=== PATIENT | female | born 1970 | race Two or more races ===

== ENCOUNTER → 2021-06-08 13:17 | Outpatient (BNVA) | payer BC, SELFPAY | PROVIDERS: PCP Nurse Practitioner Adult Health; Visit Provider Nurse Practitioner Family ==

== ENCOUNTER → 2021-08-24 10:14 | Outpatient (BNVA) | payer BC, SELFPAY | PROVIDERS: PCP Nurse Practitioner Adult Health; Visit Provider Nurse Practitioner Family | DX: Z13.89 Encounter for screening for other disorder (principal) ==

== ENCOUNTER 2022-03-29 10:48 | Emergency (ER) | payer OTHER, SELFPAY ==
[2022-03-29] VITALS (7 sets, daily range): BP systolic 128–158; BP diastolic 72–90; PULSE 80–94; RESP 14–20; TEMP 36.7–36.9; O2SAT 98–100; BMI 25.7
--- NOTE | ~2022-03-29 | XR_ITS ---
EXAMINATION: XR ANKLE, RIGHT CLINICAL INFORMATION: Post reduction COMPARISON: Right ankle x-rays earlier today TECHNIQUE: 2 views of the right ankle. XR/XR ankle RT 2V FINDINGS/IMPRESSION: Successful reduction of trimalleolar fracture dislocation of the right ankle. Bones are in near anatomical alignment. The ankle mortise is grossly intact.
--- NOTE | ~2022-03-29 | XR_ITS ---
EXAMINATION: XR ANKLE, RIGHT CLINICAL INFORMATION: Deformity. Fall. COMPARISON: None TECHNIQUE: AP, lateral, and mortise views of the right ankle. FINDINGS: The talus is dislocated posteriorly relative to the tibial plafond. The air is a posterior malleolar fracture fragment with vertex anterior angulation and posterior displacement by 1.5 cm. A Bueno B distal fibular fracture is noted with vertex anterior angulation and posterior displacement of the distal fracture fragment. A fracture of the posterior margin of the medial malleolus is also suspected, although not well seen on these images due to overlapping structures. Soft tissues are swollen. Tarsal bones are intact. XR/XR ankle RT min 3V IMPRESSION: Trimalleolar fracture dislocation of the right ankle.
--- NOTE | 2022-03-29 11:02 | ED.LOWEXIN ---
HPI - Extremity Injury (Lower) General Chief Complaint: Extremity Injury, Lower Stated Complaint: R ankle inj 03/29/22 Time Seen by Provider: 03/29/22 10:55 Source: patient Mode of arrival: wheelchair Limitations: no limitations History of Present Illness HPI Narrative: Patient is a 52-year-old female who presents emergency department for evaluation of traumatic right ankle pain. She states she was carrying something down the stairs and believe she may have missed the last step, causing her foot to get caught behind this tear and twisting. Believes that her foot may have everted. She is having severe pain to the medial ankle, with numbness sensation to the foot. Able to move the toes. Denies any prior injury to this extremity. Denies any anticoagulants. Related Data Home Medications Medication Instructions Recorded Confirmed aripiprazole 5 mg tablet (Abilify) 2.5 mg PO DAILY 06/08/21 01/25/22 baclofen 10 mg tablet 10 mg PO BID 06/08/21 01/25/22 diclofenac sodium 75 mg 75 mg PO BID 06/08/21 01/25/22 tablet,delayed release duloxetine 60 mg capsule,delayed 120 mg PO ONCE 06/08/21 01/25/22 release gabapentin 300 mg capsule mg PO BID 06/08/21 01/25/22 lorazepam 1 mg tablet mg PO BEDTIME 06/08/21 01/25/22 meloxicam 15 mg tablet 15 mg PO DAILY 06/08/21 01/25/22 quetiapine 25 mg tablet 150 mg PO 06/08/21 01/25/22 Previous Rx's Medication Instructions Recorded amitriptyline 10 mg tablet 10 - 20 mg PO BEDTIME 90 days #60 06/08/21 tabs baclofen 10 mg tablet 10 mg PO BID PRN muscle spasm 30 06/08/21 days #60 tabs prazosin 1 mg capsule 1 - 2 mg PO BEDTIME 30 days #60 12/06/21 caps erenumab-aooe 140 mg/mL 140 mg subcut ONCE 30 days #1 mL 01/04/22 subcutaneous auto-injector (Aimovig Autoinjector) oxycodone 5 mg tablet 5 mg PO Q6H PRN pain #10 tabs 03/29/22 Allergies Allergy/AdvReac Type Severity Reaction Status Date / Time codeine [CODEINE] Allergy Unknown UNKNOWN Verified 01/25/22 08:48 penicillin G [PENICILLIN G] Allergy Unknown UNKNOWN Verified 01/25/22 08:48 Sulfa (Sulfonamide Allergy Unknown UNKNOWN Verified 01/25/22 08:48 Antibiotics) [SULFA (SULFONAMIDE ANTIBIOTICS)] Review of Systems Review of Systems: Musculoskeletal: Ankle pain as noted in HPI Yes all other systems are reviewed and are negative [facility] Past Medical History Attestation statement: The following information was validated with the patient. Source: old records reviewed Surgical History History of carpal tunnel release Hx of shoulder surgery Family History Family History Father HTN (hypertension) FHx: mental illness Mother Cancer Social History Social History Alcohol intake: current Patient Tobacco Use Status: Never used Tobacco Advance Directives: No Advance Directives Information Provided: Yes Physical Exam Vital Signs: Vital Signs: Last Vital Signs Temp 98.5 F 03/29/22 13:09 Pulse 82 03/29/22 13:27 Resp 14 03/29/22 13:27 BP 130/78 03/29/22 13:27 Pulse Ox 98 03/29/22 13:27 O2 Del Method 03/29/22 13:27 Oxygen Flow Rate 2 03/29/22 12:21 BMI result Body Mass Index 25.7 Appearance: Alert.?Oriented to person, place and time. No acute distress.?Normal affect. Neck: Normal inspection.? Neck supple.?? CVS: Heart sounds normal. Normal heart rate and rhythm.? Pulses normal.?? Respiratory: No respiratory distress.? Lung sounds clear to auscultation bilaterally?? Abdomen: Soft and non-tender. Normoactive bowel sounds. Skin: Skin warm and dry.? Normal skin color.? Extremities: Deformity to right ankle, difficulty palpating pulses, positive Doppler signal DP/PT. Able to move the toes. Sensation is intact, foot feels cold. Neuro: Moves all extremities spontaneously. Sensation intact bilaterally. Course Course Course Narrative: Patient is a 52-year-old female presents emergency department for evaluation of traumatic right ankle pain. Sensation is intact to the fact, difficulty palpating pedal pulses, Doppler signal present; DP/PT. XR reveals trimalleolar fracture dislocation of the right ankle. Planning for conscious sedation; Versed and Ketamine for reduction and subsequent splinting, patient updated on plan of care. Agreeable with plan. Reevaluation(s) Reevaluation #1: Moderate sedation for reduction of trimalleolar fracture on the right with Dr. Sánchez. Consent obtained, potential complications and risks discussed with patient. Agreeable to moving forward with procedure. After receiving Versed and ketamine developed a macular rash to the anterior chest and right lateral neck that self resolved within 1 minute. Not appearing consistent with urticaria, no airway compromise, no hypoxia. With subsequent Versed and ketamine dosing again developed a macular rash to the anterior chest diffusely across the anterior and lateral neck as well as the face, 25 mg of Benadryl was administered, the nearly completely resolved within 1-2 minutes. Switched to propofol for sedation afterwards. Reduction completed, splinted; posterior long leg and stirrup, obtained post reduction films. Tolerated procedure well. Will consult with Orthopedics on-call, Dr. Malone Time: 12:29 Reevaluation #2: Dr. Malone advised outpatient follow-up in 4 days, on Saturday with subsequent surgery likely Saturday or Saturday. Her reduction x-ray shows near anatomic alignment. Discussed plan of care for discharge home, crutches and training provided, nonweightbearing, splint care discussed, rest, ice, elevation. Reviewed worrisome signs and symptoms to return back to emergency department for. All questions answered. Patient discharged in stable condition. Time: 13:22 Medications Administered Discontinued Medications Generic Name Dose Route Start Last Admin Trade Name Alejandro PRN Reason Stop Dose Admin Diphenhydramine HCl 25 mg 03/29/22 12:06 03/29/22 12:12 Diphenhydramine Hcl 50 Mg/Ml Vial IVPUSH 03/29/22 12:07 25 mg ONCE ONE Administration Ketamine HCl 70.307 mg 03/29/22 11:45 03/29/22 12:02 Ketamine Hcl/Ns 100 Mg/10 Ml Syringe 1 mg/kg (70.307 mg) 03/29/22 11:46 70.307 mg IVPUSH Administration ONCE ONE Midazolam HCl 5 mg 03/29/22 11:19 03/29/22 12:01 Midazolam Hcl/Pf 2 Mg/2 Ml Vial IVPUSH 03/29/22 11:20 4 mg ONCE ONE Increment Incremental Dosing Total Given: 4 mg Oxycodone HCl 5 mg 03/29/22 13:12 03/29/22 13:15 Oxycodone Hcl Immed Release 5 Mg Tablet PO 03/29/22 13:13 5 mg ONCE ONE Administration Propofol 100 mg 03/29/22 12:06 03/29/22 12:14 Propofol 200 Mg/20 Ml Vial IVPUSH 03/29/22 12:07 50 mg ONCE ONE Administration MDM - Extremity Injury (Lower) Medical Records Attestation: I reviewed the patient's medical records. Imaging Data XR ankle: Radiologist's impression: FINDINGS: The talus is dislocated posteriorly relative to the tibial plafond. The air is a posterior malleolar fracture fragment with vertex anterior angulation and posterior displacement by 1.5 cm. A Bueno B distal fibular fracture is noted with vertex anterior angulation and posterior displacement of the distal fracture fragment. A fracture of the posterior margin of the medial malleolus is also suspected, although not well seen on these images due to overlapping structures. Soft tissues are swollen. Tarsal bones are intact. XR/XR ankle RT min 3V IMPRESSION: Trimalleolar fracture dislocation of the right ankle. post-reduction XR: Radiologist's impression: XR/XR ankle RT 2V FINDINGS/IMPRESSION: Successful reduction of trimalleolar fracture dislocation of the right ankle. Bones are in near anatomical alignment. The ankle mortise is grossly intact.? ? Discharge Plan Discharge Clinical Impression: Closed trimalleolar fracture of ankle Qualifiers: Encounter type: initial encounter Laterality: right Qualified Code(s): S82.851A - Displaced trimalleolar fracture of right lower leg, initial encounter for closed fracture Patient Disposition: Home, Self-Care Additional Instructions: As discussed, the splint needs to remain in place until evaluated by orthopedics. It cannot get wet. Be sure to rest, apply ice for 10-15 minutes 4-6 times daily, elevate the leg at all times possible. You can take ibuprofen 200 mg, 3 tablets (600mg) every 6-8 hours as needed for pain, in addition to Tylenol 500 mg, 2 tablets (1,000mg) every 4-6 hours as needed for pain, but not to exceed 3 doses daily (3,000mg).? A new prescription for oxycodone was sent to the pharmacy to use as needed for severe pain. You have been given contact information for Orthopedics, please contact their office to arrange for follow-up visit for Saturday. Return to emergency department any new or worsening symptoms or concerns. Prescriptions: New oxycodone 5 mg tablet 5 mg PO Q6H PRN (Reason: pain) Qty: 10 0RF Rx Instructions: Partial Fill upon patient request. No Action prazosin 1 mg capsule 1 - 2 mg PO BEDTIME 30 Days Qty: 60 3RF Aimovig Autoinjector 140 mg/mL auto-injector 140 mg subcut ONCE 30 Days Qty: 1 6RF diclofenac sodium 75 mg tablet,delayed release (DR/EC) 75 mg PO BID baclofen 10 mg tablet 10 mg PO BID meloxicam 15 mg tablet 15 mg PO DAILY duloxetine 60 mg capsule,delayed release(DR/EC) 120 mg PO ONCE gabapentin 300 mg capsule PO BID lorazepam 1 mg tablet PO BEDTIME quetiapine 25 mg tablet 150 mg PO aripiprazole [Abilify] 5 mg tablet 2.5 mg PO DAILY amitriptyline 10 mg tablet 10 - 20 mg PO BEDTIME 90 Days Qty: 60 0RF baclofen 10 mg tablet 10 mg PO BID PRN (Reason: muscle spasm) 30 Days Qty: 60 3RF Referrals: Jeramy Malone MD [Physician] - Interventions: ED Discharge Assessment Last Done: 03/29/22 13:39 Discharge Date/Time: 03/29/22 13:40
[2022-03-29] MEDS: Midazolam HCl/PF 2 MG/2 ML VIAL 5 MG IVPUSH (12:01)
[2022-03-29] MEDS: Ketamine HCl/NS 100 MG/10 ML SYRINGE 70.307 MG IVPUSH (12:02)
[2022-03-29] MEDS: diphenhydrAMINE HCL 50 MG/ML VIAL 25 MG IVPUSH (12:12)
[2022-03-29] MEDS: propofoL 200 MG/20 ML VIAL 100 MG IVPUSH (12:14)
[2022-03-29] MEDS: oxyCODONE HCl Immed Release 5 MG TABLET PO (13:15)
== END 2022-03-29 13:40 | disposition home or self-care (01) ==
PROVIDERS: Emergency Provider Emergency Medicine; PCP Internal Medicine
DX: S82.851A Displaced trimalleolar fracture of right lower leg, initial encounter for closed fracture (principal); W10.8XXA Fall (on) (from) other stairs and steps, initial encounter; R21 Rash and other nonspecific skin eruption; T41.295A Adverse effect of other general anesthetics, initial encounter; Y92.230 Patient room in hospital as the place of occurrence of the external cause; Y93.89 Activity, other specified; Y92.018 Other place in single-family (private) house as the place of occurrence of the external cause; Y99.9 Unspecified external cause status
CPT/HCPCS: 27818; 73600; 73610; 96374; 96375; 99152; 99284; 99285; J1200; J2250

== ENCOUNTER 2022-04-03 11:35 | Day surgery (SDC) | payer OTHER, SELFPAY ==
[2022-04-03] VITALS (9 sets, daily range): BP systolic 119–153; BP diastolic 72–84; PULSE 82–95; RESP 16–18; TEMP 36.2–36.8; O2SAT 95–100; BMI 27.4
--- NOTE | ~2022-04-03 | FL_ITS ---
EXAMINATION: XR FLUOROSCOPY WITH IMAGES CLINICAL INFORMATION: Open reduction internal fixation right ankle fracture and dislocation. COMPARISON: Radiographs right ankle 03/29/2022 TECHNIQUE: Fluoroscopy Supervised By: Dr. Jeramy Malone. Fluoroscopy Time: 0.3 minutes. DAP: 0.017 Gycm2. Images: 6. FINDINGS: The lateral malleolar fracture is reduced with compression plate and multiple screws. Hardware intact. Near-anatomic alignment. Ankle mortise is symmetric. The suspected fracture posterior medial distal fibula is not well appreciated on spot views. FL/FL guidance in OR IMPRESSION: Status post open reduction internal fixation lateral malleolar fracture.
--- NOTE | 2022-04-03 12:24 | HO.ANESPROP2 ---
HPI - Anesthesia Eval Consult details Narrative: 52 F for right ankle ORIF PMFSH Active Problems Active Problems: All Active Problems (Updated 04/02/22 @ 11:32 by Ally Chavez Leidy) PTSD (post-traumatic stress disorder) (Acute) Tremor, physiological (Acute) Cognitive dysfunction (Acute) Migraine with aura (Acute) Past Medical History Medical History Relapsing polychondritis Family History Family History Father HTN (hypertension) FHx: mental illness Mother Cancer HTN (hypertension) Family history of problems with anesthesia: No Surgical History Surgical History H/O thumb surgery Status post open reduction with internal fixation (ORIF) of fracture of ankle Hx of shoulder surgery History of carpal tunnel release History of Problems with Anesthesia: Yes (PONV ) Social History Alcohol intake: current Alcohol intake frequency: holidays/special occasions only Patient Tobacco Use Status: Never used Tobacco Second Hand Smoke Exposure: No Current occupational status: employed 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, 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 Meds Allergies Allergy/AdvReac Type Severity Reaction Status Date / Time codeine [CODEINE] Allergy Severe swollen Verified 03/08/23 14:04 tongue Sulfa (Sulfonamide Allergy Severe Hives Verified 03/08/23 14:04 Antibiotics) [SULFA (SULFONAMIDE ANTIBIOTICS)] penicillin G [PENICILLIN G] Allergy Unknown UNKNOWN Verified 03/08/23 14:04 Active Medications: Current Medications Cefazolin Sodium/Dextrose (Ancef) 2 gm in 50 mls @ 100 mls/hr IV PREOP ONE Stop: 04/03/22 12:35 Home Medications Medication Instructions Recorded Confirmed Last Taken Type quetiapine 25 mg tablet 150 mg PO BEDTIME 06/08/21 01/08/23 04/02/22 History acetaminophen 650 mg 650 mg PO BID 04/05/22 01/08/23 Unknown History tablet,extended release (Tylenol Arthritis Pain) lorazepam 1 mg tablet 2 mg PO BEDTIME 04/05/22 01/08/23 Unknown History atorvastatin 10 mg tablet 10 mg PO DAILY 08/09/22 01/08/23 Unknown History bupropion HCl 150 mg 24 hr tablet, 150 mg PO QAM 12/31/22 01/08/23 Unknown History extended release (Wellbutrin XL) diclofenac sodium 75 mg 75 mg PO .prn 12/31/22 01/08/23 Unknown History tablet,delayed release duloxetine 60 mg capsule,delayed 90 mg PO ONCE 12/31/22 01/08/23 Unknown History release duloxetine 30 mg capsule,delayed 30 mg PO DAILY 01/08/23 01/08/23 Unknown History release Exam Exam Date and Time: April 03, 2022 1224 Height,Weight and Vital Signs: Height 5 ft 5 in Weight 74.843 kg Last Vital Signs Temp 97.1 F 04/03/22 12:07 Pulse 90 04/03/22 12:07 Resp 16 04/03/22 12:07 BP 153/83 H 04/03/22 12:07 Pulse Ox 97 04/03/22 12:07 O2 Del Method 04/03/22 12:07 Airway Mallampati Class: III Loose/Missing/Broken Teeth: Yes (Fillings ) Assessment and Plan Assessment Anesthesia Assessment: Anesthesia Plan Discussed Final Anesthetic Review Family History of Problems with Anesthesia: No History of Problems with Anesthesia: Yes (PONV ) NPO: Yes ASA Class: II Final Preanesthetic Review: Meds/Allgs Chart Reviewed, Consent Obtained/Reviewed and Anes Risks/Benef Reviewed Patient Risk: Intermediate Procedure Risk: Intermediate Anesthetic Plan Anesthetic Plan: GA, Regional Block and Agree w/ Assess. and Plan Disposition: Standard PACU
--- NOTE | 2022-04-03 13:21 | MHC.SHP ---
Pre-Procedural Eval Section A Date of Service: 04/03/22 The patient is an INPATIENT: No Changes since office visit: Yes Patient answered all questions; No Cold of Flu in the past 2 weeks, No New Medical Problems and No Changes in Medication The History & Physical has been completed within 30 days and I have reviewed it.: Yes Section B Chief Complaint: Nondisplaced trimalleolar fracture of right lower Allergies: Allergies Allergy/AdvReac Type Severity Reaction Status Date / Time codeine [CODEINE] Allergy Unknown UNKNOWN Verified 04/02/22 11:28 penicillin G [PENICILLIN G] Allergy Unknown UNKNOWN Verified 04/02/22 11:28 Sulfa (Sulfonamide Allergy Unknown UNKNOWN Verified 04/02/22 11:28 Antibiotics) [SULFA (SULFONAMIDE ANTIBIOTICS)] Plan I have reviewed the history and physical and performed a pertinent physical examination on my patient. No changes have occurred unless specified.
--- NOTE | 2022-04-03 14:48 | PM.OP ---
Brief Operative Note Date of Service: 04/03/22 Pre-op diagnosis: Right ankle frcture Post-op diagnosis: other (right lateral mal and right posterior mal) Procedure: ORIF lateral malleolus right ankle Implants: [place] 6 hol distal fibular locking plate Surgeon: Jeramy Malone MD Anesthesia: GETA and regional Was an Rotary Soil Stabilizer used for this Procedure?: Yes Rotary Soil Stabilizer: Ciarra Knight Estimated blood loss (mL): 10 Tourniquet time (min): 35 IV fluids (mL): 800 Pathology: none sent Condition: stable Disposition: PACU
--- NOTE | 2022-04-04 08:31 | W.PM.OPN ---
Operative Note Operative Note Date of Service: 04/03/22 Narrative: Date of Service: 04/03/22 Pre-op diagnosis: Right ankle frcture Post-op diagnosis: other (right lateral mal and right posterior mal) Procedure: ORIF lateral malleolus right ankle Implants: [place] 6 hol distal fibular locking plate Surgeon: Jeramy Malone MD Anesthesia: GETA and regional Was an Sales Service Rep used for this Procedure?: Yes Sales Service Rep: Ciarra Knight Estimated blood loss (mL): 10 Tourniquet time (min): 35 IV fluids (mL): 800 Pathology: none sent Condition: stable Disposition: PACU Procedure in detail: Patient was brought to the operating room and placed supine on the operative table. All bony prominences were well padded and a time-out was called to identify proper site proper procedure proper surgeon. IV antibiotics per weight were administered. I began by exsanguinating limb is slightly tourniquet to 300 mm Hg. I then made a standard posterolateral incision over the fibula. Full-thickness flaps were taken down to the fibular shaft and distal fibula. The fracture was identified and cleaned with a combination of curette, rongeur and irrigation. A lobster claw was used to provisionally reduce the fracture and a 6 hole distal fibular locking plate was applied using standard AO technique. Biplanar fluoroscopy was used to confirm hardware position and fracture reduction. Once I was satisfied that both of these were acceptable I irrigated copiously and turned my attention to the medial side. The medial malleolus was stable and the syndesmosis was intact and confirmed with an external rotation stress test. There was a small posterior malleolus fracture which did not warrant repair. Therefore all instrumentation was removed and copious irrigation was performed. Absorbable suture and nik were used for closure and the patient was placed into sterile dressings and a well-padded posterior splint. Tourniquet was let down and the patient was extubated brought to recovery room in stable condition there were no known complications.
== END 2022-04-03 16:49 | disposition home or self-care (01) ==
PROVIDERS: PCP Internal Medicine; Visit Provider Orthopaedic Surgery
PROC: (CPT 27792; principal; 2022-04-03 14:00)
DX: S82.854A Nondisplaced trimalleolar fracture of right lower leg, initial encounter for closed fracture (principal); W10.9XXA Fall (on) (from) unspecified stairs and steps, initial encounter; Y93.9 Activity, unspecified; Y92.9 Unspecified place or not applicable; Y99.9 Unspecified external cause status; Z88.0 Allergy status to penicillin; Z88.2 Allergy status to sulfonamides; Z88.5 Allergy status to narcotic agent
CPT/HCPCS: 27792; C1713; J0690; J1100; J1170; J2250; J2405; J2795

== ENCOUNTER 2022-04-16 | Outpatient (REF) | payer OTHER, SELFPAY ==
--- NOTE | ~2022-04-16 | XR_ITS ---
EXAMINATION: XR ANKLE, RIGHT CLINICAL INFORMATION: Pain in right ankle. COMPARISON: Right ankle 03/29/2022. TECHNIQUE: AP, lateral, and mortise views of the right ankle. FINDINGS: There is a lateral plate and screws stabilizing lateral malleolar fracture in alignment. There are surgical nik along the skin from recent intervention. There is no change in the posterior malleolar and nondisplaced medial malleolar fractures. The ankle mortise and subtalar joints are normal. XR/XR ankle RT min 3V IMPRESSION: 1. Status post ORIF lateral malleolar fracture in alignment. There are surgical nik along the skin from recent intervention. 2. There is no change in the posterior and medial malleolar fractures which are in alignment.
== END 2022-04-16 00:01 ==
LOC: HO.HOSX
PROVIDERS: Visit Provider Physician Assistant
DX: M25.571 Pain in right ankle and joints of right foot (principal)
CPT/HCPCS: 73610

== ENCOUNTER 2022-05-14 16:35 | Outpatient (REF) | payer OTHER, SELFPAY ==
--- NOTE | ~2022-05-14 | XR_ITS ---
EXAMINATION: XR ANKLE, RIGHT CLINICAL INFORMATION: Right ankle pain. COMPARISON: Right ankle radiographs dated 04/16/2022. TECHNIQUE: AP, lateral, and mortise views of the right ankle. FINDINGS: The patient is status post distal fibular ORIF showing good anatomic alignment and no evidence for hardware malfunction. The oblique distal fibular fracture still visualized. The distal tibia is intact. The tibial talar joint space is unremarkable. The tarsal bones are normally aligned. The soft tissues are unremarkable. XR/XR ankle RT min 3V IMPRESSION: Good anatomic alignment without overt hardware abnormality. The distal fibular fracture line is still visualized.
== END 2022-05-14 16:36 | disposition home or self-care (01) ==
LOC: HO.HOSX 16:35
PROVIDERS: Visit Provider Physician Assistant
DX: S82.851D Displaced trimalleolar fracture of right lower leg, subsequent encounter for closed fracture with routine healing (principal); X58.XXXD Exposure to other specified factors, subsequent encounter
CPT/HCPCS: 73610

== ENCOUNTER → 2022-06-28 13:52 | Outpatient (BNVA) | payer OTHER, SELFPAY | PROVIDERS: PCP Nurse Practitioner Adult Health; Visit Provider Physician Assistant | DX: Z13.89 Encounter for screening for other disorder (principal) ==

== ENCOUNTER 2022-08-09 10:39 | Outpatient (REF) | payer OTHER, BC, SELFPAY ==
--- NOTE | ~2022-08-09 | XR_ITS ---
EXAMINATION: XR ANKLE, RIGHT CLINICAL INFORMATION: Ankle pain. Prior reduction. Follow-up. COMPARISON: Radiographs right ankle 05/14/2022 TECHNIQUE: Right ankle is imaged in 3 views. FINDINGS: There is distal fibular compression plate and multiple screws. Hardware is intact. There is no osteolysis or destructive process. Ankle mortise is symmetric. Bony mineralization normal. No acute bony abnormality. The subtalar joint is unremarkable. XR/XR ankle RT min 3V IMPRESSION: -Status post ORIF distal fibula. Hardware intact. -No osteolysis or destructive process. Ankle mortise is symmetric.
== END 2022-08-09 10:40 | disposition home or self-care (01) ==
LOC: HO.HOSX 10:39
PROVIDERS: PCP Nurse Practitioner Adult Health; Visit Provider Physician Assistant
DX: S82.851D Displaced trimalleolar fracture of right lower leg, subsequent encounter for closed fracture with routine healing (principal); R60.0 Localized edema
CPT/HCPCS: 73610

== ENCOUNTER → 2022-09-13 10:49 | Outpatient (BNVA) | payer OTHER, BC, SELFPAY | PROVIDERS: PCP Nurse Practitioner Adult Health; Visit Provider Physician Assistant ==

== ENCOUNTER → 2022-10-08 13:08 | Outpatient (BNVA) | payer OTHER, BC, SELFPAY | PROVIDERS: PCP Nurse Practitioner Adult Health; Visit Provider Physician Assistant ==

== ENCOUNTER → 2022-10-29 13:15 | Outpatient (BNVA) | payer OTHER, BC, SELFPAY | PROVIDERS: PCP Nurse Practitioner Adult Health; Visit Provider Orthopaedic Surgery ==

== ENCOUNTER 2022-12-14 10:00 | Outpatient (RCR) | payer OTHER, BC, SELFPAY ==
--- NOTE | 2022-07-09 12:36 | MHC.PT.EP ---
[facility] [place] Office [place] Office [place] Office [address] Salty Nichole [address] [phone] F: [phone] F: [phone] F: [phone] F: [phone] Physical Therapy Plan of Care Date of Evaluation: Date of Surgery: 04/03/22 Diagnosis: This is a 52 yo female presenting to skilled PT with a script for closed trimalleolar fx of ankle. Assessment: This is a 52 yo female presenting to skilled PT with a script for closed trimalleolar fx of ankle. Patient underwent right ankle lateral malleolus ORIF performed on 04/03/[address] Malone. Per ortho PA note from 06/28: The patient reports pain in her ankle after she has been working on her feet. She confirms numbness in the 2nd, 3rd, and 4th toes on the right foot since the surgery. Patient does have some edema and increase pain along the peritoneal tendons. I recommended anti-inflammatories, elevation, ice, and rest. I would like to see her wean out of boot over the next few weeks. She has been having home physical therapy. However, I would like for her to switch to outpatient physical therapy and an order has been placed. She will need a Lyft to attend these sessions. She will remain out of work until her follow up. Follow up will be in 6 weeks, or sooner if needed. Patient arrives at outpatient PT today reporting a fall on going down the stairs (miss-stepped walking in slippers). She went to [place] ED where she had a manipulation and then surgery. She was in a splint s/p surgery and then a walking boot now for the past 12 weeks. She was NWBing until 6 wks ago. She was having home PT where she was given ankle pumps and ankle circles HEP as well as educated on cane use. She is using a walker at night/straight cane when out and occasionally uses the kneeling scooter still. She reports swelling and pain when attempting to wean out of boot on her own (she trys to tolerate without boot in AM as long as she can and then takes a break and puts back on for a rest). States that she is unable to stand longer than 10-15 mins without the boot, is not driving per surgeon and is not working due to pain and ambulation capabilities currently. She lives at home with her and step son and has help but tries to perform ADLs on own. Pain is located laterally and goes into the gastroc (achy, sharp and stabbing). Additionally has distal three digit numbness. Denies back and hip pain. Returns to surgeon on 08/09/22. Assessment reveals pain that ranges from a 4-10/10. Patient demos decreased ankle as well as knee and hip ROM, strength of BLE, impaired gait pattern and currently ambulating in boot at [facility]. She is TTP at lateral ankle, has gastroc and quad atrophy and decreased balance as well as self reported decreased endurance. Based on functional limitations, impaired QOL and decreased pain tolerance this patient is a good candidate for skilled PT 2x/wk for 6 wks. Frequency and Duration: The patient will be seen 2x/wk for 6wks Short Term Goals: I in HEP in 2 wks Fully wean from boot in 3 wks Improve DF by 5 degs in 4 wks Perform reciprocal gait on stairs in 4 wks [employer] Supervisor Goals: Demo normal/functional ankle ROM without gait deviation in 6 wks Improve pain to no more than a 2/10 at the worst in 6wks Return to work in full when medically cleared by surgeon Improve LEFs by at least 10 points in 6wks Treatment Plan: Modalities to reduce pain, spasms and effusion. Manual therapy to restore motion and function. Therapeutic exercise to improve strength and flexibility. Neuromuscular re-education for posture and balance. Therapeutic activities to return to functional activities of daily living. Electronically signed by: Jessica Lyn PT Please sign and return to therapist. Thank you for your referral.
--- NOTE | 2022-07-30 15:29 | MHC.PT.PR ---
[facility] [place] [facility] [place] [facility] [place] Office [address] Salty Nichole [address] [phone] F: [phone] F: [phone] F: [phone] F: [phone] Physical Therapy Progress Note Diagnosis: This is a 52 yo female presenting to skilled PT with a script for closed trimalleolar fx of ankle. Date of Surgery: 04/03/22 Date of Evaluation: 07/09/22 Treatments to Date: 7 Cancellations to Date: 0 No Shows to Date: 0 Subjective: Patient reporting a lot of pain. She had a hard weekend due to pain Pain Score and Location: 3 lateral ankle and gastroc Objective Measures: formal ROM next visit Assessment: 07/30: Pt reporting continuation of pain. She is frustrated with lack of progress in terms of pain management. She has not been using ice, educated her that this may be a helpful addition. She returned to wearing the boot in the house due to pain and continues to need the cane. She became emotional at our session due to pain. Her ROM has been gradually improving and she demos good active lateral, medial and PF as well as toe movements. DF is still limited but better than eval. Held standing work today due to pain. She returns to ortho for a follow up next week and educated her that she may want to ask for an x-ray and/or pain management education. I will send this report along to ortho for her visit. PT Plan: Continue with PT Frequency and Duration: The patient will be seen 2x/wk for 5wks Treatment Plan: Therapeutic Exercise Dynamic Therapeutic Activities Neuromuscular Re-ed Manual Therapies Taping Gait Home Exercise Program Patient Education Hot or Cold Pack Reviewed/ Agreed with Student Documentation: Therapist: Thank you once again for your referral.
--- NOTE | 2022-10-03 12:40 | MHC.PT.PR ---
[facility] [place] Office [place] Office [place] Office [address] Salty Nichole [address] [phone] F: [phone] F: [phone] F: [phone] F: [phone] Physical Therapy Progress Note Diagnosis: This is a 52 yo female presenting to skilled PT with a script for closed trimalleolar fx of ankle. Date of Surgery: 04/03/22 Date of Evaluation: 07/09/22 Treatments to Date: 20 Cancellations to Date: 0 No Shows to Date: 0 Subjective: Patient reporting a fall over the weekend Pain Score and Location: 4 lateral ankle Objective Measures: 5 degs DF AROM 40 degs PF AROM 30 degs INV AROM 20 degs EV AROM Assessment: 10/03: Patient reporting a misstep off of a concrete step into the grass over the weekend. Pain increased and swelling increased. She reports that since then this has improved some but instability is causing her to cautious when walking. She reports with PT her pain is about the same, her skin sensitivity is about the same as well which are both concerning to her. She is still ambulating with a cane but attempts to not use this at home however cannot wean off of it yet. Demos good heel strike and toe off ambulation but antalgic still. Her ROM are above and improved since last assessment however patient needs increased time to reach end ranges. She demos 1/5 PF, 3-/5 DF, 3+ inv and ev. Ankle is still swollen compared to L however no pitting edema noted. She has an HEP for strengthening and stretching at home and has been trying to do more with her ADLs. She continues to be very fearful about reinjury, demos increased stress levels with elevated upper traps when performing ther-ex and has increased anxiety. PT Plan: Continue with PT Frequency and Duration: The patient will be seen 2x/wk for 5wks Treatment Plan: Therapeutic Exercise Dynamic Therapeutic Activities Neuromuscular Re-ed Manual Therapies Taping Gait Home Exercise Program Patient Education Hot or Cold Pack Reviewed/ Agreed with Student Documentation: Therapist: Thank you once again for your referral.
--- NOTE | 2022-12-14 14:01 | MHC.PT.DC ---
[facility] [place] [facility] [place] Office [place] Office [address] Salty Nichole [address] [phone] F: [phone] F: [phone] F: [phone] F: [phone] Physical Therapy Discharge Report Diagnosis: This is a 52 yo female presenting to skilled PT with a script for closed trimalleolar fx of ankle. Date of Surgery: 04/03/22 Date of Evaluation: 07/09/22 Date of Discharge: 12/14/22 Treatments to Date: 36 Cancellations to Date: 0 No Shows to Date: 0 Discharge Status: Improved Function Independent with HEP Discharge Summary: 12/14: Patient is finishing PT today after 36 visits. She has come a long way since her evaluation. She does however, continue to ambulate with a cane but reports trying to wean off when in a comfortable environment (needs ASO support as well). The cane is for fear of falling and imbalance due to her reports that her limb feels shorter now. She also feels like she is unable to do a full day of house work, ADLs etc due to limitations in pain, PTSD from fall on basement stairs and that her hardware makes her feel as if her limb is not part of her body. She has increased her activity and understands the importance of taking breaks when the pain increases. Additionally, she continues to have pain (ranges 0-5) at the incision laterally (reports jamming sensation and warmth) and throughout the heel (like there is a nail). Along with these aches she has PF pain which I have provided exercises for but she would benefit from a referral to orthotics specialist due to continuation of pain and flat feet at baseline now exacerbated from her surgery. At this point she has had 35 visits of PT and is plateauing in progress, has a sufficient HEP to continue on her own and was educated on length of healing times (which are also complicated by her PMHx/fibromyalgia) and continuation of improving her endurance, gait, ROM (limited in DF still) and strength on her own. I educated her that a gym membership may also be beneficial. She does feel that she cannot return to work at this time because of the high paced environment and her pain levels still. I encouraged her that she should speak with her surgeon about her ongoing limitations and worries about return to work. She is also managing her anxiety with her therapist and is awaiting physiatry referral as well. DC to HEP as skilled PT is no longer indicated at this time. Electronically signed by: Jessica Lyn PT Please sign and return to therapist. Thank you for your referral.
== END 2022-12-14 14:03 | disposition home or self-care (01) ==
LOC: HO.PTCHIC 10:00
PROVIDERS: PCP Nurse Practitioner Adult Health; Visit Provider Physician Assistant
DX: S82.851D Displaced trimalleolar fracture of right lower leg, subsequent encounter for closed fracture with routine healing (principal)
CPT/HCPCS: 97110; 97112; 97116; 97140; 97162; 97530

== ENCOUNTER 2022-12-31 12:04 | Outpatient (REF) | payer OTHER, SELFPAY ==
--- NOTE | ~2022-12-31 | XR_ITS ---
EXAMINATION: XR ANKLE, RIGHT CLINICAL INFORMATION: Pain. COMPARISON: Radiographs dated 08/09/2022. TECHNIQUE: AP, lateral, and mortise views of the right ankle. FINDINGS: Bony alignment and mineralization are normal. The ankle mortise is intact. No fracture, dislocation or right ankle joint effusion is seen. An orthopedic plate and screws are applied to the lateral malleolus, without hardware failure or loosening. Boehler's angle is normal. There is no calcaneal spur. There is no focal soft tissue swelling, gas or foreign body. XR/XR ankle RT min 3V IMPRESSION: 1. No fracture, dislocation or right ankle joint effusion is seen. 2. There are postoperative changes of the right ankle, without hardware failure or loosening noted.
== END 2022-12-31 12:05 | disposition home or self-care (01) ==
LOC: HO.HOSX 12:04
PROVIDERS: Visit Provider Orthopaedic Surgery
DX: M25.571 Pain in right ankle and joints of right foot (principal); Z79.899 Other long term (current) drug therapy; Z98.890 Other specified postprocedural states
CPT/HCPCS: 73610

== ENCOUNTER 2022-12-31 13:00 | Outpatient (AMB) | payer OTHER, BC, SELFPAY ==
--- NOTE | 2022-12-31 13:05 | A.OFFVIS_ITS ---
Intake Intake Visit Reasons: OV - RT ORIF lateral malleolus 04/03/22 NE Intake Note: Siria is a 52 year old female who presents today for a follow up of right ORIF lateral malleolus, 04/03/22 NE. She states she would like to discuss her return to work. She is still using a cane to ambulate. She reports pain with increased activity. Allergies codeine [CODEINE] Allergy (Severe, Verified 12/31/22 13:20) swollen tongue Sulfa (Sulfonamide Antibiotics) [SULFA (SULFONAMIDE ANTIBIOTICS)] Allergy (Severe, Verified 12/31/22 13:20) Hives penicillin G [PENICILLIN G] Allergy (Unknown, Verified 12/31/22 13:20) UNKNOWN Medication List - Last Reconciled 12/31/22 by Bharati Rodriguez RN [3 in 1 commode 3 in 1 commode] acetaminophen ER (Tylenol Arthritis Pain) 650 mg PO BID atorvastatin 10 mg PO DAILY baclofen 10 mg PO BID 30 days bupropion HCl (Wellbutrin XL) 150 mg PO QAM diclofenac sodium 75 mg PO .prn duloxetine 90 mg PO ONCE fremanezumab-vfrm (Ajovy) 225 mg (1.5 mL) subcut ONCE 30 days gabapentin TAKE 1 CAPSULE BY MOUTH FOUR TIMES A DAY [Knee Scooter duration : 6 months ] lorazepam 2 mg PO BEDTIME oxycodone 5 mg PO Q4H PRN 7 days prazosin 1 - 2 mg (1 - 2 x 1 mg) PO BEDTIME 30 days quetiapine 150 mg PO BEDTIME [SHOWER CHAIR As directed] sumatriptan succinate 50 - 100 mg orally at onset of headache, may repeat in 2 hrs PRN; max 2 tabs per day or 4 tabs/week (may take with Ibuprofen) 30 days walker Folding Front wheeled walker HPI OV - RT ORIF lateral malleolus 04/03/22 NE HPI Details Siria is a 52 year old woman ~9 months S/P right lateral malleolus ORIF. She says she continues to have pain with increased activity. She has been using an ASO brace and walking with her cane prn. She says PT has been very helpful for her and she is happy with her treatment there. She would like to discuss RTW status. 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 She would like to return to work on restricted duties at this time. She says she can stand for ~2 hours at a time before having to sit and rest her ankle. She says her job is very stressful and she is interested in a change. She has Fibromyalgia. 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 Review of Systems Const All systems reviewed & are unremarkable except as noted in HPI and below Physical Exam Const General: no acute distress and alert Orientation/consciousness: patient oriented x3 HEENT Head: Yes normocephalic and Yes atraumatic Eyes EOM: EOMs intact bilaterally Resp Effort & Inspection: normal respiratory effort and able to speak in complete sentences Cardio Jugular venous distension: no JVD Skin General skin exam: turgor normal Rashes: no rashes Neuro General: patient oriented x3 Extrem Other: Right Ankle: Well-healed incision Mild antalgia with gait No TTP Full ROM Psych Appearance: grossly normal Affect: normal affect Attitude: cooperative Results Reviewed Results Reviewed: I personally reviewed relevant radiographs. Right ankle fracture healed. No hardware complications Assessment & Plan Assessment & Plan (1) History of open reduction and internal fixation (ORIF) procedure: Comment: Right ankle lateral malleolus ORIF; 04/03/2022 NE Code(s): Z98.890 - Other specified postprocedural states Plan: This is a 52 year old woman S/P right lateral malleolus ORIF, DOS: 04/03/22. She continues to have some pain with daily activity, but says she has improved overall with time and PT. She has been wearing an ASO brace and ambulating with an assistive cane. She does have Fibromyalgia. I recommend she continue to remain active, wear her brace, and perform her exercises at home. She was given a note for work to return on light duty, no standing >1 hour at a time with equal amount of sitting time in between. She will follow up in 2 months. Plan Scribed for Jeramy Malone MD by Charles Contreras, medical sociologist, on 12/31/22 at 1:45 PM, EST. Orders: Orders XR ankle RT min 3V Today M25.579 - Pain in unspecified ankle and joints of unspecified foot Coding Level of Care Code Est Pt Level 3 (02974) Diagnoses History of open reduction and internal fixation (ORIF) procedure Z98.890
== END 2022-12-31 13:54 | disposition home or self-care (01) ==
PROVIDERS: PCP Nurse Practitioner Adult Health; Visit Provider Orthopaedic Surgery
DX: S82.851D Displaced trimalleolar fracture of right lower leg, subsequent encounter for closed fracture with routine healing (principal)
CPT/HCPCS: 99213

== ENCOUNTER 2023-01-08 08:15 | Outpatient (AMB) | payer OTHER, SELFPAY ==
--- NOTE | 2023-01-08 08:29 | MHC.OFFVIS ---
Intake Vital Signs 01/08/23 08:39 Weight 194 lb 4 oz BP 102/58 L Blood Pressure Location Lt brachial Position Sitting Pulse 95 Pulse Source Pulse Oximeter Pulse Oximetry (%) 97 Oxygen Delivery Method Room Air Intake Visit Reasons: Follow up for Migraines - Confirmed Intake Note: F/U Migraines, states migraines are better with Ajovy. She has had maybe 2 migraines a month.Also would like to talk to you about tremors. Final Operations Technician Required: No Allergies codeine [CODEINE] Allergy (Severe, Verified 01/08/23 08:32) swollen tongue Sulfa (Sulfonamide Antibiotics) [SULFA (SULFONAMIDE ANTIBIOTICS)] Allergy (Severe, Verified 01/08/23 08:32) Hives penicillin G [PENICILLIN G] Allergy (Unknown, Verified 01/08/23 08:32) UNKNOWN Medication List - Last Reconciled 01/08/23 by NOLAN Mackay [3 in 1 commode 3 in 1 commode] acetaminophen ER (Tylenol Arthritis Pain) 650 mg PO BID atorvastatin 10 mg PO DAILY baclofen 10 mg PO BID 30 days bupropion HCl (Wellbutrin XL) 150 mg PO QAM diclofenac sodium 75 mg PO .prn duloxetine 90 mg PO ONCE duloxetine 30 mg PO DAILY fremanezumab-vfrm (Ajovy) 225 mg (1.5 mL) subcut ONCE 30 days gabapentin TAKE 1 CAPSULE BY MOUTH FOUR TIMES A DAY lorazepam 2 mg PO BEDTIME prazosin 1 - 2 mg (1 - 2 x 1 mg) PO BEDTIME 30 days quetiapine 150 mg PO BEDTIME sumatriptan succinate 50 - 100 mg orally at onset of headache, may repeat in 2 hrs PRN; max 2 tabs per day or 4 tabs/week (may take with Ibuprofen) 30 days HPI HPI Comments History of Present Illness Details Left-handed 52-yr-old female presents for f/u visit. Pt continues to slowly recover from right ankle fracture. She reports her migraines are better on Ajovy. She is having 2 severe migraine days per month now. She is using her Sumatriptan less often, but it works when needed. She is noticing more UE tremor, more so on LUE. This is more so when she is in pain. She is noticing this at rest or with action. Other people are noticing the tremor. The tremor is worse when she is in pain- thinks this is triggered by right ankle pain, fibromyalgia. [facility] Medical History Relapsing polychondritis Surgical History H/O thumb surgery History of carpal tunnel release Hx of shoulder surgery Status post open reduction with internal fixation (ORIF) of fracture of ankle Family History (Updated 01/08/23 @ 08:37 by Asuncion Love CMA) Father HTN (hypertension) FHx: mental illness Mother Cancer HTN (hypertension) Social History (Updated 01/08/23 @ 08:39 by Asuncion Love CMA) Alcohol intake: current Alcohol intake frequency: holidays/special occasions only Patient Tobacco Use Status: Never used Tobacco Second Hand Smoke Exposure: No Current occupational status: employed 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, 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 Review of Systems Const All systems reviewed & are unremarkable except as noted in HPI and below Physical Exam Vital Signs: Last Vital Signs Pulse 95 01/08/23 08:39 BP 102/58 L 01/08/23 08:39 Pulse Ox 97 01/08/23 08:39 Oxygen Delivery Method Room Air 01/08/23 08:39 Const General: cooperative and no acute distress Orientation/consciousness: patient oriented x3 HEENT Head: Yes normocephalic Resp Effort & Inspection: normal respiratory effort and able to speak in complete sentences Neuro Other: BUE L > R postural tremor General: patient oriented x3 and CN's II-XI intact bilaterally Cognition (Neuro): normal cognition Gait exam (Neuro): Assisted gait required (cane) Motor exam (neuro): 5/5 motor strength present throughout Psych Appearance: grossly normal Mental Status: mental status grossly normal Speech and movement: Normal speech and movement present Affect: normal affect Attitude: cooperative Thought process: Normal thought process present Thought content: Normal thought content present Insight: Good insight present (Psych) Judgement: Good judgement present (Psych) Assessment & Plan Assessment & Plan (1) Migraine with aura: Code(s): G43.109 - Migraine with aura, not intractable, without status migrainosus (2) Essential tremor: Code(s): G25.0 - Essential tremor Plan For migraine prevention: Continue Ajovy 225mg sc q month- as pt has had good clinical effect from use. Continue Prazosin 1-2mg qhs- for nocturnal PTSD as well. Continue Gabapentin 300mg bid and 600mg qhs. Previous migraine tx trials- Amitriptyline- ineffective, Propranolol- ineffective. Erenumab- effective, but switched d/t insurance. ? For acute migraine tx: Continue prn Sumatriptan. Pt's current triptan use would not result in medication overuse headache. Future considerations: Resuming Ubrelvy prn- previously had good effect. ? For cognition/anxiety: Continue to monitor. F/u w/ psychiatry as scheduled. For ET: Could consider retrying BB. Futire considerations- CalTrio device. ? f/u in 4 months or sooner new or worsening s/s. Coding Level of Care Code Est Pt Level 4 (19057) Diagnoses Migraine with aura G43.109 Essential tremor G25.0
[2023-01-08 08:39] VITALS: BP 102/58; PULSE 95; O2SAT 97
== END 2023-01-08 09:51 | disposition home or self-care (01) ==
PROVIDERS: Visit Provider Nurse Practitioner Family
DX: G43.109 Migraine with aura, not intractable, without status migrainosus (principal); G25.0 Essential tremor
CPT/HCPCS: 99214

== ENCOUNTER → 2023-01-08 08:15 | Outpatient (BNVA) | payer OTHER, SELFPAY | PROVIDERS: Visit Provider Nurse Practitioner Family ==

== ENCOUNTER 2023-01-11 09:47 | Outpatient (AMB) | payer OTHER, SELFPAY ==
--- NOTE | 2023-01-11 09:57 | MHC.OFFVIS ---
Intake Vital Signs 01/11/23 10:12 Height 5 ft 5 in Weight 194 lb BMI 32.3 BP 96/62 Blood Pressure Location Lt brachial Position Sitting Respiration 16 Pulse 85 Pulse Source Pulse Oximeter Pulse Oximetry (%) 99 Oxygen Delivery Method Room Air Intake Visit Reasons: Other Specified Postprocedural States Allergies codeine [CODEINE] Allergy (Severe, Verified 01/08/23 08:32) swollen tongue Sulfa (Sulfonamide Antibiotics) [SULFA (SULFONAMIDE ANTIBIOTICS)] Allergy (Severe, Verified 01/08/23 08:32) Hives penicillin G [PENICILLIN G] Allergy (Unknown, Verified 01/08/23 08:32) UNKNOWN HPI HPI Comments History of Present Illness Details Siria is a very pleasant 52 year old female who presents to the office today for evaluation management of chronic post operative pain to the right ankle. Patient reports that March of last year she fell while going down some stairs and fractured her ankle. She is status post ORIF lateral malleolus 03/2022. Patient reports pain has persisted and recovery has been slow. She feels that her other chronic inflammatory conditions have delayed her healing. Patient has tried nonsteroidal anti-inflammatory medications, muscle relaxers, opioid medications without relief. She is currently taking gabapentin for her fibromyalgia which he states is not helping her post op pain. Patient attended PT, completed 12/2022, she has been doing HEP and reports improvement in pain and mobility. She was recently changed from a walking boot that ASO brace which she uses only when she leaves the home. 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 She is feeling frustrated and is concerned about when she will be able to return to work and how should be able to manage working with this pain. Pain today is rated as a 3/10, burning and stabbing. The pain is constant, worse in the mornings and the evenings. Pain exacerbated with activity, standing and walking. In terms of muscle damage and is described as aching, spasming, hot, burning, tiring and exhausting. The pain is negatively impacting her enjoyment of life, general activity, mood, and normal work, recreational activities, relationships with people and walking. [facility] Medical History Relapsing polychondritis Surgical History H/O thumb surgery History of carpal tunnel release Hx of shoulder surgery Status post open reduction with internal fixation (ORIF) of fracture of ankle Family History (Updated 01/08/23 @ 08:37 by Asuncion Love CMA) Father HTN (hypertension) FHx: mental illness Mother Cancer HTN (hypertension) Social History (Updated 01/08/23 @ 08:39 by Asuncion Love CMA) Alcohol intake: current Alcohol intake frequency: holidays/special occasions only Patient Tobacco Use Status: Never used Tobacco Second Hand Smoke Exposure: No Current occupational status: employed 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 Answers questions appropriately. Fully engaged in examination. Skin: warm, dry, intact HEENT: Normocephalic. Hearing intact. Cardiac: External chest normal in appearance. Respiratory: No cough, audible wheezing or stridor. Abdomen: without gross distension. MS: No obvious swelling or deformities. Able to transition from sit to stand unassisted. Ambulates with steady gait utilizing cane Right Ankle: well healed surgical incision without redness, drainage, erythema. No loss of hair noted, no changes to skin color or temperature. Full ROM. Tenderness to palpation over lateral ankle Neurological: Oriented to person, place, time and situation. Thought process intact. No gait abnormalities appreciated. Psychiatric: Appropriate mood and affect. Good judgment and insight. Assessment & Plan Assessment & Plan (1) History of open reduction and internal fixation (ORIF) procedure: Comment: Right ankle lateral malleolus ORIF; 04/03/2022 NE Code(s): Z98.890 - Other specified postprocedural states (2) Chronic postoperative pain: Code(s): G89.28 - Other chronic postprocedural pain Plan Siria is a very pleasant 52-year-old female who presented to the office today for evaluation and management of her chronic postoperative pain. The patient is status post right ankle lateral malleolus ORIF 04/03/2022. History, physical exam and provocative testing consistent with chronic postprocedural pain. Patient has exhausted conservative therapy including NSAIDs, muscle relaxers, opioid medication and physical therapy. Discussed options for treatment including diagnostic interventional testing, steroid injections, peripheral nerve stimulation with Sprint, RFA and more permanent neuromodulation. Informational pamphlets provided. [employer] Tens unit ordered, instructions for use provided to patient. Will schedule for ultrasound-guided diagnosis right sciatic nerve block. If patient reports positive results of diagnostic nerve block will plan for right sciatic nerve sprint PNS. All questions and concerns have been answered and patient agrees with the plan. Follow up after injections and sooner if needed. Coding Level of Care Code New Pt Level 4 (43860) Diagnoses History of open reduction and internal fixation (ORIF) procedure Z98.890 Chronic postoperative pain G89.28
[2023-01-11 10:12] VITALS: BP 96/62; PULSE 85; RESP 16; O2SAT 99; BMI 32.3
== END 2023-01-11 11:39 | disposition home or self-care (01) ==
PROVIDERS: PCP Nurse Practitioner Adult Health; Visit Provider Registered Nurse Emergency
DX: G89.29 Other chronic pain (principal)
CPT/HCPCS: 99204

== ENCOUNTER → 2023-01-11 09:47 | Outpatient (BNVA) | payer OTHER, SELFPAY | PROVIDERS: PCP Nurse Practitioner Adult Health; Visit Provider Registered Nurse Emergency ==

== ENCOUNTER 2023-01-18 11:30 | Outpatient (AMB) | payer OTHER, SELFPAY ==
--- NOTE | 2023-01-18 11:39 | A.OFFVIS_ITS ---
Intake Vital Signs 01/18/23 11:43 Height 5 ft 5 in Weight 195 lb BMI 32.4 BP 142/70 H Blood Pressure Location Lt brachial Position Sitting Respiration 14 Pulse 78 Pulse Source Pulse Oximeter Pulse Oximetry (%) 98 Oxygen Delivery Method Room Air Intake Visit Reasons: Right Dx sciatic nerve block Allergies codeine [CODEINE] Allergy (Severe, Verified 01/08/23 08:32) swollen tongue Sulfa (Sulfonamide Antibiotics) [SULFA (SULFONAMIDE ANTIBIOTICS)] Allergy (Severe, Verified 01/08/23 08:32) Hives penicillin G [PENICILLIN G] Allergy (Unknown, Verified 01/08/23 08:32) UNKNOWN HPI Right Dx sciatic nerve block HPI Details 52-year-old female who presents today to the office for a right diagnostic peroneal nerve block. Denies any recent cough, cold, infection, fever or other significant changes in medical history since last office visit. PFSH Medical History Relapsing polychondritis Surgical History H/O thumb surgery History of carpal tunnel release Hx of shoulder surgery Status post open reduction with internal fixation (ORIF) of fracture of ankle Family History (Updated 01/08/23 @ 08:37 by Asuncion Love CMA) Father HTN (hypertension) FHx: mental illness Mother Cancer HTN (hypertension) Social History (Updated 01/08/23 @ 08:39 by Asuncion Love CMA) Alcohol intake: current Alcohol intake frequency: holidays/special occasions only Patient Tobacco Use Status: Never used Tobacco Second Hand Smoke Exposure: No Current occupational status: employed 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 Alert and oriented. Mood and affect appropriate. Follows and participates in conversation appropriately. Respiratory effort is unlabored. Able to transition from sit to stand unassisted. Ambulates with bilaterally normal heel strike and toe off. Office Procedures Nerve Block Details: Right peroneal nerve block, ultrasound-guided After obtaining written consent, pre-procedure blood pressure and heart rate were stable and recorded in the nursing record. The patient was placed lateral on the table. The popliteal fossa area overlying the sciatic nerve was widely prepped with chloraprep, allowed to dry and sterilely draped. Using ultrasound, the appropriate landmarks including the popliteal artery and peroneal nerve were identified. The skin overlying the target was anesthetized with 1% lidocaine. A 25 gauge 1.5 in needle was advanced under sonographic guidance to the peroneal segment of the sciatic nerve after the bifurcation. Aspiration was negative for heme and synovial fluid. 4 cc of lidocaine 1.5% was injected around the peroneal nerve. The needle was removed, skin cleansed and a sterile bandage was applied. The patient tolerated the procedure well and no complications were encountered. Following the procedure, the patient's vital signs and foot strength were stable. The patient was discharged home in good condition with post-procedural instructions. Time Out: Immediately prior to the procedure, the following was verbally confirmed that there is a signed consent form and that the correct patient, planned procedure, site and side are consistent with documentation and that necessary equipment and/or blood products are available prior to the start of the case. Complications: none EBL: <1 cc Note: An ultrasound image of the injection was taken and stored in the permanent record. 07196 - Sciatic Procedure code (CPT) selection complete Results Reviewed Results Reviewed: No imaging is available for review. Assessment & Plan Assessment & Plan (1) Chronic postoperative pain: Code(s): G89.28 - Other chronic postprocedural pain (2) Right ankle pain: Code(s): M25.571 - Pain in right ankle and joints of right foot Qualifiers: Chronicity: chronic Qualified Code(s): M25.571 - Pain in right ankle and joints of right foot; G89.29 - Other chronic pain Plan Patient is status post right peroneal nerve block, ultrasound-guided. Patient tolerated procedure well and was discharged home in stable condition with discharge instructions. All questions were answered. We will follow-up in two weeks via telephone or in clinic to assess response to therapy. A follow-up appointment was made during today's visit. Scribed for Dr. Claudio by Blair Doherty, medical affairs specialist, on 01/18/2023. I, Dr. Claudio, have personally reviewed and agree with the information entered by the scribe. Coding Level of Care Code Procedure Only Diagnoses Chronic postoperative pain G89.28 Chronic pain of right ankle M25.571; G89.29 Chronicity: chronic CPT Codes Nerve Block - Nerve Block 6: 28812 - Sciatic ([id number])
[2023-01-18 11:43] VITALS: BP 142/70; PULSE 78; RESP 14; O2SAT 98; BMI 32.4
== END 2023-01-18 12:00 | disposition home or self-care (01) ==
PROVIDERS: PCP Nurse Practitioner Adult Health; Visit Provider Internal Medicine
DX: M25.571 Pain in right ankle and joints of right foot (principal); G89.28 Other chronic postprocedural pain; G89.29 Other chronic pain
CPT/HCPCS: 64445

== ENCOUNTER → 2023-01-18 11:30 | Outpatient (BNVA) | payer OTHER, SELFPAY | PROVIDERS: PCP Nurse Practitioner Adult Health; Visit Provider Internal Medicine | DX: G89.29 Other chronic pain (principal); M25.571 Pain in right ankle and joints of right foot | CPT/HCPCS: 64445 ==

== ENCOUNTER 2023-02-27 13:40 | Day surgery (SDC) | payer OTHER, BC, SELFPAY ==
[2023-02-27 14:19] VITALS: BP 141/75; PULSE 93; RESP 18; TEMP 36.9; O2SAT 97; BMI 31.6
--- NOTE | 2023-02-27 15:06 | MHC.SHP ---
Pre-Procedural Eval Section A Date of Service: 02/27/23 The patient is an INPATIENT: No Changes since office visit: Yes Patient answered all questions The History & Physical has been completed within 30 days and I have reviewed it.: No Section B Chief Complaint: Pain in right ankle and joints of right foot Relevant Family History (Specify if Yes): No Relevant Social History: None Present Medications: see Short Stay Collaborative assessment Medical History: No relevant PMH History of Previous Operations: No relevant previous surgery Allergies: Allergies Allergy/AdvReac Type Severity Reaction Status Date / Time codeine [CODEINE] Allergy Severe swollen Verified 01/08/23 08:32 tongue Sulfa (Sulfonamide Allergy Severe Hives Verified 01/08/23 08:32 Antibiotics) [SULFA (SULFONAMIDE ANTIBIOTICS)] penicillin G [PENICILLIN G] Allergy Unknown UNKNOWN Verified 01/08/23 08:32 Review of Systems Sugical H&P ROS: Negative: Constitution, Cardiovascular and Respiratory Exam Surgical H&P Exam: Normal: HEENT, Normal: Heart and Normal: Lungs Plan Diagnosis/Plan: Unchanged I have reviewed the history and physical and performed a pertinent physical examination on my patient. No changes have occurred unless specified. Proceed with right sciatic nerve PNS trial placement. Time Spent With Patient Time: Total time managing care of this patient today ____ minutes.
[2023-02-27 15:54] VITALS: BP 145/87; PULSE 78; RESP 16; TEMP 36.1; O2SAT 99
--- NOTE | 2023-02-27 15:57 | P.BOP_ITS ---
Brief Operative Note Date of Service: 02/27/23 Pre-op diagnosis: Chronic right ankle pain Post-op diagnosis: same Procedure: Temporary right peroneal/tibial nerve stimulator placement Implants: Sprint temporary PNS system Surgeon: Demetris Claudio MD Anesthesia: local Was an Welding Process Engineer used for this Procedure?: No Estimated blood loss (mL): 1 Pathology: none sent Condition: stable Disposition: same day
--- NOTE | 2023-02-27 15:58 | W.PM.OPN ---
Operative Note Operative Note Date of Service: 02/27/23 Narrative: Peripheral Nerve Stimulation Temporary Lead Placement, Ultrasound-Guided, Peroneal and Tibial Nerves, Right ? After the risks, benefits and alternatives were discussed with the patient and informed consent was obtained, patient was placed in the lateral position and padded to foster comfort. Appropriate skin and bony landmarks were identified, and pertinent vascular structures were located. The skin overlying the needle entry site was prepped and draped in sterile fashion. Ultrasound was used to identify the popliteal artery, the sciatic nerve and its bifurcation into the peroneal and tibial nerves. After identifying and marking the intended target, the skin around the planned entry point and the subcutaneous tissues were injected with local anesthetic. An introducer needle and stimulating probe were assembled, inserted and advanced in and out of plane fashion to the bifurcation point between the peroneal and sciatic nerve, taking care to maintain the proper depth of insertion as the introducer was advanced under ultrasound guidance. The introducer needle was delivered to a location in proximity to the nerve taking care not to puncture the popliteal artery or the vein. Multiple stimulation parameters were used to deliver stimulation to the target nerve in concert with stimulating at multiple positions around the nerve. Nerve target acquisition was confirmed noting generation of sensory affect in the right ankle, heel and toes; corresponding to the distribution of the peroneal and tibial nerves. Various electrical parameter combinations were tested, and the lead location was adjusted (physically relocated under ultrasound guidance) until the patient indicated paresthesia and tension overlapping the distribution of the patient?s typical region of pain. The stimulating probe was removed from the introducer and a percutaneous lead was guided through the needle and delivered to a location in similar proximity to the nerve. Final location was verified with electrical stimulation and documented. The introducer needle was removed, and the exposed end of the percutaneous lead was attached to an external stimulator unit. Various electrical parameter combinations were again tested until the patient indicated paresthesia and muscle tension overlapping the distribution of the patient?s typical region of pain. After confirming that lead impedance was in the normal range, the external unit was detached, the needle was removed, and the lead was anchored at the skin. The lead was threaded into the connector block and electrical continuity and desired patient response was confirmed. The connector block was attached to the external stimulator unit. The site was covered with a sterile occlusive dressing. A final ultrasound image was taken to document final placement. The patient was observed for stability of vital signs and comfort.
== END 2023-02-27 16:21 | disposition home or self-care (01) ==
PROVIDERS: PCP Nurse Practitioner Adult Health; Visit Provider Internal Medicine
PROC: (CPT 64555; principal; 2023-02-27 15:10)
DX: M25.571 Pain in right ankle and joints of right foot (principal); G89.29 Other chronic pain; M94.1 Relapsing polychondritis; Z88.0 Allergy status to penicillin; Z88.2 Allergy status to sulfonamides; Z88.5 Allergy status to narcotic agent; Z98.890 Other specified postprocedural states
CPT/HCPCS: 64555; C1778

== ENCOUNTER → 2023-02-27 13:40 | Outpatient (BNV) | payer OTHER, SELFPAY | PROVIDERS: PCP Nurse Practitioner Adult Health; Visit Provider Internal Medicine | DX: M25.571 Pain in right ankle and joints of right foot (principal) | CPT/HCPCS: 64555 ==

== ENCOUNTER 2023-02-28 13:05 | Outpatient (AMB) | payer OTHER, BC, SELFPAY ==
[2023-02-28 13:07] VITALS: BMI 31.6
--- NOTE | 2023-02-28 13:07 | MHC.OFFVIS ---
Intake Vital Signs 02/28/23 13:07 Height 5 ft 5 in Weight 190 lb BMI 31.6 Intake Visit Reasons: OV - RT ORIF lateral malleolus 04/03/22 NE Intake Note: Siria is a 53 year old female who presents today for a follow up of her Right ankle s/p Right Lateral Malleolus ORIF 04/03/22. Patient reports that she is doing well. She has her sprint device implanted with pain mgmt yesterday and things are going very well. Allergies codeine [CODEINE] Allergy (Severe, Verified 02/28/23 13:09) swollen tongue Sulfa (Sulfonamide Antibiotics) [SULFA (SULFONAMIDE ANTIBIOTICS)] Allergy (Severe, Verified 02/28/23 13:09) Hives penicillin G [PENICILLIN G] Allergy (Unknown, Verified 02/28/23 13:09) UNKNOWN HPI OV - RT ORIF lateral malleolus 04/03/22 NE HPI Details Siria is a 52 year old woman ~11 months S/P right lateral malleolus ORIF. She says her pain is good. SHe recently had a sprint device placed and feels well. She has Fibromyalgia. 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 She is doing well and no additional treatment warranted. Coding Level of Care Code Est Pt Level 3 (61166) Diagnoses History of open reduction and internal fixation (ORIF) procedure Z98.890
== END 2023-02-28 14:10 | disposition home or self-care (01) ==
PROVIDERS: PCP Nurse Practitioner Adult Health; Visit Provider Orthopaedic Surgery
DX: Z47.89 Encounter for other orthopedic aftercare (principal); S82.853D Displaced trimalleolar fracture of unspecified lower leg, subsequent encounter for closed fracture with routine healing
CPT/HCPCS: 99213

== ENCOUNTER → 2023-02-28 13:05 | Outpatient (BNVA) | payer OTHER, SELFPAY | PROVIDERS: PCP Nurse Practitioner Adult Health; Visit Provider Orthopaedic Surgery ==

== ENCOUNTER 2023-03-08 13:56 | Outpatient (AMB) | payer OTHER, BC, SELFPAY ==
[2023-03-08 14:04] VITALS: BP 144/72; PULSE 88; RESP 18; O2SAT 95; BMI 31.6
--- NOTE | 2023-03-08 14:04 | A.OFFVIS_ITS ---
Intake Vital Signs 03/08/23 14:04 Height 5 ft 5 in Weight 190 lb BMI 31.6 BP 144/72 H Blood Pressure Location Lt brachial Position Sitting Respiration 18 Pulse 88 Pulse Source Pulse Oximeter Pulse Oximetry (%) 95 Oxygen Delivery Method Room Air Intake Visit Reasons: s/p peroneal Sprint / Confirmed Allergies codeine [CODEINE] Allergy (Severe, Verified 03/08/23 14:04) swollen tongue Sulfa (Sulfonamide Antibiotics) [SULFA (SULFONAMIDE ANTIBIOTICS)] Allergy (Severe, Verified 03/08/23 14:04) Hives penicillin G [PENICILLIN G] Allergy (Unknown, Verified 03/08/23 14:04) UNKNOWN HPI HPI Comments History of Present Illness Details Siria presents to the office today for follow up s/p Right Peroneal Nerve Sprint PNS with local anesthetic placed 02/27/2023. Patient reports pain 0/10 since placement of the Sprint PNS device with improvement in function and mobility. She has not needed her walking boot nor is she using a cane for ambulation. She is hoping to be able to dance with her at a wedding this month, she feels the device has made significant improvement in her activities. Prior: Siria is a very pleasant 52 year old female who presents to the office today for evaluation management of chronic post operative pain to the right ankle. Patient reports that March of last year she fell while going down some stairs and fractured her ankle. She is status post ORIF lateral malleolus 03/2022. Patient reports pain has persisted and recovery has been slow. She feels that her other chronic inflammatory conditions have delayed her healing. Patient has tried nonsteroidal anti-inflammatory medications, muscle relaxers, opioid medications without relief. She is currently taking gabapentin for her fibromyalgia which he states is not helping her post op pain. Patient attended PT, completed 12/2022, she has been doing HEP and reports improvement in pain and mobility. She was recently changed from a walking boot that ASO brace which she uses only when she leaves the home. 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 She is feeling frustrated and is concerned about when she will be able to return to work and how should be able to manage working with this pain. Pain today is rated as a 3/10, burning and stabbing. The pain is constant, worse in the mornings and the evenings. Pain exacerbated with activity, standing and walking. In terms of muscle damage and is described as aching, spasming, hot, burning, tiring and exhausting. The pain is negatively impacting her enjoyment of life, general activity, mood, and normal work, recreational activities, relationships with people and walking. 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 Answers questions appropriately. Fully engaged in examination. Skin: warm, dry. Sprint insertion site dry, clean without redness, warmth, drainage HEENT: Normocephalic. Hearing intact. Cardiac: External chest normal in appearance. Respiratory: No cough, audible wheezing or stridor. Abdomen: without gross distension. MS: No obvious swelling or deformities. Able to transition from sit to stand unassisted. Ambulates with steady gait unassisted Neurological: Oriented to person, place, time and situation. Thought process intact. No gait abnormalities appreciated. Psychiatric: Appropriate mood and affect. Good judgment and insight. Assessment & Plan Assessment & Plan (1) Right ankle pain: Code(s): M25.571 - Pain in right ankle and joints of right foot Qualifiers: Chronicity: chronic Qualified Code(s): M25.571 - Pain in right ankle and joints of right foot; G89.29 - Other chronic pain (2) Chronic postoperative pain: Code(s): G89.28 - Other chronic postprocedural pain (3) History of open reduction and internal fixation (ORIF) procedure: Comment: Right ankle lateral malleolus ORIF; 04/03/2022 [place] Code(s): Z98.890 - Other specified postprocedural states Plan Siria presented to the office today for follow up s/p Right Peroneal Nerve Sprint PNS with local anesthetic placement 02/27/23. She reports 100% pain relief with improvement in function and mobility. She is no longer using her cane or walking boot. Sprint dressing change: Existing dressing removed, Area cleansed with chloraprep. Site dry, clean without redness, swelling, warmth, bruising or drainage. New tegaderm applied. Patient tolerated procedure well. She has been changing dressing at home without difficulty. Titrating stimulation as needed. All questions and concerns addressed during visit today. Patient will follow up as planned for device removal, sooner if needed. Coding Level of Care Code Est Pt Level 3 (03039) Diagnoses Chronic pain of right ankle M25.571; G89.29 Chronicity: chronic Chronic postoperative pain G89.28 History of open reduction and internal fixation (ORIF) procedure Z98.890
== END 2023-03-08 15:07 | disposition home or self-care (01) ==
PROVIDERS: PCP Nurse Practitioner Adult Health; Visit Provider Registered Nurse Emergency
DX: M25.571 Pain in right ankle and joints of right foot (principal); G89.29 Other chronic pain; G89.28 Other chronic postprocedural pain; Z98.890 Other specified postprocedural states
CPT/HCPCS: 99024

== ENCOUNTER → 2023-03-08 13:56 | Outpatient (BNVA) | payer OTHER, BC, SELFPAY | PROVIDERS: PCP Nurse Practitioner Adult Health; Visit Provider Registered Nurse Emergency ==

== ENCOUNTER 2023-04-24 14:42 | Outpatient (AMB) | payer OTHER, SELFPAY ==
[2023-04-24 14:57] VITALS: BP 171/89; PULSE 103; RESP 18; O2SAT 98; BMI 31.6
--- NOTE | 2023-04-24 14:57 | A.OFFVIS_ITS ---
Intake Vital Signs 04/24/23 14:57 Height 5 ft 5 in Weight 190 lb BMI 31.6 BP 171/89 H Blood Pressure Location Lt brachial Position Sitting Respiration 18 Pulse 103 H Pulse Source Pulse Oximeter Pulse Oximetry (%) 98 Oxygen Delivery Method Room Air Intake Visit Reasons: Sprint removal Allergies codeine [CODEINE] Allergy (Severe, Verified 04/24/23 14:57) swollen tongue Sulfa (Sulfonamide Antibiotics) [SULFA (SULFONAMIDE ANTIBIOTICS)] Allergy (Severe, Verified 04/24/23 14:57) Hives penicillin G [PENICILLIN G] Allergy (Unknown, Verified 04/24/23 14:57) UNKNOWN HPI HPI Comments History of Present Illness Details Patient presents back to the office today for follow up and removal of Right Peroneal Nerve Sprint PNS. She reports pain, mobility and function remain improved. Pain today 410, states her inflammatory disorder has been acting up lately. Followed by Rheum and Neurology. Has been taking NSAIDs with improvement in symptoms. Patient no longer using cane for ambulation, she is stable and does not feel off balance or in fear of falling. 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 Patient reports she uses the ankle brace as needed, does have aching pain with rainy weather. Prior: Siria presents to the office today for follow up s/p Right Peroneal Nerve Sprint PNS with local anesthetic placed 02/27/2023. Patient reports pain 0/10 since placement of the Sprint PNS device with improvement in function and mobility. She has not needed her walking boot nor is she using a cane for ambulation. She is hoping to be able to dance with her at a wedding this month, she feels the device has made significant improvement in her activities. Prior: Siria is a very pleasant 52 year old female who presents to the office today f or evaluation management of chronic post operative pain to the right ankle. Patient reports that March of last year she fell while going down some stairs and fractured her ankle. She is status post ORIF lateral malleolus 03/2022. Patient reports pain has persisted and recovery has been slow. She feels that her other chronic inflammatory conditions have delayed her healing. Patient has tried nonsteroidal anti-inflammatory medications, muscle relaxers, opioid medications without relief. She is currently taking gabapentin for her fibromyalgia which he states is not helping her post op pain. Patient attended PT, completed 12/2022, she has been doing HEP and reports improvement in pain and mobility. She was recently changed from a walking boot that ASO brace which she uses only when she leaves the home. 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 She is feeling frustrated and is concerned about when she will be able to return to work and how should be able to manage working with this pain. Pain today is rated as a 3/10, burning and stabbing. The pain is constant, worse in the mornings and the evenings. Pain exacerbated with activity, standing and walking. In terms of muscle damage and is described as aching, spasming, hot, burning, tiring and exhausting. The pain is negatively impacting her enjoyment of life, general activity, mood, and normal work, recreational activities, relationships with people and walking. 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 Answers questions appropriately. Fully engaged in examination. Skin: warm, dry. HEENT: Normocephalic. Hearing intact. Cardiac: External chest normal in appearance. Respiratory: No cough, audible wheezing or stridor. Abdomen: without gross distension. MS: No obvious swelling or deformities. Able to transition from sit to stand unassisted. Ambulates with steady gait unassisted Neurological: Oriented to person, place, time and situation. Thought process intact. No gait abnormalities appreciated. Psychiatric: Appropriate mood and affect. Good judgment and insight. Sprint removal: Dressing removed, Site dry, clean, intact. Area cleansed with chloraprep, lead removed with intact tip. Area cleansed again with chloraprep, bacitracin dressing with tegaderm applied. Patient tolerated removal well. Assessment & Plan Assessment & Plan (1) Right ankle pain: Code(s): M25.571 - Pain in right ankle and joints of right foot Qualifiers: Chronicity: chronic Qualified Code(s): M25.571 - Pain in right ankle and joints of right foot; G89.29 - Other chronic pain (2) Chronic postoperative pain: Code(s): G89.28 - Other chronic postprocedural pain (3) History of open reduction and internal fixation (ORIF) procedure: Comment: Right ankle lateral malleolus ORIF; 04/03/2022 [place] Code(s): Z98.890 - Other specified postprocedural states Plan Siria presented to the office today for follow up removal of Right Peroneal Nerve Sprint PNS placed 02/27/23. She reports continued pain relief and improvement in function and mobility. Sprint device removed as per above. Patient tolerated procedure well. All questions and concerns addressed during visit today. Patient will follow up as needed. Coding Level of Care Code Est Pt Level 3 (96525) Diagnoses Chronic pain of right ankle M25.571; G89.29 Chronicity: chronic Chronic postoperative pain G89.28 History of open reduction and internal fixation (ORIF) procedure Z98.890
== END 2023-04-24 15:48 | disposition home or self-care (01) ==
PROVIDERS: PCP Nurse Practitioner Adult Health; Visit Provider Registered Nurse Emergency
DX: G89.29 Other chronic pain (principal); M25.571 Pain in right ankle and joints of right foot; G89.28 Other chronic postprocedural pain
CPT/HCPCS: 64585; 99213

== ENCOUNTER → 2023-04-24 14:42 | Outpatient (BNVA) | payer OTHER, SELFPAY | PROVIDERS: PCP Nurse Practitioner Adult Health; Visit Provider Registered Nurse Emergency ==

== ENCOUNTER 2023-04-25 07:59 | Outpatient (AMB) | payer OTHER, BC, SELFPAY ==
--- NOTE | 2023-04-25 08:01 | MHC.OFFVIS ---
Intake Vital Signs 04/25/23 08:05 BP 100/88 Blood Pressure Location Rt brachial Position Sitting Pulse 111 H Pulse Source Pulse Oximeter Intake Visit Reasons: 3m F/u Migraines - Confirmed Intake Note: Patient presents for 3 months. my migraines are much better Allergies codeine [CODEINE] Allergy (Severe, Verified 04/25/23 08:03) swollen tongue Sulfa (Sulfonamide Antibiotics) [SULFA (SULFONAMIDE ANTIBIOTICS)] Allergy (Severe, Verified 04/25/23 08:03) Hives penicillin G [PENICILLIN G] Allergy (Unknown, Verified 04/25/23 08:03) UNKNOWN HPI HPI Comments History of Present Illness Details 53-yr-old female presents for f/u visit. Pt reports she is continuing to recover from her right ankle fracture. She has just had a 2 month course of a Right Peroneal Nerve Sprint PNS- which did help with chronic RLE pain. She is concerned about her fibromyalgia, especially as she also has a h/o PTSD s/p head injury 2008, arthritis, rheumatoid d/o's, and depression. In the past year, she has had adjustments in her psych meds. She does note that she felt better after adding Buproopion. She is having more episodes of spacing out, more distractable, not completing tasks as well d/t these distractions- ie starting one thing and moving on beofre completing another. She states she was not always like this. 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 She states her migraines are better controlled. 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, 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 Review of Systems Const All systems reviewed & are unremarkable except as noted in HPI and below Physical Exam Vital Signs: Last Vital Signs Pulse 111 H 04/25/23 08:05 BP 100/88 04/25/23 08:05 Const General: cooperative and no acute distress Orientation/consciousness: patient oriented x3 HEENT Head: Yes normocephalic Resp Effort & Inspection: normal respiratory effort and able to speak in complete sentences Neuro General: patient oriented x3, gait normal and CN's II-XI intact bilaterally Cognition (Neuro): normal cognition Motor exam (neuro): 5/5 motor strength present throughout Psych Appearance: grossly normal Mental Status: mental status grossly normal Speech and movement: Normal speech and movement present Affect: normal affect Attitude: cooperative Thought process: Normal thought process present Thought content: Normal thought content present Insight: Good insight present (Psych) Judgement: Good judgement present (Psych) Assessment & Plan Assessment & Plan (1) Migraine with aura: Code(s): G43.109 - Migraine with aura, not intractable, without status migrainosus (2) Cognitive dysfunction: Code(s): F09 - Unspecified mental disorder due to known physiological condition (3) Tremor, physiological: Code(s): R25.1 - Tremor, unspecified Plan For cognitive difficulties: Discussed that pt's recent cognitive s/s, may be an exacerbation of her h/o post-concussion syndrome in setting of significant changes in her health, activity level, and work over the past yr. 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 Also reviewed she is at risk for sedation w/ many of her med tx's. I encouraged her to discuss the possibility adjsuting her neuro-stimulant tx w/ Dr Ruiz. In the meantime, I did share resources w/ her on strategies to cope w/ attention/focus/task management such as used in adult ADHD pt's (note that at least today, pt denies any childhood s/s of ADHD). For fibromyalgia, chronic pain: Information given on neuro-biofeedback. Continue Gabapentin. Continue exercise. For migraine prevention: Continue Ajovy 225mg sc q month- as pt has had good clinical effect from use. Continue Prazosin 1-2mg qhs- for nocturnal PTSD as well. Continue Gabapentin. Previous migraine tx trials- Amitriptyline- ineffective, Propranolol- ineffective. Erenumab- effective, but switched d/t insurance. ? For acute migraine tx: Continue prn Sumatriptan. Future considerations: Resuming Ubrelvy prn- previously had good effect. ? For ET: Monitor clinically. Future considerations- retrying BB., CalTrio device. ? f/u in 4 months or sooner new or worsening s/s. Coding Level of Care Code Est Pt Level 4 (45726) Diagnoses Migraine with aura G43.109 Cognitive dysfunction F09 Tremor, physiological R25.1
[2023-04-25 08:05] VITALS: BP 100/88; PULSE 111
== END 2023-04-25 09:17 | disposition home or self-care (01) ==
PROVIDERS: PCP Nurse Practitioner Adult Health; Visit Provider Nurse Practitioner Family
DX: G43.109 Migraine with aura, not intractable, without status migrainosus (principal); R41.89 Other symptoms and signs involving cognitive functions and awareness; R25.1 Tremor, unspecified
CPT/HCPCS: 99214

== ENCOUNTER → 2023-04-25 07:59 | Outpatient (BNVA) | payer OTHER, BC, SELFPAY | PROVIDERS: PCP Nurse Practitioner Adult Health; Visit Provider Nurse Practitioner Family ==

== ENCOUNTER 2023-05-10 13:39 | Outpatient (AMB) | payer OTHER, BC, SELFPAY ==
[2023-05-10 13:48] VITALS: BP 128/76; PULSE 99; TEMP 36.5; O2SAT 98; BMI 32.1
--- NOTE | 2023-05-10 13:48 | MHC.OFFWIV ---
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 Intake Note: pt is here today for headache and high bp fatigue started 5 days ago Patient Tobacco Use Status: Never used Tobacco Allergies codeine [CODEINE] Allergy (Severe, Verified 05/10/23 13:58) swollen tongue Sulfa (Sulfonamide Antibiotics) [SULFA (SULFONAMIDE ANTIBIOTICS)] Allergy (Severe, Verified 05/10/23 13:58) Hives penicillin G [PENICILLIN G] Allergy (Unknown, Verified 05/10/23 13:58) UNKNOWN Do you need a note to return to daycare/school/sports/work: No HPI 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 She reports constant chest pressure now, with radiation into her jaw. She reports occasional palpitations. 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 No history of htn however today had a BP of 165/105 and yesterday 145/84. Pulse has remained in the 90s. She denies any nausea, vomiting, dizziness. Has some intermittent shortness of breath and fatigue. She was sick several weeks prior to this with a URI. 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, 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 Review of Systems Const All systems reviewed & are unremarkable except as noted in HPI and below Physical Exam Vital Signs: Last Vital Signs Temp 97.7 F 05/10/23 13:48 Pulse 99 05/10/23 13:48 BP 128/76 05/10/23 13:48 Pulse Ox 98 05/10/23 13:48 Oxygen Delivery Method Room Air 05/10/23 13:48 BMI result Body Mass Index 32.1 Const General: cooperative and in distress mild Nutritional Appearance: overweight Orientation/consciousness: patient oriented x3 Limitations: no limitations HEENT Head: Yes normal to inspection Ears: hearing grossly normal bilaterally Chest Chest palpation & inspection: normal palpation of entire chest wall Resp Effort & Inspection: normal respiratory effort and able to speak in complete sentences Auscultation: clear to auscultation bilaterally Cardio Jugular venous distension: no JVD Palpation: normal PMI Rate: regular rate Rhythm: regular rhythm Heart sounds: S1 normal heart sound present and S2 normal heart sound present Skin General skin exam: no rashes or lesions noted Neuro General: patient oriented x3 Extrem General: Yes capillary refill normal and Yes no clubbing, cyanosis or edema Psych Appearance: grossly normal Mental Status: mental status grossly normal Speech and movement: Normal speech and movement present Office Procedures EKG Details: NSR 96 [id number], Complete Assessment & Plan Assessment & Plan (1) Chest pressure: Code(s): R07.89 - Other chest pain Plan: Chest pressure, primarily left sided, worsening over the last several days. It is radiating into her jaw. EKG in the office shows SR 96. Given recent viral illness, I am concerned for myocarditis. We discussed at length my recommendations for evaluation at the ED given symptoms. She agrees to go to the [facility] ED. Patient transfered via ambulance. Report given to EMS staff and [facility] ED provider at [facility]. Coding Level of Care Code Est Pt Level 3 (50410) Diagnoses Chest pressure R07.89 CPT Codes EKG - CPT: 72460-[id number], Complete ([id number])
== END 2023-05-10 14:47 | disposition home or self-care (01) ==
PROVIDERS: PCP Nurse Practitioner Adult Health; Visit Provider Nurse Practitioner Family
DX: R07.89 Other chest pain (principal)
CPT/HCPCS: 93000; 99213

== ENCOUNTER 2023-05-10 15:05 | Emergency (ER) | payer OTHER, BC, SELFPAY ==
[2023-05-10 15:14] VITALS: BMI 32.1
--- NOTE | 2023-05-10 15:19 | ED.CHESTPAIN ---
HPI - Chest Pain General Chief Complaint: Chest Pain Stated Complaint: CP X 2DAYS PER EMS Time Seen by Provider: 05/10/23 15:13 History of Present Illness HPI narrative: 53 y/o F patient; PMH migraine with aura, hx childhood asthma; presents from home via EMS with report of three weeks of intermittently feeling unwell with fatigue, left-sided chest pain. The patient states her chest pain is worse with deep inspiration and movement. The patient had previously been diagnosed with a URI and treated with inhalers, steroids, and antibiotic (cefdinir and doxycycline). She was seen by her PCP in office today and recommended to attend the emergency department with concern for myocarditis. She otherwise denies: fever or chills, congestion, diarrhea. She had have episodes of nausea and NBNB vomiting yesterday which she attributed to her high blood pressure. She has been taking her blood pressure at home frequently over the last 5 days due to feeling unwell. She denies smoking but states she is a frequent marijuana smoker. Related Data Home Medications Medication Instructions Recorded Confirmed quetiapine 25 mg tablet 150 mg PO BEDTIME 06/08/21 01/08/23 acetaminophen 650 mg 650 mg PO BID 04/05/22 01/08/23 tablet,extended release (Tylenol Arthritis Pain) lorazepam 1 mg tablet 2 mg PO BEDTIME 04/05/22 01/08/23 atorvastatin 10 mg tablet 10 mg PO DAILY 08/09/22 01/08/23 bupropion HCl 150 mg 24 hr tablet, 150 mg PO QAM 12/31/22 01/08/23 extended release (Wellbutrin XL) diclofenac sodium 75 mg 75 mg PO .prn 12/31/22 01/08/23 tablet,delayed release duloxetine 60 mg capsule,delayed 90 mg PO ONCE 12/31/22 01/08/23 release duloxetine 30 mg capsule,delayed 30 mg PO DAILY 01/08/23 01/08/23 release Previous Rx's Medication Instructions Recorded 3 in 1 commode #1 ea 04/02/22 prazosin 1 mg capsule 1 - 2 mg (1 - 2 x 1 mg) PO BEDTIME 11/20/22 30 days #180 caps fremanezumab-vfrm 225 mg/1.5 mL 225 mg (1.5 mL) subcut ONCE 30 01/10/23 subcutaneous auto-injector (Ajovy) days #1.5 mL sumatriptan succinate 100 mg tablet 50 - 100 mg (0.5 - 1 x 100 mg) PO 03/13/23 .COMPLEX PRN migraine headache 30 days #12 tabs gabapentin 300 mg capsule See Rx Instructions .Route 04/09/23 .COMPLEX #120 caps baclofen 10 mg tablet 10 mg PO BID 30 days #60 tabs 04/11/23 Allergies Allergy/AdvReac Type Severity Reaction Status Date / Time codeine [CODEINE] Allergy Severe swollen Verified 05/10/23 13:58 tongue Sulfa (Sulfonamide Allergy Severe Hives Verified 05/10/23 13:58 Antibiotics) [SULFA (SULFONAMIDE ANTIBIOTICS)] penicillin G [PENICILLIN G] Allergy Unknown UNKNOWN Verified 05/10/23 13:58 Review of Systems Review of Systems: Yes all other systems are reviewed and are negative PMFSH Past Medical History Attestation statement: The following information was validated with the patient. Source: old records reviewed Onset Date is defined in the Problem List Problems that require an onset date and time if occurred within 24 hrs of arrival to the ED Aortic Dissection and Rupture; Neurologic impairment; Cardiopulmonary Arrest; Endotracheal Intubation; Insertion or Replacement of Mechanical Circulatory Assist Device Medical History Relapsing polychondritis Surgical History H/O thumb surgery Status post open reduction with internal fixation (ORIF) of fracture of ankle Hx of shoulder surgery History of carpal tunnel release Family History Family History Father HTN (hypertension) FHx: mental illness Mother Cancer HTN (hypertension) Social History Social History Alcohol intake: current Alcohol intake frequency: holidays/special occasions only Comment: FELL ABOUT A YR AGO BROKE HER ANKLE Patient Tobacco Use Status: Never used Tobacco Smoked in Last 30 Days: No Second Hand Smoke Exposure: No Use of substances other than those prescribed or required for medical reasons: Yes Substance Use Type: Marijuana Advance Directives: No Advance Directives Information Provided: No Current occupational status: employed 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 Const: General: cooperative HEENT: Head: Yes atraumatic Eyes: General: appearance normal, both eyes and all related structures Pupils: Equal, round and reactive pupils present EOM: EOMs intact bilaterally Neck: Neck: Yes full ROM, Yes supple and No tender Chest: Chest palpation & inspection: normal inspection of the chest and normal palpation of entire chest wall Resp: Effort & Inspection: normal respiratory effort and able to speak in complete sentences Auscultation: clear to auscultation bilaterally Cardio: Rate: regular rate Rhythm: regular rhythm Peripheral pulses: Peripheral pulses 2+ throughout GI: Inspection: Yes normal to inspection, No Abdominal wall edema and No distended Palpation (GI): Soft to palpation, not firm, nontender, no guarding and not rigid Auscultation: normal bowel sounds Back/Spine/Pelvis: Back: No back tenderness Neuro: Cranial nerves: Yes Equal, round and reactive pupils present Course Course Course Narrative: Patient is afebrile and mildly hypertensive. Ordered EKG, CXR, and cardiorespiratory labs. Due to patient's pleuritic chest pain that is exacerbating over the last 5 days - will order CTA Chest. Reevaluation(s) Reevaluation #1: EKG reassuring. CXR reassuring. Time: 15:54 Reevaluation #2: Laboratory studies reviewed and unremarkable. Troponin unremarkable. COVID/Flu/RSV negative. CTA Chest unremarkable. Informed patient regarding study results - patient and at bedside reassured. Laboratory and diagnostic work up without etiology of symptoms. Low likelihood of pericarditis, myocarditis, ACS, pneumonia, pneumothorax, aortic dissection, or pulmonary embolism. Plan: Discharge to home with PCP follow up Return precautions given Time: 17:16 Medications Administered Discontinued Medications Generic Name Dose Route Start Last Admin Trade Name Freq PRN Reason Stop Dose Admin Iohexol 65 ml 05/10/23 16:37 05/10/23 16:37 Iohexol 350 Mg/Ml 100 Ml Infus..Btl IV 05/10/23 16:38 65 ml ONCE ONE Administration Medical Decision Making Lab Data 05/10/23 15:46 05/10/23 15:46 Labs: Lab Results 05/10/23 Range/Units 15:46 WBC 9.0 (4.8-10.8) X10*3/uL RBC 4.33 (4.20-5.50) X10*6/uL Hgb 13.7 (12.0-16.0) g/dl Hct 40.2 (37.0-47.0) % MCV 92.8 (80.0-98.0) fL MCH 31.6 (27.0-33.0) pg MCHC 34.1 (31.0-35.0) g/dl RDW 13.2 (11.0-16.0) % Plt Count 283 (160-400) X10*3/uL MPV 11.0 (9.4-12.3) fL Immature Gran % (Auto) 0.3 (0.0-0.4) % Neut % (Auto) 58.6 (45-73) % Lymph % (Auto) 30.8 (20-40) % [place] % (Auto) 8.6 (2-11) % Eos % (Auto) 1.3 (0-4) % Baso % (Auto) 0.4 (0-2) % Lymph # (Auto) 2.8 (1.2-4.9) X10*3/uL [place] # (Auto) 0.8 (0.1-1.2) X10*3/uL Eos # (Auto) 0.1 (0.0-0.4) X10*3/uL Baso # (Auto) 0.0 (0.0-0.2) X10*3/uL Abs Immat Gran (auto) 0.03 (0.00-0.03) X10*3/uL Absolute Neuts (auto) 5.3 (2.0-8.3) x10*3/uL Absolute Nucleated RBC 0.000 (0.0-0.012) X10*3/uL Nucleated RBC % (auto) 0.0 (0.0-0.2) /100WBC Sodium 140 (135-145) mmol/L Potassium 3.8 (3.3-5.1) mmol/L Chloride 105 (96-108) mmol/L Carbon Dioxide 25 (22-29) mmol/L Anion Gap 14 (12-20) BUN 11 (9-16) mg/dL Creatinine 0.88 (0.5-1.4) mg/dL Estim Creat Clear Calc 79.8 Estimated GFR > 60 Random Glucose 92 (60-115) mg/dL Calcium 9.9 (8.4-10.2) mg/dL Total Bilirubin 0.3 (0.0-1.0) mg/dL Direct Bilirubin 0.1 (0.0-0.5) mg/dL AST 20 (5-31) U/L ALT 14 (0-31) U/L Alkaline Phosphatase 78 (39-117) U/L Troponin I High Sens 6.9 (<3.5-17.0) ng/L Total Protein 7.9 (6.5-8.0) g/dL Albumin 4.5 (3.5-5.0) g/dL Influenza Type A (PCR) NEGATIVE (Negative) Influenza Type B (PCR) NEGATIVE (Negative) RSV RNA Qual (PCR) NEGATIVE (Negative) SARS-CoV-2 RNA (RT-PCR) NEGATIVE (Negative) Independent Interpretation I performed an independent interpretation of an: EKG Interpretation: NSR 95BPM with PVCs, without ischemic changes Radiology Impression Discussion of test interpretation with radiology: I have reviewed the radiologist's reading. Radiologist Impression: EXAMINATION: XR CHEST 2 VIEW CLINICAL INFORMATION: Chest pain COMPARISON: None TECHNIQUE: PA and lateral views of the chest obtained. FINDINGS: The lungs are clear. There are no pleural effusions. The cardiomediastinal silhouette is normal. XR/XR chest 2V IMPRESSION: No acute cardiopulmonary disease. EXAMINATION: CT ANGIOGRAM OF THE CHEST WITH AND WITHOUT CONTRAST (CT PULMONARY ANGIOGRAM FOR PE) CLINICAL INFORMATION: Reason for Exam SOB COMPARISON: Chest radiograph dated 05/10/2023. TECHNIQUE: Prior to contrast administration, noncontrast localization images were obtained. Subsequently, multidetector volumetric imaging was performed from the thoracic inlet to below the diaphragms following the administration of 80 mL Omnipaque 350 intravenous contrast. No contrast reaction reported Sagittal, coronal, and MIP oblique sagittal reformatted images were obtained on the CT workstation, uploaded to PACS, and reviewed. This CT examination was performed using dose optimization techniques as appropriate, variously including the following: *Automated exposure control *Adjustment of mA and/or kV according to patient size (this includes techniques or standardized protocols for targeted exams where dose is matched to indication/reason for exam; i.e. extremities or head) *Use of iterative reconstruction technique Total exam dose-length product 293 mGy-cm FINDINGS: QUALITY OF STUDY/CONTRAST BOLUS: Satisfactory. PULMONARY ARTERIES: No pulmonary emboli. THORACIC AORTA: No aneurysm. LUNG: No focal consolidation, nodules or masses. PLEURA: No pleural effusion or pneumothorax. MEDIASTINUM: Normal heart size. No pericardial effusion. No hilar or mediastinal lymphadenopathy. No evidence of septal bowing or right heart strain. CORONARY ARTERY CALCIFICATION: None visualized on this study. CHEST WALL/AXILLA: No axillary or internal mammary lymphadenopathy. OSSEOUS STRUCTURES: No acute or suspicious osseous abnormality. UPPER ABDOMEN: Unremarkable. No reflux of contrast into the hepatic veins to suggest elevated right heart pressures. CT/CT angio chest PE protocol IMPRESSION: No pulmonary embolism. The lungs are clear without consolidation. No pleural effusion. VTE: negative Discharge Plan Discharge Clinical Impression: Chest pain Patient Disposition: Home, Self-Care Instructions: Chest Pain (DC) Additional Instructions: As we discussed, you were seen today for chest discomfort. Your EKG, CXR, CT Chest, and labs were reassuring. Please follow up with your PCP within the next 3 - 4 days for re-evaluation. Return to the ED for worsening chest pain, difficulty breathing, or passing out. Prescriptions: No Action prazosin 1 mg capsule 1 - 2 mg PO BEDTIME 30 Days Qty: 180 1RF Ajovy Autoinjector 225 mg/1.5 mL auto-injector 225 mg subcut ONCE 30 Days Qty: 1.5 6RF Rx Instructions: administer 225 mg injections sc q month sumatriptan succinate 100 mg tablet 50 - 100 mg PO .COMPLEX PRN (Reason: migraine headache) 30 Days Qty: 12 6RF Rx Instructions: 50 - 100 mg orally at onset of headache, may repeat in 2 hrs PRN; max 2 tabs per day or 4 tabs/week (may take with Ibuprofen) gabapentin 300 mg capsule See Rx Instructions .ROUTE .COMPLEX Qty: 120 5RF Dose Instruction: TAKE 1 CAPSULE BY MOUTH FOUR TIMES A DAY Rx Instructions: TAKE 1 CAPSULE BY MOUTH FOUR TIMES A DAY baclofen 10 mg tablet 10 mg PO BID 30 Days Qty: 60 3RF acetaminophen [Tylenol Arthritis Pain] 650 mg tablet extended release 650 mg PO BID (DME) 3 in 1 commode See Rx Instructions .ROUTE .MEDSUPPLY Qty: 1 0RF Rx Instructions: 3 in 1 commode quetiapine 25 mg tablet 150 mg PO BEDTIME lorazepam 1 mg tablet 2 mg PO BEDTIME Rx Instructions: 05/07 tab prn for anxiety duloxetine 60 mg capsule,delayed release(DR/EC) 90 mg PO ONCE diclofenac sodium 75 mg tablet,delayed release (DR/EC) 75 mg PO .prn atorvastatin 10 mg tablet 10 mg PO DAILY duloxetine 30 mg capsule,delayed release(DR/EC) 30 mg PO DAILY bupropion HCl [Wellbutrin XL] 150 mg tablet extended release 24 hr 150 mg PO QAM
[2023-05-10 15:25] VITALS: BP 152/96; PULSE 92; RESP 18; TEMP 37.1; O2SAT 96
[2023-05-10 16:13] LABS: Alanine Aminotransferase 14 U/L (0-31); Albumin Level 4.5 g/dL (3.5-5.0); Alkaline Phosphatase 78 U/L (39-117); Anion Gap 14 (12-20); Aspartate Amino Transferase 20 U/L (5-31); Bilirubin Direct 0.1 mg/dL (0.0-0.5); Bilirubin Total 0.3 mg/dL (0.0-1.0); Blood Urea Nitrogen 11 mg/dL (9-16); Calcium 9.9 mg/dL (8.4-10.2); Carbon Dioxide 25 mmol/L (22-29); Chloride 105 mmol/L (96-108); Creatinine Clr Calc Pharmacy 79.8; Estimated Glomerular Filt Rate > 60; Glucose Random 92 mg/dL (60-115); Potassium 3.8 mmol/L (3.3-5.1); Sodium 140 mmol/L (135-145); Total Protein 7.9 g/dL (6.5-8.0)
== END 2023-05-10 18:57 | disposition home or self-care (01) ==
PROVIDERS: Emergency Provider Emergency Medicine
DX: R07.89 Other chest pain (principal); Z79.899 Other long term (current) drug therapy; Z20.822 Contact with and (suspected) exposure to COVID-19; Z20.828 Contact with and (suspected) exposure to other viral communicable diseases
CPT/HCPCS: 0241U; 36415; 71046; 71275; 80048; 80076; 84484; 85025; 93005; 99284; 99285; Q9967

== ENCOUNTER → 2023-05-10 15:18 | Outpatient (BNV) | payer OTHER, BC, SELFPAY | PROVIDERS: Emergency Provider Emergency Medicine; Visit Provider Internal Medicine Cardiovascular Disease | DX: I47.10 Supraventricular tachycardia, unspecified (principal) | CPT/HCPCS: 93010 ==

== ENCOUNTER 2023-07-31 08:06 | Outpatient (AMB) | payer OTHER, BC, SELFPAY ==
[2023-07-31 08:08] VITALS: BP 102/74; PULSE 100; O2SAT 98; BMI 32.6
--- NOTE | 2023-07-31 08:08 | A.OFFVIS_ITS ---
Intake Vital Signs 07/31/23 08:08 Height 5 ft 5 in Weight 196 lb BMI 32.6 BP 102/74 Blood Pressure Location Rt brachial Position Sitting Pulse 100 Pulse Source Pulse Oximeter Pulse Oximetry (%) 98 Oxygen Delivery Method Room Air Intake Visit Reasons: 3 mo f/u - Migraines-Conf Intake Note: Patient presents for 3 month follow up migraines.migraines are way better. Allergies codeine [CODEINE] Allergy (Severe, Verified 07/31/23 08:11) swollen tongue Sulfa (Sulfonamide Antibiotics) [SULFA (SULFONAMIDE ANTIBIOTICS)] Allergy (Severe, Verified 07/31/23 08:11) Hives penicillin G [PENICILLIN G] Allergy (Unknown, Verified 07/31/23 08:11) UNKNOWN Medication List - Last Reconciled 07/31/23 by NOLAN Mackay [3 in 1 commode 3 in 1 commode] acetaminophen ER (Tylenol Arthritis Pain) 650 mg PO BID atorvastatin 10 mg PO DAILY baclofen 10 mg PO BID 30 days bupropion HCl (Wellbutrin XL) 150 mg PO QAM diclofenac sodium 75 mg PO .prn duloxetine 90 mg PO ONCE duloxetine 30 mg PO DAILY fremanezumab-vfrm (Ajovy) 225 mg (1.5 mL) subcut ONCE 30 days gabapentin 300 mg orally QID; 90 days lorazepam 2 mg PO BEDTIME prazosin 1 - 2 mg (1 - 2 x 1 mg) PO BEDTIME 30 days quetiapine 150 mg PO BEDTIME sumatriptan succinate 50 - 100 mg orally at onset of headache, may repeat in 2 hrs PRN; max 2 tabs per day or 4 tabs/week (may take with Ibuprofen) 30 days HPI HPI Comments History of Present Illness Details 53-yr-old female presents for f/u visit. Pt denies any significant interval medical changes. Pt has been having a fibromyalgia flare. Has been seeing [facility]- was started on compounded Narcan, and supplements- goal to optimize pain control and reduce immunization. She is still struggling with her mental health. She is still seeing her psychiatrist- he has advised her to not work full-time. Her headaches have been occurring less often. 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 Has been having some tension type headaches. She has held Ajovy- as the headaches have been better. Her tremors are the stable. Can feel an internal vibration- this reduced some w/ the Narcan however her bone pain did increase. [facility] Medical History Relapsing polychondritis Surgical History H/O thumb surgery Status post open reduction with internal fixation (ORIF) of fracture of ankle Hx of shoulder surgery History of carpal tunnel release Family History Father HTN (hypertension) FHx: mental illness Mother Cancer HTN (hypertension) Social History Alcohol intake: current Alcohol intake frequency: holidays/special occasions only Comment: FELL ABOUT A YR AGO BROKE HER ANKLE Patient Tobacco Use Status: Never used Tobacco Second Hand Smoke Exposure: No Substance Use Type: Marijuana Current occupational status: employed 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, 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 Physical Exam Vital Signs: Last Vital Signs Pulse 100 07/31/23 08:08 BP 102/74 07/31/23 08:08 Pulse Ox 98 07/31/23 08:08 Oxygen Delivery Method Room Air 07/31/23 08:08 BMI result Body Mass Index 32.6 Const General: cooperative and no acute distress Orientation/consciousness: patient oriented x3 Resp Effort & Inspection: normal respiratory effort and able to speak in complete sentences Neuro General: patient oriented x3 Cranial nerves: Yes CN's II-XII intact bilaterally Cognition (Neuro): normal cognition Psych Appearance: grossly normal Mental Status: mental status grossly normal Speech and movement: Normal speech and movement present Affect: normal affect Attitude: cooperative Assessment & Plan Assessment & Plan (1) Migraine with aura: Code(s): G43.109 - Migraine with aura, not intractable, without status migrainosus (2) Tremor, physiological: Code(s): R25.1 - Tremor, unspecified (3) Cognitive dysfunction: Code(s): F09 - Unspecified mental disorder due to known physiological condition Plan For cognitive difficulties and mood: Continue to f/u w/ psychiatry and integrative medicine. Patient is having increased marital stress, advised to discuss with her [facility] strategies to improve marital communication. For fibromyalgia, chronic pain: F/u w/ Integrative Medicine. Continue Gabapentin. Continue exercise. For migraine prevention: May hold Ajovy 225mg sc q month, however resume if migraine frequency increases. Continue Prazosin 2mg qhs- for nocturnal PTSD as well. Continue Gabapentin 300mg qam and 600mg qhs. Continue Duloxetine 120mg qd Continue Bupropion XL 150mg qam. Previous migraine tx trials- Amitriptyline- ineffective, Propranolol- ineffective. Erenumab- effective, but switched d/t insurance. ? For acute migraine tx: Continue prn Sumatriptan. Future considerations: Resuming Ubrelvy prn- previously had good effect. ? For ET: Monitor clinically. Future considerations- retrying BB.. ? f/u in 4 months or sooner new or worsening s/s. Coding Level of Care Code Est Pt Level 4 (76799) Diagnoses Migraine with aura G43.109 Tremor, physiological R25.1 Cognitive dysfunction F09
== END 2023-07-31 09:09 | disposition home or self-care (01) ==
PROVIDERS: PCP Nurse Practitioner Adult Health; Visit Provider Nurse Practitioner Family
DX: G43.109 Migraine with aura, not intractable, without status migrainosus (principal); R25.1 Tremor, unspecified; R41.89 Other symptoms and signs involving cognitive functions and awareness
CPT/HCPCS: 99214

== ENCOUNTER → 2023-07-31 08:06 | Outpatient (BNVA) | payer OTHER, BC, SELFPAY | PROVIDERS: PCP Nurse Practitioner Adult Health; Visit Provider Nurse Practitioner Family ==

== ENCOUNTER 2023-10-22 10:08 | Outpatient (REF) | payer OTHER, BC, SELFPAY ==
--- NOTE | ~2023-10-22 | XR_ITS ---
EXAMINATION: XR ANKLE, RIGHT CLINICAL INFORMATION: Pain in unspecified ankle and joints of unspecified foot. COMPARISON: December 31, 2022. TECHNIQUE: AP, lateral, and mortise views of the right ankle. FINDINGS: Status post ORIF of distal fibula. Hardware appears intact. Redemonstration of tiny ossicle posterior to the ankle. Alignment maintained. XR/XR ankle RT min 3V IMPRESSION: Status post ORIF of distal fibula. Hardware appears intact. Redemonstration of tiny ossicle posterior to the ankle. Alignment maintained.
== END 2023-10-22 10:09 | disposition home or self-care (01) ==
LOC: HO.HOSX 10:08
PROVIDERS: Visit Provider Physician Assistant
DX: M25.571 Pain in right ankle and joints of right foot (principal)
CPT/HCPCS: 73610

== ENCOUNTER 2023-10-22 12:03 | Outpatient (AMB) | payer OTHER, BC, SELFPAY ==
--- NOTE | 2023-10-22 12:37 | A.OFFVIS_ITS ---
Vital Signs 10/22/23 12:42 Height 5 ft 5 in Weight 196 lb BMI 32.6 Intake Visit Reasons: OV - RT ORIF lateral malleolus 04/03/22 NE Intake Note: Siria is a 53 year old female who presents today for a follow up of her Right ankle s/p Right Lateral Malleolus ORIF 04/03/22. Patient reports having some tension in her ankle when she walking. She expresses that she is having a lot of pain in her medial aspect of the knee and it gets swollen. Allergies codeine [CODEINE] Allergy (Severe, Verified 10/22/23 12:40) swollen tongue Sulfa (Sulfonamide Antibiotics) [SULFA (SULFONAMIDE ANTIBIOTICS)] Allergy (Severe, Verified 10/22/23 12:40) Hives penicillin G [PENICILLIN G] Allergy (Unknown, Verified 10/22/23 12:40) UNKNOWN HPI HPI OV - RT ORIF lateral malleolus 04/03/22 NE: Details: 53-year-old female who presents in the office today for an evaluation of right knee pain. While in the office today the patient claims she is having ?a lot? of pain on the medial aspect of the right knee with edema. 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 No ecchymosis, erythema, or joint effusion. No tenderness to palpation along the medial or lateral joint lines. Full knee extension and flexion. Mild crepitus felt with ROM. NVI. Assessment & Plan Assessment & Plan (1) Osteoarthritis of right knee: Code(s): M17.11 - Unilateral primary osteoarthritis, right knee Category: Medical (2) Gait abnormality: Code(s): R26.9 - Unspecified abnormalities of gait and mobility Category: Medical Plan Ms. Bryson Fraire is a 53-year-old female who presents in the office today for an evaluation of right knee pain. While in the office today the patient claims she is having ?a lot? of pain on the medial aspect of the right knee with edema. I recommended physical therapy to work on glute, cord, and quad strengthening. A referral was made in the office today. Follow-up will be in three months, or sooner if needed. Orders: Orders XR ankle RT min 3V Today M25.579 - Pain in unspecified ankle and joints of unspecified foot PT Evaluation and Treatment Today M17.11 - Unilateral primary osteoarthritis, right knee, R26.9 - Unspecified abnormalities of gait and mobility Patient Instructions: Scribed by Aurea Fregoso veterinary medical officer, for Miranda Ambrose PA-C on 10/22/2023 at 12:05 pm, EST. Coding Level of Care Code Est Pt Level 3 (71301) Diagnoses Osteoarthritis of right knee M17.11 Gait abnormality R26.9
[2023-10-22 12:42] VITALS: BMI 32.6
== END 2023-10-22 13:31 | disposition home or self-care (01) ==
PROVIDERS: PCP Internal Medicine; Visit Provider Physician Assistant
DX: M17.11 Unilateral primary osteoarthritis, right knee (principal); R26.9 Unspecified abnormalities of gait and mobility
CPT/HCPCS: 99213

== ENCOUNTER 2023-12-18 15:40 | Outpatient (AMB) | payer BC, SELFPAY ==
--- NOTE | 2023-12-18 15:41 | AM.OFFWIN_ITS ---
Intake Vital Signs 12/18/23 15:43 Height 5 ft 5 in Weight 185 lb BMI 30.8 BP 110/76 Blood Pressure Location Lt brachial Position Sitting Pulse 86 Pulse Source Pulse Oximeter Temp 98.4 F Temp Source Oral Pulse Oximetry (%) 96 Oxygen Delivery Method Room Air Intake Visit Reasons: Right wrist thumb pain pt fell Intake Note: pt c/o RT wrist and thumb pain due to fall 2 weeks ago Patient Tobacco Use Status: Never used Tobacco Allergies codeine [CODEINE] Allergy (Severe, Verified 12/18/23 15:42) swollen tongue Sulfa (Sulfonamide Antibiotics) [SULFA (SULFONAMIDE ANTIBIOTICS)] Allergy (Severe, Verified 12/18/23 15:42) Hives penicillin G [PENICILLIN G] Allergy (Unknown, Verified 12/18/23 15:42) UNKNOWN Do you need a note to return to daycare/school/sports/work: No HPI Right wrist thumb pain pt fell HPI Details This note is constructed using voice recognition software. While every effort has been made to ensure accuracy, traveling repair accountant errors may have been included. The patient is a 53 year old female who presents to the clinic today with fall on outstretched hand on right, 2 weeks ago. She is now having pain in the radial aspect of the right wrist, and reduced range of motion. She notes that she is having more pain since the onset of the symptoms. She is requesting an x-ray. She has a longstanding relationship with [facility] [place]. She denies numbness or tingling, does have some reduced strength in that hand. [facility] Medical History Relapsing polychondritis Surgical History H/O thumb surgery Status post open reduction with internal fixation (ORIF) of fracture of ankle Hx of shoulder surgery History of carpal tunnel release Family History Father HTN (hypertension) FHx: mental illness Mother Cancer HTN (hypertension) Social History Alcohol intake: current Alcohol intake frequency: holidays/special occasions only Comment: FELL ABOUT A YR AGO BROKE HER ANKLE Patient Tobacco Use Status: Never used Tobacco Second Hand Smoke Exposure: No Substance Use Type: Marijuana Current occupational status: employed 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 Pain in anatomical snuff box on right. No echymosis, erythema, edema. TTP. Psych Appearance: grossly normal Mental Status: mental status grossly normal Speech and movement: Normal speech and movement present Affect: normal affect Assessment & Plan Assessment & Plan (1) Right wrist injury: Code(s): S69.91XA - Unspecified injury of right wrist, hand and finger(s), initial encounter Qualifiers: Encounter type: initial encounter Qualified Code(s): S69.91XA - Unspecified injury of right wrist, hand and finger(s), initial encounter Plan: Xray ordered for evaluation. Patient splinted with some spica and wrist immobilization. Advised patient to follow up with orthopedist, who she has a longstanding established relationship with. Advised to keep wrist splinted until she has been evaluated by Orthopedics, as there is concern that she could have scaphoid involvement Plan See above for full details and plan. Orders: Orders XR wrist RT min 3V Today M25.531 - Pain in right wrist Coding Level of Care Code Est Pt Level 4 (44051) Diagnoses Injury of right wrist, initial encounter S69.91XA Encounter type: initial encounter
[2023-12-18 15:43] VITALS: BP 110/76; PULSE 86; TEMP 36.9; O2SAT 96; BMI 30.8
== END 2023-12-18 16:13 | disposition home or self-care (01) ==
PROVIDERS: PCP Internal Medicine; Visit Provider Registered Nurse
DX: S69.91XA Unspecified injury of right wrist, hand and finger(s), initial encounter (principal)
CPT/HCPCS: 99214

== ENCOUNTER 2023-12-18 16:05 | Outpatient (REF) | payer BC, SELFPAY ==
--- NOTE | ~2023-12-18 | XR_ITS ---
EXAMINATION: XR WRIST, RIGHT CLINICAL INFORMATION: Right wrist pain. Status post fall. COMPARISON: None available. TECHNIQUE: PA, lateral, and oblique views of the right wrist. FINDINGS: Alignment is anatomic with normal joint spaces. No displaced fracture or dislocation. No erosions or abnormal soft tissue calcifications. XR/XR wrist RT min 3V IMPRESSION: No acute abnormality.
== END 2023-12-18 16:06 | disposition home or self-care (01) ==
LOC: HO.HMGCX 16:05
PROVIDERS: PCP Internal Medicine; Visit Provider Registered Nurse
DX: M25.531 Pain in right wrist (principal)
CPT/HCPCS: 73110

== ENCOUNTER 2024-01-07 11:46 | Outpatient (REF) | payer BC, SELFPAY ==
--- NOTE | ~2024-01-07 | XR_ITS ---
EXAMINATION: XR WRIST, RIGHT CLINICAL INFORMATION: Right wrist pain. Evaluate for a scaphoid fracture. COMPARISON: Right wrist radiographs dated 12/18/2023. TECHNIQUE: PA, lateral, oblique, and scaphoid views of the right wrist. FINDINGS: No scaphoid fracture. No periosteal reaction or callus formation to suggest a healing, nondisplaced fracture. The remaining osseous structures appear intact. Normal carpal alignment. No joint space narrowing or marginal osteophytes. No osseous erosion. No abnormal soft tissue calcification. XR/XR wrist RT w scaphoid IMPRESSION: No scaphoid fracture. No evidence of healing. Electronically signed by: Jesse Bueno MD 01/12/2024 07:56 PM EDT
== END 2024-01-07 11:47 | disposition home or self-care (01) ==
LOC: HO.HOSX 11:46
PROVIDERS: Visit Provider Orthopaedic Surgery
DX: M25.531 Pain in right wrist (principal); M65.4 Radial styloid tenosynovitis [de Quervain]
CPT/HCPCS: 20550; 73110; J1100

== ENCOUNTER 2024-01-07 12:09 | Outpatient (AMB) | payer BC, SELFPAY ==
[2024-01-07 12:19] VITALS: BMI 30.8
--- NOTE | 2024-01-07 12:19 | MHC.OFFVIS ---
Vital Signs 01/07/24 12:19 Height 5 ft 5 in Weight 185 lb BMI 30.8 Intake Visit Reasons: New prob- RT wrist possible scaphoid fx Intake Note: Siria a 53 year old left hand dominant female who presents today for an evaluation of right wrist pain. Patient reports having a fall while going down the stairs, she was carrying a basket of laundry, she hit her wrist with the wall. Her injury happened about 4 weeks prior to [facility] walk in visit on 12/18/23, around mid November. Currently she has pain with twisting motions. She uses a wrist brace. She had numbness and tingling however this has subsided. Allergies codeine [CODEINE] Allergy (Severe, Verified 01/07/24 12:26) swollen tongue Sulfa (Sulfonamide Antibiotics) [SULFA (SULFONAMIDE ANTIBIOTICS)] Allergy (Severe, Verified 01/07/24 12:26) Hives penicillin G [PENICILLIN G] Allergy (Unknown, Verified 01/07/24 12:26) UNKNOWN HPI HPI New prob- RT wrist possible scaphoid fx: Details: Siria is a 53 year old right hand dominant woman who presents for right radial sided wrist pain, S/P fall sometime mid-November 2023. She was carrying laundry downstairs when she slipped and fell. When she fell she then supported her fall against the wall with her right hand. It does not sound like she fell to the ground. She was seen at a walk-in clinic on 12/18/23 and was put in a splint. She complains of pain with use of her wrist, primarily with pinching, gripping, or twisting activities. Her pain is primarily in the radial aspect of her wrist & thumb. 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 She was a nurse for [address] [employer]. She has been able to continue working. She says that she does have fibromyalgia. [facility] Medical History Relapsing polychondritis Surgical History H/O thumb surgery Status post open reduction with internal fixation (ORIF) of fracture of ankle Hx of shoulder surgery History of carpal tunnel release Family History Father HTN (hypertension) FHx: mental illness Mother Cancer HTN (hypertension) Social History Alcohol intake: current Alcohol intake frequency: holidays/special occasions only Comment: FELL ABOUT A YR AGO BROKE HER ANKLE Patient Tobacco Use Status: Never used Tobacco Second Hand Smoke Exposure: No Substance Use Type: Marijuana Current occupational status: employed 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, 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 Review of Systems Const All systems reviewed & are unremarkable except as noted in HPI and below Physical Exam Vital Signs: BMI result Body Mass Index 30.8 Const General: cooperative, healthy appearing and no acute distress Orientation/consciousness: patient oriented x3 HEENT Head: Yes normocephalic and Yes atraumatic Eyes EOM: EOMs intact bilaterally Resp Effort & Inspection: normal respiratory effort and able to speak in complete sentences Cardio Jugular venous distension: no JVD Skin General skin exam: turgor normal Rashes: no rashes Neuro General: patient oriented x3 Extrem Other: Evaluation of Right Upper Extremity: The patient is alert, oriented, and in no acute distress Neuro: Median, Ulnar, Radial nerves motor and sensory intact and sensation is normal to the tips of all digits Vascular: Cap refill brisk ROM: With encouragement, She can make a fist and extend all her digits No locking or catching She has been in a Velcro thumb spica wrist splint for a fair amount of time and is starting to develop some wrist stiffness. Skin: No lacerations or abrasions. General: No Ecchymosis. No Erythema or evidence of infection. Most tender over the right 1st dorsal compartment Positive Cele test on the right, negative on the left Most Tender over the radial styloid, and she does have some swelling over the 1st dorsal compartment at the radial styloid. Also some tenderness over the ECRL & ECRB tendons as they cross the wrist into their insertions Some mild pain with resisted wrist extension referred to the ECRL/ECRB tendons No tenderness over the thumb a1 juan alberto No snuffbox or scaphoid tubercle tenderness today Radiographs: 3 views of the right wrist including a scaphoid view were taken and viewed by me today in clinic. They show no fractures or dislocations. Psych Appearance: grossly normal Affect: normal affect Attitude: cooperative Office Procedures Fracture Care Details: No fracture, injection Fracture Billing Code: Fracture Billing Code Assessment & Plan Assessment & Plan (1) De Quervain's tenosynovitis, right: Code(s): M65.4 - Radial styloid tenosynovitis [de Quervain] Category: Medical Plan Assessment & Plan: 1. Right De Quervains tenosynovitis Positive Cele test 2. Right wrist Tendinitis ECRB & ECRL tendons I educated her about this condition I discussed operative and non-operative treatment options The patient would like to proceed with an injection I discussed activity modification, they should limit or avoid any heavy or repetitive pinching or gripping activities She was fitted for a comfort cool brace to wear with daily activity Injection #1: The risks and benefits of a steroid injection including but not limited to risk of damage to blood vessels, nerves, tendons, infection, skin bleaching, failure to improve symptoms, increased pain, and possible need for further injections or other intervention were discussed with the patient and the patient wishes to proceed with the steroid injection. Once consent was obtained, I sterilely prepped the area over the 1st dorsal compartment of the Right thumb. I then injected the 1st dorsal compartment with a combination of 1 mL of dexamethasone (4mg/ml), and 1% lidocaine. The patient tolerated the procedure well with no complications and good resolution of their symptoms prior to leaving clinic. If the patient continues to have pain 6-8 weeks following this injection, they may call to schedule appointment to discuss alternative treatment options Scribed for Junie Gonzalez MD by Charles Contreras medical chemist, on 01/07/24 at 12:30 PM, EST. Orders: Orders XR wrist RT w scaphoid Today M25.531 - Pain in right wrist Coding Level of Care Code New Pt Level 4 (37877) Diagnoses De Quervain's tenosynovitis, right M65.4 CPT Codes Fracture Care - Fracture Billing Code: Fracture Billing Code ([id number])
== END 2024-01-07 12:58 | disposition home or self-care (01) ==
PROVIDERS: PCP Internal Medicine; Visit Provider Orthopaedic Surgery
DX: M65.4 Radial styloid tenosynovitis [de Quervain] (principal)
CPT/HCPCS: 20550; 99204

== ENCOUNTER 2024-02-07 11:24 | Outpatient (REF) | payer BC, SELFPAY | END 2024-02-07 11:25 | disposition home or self-care (01) | LOC: HO.HOSX 11:24 | PROVIDERS: Visit Provider Physician Assistant | DX: Z13.89 Encounter for screening for other disorder (principal) ==

== ENCOUNTER 2024-02-25 12:16 | Outpatient (AMB) | payer BC, SELFPAY ==
--- NOTE | 2024-02-25 12:56 | A.OFFVIS_ITS ---
Vital Signs 02/25/24 12:57 Height 5 ft 5 in Weight 185 lb BMI 30.8 Intake Visit Reasons: OV- RT wrist pain follow up Intake Note: Siria a 53 year old left hand dominant female who presents today for an evaluation of right wrist pain. Patient continues to wear a comfort cool brace which she finds helpful. Patient states last right DeQuervain injection administered on 01/07/24 did not provide relief. Patient would like to discuss other treatment options today. Allergies codeine [CODEINE] Allergy (Severe, Verified 02/25/24 13:02) swollen tongue Sulfa (Sulfonamide Antibiotics) [SULFA (SULFONAMIDE ANTIBIOTICS)] Allergy (Severe, Verified 02/25/24 13:02) Hives penicillin G [PENICILLIN G] Allergy (Unknown, Verified 02/25/24 13:02) UNKNOWN HPI HPI OV- RT wrist pain follow up: Details: Siria is a 53 year old right hand dominant woman who returns to discuss her right wrist tendinitis & De Quervains Tenosynovitis, S/P 1st dorsal compartment injection on 01/07/24. She continues to complain of pain in the radial aspect of her wrist, worse with activities, primarily with pinching, gripping, or twisting activities. Her pain is primarily in the radial aspect of her wrist & thumb. She found little relief from her previous injection. She has been wearing a comfort cool splint, which she finds more helpful. She would like to discuss alternative treatment options. She says she called for an appointment ~2 weeks after her injection, as her pain had not improved. She says she also has been overusing her hand at work and she says her thumb has given out on her in the past. 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 She was a nurse for 20 years at [employer]. She has been able to continue working. She says that she does have fibromyalgia. [facility] Medical History Relapsing polychondritis Surgical History H/O thumb surgery Status post open reduction with internal fixation (ORIF) of fracture of ankle Hx of shoulder surgery History of carpal tunnel release Family History Father HTN (hypertension) FHx: mental illness Mother Cancer HTN (hypertension) Social History Alcohol intake: current Alcohol intake frequency: holidays/special occasions only Comment: FELL ABOUT A YR AGO BROKE HER ANKLE Patient Tobacco Use Status: Never used Tobacco Second Hand Smoke Exposure: No Substance Use Type: Marijuana Current occupational status: employed 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, 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 Physical Exam Vital Signs: BMI result Body Mass Index 30.8 Extrem Other: Evaluation of Right Upper Extremity: The patient is alert, oriented, and in no acute distress Neuro: Median, Ulnar, Radial nerves motor and sensory intact and sensation is normal to the tips of all digits Vascular: Cap refill brisk ROM: She can make a fist and extend all her digits No locking or catching Most tender over the right 1st dorsal compartment Positive Cele test on the right, negative on the left Tender over the radial styloid, and she does have some swelling over the 1st dorsal compartment at the radial styloid. Assessment & Plan Assessment & Plan (1) De Quervain's tenosynovitis, right: Code(s): M65.4 - Radial styloid tenosynovitis [de Quervain] Category: Medical (2) Right wrist tendinitis: Code(s): M77.8 - Other enthesopathies, not elsewhere classified Category: Medical Plan Assessment & Plan: 1. Right De Quervains tenosynovitis, S/P injection Date of injection: 01/07/24 Positive Cele test 2. Right wrist Tendinitis ECRB & ECRL tendons I educated her about this condition I discussed operative and non-operative treatment options The patient would like to proceed with surgery I discussed activity modification, they should limit or avoid any heavy or repetitive pinching or gripping activities She should continue to wear her comfort cool brace with daily activity The risks and benefits of operative treatment were discussed with the patient and the patient wishes to proceed with surgery. These risks include, but are not limited to risk of damage to blood vessels, nerves, tendons, infection, recurrence, incomplete relief of preoperative symptoms, persistent pain, possible need for further surgery and the risks associated with regional blocks and anesthesia. The plan is to take the patient to the operating room sometime in the next few weeks for the following procedures: 1. Right 1st dorsal compartment release, under local All of the preoperative paperwork including the consent was reviewed today. All the patient's questions were answered. The patient understands that they will be contacted by our plastic surgery coordinator soon to schedule this procedure She denies Diabetes, blood thinners, asthma, heart, lung, kidney issues Patient gives a Hx of Fibromyalgia, and she is listed as having a Hx of chronic post-op pain. Scribed for Junie Gonzalez MD by Charles Contreras, biomedical engineering technician, on 02/25/24 at 1:15 PM, EST. Coding Level of Care Code Est Pt Level 4 (76680) Diagnoses De Quervain's tenosynovitis, right M65.4 Right wrist tendinitis M77.8
[2024-02-25 12:57] VITALS: BMI 30.8
== END 2024-02-25 13:34 | disposition home or self-care (01) ==
PROVIDERS: PCP Internal Medicine; Visit Provider Orthopaedic Surgery
DX: M65.4 Radial styloid tenosynovitis [de Quervain] (principal); M77.8 Other enthesopathies, not elsewhere classified
CPT/HCPCS: 99214

== ENCOUNTER → 2024-02-25 12:16 | Outpatient (BNVA) | payer BC, SELFPAY | PROVIDERS: PCP Internal Medicine; Visit Provider Orthopaedic Surgery ==

== ENCOUNTER 2024-02-27 09:32 | Outpatient (REF) | payer BC, SELFPAY ==
--- NOTE | ~2024-02-27 | XR_ITS ---
EXAMINATIONS: XR KNEE LEFT XR KNEE RIGHT CLINICAL INFORMATION: Knee pain. COMPARISON: None TECHNIQUES: One view of the left knee. Three views of the right knee FINDINGS: Right: Mild to moderate joint space narrowing predominantly involving the medial compartment. No fracture or dislocation is appreciated. Bony mineralization appears preserved. No lytic or sclerotic bony lesion is seen. No significant suprapatellar effusion identified. Left: Frontal view of the left knee may demonstrate mild joint space narrowing predominantly involving the medial compartment. XR/XR knee RT 3V IMPRESSION: Degenerative change. Electronically signed by: Jm Mistry MD 04/15/2024 01:24 PM [facility]
--- NOTE | ~2024-02-27 | XR_ITS ---
EXAMINATIONS: XR KNEE LEFT XR KNEE RIGHT CLINICAL INFORMATION: Knee pain. COMPARISON: None TECHNIQUES: One view of the left knee. Three views of the right knee FINDINGS: Right: Mild to moderate joint space narrowing predominantly involving the medial compartment. No fracture or dislocation is appreciated. Bony mineralization appears preserved. No lytic or sclerotic bony lesion is seen. No significant suprapatellar effusion identified. Left: Frontal view of the left knee may demonstrate mild joint space narrowing predominantly involving the medial compartment. XR/XR knee LT 1V IMPRESSION: Degenerative change. Electronically signed by: Jm Mistry MD 04/15/2024 01:23 PM [facility]
== END 2024-02-27 09:33 | disposition home or self-care (01) ==
LOC: HO.HOSX 09:32
PROVIDERS: Visit Provider Physician Assistant
DX: M25.569 Pain in unspecified knee (principal); M17.11 Unilateral primary osteoarthritis, right knee
CPT/HCPCS: 20610; 73560; 73562; J1010; J2003

== ENCOUNTER 2024-02-27 13:02 | Outpatient (AMB) | payer BC, SELFPAY ==
--- NOTE | 2024-02-27 13:16 | MHC.OFFVIS ---
Intake Visit Reasons: OV - right knee OA Intake Note: Siria is a 53 year old female who presents today for a follow up visit for her right knee OA. Patient reports her pain is on the medial aspect of the knee and she feels some locking. She mentions that she started her PT about a month ago but she feel that PT is helping her. Allergies codeine [CODEINE] Allergy (Severe, Verified 02/27/24 13:23) swollen tongue Sulfa (Sulfonamide Antibiotics) [SULFA (SULFONAMIDE ANTIBIOTICS)] Allergy (Severe, Verified 02/27/24 13:23) Hives penicillin G [PENICILLIN G] Allergy (Unknown, Verified 02/27/24 13:23) UNKNOWN HPI HPI OV - right knee OA: Details: 54-year-old left hand dominant female who presents in the office today for a follow-up of right knee osteoarthritis. I last saw the patient in the office on 10/22/23 when she was referred to physical therapy to work on glute, core, and quad strengthening. While in the office today, the patient reports her pain is prevalent on the medial aspect of the right knee. She experiences locking in the right knee. She started attending physical therapy sessions about a month ago with benefits. [facility] Medical History Relapsing polychondritis Surgical History H/O thumb surgery Status post open reduction with internal fixation (ORIF) of fracture of ankle Hx of shoulder surgery History of carpal tunnel release Family History Father HTN (hypertension) FHx: mental illness Mother Cancer HTN (hypertension) Social History Alcohol intake: current Alcohol intake frequency: holidays/special occasions only Comment: FELL ABOUT A YR AGO BROKE HER ANKLE Patient Tobacco Use Status: Never used Tobacco Second Hand Smoke Exposure: No Substance Use Type: Marijuana Current occupational status: employed 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 No ecchymosis, erythema, or joint effusion. Tenderness to palpation along the medial or lateral joint lines. Full knee extension and flexion. Crepitus is felt with ROM. NVI. Office Procedures Joint Injection/Aspiration Joint Injection/Aspiration Primary Site: right knee Prep: site was prepped using aseptic technique, ethochloride spray was applied and injection warnings given Injected: 80 mg of, DepoMedrol, with 8 mL of (2% plain lido ) and in the joint Approach Used: anterolateral Procedure: The patient tolerated the procedure well, but had some pain with the injection and there was some relief with the local anesthesia Coding 52864 - Large joint Procedure code (CPT) selection complete Assessment & Plan Assessment & Plan (1) Osteoarthritis of right knee: Code(s): M17.11 - Unilateral primary osteoarthritis, right knee Category: Medical Plan Ms. Bryson Fraire is a 54-year-old left hand dominant female who presents in the office today for a follow-up of right knee osteoarthritis. I last saw the patient in the office on 10/22/23 when she was referred to physical therapy to work on glute, core, and quad strengthening. While in the office today, the patient reports her pain is prevalent on the medial aspect of the right knee. She experiences locking in the right knee. She started attending physical therapy sessions about a month ago with benefits. The patient was offered a cortisone injection in the right knee with 80 mg of Depo-Medrol. The patient was explained the risks, benefits, and alternatives to receiving this injection. After receiving consent for the injection, the patient had the procedure done while in the office today. The patient tolerated the procedure well with no complication. The patient was provided with a genumed knee brace, off the shelf. Follow-up will be PRN, or sooner if needed. X-rays of the right knee, which were obtained while in the office today and were reviewed by me, Miranda Ambrose PA-C, revealed: Osteoarthritis of the right knee. Orders: Orders XR knee LT 1V Today M25.569 - Pain in unspecified knee XR knee RT 3V Today M25.569 - Pain in unspecified knee Patient Instructions: Scribed by Diandra Tran, medical records technician, for Miranda Ambrose PA-C on 02/27/24 at 1:32 pm EST. Coding Level of Care Code Est Pt Level 3 (93942) Diagnoses Osteoarthritis of right knee M17.11 CPT Codes Coding - 96160 Large joint: 13641 - Large joint ([id number])
== END 2024-02-27 13:54 | disposition home or self-care (01) ==
PROVIDERS: PCP Internal Medicine; Visit Provider Physician Assistant
DX: M17.11 Unilateral primary osteoarthritis, right knee (principal)
CPT/HCPCS: 20610; 99213

== ENCOUNTER 2024-04-17 10:00 | Outpatient (RCR) | payer BC, SELFPAY ==
--- NOTE | 2024-01-31 13:51 | MHC.PT.EP ---
[facility] [place] Office [place] [facility] [place] Office [address] Salty Nichole [address] [phone] F: [phone] F: [phone] F: [phone] F: [phone] Physical Therapy Plan of Care Date of Evaluation: 01/31/24 Date of Surgery: Diagnosis: This is a 53 yo female presenting to skilled PT with a script for OA R knee, gait abnormalities Assessment: This is a 53 yo female presenting to skilled PT with a script for OA R knee, gait abnormalities. Patient is here today reporting medial knee pain and is described just there as well as increased with movement/WBing, stairs, picking up objects. She reports that when she is having a bad day/ when my fibro flares. Pain has been ongoing since this Spring. She is being followed by [facility]. She feels like she is also just deconditioned. Assessment reveals pain that ranges from up to a 4/10 at the worst. Patient demos decreased R knee and hip ROM, strength of hip and knee, TTP at medial knee joint and impaired posture with forward head and rounded shoulders as decreased gait and balance. Based on functional limitations, impaired QOL and pain tolerance patient is a good candidate for skilled PT 2x/wk for 6wks. Frequency and Duration: The patient will be seen 2x/wk for 6 wks Short Term Goals: (in 2 weeks) Patient will improve knee AROM by at least 5 degs for extension Patient will demo good understanding and performance of quad set in multiple different planes without cues from PT Patient will be I in HEP Ply Splicer Goals: (in 6 weeks) Patient will report 75% improvement in balance and strength of LLE as evidenced by reports no of falls or buckling in LE Patient will improve LEFs by 10 points Patient will demo WFL AROM of knee and hip Patient will demo proper squat and lift techniques without increase in pain Treatment Plan: Modalities to reduce pain, spasms and effusion. Manual therapy to restore motion and function. Therapeutic exercise to improve strength and flexibility. Neuromuscular re-education for posture and balance. Therapeutic activities to return to functional activities of daily living. Electronically signed by: Jessica Lyn PT Please sign and return to therapist. Thank you for your referral.
--- NOTE | 2024-05-18 06:51 | MHC.PT.DC ---
[facility] [place] Office [place] Office [place] Office [address] Salty Nichole [address] [facility] [phone] F: [phone] F: [phone] F: [phone] F: [phone] Physical Therapy Discharge Report Diagnosis: This is a 53 yo female presenting to skilled PT with a script for OA R knee, gait abnormalities Date of Surgery: Date of Evaluation: 01/31/24 Date of Discharge: 05/18/24 Treatments to Date: 11 Cancellations to Date: 0 No Shows to Date: 0 Discharge Status: Achieved Goals Improved Function Independent with HEP Discharge Summary: 04/17: Patient has come to 11 visits of PT. She is I in her program but has a hard time doing her HEP on her own. She also has a lot of other personal factors going on. She demos normal knee and hip ROM and strength. I educated her that when she feels ready and if she feels like she needs to return she may. DC to HEP. Electronically signed by: Jessica Lyn PT Please sign and return to therapist. Thank you for your referral.
== END 2024-05-18 06:52 | disposition home or self-care (01) ==
LOC: HO.PTCHIC 10:00
PROVIDERS: PCP Internal Medicine; Visit Provider Physician Assistant
DX: M17.9 Osteoarthritis of knee, unspecified (principal); R26.9 Unspecified abnormalities of gait and mobility
CPT/HCPCS: 97110; 97162; 97530

== ENCOUNTER 2024-04-20 07:22 | Day surgery (SDC) | payer BC, SELFPAY ==
[2024-04-20 08:23] VITALS: BP 117/74; PULSE 94; RESP 16; TEMP 36.6; O2SAT 97; BMI 30.9
--- NOTE | 2024-04-20 09:53 | MHC.SHP ---
Pre-Procedural Eval Section A - 24 Hr Update-Section A only Date of Service: 04/20/24 The patient is an INPATIENT: No Changes since office visit: No Cold of Flu in the past 2 weeks, No New Medical Problems, No Changes in Medication and No Patient answered all questions The patient has been examined within 24 hours of the surgical procedure. The History & Physical has been completed within 30 days and I have reviewed it.: Yes Section B - Complete if H&P > 30 days Chief Complaint: Radial styloid tenosynovitis [de Quervain] Allergies: Allergies Allergy/AdvReac Type Severity Reaction Status Date / Time codeine [CODEINE] Allergy Severe swollen Verified 02/27/24 13:23 tongue Sulfa (Sulfonamide Allergy Severe Hives Verified 02/27/24 13:23 Antibiotics) [SULFA (SULFONAMIDE ANTIBIOTICS)] penicillin G [PENICILLIN G] Allergy Unknown UNKNOWN Verified 02/27/24 13:23 Plan Diagnosis/Plan: Unchanged I have reviewed the history and physical and performed a pertinent physical examination on my patient. No changes have occurred unless specified. Time Spent With Patient Time: Total time managing care of this patient today ____ minutes.
--- NOTE | 2024-04-20 09:54 | W.PM.OPN ---
Operative Note Operative Note Date of Service: 04/20/24 Narrative: Operative Note Preop diagnosis: 1. Right DeQuervain's tenosynovitis Postop diagnosis: 1. Right DeQuervain's tenosynovitis Procedure: 1. Right 1st dorsal compartment release Surgeon: Junie Gonzalez MD Windows Systems Engineer: None Anesthesia: local block using 1% lidocaine with epinephrine Findings: Thickened 1st dorsal compartment. Some thickening of the APL tendon as it passed beneath the 1st dorsal compartment retinaculum. EBL: Less than 5 mL Tourniquet time: None Specimens: None Complications: None Disposition: Brought to recovery room in stable condition Plan: Follow-up for 7-10 days for wound check and suture removal Indications: The patient is 54 years old, with right DeQuervain's tenosynovitis that has been unresponsive to nonoperative management. The risks and benefits of operative treatment including but not limited to risk of damage to blood vessels, nerves, tendons, infection, persistent pain, persistent symptoms, recurrence or possible need for additional surgery were discussed with the patient and the patient wishes to proceed with surgery. Procedure: Once consent was obtained a local block was performed in the preop area using a combination of 1% lidocaine with epinephrine. The patient was then brought back to the operating suite and placed on the operative table in supine position. A tourniquet was applied to the proximal aspect of the right upper extremity and the limb was prepped and draped in a standard surgical fashion. Once assured that we had a good block, a 1.5 cm longitudinal incision was made centered over the 1st dorsal compartment as it passed over the radial styloid of the right wrist. The incision was made through the skin to the subcutaneous tissues using a #15 blade. Careful dissection was made down to the level of the 1st dorsal compartment using tenotomy scissors, with care being taken to protect the nearby branches of the superficial radial nerve. Once the 1st dorsal compartment was exposed, A longitudinal incision was made in the 1st dorsal compartment 1st using a #15 blade, then using tenotomy scissors under direct visualization. The 1st dorsal compartment was noted to be significantly thickened. There was also some thickening of the more superficial slips of the APL tendon where it passed beneath the extensor retinaculum of the 1st dorsal compartment. The EPB tendon appeared to be in the same compartment. Following our release, we saw smooth gliding abductor pollicis longus and extensor pollicis brevis tendons. Once satisfied with our 1st dorsal compartment release the wound was copiously irrigated with normal saline and hemostasis was obtained with a brief period of local pressure. The subcutaneous layer was closed with some 4-0 Vicryl suture, and the skin edges were reapproximated with some 5.0 nylon suture material. A sterile dressing was applied. The patient appears to have tolerated the procedure well and with no complications. All digits were well vascularized at the conclusion of the case.
[2024-04-20 10:34] VITALS: BP 139/76; PULSE 87; RESP 16; O2SAT 95
== END 2024-04-20 10:48 | disposition home or self-care (01) ==
PROVIDERS: PCP Internal Medicine; Visit Provider Orthopaedic Surgery
PROC: (CPT 25000; principal; 2024-04-20 09:00)
DX: M65.4 Radial styloid tenosynovitis [de Quervain] (principal); M25.531 Pain in right wrist; M79.7 Fibromyalgia; M77.8 Other enthesopathies, not elsewhere classified; M94.1 Relapsing polychondritis; Z88.0 Allergy status to penicillin; Z88.2 Allergy status to sulfonamides; Z88.5 Allergy status to narcotic agent; Z98.890 Other specified postprocedural states
CPT/HCPCS: 25000; J0171; J2003; J2795

== ENCOUNTER → 2024-04-20 07:22 | Outpatient (BNV) | payer BC, SELFPAY | PROVIDERS: PCP Internal Medicine; Visit Provider Orthopaedic Surgery | DX: M65.4 Radial styloid tenosynovitis [de Quervain] (principal) | CPT/HCPCS: 25000 ==

== ENCOUNTER 2024-05-05 11:15 | Outpatient (AMB) | payer BC, SELFPAY ==
--- NOTE | 2024-05-05 11:17 | A.OFFVIS_ITS ---
Vital Signs 05/05/24 11:17 Height 5 ft 6 in Weight 186 lb BMI 30.0 Intake Visit Reasons: PO-Rt 1st DC Release 04/20/24 Intake Note: Siria is a 54 year old right hand dominant female who presents today for a post operative visit for her right 1st DC Release 04/20/24. Patient reports that she did forget that she had surgery at one point and lift something rather heavy, she felt increased pain after this but it has since resolved. She works from home so she feels some soreness with computer work, overall she is doing well with no concerns. Sutures removed and steris applied Allergies codeine [CODEINE] Allergy (Severe, Verified 05/05/24 11:27) swollen tongue Sulfa (Sulfonamide Antibiotics) [SULFA (SULFONAMIDE ANTIBIOTICS)] Allergy (Severe, Verified 05/05/24 11:27) Hives penicillin G [PENICILLIN G] Allergy (Unknown, Verified 05/05/24 11:27) UNKNOWN HPI HPI PO-Rt 1st DC Release 04/20/24: Details: Siria is a 54 year old right hand dominant female who presents today for a post operative visit for her right 1st DC Release 04/20/24. Patient reports that she did forget that she had surgery at one point and lift something rather heavy, she felt increased pain after this but it has since resolved. She works from home so she feels some soreness with computer work, overall she is doing well with no concerns. Sutures removed and steris applied [facility] Medical History Relapsing polychondritis Surgical History H/O thumb surgery Status post open reduction with internal fixation (ORIF) of fracture of ankle Hx of shoulder surgery History of carpal tunnel release Family History Father HTN (hypertension) FHx: mental illness Mother Cancer HTN (hypertension) Social History Alcohol intake: current Alcohol intake frequency: holidays/special occasions only Comment: FELL ABOUT A YR AGO BROKE HER ANKLE Patient Tobacco Use Status: Never used Tobacco Second Hand Smoke Exposure: No Substance Use Type: Marijuana Current occupational status: employed 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, 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 Review of Systems Const All systems reviewed & are unremarkable except as noted in HPI and below Physical Exam Vital Signs: BMI result Body Mass Index 30.0 Extrem Other: Evaluation of Right Upper Extremity: The patient is alert, oriented, and in no acute distress Neuro: Median, Ulnar, Radial nerves motor and sensory intact and sensation is normal to the tips of all digits Vascular: Cap refill brisk ROM: She can make a fist and extend all her digits No locking or catching Very mildly tender over the right 1st dorsal compartment Negative Cele test on the right, negative on the left Very mild swelling over the 1st dorsal compartment and radial styloid Well approximated and well healing incision site noted over the right 1st dorsal compartment Assessment & Plan Assessment & Plan (1) De Quervain's tenosynovitis, right: Code(s): M65.4 - Radial styloid tenosynovitis [de Quervain] Category: Medical Plan 1. De Quervain tenosynovitis, right, status post 1st dorsal compartment release DOS 04/20/2024 Patient appears to be recovering well postoperatively Patient is educated about the typical recovery course At this time, patient was informed that she will require no acute follow-up with us, as she was recovering very well Patient is educated that it can take up to 2-3 months to experience relief of symptoms after surgery, but having a negative Cele in the office today as a very during sign Patient was amenable to this plan Patient will follow-up as needed with any acute concerns Coding Level of Care Code Global (64671) Diagnoses De Quervain's tenosynovitis, right M65.4
== END 2024-05-05 11:52 | disposition home or self-care (01) ==
PROVIDERS: PCP Internal Medicine
DX: M65.4 Radial styloid tenosynovitis [de Quervain] (principal)
CPT/HCPCS: 99024

== ENCOUNTER 2024-05-08 14:28 | Outpatient (AMB) | payer BC, SELFPAY ==
[2024-05-08 14:32] VITALS: BP 134/90; PULSE 88; O2SAT 96; BMI 30.2
--- NOTE | 2024-05-08 14:32 | MHC.OFFVIS ---
Vital Signs 05/08/24 14:32 Height 5 ft 6 in Weight 187 lb 6 oz BMI 30.2 BP 134/90 H Blood Pressure Location Lt brachial Position Sitting Pulse 88 Pulse Source Pulse Oximeter Pulse Oximetry (%) 96 Oxygen Delivery Method Room Air Intake Visit Reasons: Follow up Allergies codeine [CODEINE] Allergy (Severe, Verified 05/08/24 14:35) swollen tongue Sulfa (Sulfonamide Antibiotics) [SULFA (SULFONAMIDE ANTIBIOTICS)] Allergy (Severe, Verified 05/08/24 14:35) Hives penicillin G [PENICILLIN G] Allergy (Unknown, Verified 05/08/24 14:35) UNKNOWN Medication List - Last Reconciled 05/18/24 by NOLAN Mackay [3 in 1 commode 3 in 1 commode] acetaminophen ER (Tylenol Arthritis Pain) 650 mg PO BID atorvastatin 10 mg PO DAILY baclofen 10 mg PO BID 30 days diclofenac sodium 75 mg PO .prn duloxetine 120 mg PO DAILY gabapentin 300 mg PO TID 90 days ibuprofen 600 mg PO Q6-8H PRN lorazepam 2 mg PO BEDTIME methylphenidate HCl (Ritalin) 10 mg PO BID naltrexone (Naltrex) 6 mg PO DAILY prazosin 1 - 2 mg (1 - 2 x 1 mg) PO BEDTIME 30 days quetiapine 150 mg PO BEDTIME sumatriptan succinate 50 - 100 mg orally at onset of headache, may repeat in 2 hrs PRN; max 2 tabs per day or 4 tabs/week (may take with Ibuprofen) 30 days Do you need a note to return to daycare/school/sports/work: No HPI Comments Details: 54-yr-old female presents for f/u visit of postconcussive syndrome, migraine, tremors. 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 She is on long-term disability. She went through TMS this past summer, and she started to feel more cognitive s/s. Cognitively, she was feeling all over the place , scattered, forgetful. Her psychiatrist started her on methylphenidate 10mg bid. She is not sure how much the methylphenidate has helped, but notes states she used to feel a revv feeling in her body and this has subsided. Pt is still having fibromyalgia pain/fatigue, and she is having increased right knee pain. She is still seeing Pam FLOWERS at [facility]- compounded Narcan 6mg qd, and oral supplements- goal to optimize pain control and reduce immunization. There was thought to start her on IV infusions, however this tx was not covered by her insurance. Her headaches are worse when she is overall not feeling well. 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 She is using Tylenol arthritis bid for general pain. When she has a severe migraine, she may use her Sumatriptan- about twice a month. Her tremors are the stable, sometime sthe left hand can shake more. [facility] Medical History Relapsing polychondritis Surgical History H/O thumb surgery Status post open reduction with internal fixation (ORIF) of fracture of ankle Hx of shoulder surgery History of carpal tunnel release Family History Father HTN (hypertension) FHx: mental illness Mother Cancer HTN (hypertension) Social History Alcohol intake: current Alcohol intake frequency: holidays/special occasions only Comment: FELL ABOUT A YR AGO BROKE HER ANKLE Patient Tobacco Use Status: Never used Tobacco Second Hand Smoke Exposure: No Substance Use Type: Marijuana Current occupational status: employed 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 General: patient oriented x3 Cranial nerves: Yes CN's II-XII intact bilaterally Cognition (Neuro): normal cognition Psych Appearance: grossly normal Mental Status: mental status grossly normal Speech and movement: Normal speech and movement present Affect: normal affect Attitude: cooperative Assessment & Plan Assessment & Plan (1) Migraine with aura: Code(s): G43.109 - Migraine with aura, not intractable, without status migrainosus Category: Medical (2) Tremor, physiological: Code(s): R25.1 - Tremor, unspecified Category: Medical (3) Cognitive dysfunction: Code(s): F09 - Unspecified mental disorder due to known physiological condition Category: Medical Plan For cognitive difficulties and mood: Continue to f/u w/ psychiatry and integrative medicine. For fibromyalgia, chronic pain: F/u w/ Integrative Medicine. Continue Gabapentin. Continue exercise. Consider referral for pain management cognitive therapy program, such as [facility] ACT therapy. For migraine prevention: May continue to hold Ajovy 225mg sc q month, however resume if migraine frequency increases. Continue Prazosin 2mg qhs- for nocturnal PTSD as well. Continue Gabapentin 300mg qam and 600mg qhs. Continue Duloxetine 120mg qd Previous migraine tx trials- Amitriptyline- ineffective, Propranolol- ineffective. Erenumab- effective, but switched d/t insurance. ? For acute migraine tx: Continue prn Sumatriptan. Future considerations: Resuming Ubrelvy prn- previously had good effect. ? For ET: Monitor clinically. Future considerations- retrying BB.. ? f/u in 6 months or sooner new or worsening s/s. Coding Level of Care Code Est Pt Level 4 (33452) Diagnoses Migraine with aura G43.109 Tremor, physiological R25.1 Cognitive dysfunction F09
== END 2024-05-08 15:51 | disposition home or self-care (01) ==
PROVIDERS: PCP Internal Medicine; Visit Provider Nurse Practitioner Family
DX: G43.109 Migraine with aura, not intractable, without status migrainosus (principal); R25.1 Tremor, unspecified; R41.89 Other symptoms and signs involving cognitive functions and awareness
CPT/HCPCS: 99214

== ENCOUNTER 2024-06-01 10:50 | Outpatient (AMB) | payer BC, SELFPAY ==
--- NOTE | 2024-06-01 11:02 | MHC.OFFVIS ---
Intake Visit Reasons: OV- RT Knee OA - discuss treatment options Intake Note: Siria is a 54 year old female who presents today for a follow up of her right knee OA. Patient reports her pain is on the medial aspect of the knee and she feels some locking. Last injection administered 02/27/24. Hx of genumedi brace. Has tried and failed physical therapy. No Hx of gel injections. Allergies codeine [CODEINE] Allergy (Severe, Verified 06/01/24 11:05) swollen tongue Sulfa (Sulfonamide Antibiotics) [SULFA (SULFONAMIDE ANTIBIOTICS)] Allergy (Severe, Verified 06/01/24 11:05) Hives penicillin G [PENICILLIN G] Allergy (Unknown, Verified 06/01/24 11:05) UNKNOWN HPI HPI OV- RT Knee OA - discuss treatment options: Details: Siria is a 54 year old female who presents today for a follow up of her right knee OA. Patient reports her pain is on the medial aspect of the knee and she feels some locking. Last injection administered 02/27/24. Hx of genumedi brace. Has tried and failed physical therapy. Her last injection was only helpful for a day or 2. She describes difficulty ambulating for more than 5 minutes. Occasionally she can not walk up and down stairs at all. She does have fibromyalgia. She did have a right ankle ORIF years ago which took her a long time to fully recover from but she is doing well. Her recovery was help with a sprint device. She uses a cane. [facility] Medical History Relapsing polychondritis Surgical History H/O thumb surgery Status post open reduction with internal fixation (ORIF) of fracture of ankle Hx of shoulder surgery History of carpal tunnel release Family History Father HTN (hypertension) FHx: mental illness Mother Cancer HTN (hypertension) Social History Alcohol intake: current Alcohol intake frequency: holidays/special occasions only Comment: FELL ABOUT A YR AGO BROKE HER ANKLE Patient Tobacco Use Status: Never used Tobacco Second Hand Smoke Exposure: No Substance Use Type: Marijuana Current occupational status: employed 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 Lateral retropatellar tenderness to palpation. Gait antalgia. Results Reviewed Results Reviewed: I personally reviewed relevant radiographs. There is loss of medial joint space on right knee consistent with moderate osteoarthritis. [id number] patellar osteoarthritis as well Assessment & Plan Assessment & Plan (1) Osteoarthritis of knee: Code(s): M17.9 - Osteoarthritis of knee, unspecified Category: Medical Plan: This is a 54-year-old woman with moderate osteoarthritis. This is made worse by her fibromyalgia. She is aware of this. We discussed treatment options including injections, therapy, bracing, for the pain management and surgery. At this time I recommend a referral to pain management for consideration of a sprint device. (2) Fibromyalgia: Code(s): M79.7 - Fibromyalgia Category: Medical Plan: Coding Level of Care Code Est Pt Level 4 (46231) Diagnoses Osteoarthritis of knee M17.9 Fibromyalgia M79.7
--- OUTSIDE RECORDS SUMMARY | 2024-06-01 15:41 | XMS_ITS ---
Author Organization [facility] Address [address] [facility] [address] [place] [address] Care Team Providers Care Electronic Typesetting Machine Operator Name Role Phone AYDEN PINK Primary Care Provider AYDEN PINK Unavailable [phone] SE MUJICA [phone] REASON FOR VISIT annual Encounters Encounter Location Date Provider Diagnosis [facility] [address] [facility] [address] [place] [address] 12/20/2022 SE MUJICA Plan Of Treatment No Information Progress Notes * Siria RABAGODOB:1969 (54 yo F)Acc No.[id number]:12/20/2022 Progress Notes Patient:?Zulma RABAGOurdes Provider:?Se Mujica MD :1970???Age:52 Y???Sex:Female D ate:12/20/2022 [address] [facility] Pcp:AYDEN Holliday Subjective: * Chief Complaints: * ???1. Annual. * Medical History:? * Ocular Surgical History:? Objective: * Vitals:? Assessment: Plan: * Treatment: Care Plan: * Problems:? * Billing Information: * Visit Code:? * Procedure Codes:? Care Plan Details* * Electronic signature of ZENAIAD MUJICA MD on 06/01/2024 at 03:40 PM EST Sign off status: Pending * Provider:?Se Mujica MD Date:?2022 Generated for Robyn gilliland/Hayden/Quitaitting on:?06/01/2024 03:40 PM EST
--- OUTSIDE RECORDS SUMMARY | 2024-06-01 15:41 | XMS_ITS ---
Author Organization [facility] [employer] [facility] Address [address] [address] Care Team Providers Care Opera Singer Name Role Phone Guanako HOBBS [facility] Primary Care Provider UnavailBRUNILDA Fox Unavailable [phone] REASON FOR VISIT Annual VARNISH THINNER Physical Encounters Encounter Location Date Provider Diagnosis [facility] [employer] [address] [address] 01/30/2024 BRUNILDA MARIE Encounter for gynecological examination [...] Follow Up: 1 Year, Reason: Y early Simulation Specialist Exam Progress Notes * SIRIA COSTADOB:[birth year] (54 yo F)Acc No.[id number]:01/30/2024 PROGRESS NOTES Patient:?JENAE COSTA Provider:?BRUNILDA MARIE MD :1970???Age:53 Y???Sex:Female D ate:01/30/2024 Address:[address] [place] [address] [place] [id number] Pcp:Se Mujica MD Subjective: * Chief Complaints: * ???1. Annual VARNISH THINNER Physical. * HPI: ???Constitutional:?Siria is a 53yo G0? here today for her yearly exam. ? She has been in state of fair [facility] since her last exam. 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 She has received the Moderna Covid-19 vaccine. ? Relationship status: since?03/2022, together?for 5 years, . She is sexually active. Sexual partner(s): male. She does not wish to have STI testing. ? She does *not report vaginal dryness. She does* have hot flashes/night sweats - tolerable with Estroven. ? The patient has never had an abnormal pap smear. Her most recent pap smear was 07/30/2019 - NIL, neg HR HPV. Next due in 2024. ? She has not been diagnosed with breast cancer. She does have a family history of breast cancer - mother. Her last mammogram was 10/31/22. ? She does *not have a family history of colon cancer, but dad 3 yrs ago had a polyp and a segment of bowel removed - he isn't clear on why. She a has not had a colonoscopy. She did Cologard at age 49. She understands that if her dad had colon cancer that Cologard is not an appropriate test for her. ? The patient does *not exercise due to right ankle issues. * ROS:?Annual Simulation Specialist Exam ROS:?Bowel habit changes?denies.?Bladder symptoms?denies.?Vaginal discharge, unusual?denies.?Vaginal itch or odor?denies.?weight or appetite changes?denies.?Chest pains, SOB?denies.?depression?denies.?Breast:?Denies?Breast lump.?Denies?Nipple discharge.?Hematology:?Denies?Swollen glands.?Skin:?Patient denies?changing moles.?Psychiatric:?Denies?Anxiety.? * Medical History:? Objective: * Vitals:? * Examination: ???General Examination: ?GENERAL APPEARANCE:?in no acute distress, well developed, well nourished, watch inspector present in room.?HEAD:?normocephalic, atraumatic.?NECK/THYROID:?neck supple, full range of motion, thyroid normal.?LYMPH NODES:?no axillary or supraclavicular adenopathy.?SKIN:? normal, good turgor, no rashes, no suspicious lesions.?BREASTS:? normal, no dimpling, no discharge, no drainage, no masses palpable bilaterally, nontender.?ABDOMEN:? soft, non-tender, non distended without masses or hepatosplenomegay.?RECTAL:? normal tone, no masses palpable.?BACK:? no costovertebral angle tenderness.?FEMALE GENITOURINARY:?Vulva without lesions or masses, vagina pink without abnormal discharge, lesions or masses, cervix appears normal and is not tender to palpation, uterus is normal size, mobile, nontender and anteverted, ovaries are not palpable.?NEUROLOGIC:? alert and oriented, gait normal.?PSYCH:? alert, oriented, cognitive function intact, cooperative with exam, good eye contact, mood/affect full range, speech clear.? Assessment: * Assessment: 1.?Encounter for gynecologic al examination (general) (routine) without abnormal findings - Z01.419 (Primary)???2.?Encounter for screening mammogram for malignant neoplasm of breast - Z12.31???3.?Encounter for screening for infections with a predominantly sexual mode of transmission - Z11.3??? Plan: * Treatment: 2.?Encounter for screening m ammogram for malignant neoplasm of breast?Imaging: MM Digital Screening Mammogram 3D * Follow Up:?1 Year (Reason: Y early Simulation Specialist Exam) * Images: Billing Information: * Visit Code:? 39685 Preventive Care Est Pt. Age 40-64. * Procedure Codes:? * Electronic signature of BRUNILDA MARIE MD on 06/01/2024 at 03:41 PM EST Sign off status: Pending * Provider:?BRUNILDA MARIE MD Date:?2023 Generated for Robyn gilliland/Hayden/eTransmitting on:?06/01/2024 03:41 PM EST History and Physical Notes * HPI (History of Present Illness) Category Sub-Category Detail Notes Category Not es Constitutional Siria is a 53yo G0 here today for her yearly exam. She has been in state of fair health since her last exam. 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
--- OUTSIDE RECORDS SUMMARY | 2024-06-01 15:41 | XMS_ITS ---
Author Organization [facility] Address [address] [place] [address] Care Team Providers Care Car Dumper Operator Helper Name Role Phone AYDEN PINK Primary Care Provider AYDEN PINK Unavailable [phone] REASON FOR VISIT requesting referral Encounters Encounter Location Date Provider Diagnosis [facility] [address] [place] [address] 12/02/2022 AYDEN PINK Plan Of Treatment No Information Progress Notes * Siria RABAGODOB:1969 (52 yo F)Acc No.[id number]:12/02/2022 Patient:?Siria Rabago :1970???Age:52 Y???Sex:Female Address:[address], [place], [address] * true * Date:? Generated for Printi darshana/Fakatelyng/eTransmitting on:?06/01/2024 03:41 PM EST
--- OUTSIDE RECORDS SUMMARY | 2024-06-01 15:42 | XMS_ITS ---
Author Organization [facility] Address [address] [facility] [address] [place] [address] Care Team Providers Care Dye Jig Operator Name Role Phone Guanako HOBBS [facility] Primary Care Provider BRUNILDA Waters Unavailable [phone] REASON FOR VISIT LT BREAST BIGGER THAN RIGHT Encounters Encounter Location Date Provider Diagnosis [facility] [address] [address] 04/10/2024 BRUNILDA MARIE Unspecified lump in breast [...] weight loss Vit E 1,200IU and/or Evening [place] Oil 3000mg daily x 6 months and [...] weight loss Vit E 1,200IU and/or Evening [place] Oil 3000mg daily x 6 months and reevaluate Pending Test Test Name Order Date Ultrasound : Breast(s), unilateral or bi lateral 04/10/2024 Diagnostic Digital Breast 3D, Bilateral 04/10/2024 Progress Notes * JOSELO COSTADOB:[birth year] (54 yo F)Acc No.[id number]:04/10/2024 PROGRESS NOTES Patient:?JACOBSJENAE GARRIDO Mohsen Provider:?BRUNILDA MARIE MD :1970???Age:54 Y???Sex:Female D ate:04/10/2024 Address:[address] [place] [address], [place] [address] Pcp:Se Mujica MD Subjective: * Chief Complaints: * ???1. LT BREAST BIGGER THAN RIGHT. * HPI: ???LIBRARIAN HELPER (Problems):?Breast Pain/Mass:?Date of onset:?__ ?How did the problem start:?__ ?Location:?__ ?Pain:?__ ?Severity of pain:?__ ?Radiates:?__ ?Does problem include breast mass:?__ ?Onset and progress of pain or mass:?__ ?Problem is associated with:?__ ?Any recent trauma to the breast??__ ?Any personal history of breast biopsy??__ ?Family history of breast cancer??__ ?Date of last mammogram?__ * ROS:?General/Constitutional:?Patient denies?fever, weight gain, weight loss.?Breast:?Patient complaining of?....? * Medical History:? Objective: * Vitals:? * Examination: ???General Exam: ?CONSTITUTIONAL:?BREAST, Right:?BREAST, Left:?SKIN:?Breast: ?FINDING #1:? ....?Nipple: ?DISCHARGE:? none.?RETRACTION:? none.?ULCERATION:? none.?MASS:? none.?TENDERNESS:? none.?SWELLING:? none.?SCALING, FLAKING SKIN:? none.?Psychiatry: ?AFFECT:? appropriate.?ATTITUDE:? cooperative.?SPEECH:? clear.? Assessment: * Assessment: 1.?Unspecified lump in breas t - N63 (Primary)???2.?Mastodynia - N64.4??? Plan: * Treatment: 2.?Mastodynia? Notes: Rule out Discussed causes of breast [...] weight loss Vit E 1,200IU and/or Evening [place] Oil 3000mg daily x 6 months and reevaluate?? * Images: Billing Information: * Visit Code:? 59799 Office Visit, Est Pt., Level 4. * Procedure Codes:? * Electronic signature of BRUNILDA MARIE MD on 06/01/2024 at 03:41 PM EST Sign off status: Pending * Provider:?BRUNILDA MARIE MD Date:?2023 Generated for Robyn gilliland/Hayden/Susan on:?06/01/2024 03:41 PM EST History and Physical Notes * HPI (History of Present Illness) Category Sub-Category Detail Notes Category Not es LIBRARIAN HELPER (Problems) Breast Pain/Mass: Date of onset:: __ [...]
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
== END 2024-06-01 11:31 | disposition home or self-care (01) ==
PROVIDERS: PCP Internal Medicine; Visit Provider Orthopaedic Surgery
DX: M17.11 Unilateral primary osteoarthritis, right knee (principal); M79.7 Fibromyalgia
CPT/HCPCS: 99214

== ENCOUNTER → 2024-06-19 08:46 | Outpatient (BNV) | payer BC, SELFPAY | PROVIDERS: PCP Internal Medicine; Visit Provider Radiology Diagnostic Radiology | DX: G43.109 Migraine with aura, not intractable, without status migrainosus (principal); F09 Unspecified mental disorder due to known physiological condition | CPT/HCPCS: 70553 ==

== ENCOUNTER 2024-06-19 09:07 | Outpatient (REF) | payer BC, SELFPAY ==
--- NOTE | ~2024-06-19 | MR_ITS ---
EXAMINATION: MR BRAIN WITHOUT THEN WITH IV CONTRAST HISTORY: F09 - Unspecified mental disorder due to known physiological condition TECHNIQUE: Sagittal T1, and axial T1, FLAIR, T2, gradient echo, and diffusion weighted MR images of the brain were obtained. Subsequently, sagittal, axial, and coronal T1-weighted images were obtained after the administration of intravenous gadolinium. 8.5 mL Gadavist was administered. COMPARISON: None FINDINGS: There are scattered nonspecific white matter hyperintensities on the FLAIR and T2-weighted images, which are often seen in the setting of small vessel ischemic disease. Ho/white differentiation is otherwise normal. There is no mass effect or midline shift. The ventricular system is normal in size and configuration. No intra or extra-axial fluid collections are identified. There are no foci of restricted diffusion. There is no abnormal contrast enhancement. Normal vascular flow voids are noted in the basilar and carotid arteries. The visualized paranasal sinuses are clear. MR/MR head/brain wo/w con IMPRESSION: Nonspecific matter hyperintensities, likely related to small vessel ischemic disease. No evidence of intracranial hemorrhage. Electronically signed by: Salvatore Best MD 06/19/2024 01:21 PM [facility]
--- OUTSIDE RECORDS SUMMARY | 2024-06-19 09:31 | XMS_ITS | Patient Health Record ---
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 Heterosexual CONTRACEPTION: none Problems Problem Type SNOMED Code ICD Code Onset Dates Problem Status W/U Status Risk Notes Problem Menopause (900107458) Menopausal and female climacteric states (N95.1) Active confirmed Problem Multiple sclerosis (04232143) Multiple sclerosis (G35) Active confirmed Problem Relapsing polychondritis (45665287) Relapsing polychondritis (M94.1) Active confirmed Problem Amenorrhea (31672452) Amenorrhea, unspecified (N91.2) Active confirmed Problem Oligomenorrhea (76848687) Oligomenorrhea, unspecified (N91.5) Active confirmed Problem Female infertility (1902682) Female infertility, unspecified (N97.9) Active confirmed Problem Menopause (119231117) Menopausal and female climacteric states (N95.1) Active confirmed Problem COVID-19 (818014794) COVID-19 (U07.1) Active confirmed Problem Depressive disorder (56677241) Depressive disorder, not elsewhere classified (311) Active confirmed Major Problem Migraine (disorder) (44787944) Migraine, unspecified without mention of intractable migraine without mention of status migrainosus (346.90) Active confirmed Major Vital Signs Temperature 98.2 degrees Fahrenheit 04/24/2024 Blood pressure diastolic 80 mm Hg 04/24/2024 Height 65 in 04/24/2024 Blood pressure systolic 110 mm Hg 04/24/2024 Weight 185 lbs 04/24/2024 BMI 30.78 kg/m2 04/24/2024 Encounters Encounter Location Date Provider Diagnosis [facility] [address] [place] [address] 04/24/2024 BRUNILDA MARIE Mastodynia N64.4 and Hypertrophy [...] Bilateral 04/24/2024 MM Digital Screening Mammogram 3D 2019 MM Digital Screening Mammogram 3D 2022 MM Digital Screening Mammogram 3D 2020 MM Digital Screening Mammogram 3D 2018 Insurance Providers Payer Name Payer Address Payer Phone Subscriber Number Group Number Insured Name Patient Relationship to Insured Coverage Start Date Coverage End Date [employer] [place] [address] [place] [address] [id number] LIZZY HOWELL Spouse - patient is [...]
--- OUTSIDE RECORDS SUMMARY | 2024-06-19 09:31 | XMS_ITS ---
Author Organization [facility] Address [address] [place] [address] Care Team Providers Care Spring Crater Name Role Phone AYDEN PINK Primary Care Provider [phone] AYDEN PINK Unavailable [phone] SE MUJICA [phone] REASON FOR VISIT annual Encounters Encounter Location Date Provider Diagnosis [facility] [address] [place] [address] 12/20/2022 SE MUJICA Plan Of Treatment No Information Progress Notes * Siria RABAGODOB:1969 (54 yo F)Acc No.[id number]:12/20/2022 Progress Notes Patient:?Zulma RABAGOurdes Provider:?Se Mujica MD :1970???Age:52 Y???Sex:Female D ate:12/20/2022 [address] Pcp:AYDEN Holliday Subjective: * Chief Complaints: * ???1. Annual. * Medical History:? * Ocular Surgical History:? Objective: * Vitals:? Assessment: Plan: * Treatment: Care Plan: * Problems:? * Billing Information: * Visit Code:? * Procedure Codes:? Care Plan Details* * Electronic signature of ZENAIDA MUJICA MD on 06/19/2024 at 09:30 AM EST Sign off status: Pending * Provider:?Se Mujica MD Date:?2022 Generated for Robyn gilliland/Hayden/Quitaitting on:?06/19/2024 09:30 AM EST
--- OUTSIDE RECORDS SUMMARY | 2024-06-19 09:31 | XMS_ITS ---
Author Organization [facility] Address [address] [address] Care Team Providers Care Mechanical Service Technician Name Role Phone Guanako HOBBS [facility] Primary Care Provider UnavailBRUNILDA Fox Unavailable [phone] REASON FOR VISIT Annual PSYCHIATRIC THERAPIST Physical Encounters Encounter Location Date Provider Diagnosis [facility] [address] [address] 01/30/2024 BRUNILDA MARIE Encounter for gynecological examination [...] Follow Up: 1 Year, Reason: Y early Cloth Baler Exam Progress Notes * SIRIA COSTADOB:[birth year] (54 yo F)Acc No.[id number]:01/30/2024 PROGRESS NOTES Patient:?JENAE COSTA Provider:?BRUNILDA MARIE MD :1970???Age:53 Y???Sex:Female D ate:01/30/2024 Address:[address] [place] [address] [place] [id number] Pcp:Se Mujica MD Subjective: * Chief Complaints: * ???1. Annual PSYCHIATRIC THERAPIST Physical. * HPI: ???Constitutional:?Siria is a 53yo G0? here today for her yearly exam. ? She has been in state of fair health since her last exam. She has the following ruling machine set up operator concerns: ? She has received the Moderna [...] due to right ankle issues. * ROS:?Annual Cloth Baler Exam ROS:?Bowel habit changes?denies.?Bladder symptoms?denies.?Vaginal discharge, unusual?denies.?Vaginal itch or odor?denies.?weight or appetite changes?denies.?Chest pains, SOB?denies.?depression?denies.?Breast:?Denies?Breast lump.?Denies?Nipple discharge.?Hematology:?Denies?Swollen glands.?Skin:?Patient denies?changing moles.?Psychiatric:?Denies?Anxiety.? * Medical History:? Objective: * Vitals:? * Examination: ???General Examination: ?GENERAL APPEARANCE:?in no acute distress, well developed, well nourished, master in chancery present in room.?HEAD:?normocephalic, atraumatic.?NECK/THYROID:?neck supple, full range [...] * Follow Up:?1 Year (Reason: Y early Cloth Baler Exam) * Images: Billing Information: * Visit Code:? 51615 Preventive Care Est Pt. Age 40-64. * Procedure Codes:? * Electronic signature of BRUNILDA MARIE MD on 06/19/2024 at 09:30 AM EST Sign off status: Pending * Provider:?BRUNILDA MARIE MD Date:?2023 Generated for Robyn gilliland/Hayden/eTransmitting on:?06/19/2024 09:30 AM EST History and Physical Notes * HPI (History of Present Illness) Category Sub-Category Detail Notes Category Not es Constitutional Siria is a 53yo G0 here today for her yearly exam. She has been in state of fair health since her last exam. She has the following ruling machine set up operator concerns: She has received the Moderna Covid-19 [...] General Examination GENERAL APPEARANCE: in no ac [place] distress, well developed, well nourished, master in chancery present in room HEAD: normocephalic, atrau matic [...]
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
--- OUTSIDE RECORDS SUMMARY | 2024-06-19 09:31 | XMS_ITS ---
Author Organization [facility] [employer] [facility] Address [address] [facility] [address] [place] [address] Care Team Providers Care Information Support Project Manager Name Role Phone Guanako HOBBS [facility] Primary Care Provider BRUNILDA Waters Unavailable [phone] REASON FOR VISIT LT BREAST BIGGER THAN RIGHT Encounters Encounter Location Date Provider Diagnosis [facility] [employer] [facility] [employer] [address] [address] 04/10/2024 BRUNILDA MARIE Unspecified lump in breast [...] weight loss Vit E 1,200IU and/or Evening [place] Oil 3000mg daily x 6 months and [...] weight loss Vit E 1,200IU and/or Evening [place] Oil 3000mg daily x 6 months and reevaluate Pending Test Test Name Order Date Ultrasound : Breast(s), unilateral or bi lateral 04/10/2024 Diagnostic Digital Breast 3D, Bilateral 04/10/2024 Progress Notes * JOSELO COSTADOB:[birth year] (54 yo F)Acc No.[id number]:04/10/2024 PROGRESS NOTES Patient:?JACOBSJENAE GARRIDO Mohsen Provider:?BRUNILDA MARIE MD :1970???Age:54 Y???Sex:Female D ate:04/10/2024 Address:[address] [place] [address], [place] [address] Pcp:Se Mujica MD Subjective: * Chief Complaints: * ???1. LT BREAST BIGGER THAN RIGHT. * HPI: ???FUNERAL DIRECTOR/EMBALMER (Problems):?Breast Pain/Mass:?Date of onset:?__ ?How did the [...] weight loss Vit E 1,200IU and/or Evening [place] Oil 3000mg daily x 6 months and reevaluate?? * Images: Billing Information: * Visit Code:? 31546 Office Visit, Est Pt., Level 4. * Procedure Codes:? * Electronic signature of BRUNILDA MARIE MD on 06/19/2024 at 09:31 AM EST Sign off status: Pending * Provider:?BRUNILDA MARIE MD Date:?2023 Generated for Robyn gilliland/Hayden/Quitaitting on:?06/19/2024 09:31 AM EST History and Physical Notes * HPI (History of Present Illness) Category Sub-Category Detail Notes Category Not es FUNERAL DIRECTOR/EMBALMER (Problems) Breast Pain/Mass: Date of onset:: __ [...]
[2024-06-19] MEDS: gadobutroL 10 ML VIAL IVPUSH (10:26)
== END 2024-06-19 09:08 | disposition home or self-care (01) ==
LOC: HO.MRI 09:07
PROVIDERS: PCP Internal Medicine; Visit Provider Nurse Practitioner Family
DX: G43.109 Migraine with aura, not intractable, without status migrainosus (principal); R25.1 Tremor, unspecified; F09 Unspecified mental disorder due to known physiological condition
CPT/HCPCS: 70553; A9585

== ENCOUNTER 2024-08-10 10:48 | Outpatient (AMB) | payer BC, SELFPAY ==
[2024-08-10 11:06] VITALS: BP 124/80; PULSE 89; O2SAT 94; BMI 31.1
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
--- OUTSIDE RECORDS SUMMARY | 2024-08-10 12:50 | XMS_ITS ---
Author Organization [facility] [employer] [facility] Address [address] [address] Care Team Providers Care Neurological Surgery Teacher Name Role Phone Guanako HOBBS [facility] Primary Care Provider UnavailBRUNILDA Fox Unavailable [phone] REASON FOR VISIT Annual FINANCIAL SYSTEMS ADMINISTRATOR Physical Encounters Encounter Location Date Provider Diagnosis [facility] [employer] [address] [address] 01/30/2024 BRUNILDA MARIE Encounter for gynecological examination [...] Follow Up: 1 Year, Reason: Y early Hand Shoes Sewer Exam Progress Notes * SIRIA COSTADOB:[birth year] (54 yo F)Acc No.[id number]:01/30/2024 PROGRESS NOTES Patient:?JENAE COSTA Provider:?BRUNILDA MARIE MD :1970???Age:53 Y???Sex:Female D ate:01/30/2024 Address:[address] [place] [address] [place] [id number] Pcp:Se Mujica MD Subjective: * Chief Complaints: * ???1. Annual FINANCIAL SYSTEMS ADMINISTRATOR Physical. * HPI: ???Constitutional:?Siria is a 53yo G0? here today for her yearly exam. ? She has been in state of fair health since her last exam. She has the following hospital plan administrator concerns: ? She has received the Moderna [...] due to right ankle issues. * ROS:?Annual Hand Shoes Sewer Exam ROS:?Bowel habit changes?denies.?Bladder symptoms?denies.?Vaginal discharge, unusual?denies.?Vaginal itch or odor?denies.?weight or appetite changes?denies.?Chest pains, SOB?denies.?depression?denies.?Breast:?Denies?Breast lump.?Denies?Nipple discharge.?Hematology:?Denies?Swollen glands.?Skin:?Patient denies?changing moles.?Psychiatric:?Denies?Anxiety.? * Medical History:? Objective: * Vitals:? * Examination: ???General Examination: ?GENERAL APPEARANCE:?in no acute distress, well developed, well nourished, ict managers present in room.?HEAD:?normocephalic, atraumatic.?NECK/THYROID:?neck supple, full range [...] * Follow Up:?1 Year (Reason: Y early Hand Shoes Sewer Exam) * Images: Billing Information: * Visit Code:? 27617 Preventive Care Est Pt. Age 40-64. * Procedure Codes:? * Electronic signature of BRUNILDA MARIE MD on 08/10/2024 at 12:50 PM EDT Sign off status: Pending * Provider:?BRUNILDA MARIE MD Date:?2023 Generated for Robyn gilliland/Hayden/eTransmitting on:?08/10/2024 12:50 PM EDT History and Physical Notes * HPI (History of Present Illness) Category Sub-Category Detail Notes Category Not es Constitutional Siria is a 53yo G0 here today for her yearly exam. She has been in state of fair health since her last exam. She has the following hospital plan administrator concerns: She has received the Moderna Covid-19 [...] ac pauline distress, well developed, well nourished, ict managers present in room HEAD: normocephalic, atrau matic [...]
--- OUTSIDE RECORDS SUMMARY | 2024-08-10 12:51 | XMS_ITS ---
Author Organization [facility] [employer] [facility] Address [address] [facility] [address] [place] [address] Care Team Providers Care Lunchroom Attendant Name Role Phone Guanako HOBBS [facility] Primary Care Provider BRUNILDA Waters Unavailable [phone] REASON FOR VISIT LT BREAST BIGGER THAN RIGHT Encounters Encounter Location Date Provider Diagnosis [facility] [employer] [address] [address] 04/10/2024 BRUNILDA MARIE Unspecified lump in breast [...] weight loss Vit E 1,200IU and/or Evening [place] Oil 3000mg daily x 6 months and [...] weight loss Vit E 1,200IU and/or Evening Manly Oil 3000mg daily x 6 months and reevaluate Pending Test Test Name Order Date Ultrasound : Breast(s), unilateral or bi lateral 04/10/2024 Diagnostic Digital Breast 3D, Bilateral 04/10/2024 Progress Notes * JOSELO COSTADOB:[birth year] (54 yo F)Acc No.[id number]:04/10/2024 PROGRESS NOTES Patient:?JACOBSJENAE GARRIDO Mohsen Provider:?BRUNILDA MARIE MD :1970???Age:54 Y???Sex:Female D ate:04/10/2024 Address:[address] [place] [address], [place] [address] Pcp:Se Mujica MD Subjective: * Chief Complaints: * ???1. LT BREAST BIGGER THAN RIGHT. 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 * Examination: ???General Exam: ?CONSTITUTIONAL:?General Appearance:?alert, in no acute distress, normal, well nourished EXAMINED IN UPRIGHT AND SUPINE POSITIONS ?BREAST, Right:?Inspection/Palpation:?no discharge, no masses present, no nipple retraction, no skin dimpling, no tenderness, no supra/infraclavicular adenopathy, no axillary adenopathy ?BREAST, Left:?Inspection/Palpation:?no discharge, no masses present, no nipple retraction, no skin dimpling, no tenderness, no supra/infraclavicular adenopathy, no axillary adenopathy ?SKIN:?Skin:?normal?Breast: ?FINDING #1:? ....?Nipple: ?DISCHARGE:? none.?RETRACTION:? none.?ULCERATION:? none.?MASS:? [...] weight loss Vit E 1,200IU and/or Evening Man[place] Oil 3000mg daily x 6 months and reevaluate?? * Images: Billing Information: * Visit Code:? 47257 Office Visit, Est Pt., Level 4. * Procedure Codes:? 

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
== END 2024-08-10 11:52 | disposition home or self-care (01) ==
LOC: HO.HSMS 10:48
PROVIDERS: PCP Internal Medicine; Visit Provider Nurse Practitioner Family
DX: G43.109 Migraine with aura, not intractable, without status migrainosus (principal); R25.1 Tremor, unspecified; R41.89 Other symptoms and signs involving cognitive functions and awareness; F07.81 Postconcussional syndrome
CPT/HCPCS: 99214

== ENCOUNTER → 2024-08-10 10:48 | Outpatient (BNVA) | payer BC, SELFPAY | PROVIDERS: PCP Internal Medicine; Visit Provider Nurse Practitioner Family ==

== ENCOUNTER 2024-08-31 08:26 | Outpatient (AMB) | payer BC, SELFPAY ==
--- NOTE | 2024-08-31 08:28 | MHC.OFFVIS ---
Intake Visit Reasons: OV - RT knee pain, discuss options Intake Note: Siria is a 54 year old female who presents today for follow up of her Right Knee OA. Hx of fibromyalgia. At her last visit she was given a referral to pain management to discuss sprint device - patient declined referral. 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 She walks with a cane. She has difficulty ambulating for extended periods of time and stairs are very difficult for. She feels like she is not able to work. She had an ankle injury several years ago that required a ORIF of the lateral malleolus. This took her almost a year to fully recover from. I have seen her previously recommended pain management but she was unsure if she wanted to do that. [facility] Medical History Relapsing polychondritis Surgical History H/O thumb surgery Status post open reduction with internal fixation (ORIF) of fracture of ankle Hx of shoulder surgery History of carpal tunnel release Family History Father HTN (hypertension) FHx: mental illness Mother Cancer HTN (hypertension) Social History Alcohol intake: current Alcohol intake frequency: holidays/special occasions only Comment: FELL ABOUT A YR AGO BROKE HER ANKLE Patient Tobacco Use Status: Never used Tobacco Second Hand Smoke Exposure: No Substance Use Type: Marijuana Current occupational status: employed 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 Results Reviewed Results Reviewed: I personally reviewed relevant radiographs. Severe medial compartment osteoarthritis and moderate anterior compartment osteoarthritis. Assessment & Plan Assessment & Plan (1) Osteoarthritis of knee: Code(s): M17.9 - Osteoarthritis of knee, unspecified Category: Medical Plan: 54-year-old who is suffering from combination of osteoarthritis and fibromyalgia. Injections have not been helpful. I think she is young for a knee replacement with her fibromyalgia I think it would take her a good year to recover. Not sure if she is willing to undergo that at this point in time. I do think PRP injections would be a reasonable next step. I will again refer her back to pain management and they can try to help her get through the next couple of years and postpone knee surgery. In addition she is taking Suboxone for the fibromyalgia but this could be stopped fairly easily as it was not prescribed for opioid addiction. (2) Fibromyalgia: Code(s): M79.7 - Fibromyalgia Category: Medical Plan: Coding Level of Care Code Est Pt Level 4 (42317) Diagnoses Osteoarthritis of knee M17.9 Fibromyalgia M79.7
== END 2024-08-31 09:07 | disposition home or self-care (01) ==
LOC: HO.HOS 08:27
PROVIDERS: PCP Internal Medicine; Visit Provider Orthopaedic Surgery
DX: M17.0 Bilateral primary osteoarthritis of knee (principal); M79.7 Fibromyalgia
CPT/HCPCS: 99214

== ENCOUNTER → 2024-08-31 08:26 | Outpatient (BNVA) | payer BC, SELFPAY | PROVIDERS: PCP Internal Medicine; Visit Provider Orthopaedic Surgery | DX: Z13.89 Encounter for screening for other disorder (principal) ==

== ENCOUNTER 2024-10-07 10:23 | Outpatient (AMB) | payer BC, SELFPAY ==
--- NOTE | 2024-10-07 10:25 | A.OFFVIS_ITS ---
Vital Signs 10/07/24 10:26 Height 5 ft 6 in Weight 180 lb BMI 29.0 BP 125/65 Blood Pressure Location Rt brachial Position Sitting Pulse 96 Pulse Source Pulse Oximeter Pulse Oximetry (%) 95 Oxygen Delivery Method Room Air Intake Visit Reasons: FU Osteoarthritis of knee Steak Sauce Maker Required: No Accompanied by: Self / Same As Patient Allergies codeine [CODEINE] Allergy (Severe, Verified 10/07/24 10:30) swollen tongue Sulfa (Sulfonamide Antibiotics) [SULFA (SULFONAMIDE ANTIBIOTICS)] Allergy (Severe, Verified 10/07/24 10:30) Hives penicillin G [PENICILLIN G] Allergy (Unknown, Verified 10/07/24 10:30) UNKNOWN HPI Comments Details: The patient is a 54-year-old female presenting with persistent right knee pain. This condition has persisted despite prior interventions, primarily attributed to underlying osteoporosis. The pain initiated subsequent to an ankle injury t hat resulted in compensatory gait alterations, further stressing the knee and exacerbating osteoarthritic symptoms. Reports indicate swelling and increased pain, especially after prolonged use, with occasional mechanical catching of the patella. Climatic conditions have worsened symptoms, notably during colder months. The patient reports impaired mobility and related psychomotor impacts due to pain, alongside financial constraints affecting potential treatment options. - Onset and Timing: years, with winter exacerbation. - Quality and Character: Swelling, cold sensation, mechanical catching of the patella. - Primary Location: Right knee. - Exacerbating Factors: Prolonged ambulation, uneven gait, winter climate. - Relieving Factors: Use of a knee brace, minimalized ambulation, rest. - Interference: Mobility, occupational duties, daily activities. - Affect: Reports significant psychosocial stress due to pain impacting psychological well-being and current employment situation. - Analgesia: Ineffective past treatment includes cortisone injections; no current satisfactory pain management reported. - Adverse Effects: None from analgesics as none is currently used. - Activities of Daily Living: Severely restricted mobility affecting occupational tasks, with goal to regain function and activity levels. - Aberrant Drug Related Behaviors: None reported or discussed. [facility] Medical History Relapsing polychondritis Surgical History H/O thumb surgery Status post open reduction with internal fixation (ORIF) of fracture of ankle Hx of shoulder surgery History of carpal tunnel release Family History Father HTN (hypertension) FHx: mental illness Mother Cancer HTN (hypertension) Social History Alcohol intake: current Alcohol intake frequency: holidays/special occasions only Comment: FELL ABOUT A YR AGO BROKE HER ANKLE Patient Tobacco Use Status: Never used Tobacco Second Hand Smoke Exposure: No Substance Use Type: Marijuana Current occupational status: employed 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 - Neurological: Denies any associated neurological deficits or symptoms. - General: Reports fibro-related generalized pain. - Endocrine: Not discussed. - Cardiovascular, Respiratory, Gastrointestinal, Genitourinary, Integumentary, Hematologic: Not discussed. Physical Exam Vital Signs: Last Vital Signs Pulse 96 10/07/24 10:26 BP 125/65 10/07/24 10:26 Pulse Ox 95 10/07/24 10:26 Oxygen Delivery Method Room Air 10/07/24 10:26 BMI result Body Mass Index 29.0 General: awake, alert, oriented. Answers questions appropriately. Fully engaged in examination. Skin: warm, dry. HEENT: Normocephalic. Hearing intact. Cardiac: External chest normal in appearance. Respiratory: No cough, audible wheezing or stridor. Abdomen: without gross distension. MS: No obvious swelling or deformities. Able to transition from sit to stand unassisted. Ambulates with steady gait unassisted Right knee: brace in place. Diffuse tenderness. decreased ROM. Neurological: Oriented to person, place, time and situation. Thought process intact. Ambulates with use of a cane Psychiatric: Appropriate mood and affect. Good judgment and insight. Results Reviewed Results Reviewed: 02/2024 XR BILAT KNEE: Right: Mild to moderate joint space narrowing predominantly involving the medial compartment. No fracture or dislocation is appreciated. Bony mineralization appears preserved. No lytic or sclerotic bony lesion is seen. No significant suprapatellar effusion identified. Left: Frontal view of the left knee may demonstrate mild joint space narrowing predominantly involving the medial compartment. IMPRESSION: Degenerative change. Assessment & Plan Assessment & Plan (1) Osteoarthritis of knee: Code(s): M17.9 - Osteoarthritis of knee, unspecified Category: Medical (2) Fibromyalgia: Code(s): M79.7 - Fibromyalgia Category: Medical Plan For the management of the patient's persistent right knee pain attributed to osteoporosis, PT is recommended based on insurance availability. Alternative interventional procedures like gel injections, nerve stimulators, genicular nerve block and ablation are not covered by insurance. Her exacerbated pain due to recent ankles and occupational injury suggests a potential benefit from chiropractic adjustments or aqua therapy, prioritized post-summer. Current limitations include financial constraints vers the option of PRP, thereby focusing on maintaining symptom control through lifestyle modifications and planning for intensified interventions in . During our consultation, I discussed the primary diagnosis of knee pain secondary to osteoporosis with the patient, reviewing the limitations and options of her current insurance coverage. PRP therapy was explored with a cost evaluation, but was precluded due to costs. The viability of physical therapy, owing to insurance stipulation for covered treatments, was emphasized. The patient was advised on increasing non-impact aquatic activities, particularly during the preferred summer months. Options were revisited for re- evaluation with possible adjustments in treatment strategy. Emphasis on current occupational activities and adjustments to manage pain were made clear, with potential reassessment contingent upon future job flexibility or insurance amendments. Patient was informed and verbally consented to the use of an ambient scribe for clinic note documentation during this visit. Patient Instructions: - Wear the knee brace during long periods of walking or standing. - Engage in aquatic therapy whenever possible to alleviate joint stress. - Contact us for a physical therapy referral as needed. - Monitor for worsening symptoms and return if any new significant pain develops. - Follow household modifications to limit strenuous activities during pain exacerbations. Coding Level of Care Code Est Pt Level 3 (86403) Complex EM visit Add On G2211 Diagnoses Osteoarthritis of knee M17.9 Fibromyalgia M79.7
[2024-10-07 10:26] VITALS: BP 125/65; PULSE 96; O2SAT 95; BMI 29.0
--- OUTSIDE RECORDS SUMMARY | 2024-10-07 11:01 | XMS_ITS ---
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 * HPI: ???Constitutional:?Siria is a 53yo G0? here today for her yearly exam. ? She has been in state of fair health since her last exam. She has the following manager council concerns: ? She has received the Moderna [...] due to right ankle issues. * ROS:?Annual Distribution Lead Exam ROS:?Bowel habit changes?denies.?Bladder symptoms?denies.?Vaginal discharge, unusual?denies.?Vaginal itch or odor?denies.?weight or appetite changes?denies.?Chest pains, SOB?denies.?depression?denies.?Breast:?Denies?Breast lump.?Denies?Nipple discharge.?Hematology:?Denies?Swollen glands.?Skin:?Patient denies?changing moles.?Psychiatric:?Denies?Anxiety.? * Medical History:? Objective: * Vitals:? * Examination: ???General Examination: ?GENERAL APPEARANCE:?in no acute distress, well developed, well nourished, captain of guards present in room.?HEAD:?normocephalic, atraumatic.?NECK/THYROID:?neck supple, full range [...] * Follow Up:?1 Year (Reason: Y early Distribution Lead Exam) * Images: Billing Information: * Visit Code:? 74615 Preventive Care Est Pt. Age 40-64. * Procedure Codes:? * Electronic signature of BRUNILDA MARIE MD on 10/07/2024 at 11:00 AM EDT Sign off status: Pending * Provider:?BRUNILDA MARIE MD Date:?2023 Generated for Robyn gilliland/Hayden/eTransmitting on:?10/07/2024 11:00 AM EDT History and Physical Notes * HPI (History of Present Illness) Category Sub-Category Detail Notes Category Not es Constitutional Siria is a 53yo G0 here today for her yearly exam. She has been in state of fair health since her last exam. She has the following manager council concerns: She has received the Moderna Covid-19 [...] General Examination GENERAL APPEARANCE: in no ac [place] distress, well developed, well nourished, captain of guards present in room HEAD: normocephalic, atrau matic [...]
== END 2024-10-07 11:04 | disposition home or self-care (01) ==
LOC: HO.PMC 10:23
PROVIDERS: PCP Internal Medicine; Referring Provider Orthopaedic Surgery; Visit Provider Registered Nurse Emergency
DX: M17.9 Osteoarthritis of knee, unspecified (principal); M79.7 Fibromyalgia
CPT/HCPCS: 99213

== ENCOUNTER → 2024-10-07 10:23 | Outpatient (BNVA) | payer BC, SELFPAY | PROVIDERS: PCP Internal Medicine; Referring Provider Orthopaedic Surgery; Visit Provider Registered Nurse Emergency ==

== ENCOUNTER 2024-11-03 15:32 | Emergency (ER) | payer BC, SELFPAY ==
--- NOTE | ~2024-11-03 | XR_ITS ---
EXAMINATION: XR HIP, RIGHT CLINICAL INFORMATION: pain radiating down leg COMPARISON: None available. TECHNIQUE: Two views of the right hip and AP pelvis. FINDINGS: Minimal acetabular roof osteophytes present. No definite fracture line is identified. Corticated ossification is noted medial to the right femoral head neck junction. Mild degeneration of the SI joints is present. XR/XR hip RT w PEL1V IMPRESSION: Mild right hip and SI joint degeneration. Electronically signed by: Alexandre Nicole MD 11/03/2024 04:46 PM EDT
[2024-11-03 16:02] VITALS: BP 130/82; PULSE 88; RESP 18; TEMP 36.4; O2SAT 99
--- NOTE | 2024-11-03 16:02 | ED_ITS ---
HPI - General Adult General Chief complaint: Back Pain/Injury Stated complaint: rt leg/hip and back pain Source: patient Mode of arrival: wheelchair Limitations: no limitations History of Present Illness ED Provider: florentino Begum np HPI narrative: 54-year-old female who presents emergency department for evaluation. She reports right ankle surgery a few years ago and subsequently has had issues with pain diffusely throughout her leg. She has been seen by Dr. Malone regarding her knee pain, at this point has not recommended a replacement. Over the past week she has been having severe pain to her right hip and lower back. She has trialed acetaminophen, meloxicam, diclofenac, Lidoderm patches, naltrexone none of which are helping. She saw pain management last week who offered her m anagement of her knee pain with injections and physical therapy. However she states that the pain is too severe to tolerate being at home at this time. Contacted the orthopedic office today and was referred to the emergency department. No saddle paresthesias, bladder bowel dysfunction, fevers, chills, genitourinary symptoms. Related Data Home Medications ?Medication ?Instructions ?Recorded ?Confirmed acetaminophen 650 mg 650 mg PO BID 04/05/2205/18 tablet,extended release (Tylenol Arthritis Pain) lorazepam 1 mg tablet 2 mg PO BEDTIME 04/05/22 diclofenac sodium 75 mg 75 mg PO .prn 12/31/2205/18 tablet,delayed release duloxetine 60 mg capsule,delayed 120 mg PO DAILY 12/1705/18/24 release quetiapine 100 mg tablet 150 mg PO BEDTIME 12/18/23 0 05/18/24 naltrexone 4.5 mg capsule (Naltrex) 6 mg PO DAILY 07/2805/18/24 methylphenidate HCl 10 mg tablet 20 mg PO BID 06/01/24 (Ritalin) Previous Rx's ?Medication ?Instructions ?Recorded 3 in 1 commode #1 ea 04/02/22 ibuprofen 600 mg tablet 600 mg PO Q6-8H PRN pain #20 tabs 04/20/24 baclofen 10 mg tablet 10 mg PO BID 30 days #60 tab s 08/18/24 gabapentin 300 mg capsule 300 mg PO TID 90 days #270 c aps 08/20/24 prazosin 1 mg capsule 1 - 2 mg (1 - 2 x 1 mg) PO B EDTIME 09/29/24 30 days #180 caps oxycodone 5 mg tablet 5 mg PO Q6H PRN pain #14 tab s 11/03/24 Allergies Allergy/AdvReac Type Severity Reaction Status Date / Time codeine (CODEINE) Allergy Severe swollen Verified 11/03/24 16:05 tongue Sulfa (Sulfonamide Allergy Severe Hives Verified 11/03/24 16:05 Antibiotics) (SULFA (SULFONAMIDE ANTIBIOTICS)) penicillin G (PENICILLIN G) Allergy Unknown UNKNOWN Verified 11/03/24 16:05 Review of Systems Review of Systems: Yes all other systems are reviewed and are negative [facility] Past Medical History Attestation statement: The following information was validated with the patient. Source: old records reviewed Medical History Relapsing polychondritis Surgical History H/O thumb surgery Status post open reduction with internal fixation (ORIF) of fracture of ankle Hx of shoulder surgery History of carpal tunnel release Family History Family History Father HTN (hypertension) FHx: mental illness Mother Cancer HTN (hypertension) Social History Social History Alcohol intake: current Alcohol intake frequency: holidays/special occasions only Comment: FELL ABOUT A YR AGO BROKE HER ANKLE Patient Tobacco Use Status: Never used Tobacco Second Hand Smoke Exposure: No Substance Use Type: Marijuana Current occupational status: employed 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 No acute distress.?Normal affect. Eyes: Pupils equal, round and reactive to light.? ENT: Pharynx normal.?? Neck: Normal inspection.? Neck supple.?? CVS: Heart sounds normal. Normal heart rate and rhythm.? Pulses normal.?? Respiratory: No respiratory distress.? Lung sounds clear to auscultation bilaterally?? Abdomen: Soft and non-tender. Normoactive bowel sounds. Skin: Skin warm and dry.? Normal skin color.? Extremities: No lower extremity edema.? No calf ttp. Decreased AROM to the right hip with extension, flexion, and external rotation. No rashes or lesions. Pain upon palpation of right SI joint.? straight leg test negative bilaterally Neuro: Moves all extremities spontaneously. Sensation intact bilaterally. Ambulates with Antalgic gait. Medical Decision Making Medical Decision Making [facility] Narrative: patient is a 54-year-old female with past medical history of fibromyalgia, osteoarthritis who presents emergency department for evaluation of pain to the right hip and right back as per HPI progressively worse over the past week. Unfortunately she was unable to get into Orthopedics to be seen that she came to emergency department. Despite multiple OTC analgesics as well as naltrexone her pain is not managed. She is awaiting a cortisone injection into her right knee. She states that she is going to discontinue the naltrexone as this is prescribed for her fibromyalgia but has not been helpful for her. Pain does not appear to be radicular in nature, straight leg test is negative. No midline lumbar spine tenderness, step-offs, deformities. The genitourinary symptoms, bladder bowel dysfunction, saddle paresthesias findings concerning for cauda equina syndrome. No history of DVT / malignancy, no erythema warmth or swelling consistent with a DVT /cellulitis, exam findings not consistent with arterial occlusion. Lower suspicion for acute fracture / dislocation however given her degree of pain XR was obtained no evidence of fracture. She does however have degenerative changes to the right hip as well as the SI joint which I think are the source of her pain at this time. Given she is stopping the naltrexone I will send a short course of exudates to the pharmacy. Instructed on time frame of when to start after discontinuation of naltrexone serous to prevent interaction. Advised outpatient follow-up with orthopedics. Reviewed worrisome signs and symptoms that would warrant re-evaluation in the emergency department. All questions answered. Differential Diagnosis Differential Diagnoses: The differential diagnosis associated with the presentation includes ( See see narrative above) Admission/Observation Consideration of admission/observation: Escalation of care including admission/observation considered Independent Interpretation I performed an independent interpretation of an: Plain X-Ray ( see narrative above) Radiology Impression Discussion of test interpretation with radiology: I have reviewed the radiologist's reading. Radiologist Impression: XR/XR hip RT w PEL1V IMPRESSION: Mild right hip and SI joint degeneration. Independent Historian Clinical information obtained from an independent historian. History obtained from or confirmed by: Spouse External Record Review External record reviewed: Outpatient record Tests considered The following testing was considered but not selected: see narrative above Chronic Conditions Patient?s care impacted by: Other ( see narrative above) Discharge Plan Discharge Clinical Impression: Derangement of right SI joint, Osteoarthritis of right hip Patient Disposition: Home, Self-Care Instructions: Osteoarthritis (ED) Additional Instructions: x-ray imaging today shows that you have degenerative changes arthritic changes to the right hip as well as the SI joint. You have tried multiple OTC in even prescription medications without much improvement. it is going to be most appropriate that you have outpatient follow-up with orthopedics. Please contact their office tomorrow to schedule an appointment. As you stated, the naltrexone has not been helpful for your pain please discontinue usage. I have sent a prescription to the pharmacy for oxycodone to trial, 1 tablet every 6 hours as needed for pain. This is a narcotic medication. It can be addictive. It may make you drowsy. You should not drive, drink alcohol, or work while taking this medication. Prescriptions: New oxycodone 5 mg tablet 5 mg PO Q6H PRN (Reason: pain) Qty: 14 0RF Rx Instructions: Partial Fill upon patient request. No Action baclofen 10 mg tablet 10 mg PO BID 30 Days Qty: 60 3RF gabapentin 300 mg capsule 300 mg PO TID 90 Days Qty: 270 1RF prazosin 1 mg capsule 1 - 2 mg PO BEDTIME 30 Days Qty: 180 1RF ibuprofen 600 mg tablet 600 mg PO Q6-8H PRN (Reason: pain) Qty: 20 0RF quetiapine 100 mg tablet 150 mg PO BEDTIME acetaminophen [Tylenol Arthritis Pain] 650 mg tablet extended release 650 mg PO BID (DME) 3 in 1 commode See Rx Instructions .ROUTE .MEDSUPPLY Qty: 1 0RF Rx Instructions: 3 in 1 commode lorazepam 1 mg tablet 2 mg PO BEDTIME Rx Instructions: 1/2 tab prn for anxiety diclofenac sodium 75 mg tablet,delayed release (DR/EC) 75 mg PO .prn duloxetine 60 mg capsule,delayed release(DR/EC) 120 mg PO DAILY Naltrex 4.5 mg capsule 6 mg PO DAILY methylphenidate HCl [Ritalin] 10 mg tablet 20 mg PO BID Referrals: [facility] [Provider Group] Clinical Impression: Derangement of right SI joint; Osteoarthritis of right hip Se Mujica MD [Primary Care Provider, [facility]] Interventions: ED Discharge Assessment Last Done: 11/03/24 17:06 Discharge Date/Time: 11/03/24 17:18 Print Language: Grenadian
[2024-11-03 17:06] VITALS: BP 130/82; PULSE 88; RESP 18; TEMP 36.4; O2SAT 99
== END 2024-11-03 17:18 | disposition home or self-care (01) ==
PROVIDERS: Emergency Provider Emergency Medicine; PCP Internal Medicine
DX: M24.851 Other specific joint derangements of right hip, not elsewhere classified (principal); R10.2 Pelvic and perineal pain; M54.50 Low back pain, unspecified; Z79.899 Other long term (current) drug therapy
CPT/HCPCS: 73502; 99282; 99283

== ENCOUNTER → 2024-11-03 16:05 | Outpatient (BNV) | payer BC, SELFPAY | PROVIDERS: PCP Internal Medicine; Visit Provider Radiology Diagnostic Radiology | DX: M25.551 Pain in right hip (principal); M79.604 Pain in right leg | CPT/HCPCS: 73502 ==

== ENCOUNTER 2024-11-20 09:45 | Outpatient (AMB) | payer BC, SELFPAY ==
--- OUTSIDE RECORDS SUMMARY | 2024-04-10 06:30 | XMS_ITS ---
Author Organization [facility] Address [address] [facility] [address] [place] [address] Care Team Providers Care Photographic Laboratory Supervisor Name Role Phone Guanako HOBBS [facility] Primary Care Provider BRUNILDA Waters Unavailable [phone] REASON FOR VISIT LT BREAST BIGGER THAN RIGHT Encounters Encounter Location Date Provider Diagnosis [facility] [address] [address] 04/10/2024 BRUNILDA MARIE Unspecified lump in breast [...] weight loss Vit E 1,200IU and/or Evening [place] Oil 3000mg daily x 6 months and [...] weight loss Vit E 1,200IU and/or Evening [place] Oil 3000mg daily x 6 months and reevaluate Pending Test Test Name Order Date Ultrasound : Breast(s), unilateral or bi lateral 04/10/2024 Diagnostic Digital Breast 3D, Bilateral 04/10/2024 Progress Notes * REYNALDO MORALESJOSELO LAMDOB:[birth year] (54 yo F)Acc No.[id number]:04/10/2024 PROGRESS NOTES Patient: Bertha MORALESJOSELO LAM Provider: Bertha MARIE MD :1970 A ge:54 Y S ex:Female Date:04/10/2024 Address:[address] [place] [address] [place] [address] Pcp:Se Mujica MD Subjective: * Chief Complaints: [...] weight loss Vit E 1,200IU and/or Evening [place] Oil 3000mg daily x 6 months and reevaluate * Images: Billing Information: * Visit Code: 11061 Office Visit, Est Pt., Level 4. 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
--- OUTSIDE RECORDS SUMMARY | 2024-11-20 09:55 | XMS_ITS | Encounter Summary ---
Author Organization [facility] Address [address] [place] [address] [place] [address] Phone Care Team Providers Care Printing Sales Representative Name Role Phone Patti Cox MD Primary Care Provider [phone] Patti Carter NP Primary Care Provi rfancisco Se Bhagat MD Primary Care Provider [phone] Briana Lagunas PA-C Primary Care Provider Encounter Details Date Type Department Care Team (Late st Contact Info) Description 10/31/2020 Transcribe Orders [facility] [address] [place] [address] Denia Patrick NP [address] [place] [id number] Social History Tobacco Use Types Packs/Day Years Used Date Smoking Tobacco: Never Alcohol Use Standard Drinks/Week Comments Not Asked 0 (1 standard drink = 0.6 oz pur e alcohol) Comments Unknown Sex and Gender Information Value Date Recorded Sex Assigned at Female 09/24/2024 12:32 PM EDT Legal Sex Female 8:05 PM EST Gender Identity Female 09/24/2024 12:32 PM EDT Sexual Orientation Straight 09/24/2024 12 :32 PM EDT documented as of this encounter Plan of Treatment Upcoming Encounters Date Type Department Care Team (Late st Contact Info) Description 04/06/2025 8:40 AM EST Office Visit [facility] Internal Medicine [address] [place] [address] Briana Lagunas PA-C [address] [place] [address] [email or web address] documented as of this encounter Visit Diagnoses Not on filedocumented in this encounter Care Teams Printing Sales Representative Relationship Specialty Start Date End Date Patti Cox MD [address] [place] [id number] [email or web address] PCP - General Internal Medicine 10/31/2005/07 Patti Carter NP PCP - General Nurse Practitioner 05/08/23 12/16/23 Se Mujica MD [address] [place] [address] PCP - General Internal Medicine 12/17/23 09/30/24 Briana Lagunas PA-C [address] [place] [address] [email or web address] PCP - General Physician Workforce Manager 10/01/24 documented as of this encounter Additional Source Comments The information contained in this document represents components of the legal health record. It is not the complete legal health record.[facility]
--- NOTE | 2024-11-20 10:07 | A.OFFVIS_ITS ---
Vital Signs 11/20/24 10:09 Weight 175 lb BP 140/90 H Blood Pressure Location Rt brachial Position Sitting Pulse 95 Pulse Source Pulse Oximeter Pulse Oximetry (%) 98 Oxygen Delivery Method Room Air Intake Visit Reasons: 6 mo follow up Intake Note: Patient presents follow up Migraine/Cognitive. Migraines been occurring more frequently within the past month. Installment Account Checker Required: No Accompanied by: Self / Same As Patient Allergies codeine (CODEINE) Allergy (Severe, Verified 11/20/24 10:08) swollen tongue Sulfa (Sulfonamide Antibiotics) (SULFA (SULFONAMIDE ANTIBIOTICS)) Allergy (Severe, Verified 11/20/24 10:08) Hives penicillin G (PENICILLIN G) Allergy (Unknown, Verified 11/20/24 10:08) UNKNOWN Medication List - Last Reconciled 11/20/24 by NOLAN Mackay [3 in 1 commode 3 in 1 commode] acetaminophen ER (Tylenol Arthritis Pain) 650 mg PO BID baclofen 10 mg PO BID 30 days diclofenac sodium 75 mg PO .prn duloxetine 120 mg PO DAILY gabapentin 300 mg PO TID 90 days ibuprofen 600 mg PO Q6-8H PRN lorazepam 2 mg PO BEDTIME methylphenidate HCl (Ritalin) 20 mg PO BID naltrexone (Naltrex) 6 mg PO DAILY oxycodone 5 mg PO Q6H PRN prazosin 1 - 2 mg (1 - 2 x 1 mg) PO BEDTIME 30 days quetiapine 150 mg PO BEDTIME rosuvastatin 5 mg PO DAILY HPI Comments Details: The patient is a 54-year-old female presenting with migraine and cognitive dysfunction related to postconcussive syndrome, tremor. Patient reports she had a recent ear eval due to exacerbation of right hip pain, which she attributes to overuse due to history of right ankle injury. This required to day of scheduled opioid therapy and hip injection, before the pain broke. She has been noticing an increase in her typical migraine headaches. She is having at least 3 headache days per week. Prior to last visit, patient had held AjQuietymey as she felt she was doing better overall. She continues to have cognitive difficulties, however is continuing to work with her psychiatrist and therapist. She notes that her cognitive symptoms are worse with continued stress, sustained cognitive activity, increased pain. Notes that working part-time offer some benefits, as it allows her to engage in cognitively stimulating activities without over taxing her significantly. She is continuing to have the fibromyalgia pain, as well as right knee pain. Unfortunately, she has not returned to her baseline physical functioning ability since recovering from the right ankle fracture-us physical activity is significantly limited. She is followed by [facility]. Her tremors are the stable, at times her left hand shakes more PFSH Medical History Relapsing polychondritis Surgical History H/O thumb surgery Status post open reduction with internal fixation (ORIF) of fracture of ankle Hx of shoulder surgery History of carpal tunnel release Family History Father HTN (hypertension) FHx: mental illness Mother Cancer HTN (hypertension) Social History Alcohol intake: current Alcohol intake frequency: holidays/special occasions only Comment: FELL ABOUT A YR AGO BROKE HER ANKLE Patient Tobacco Use Status: Never used Tobacco Second Hand Smoke Exposure: No Substance Use Type: Marijuana Current occupational status: employed 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 Antalgic gait General: patient oriented x3 Cranial nerves: Yes CN's II-XII intact bilaterally Cognition (Neuro): normal cognition Psych Appearance: grossly normal Mental Status: mental status grossly normal Speech and movement: Normal speech and movement present Affect: normal affect Attitude: cooperative Assessment & Plan Assessment & Plan (1) Migraine with aura: Code(s): G43.109 - Migraine with aura, not intractable, without status migrainosus Category: Medical Qualifiers: Intractability: not intractable Status migrainosus presence: without status migrainosus Qualified Code(s): G43.109 - Migraine with aura, not intractable, without status migrainosus (2) Tremor, physiological: Code(s): R25.1 - Tremor, unspecified Category: Medical (3) Cognitive dysfunction: Code(s): F09 - Unspecified mental disorder due to known physiological condition Category: Medical (4) Postconcussive syndrome: Code(s): F07.81 - Postconcussional syndrome Category: Medical Plan For cognitive difficulties and mood: Patient may benefit from adjustment in her methylphenidate to a long-acting version in the morning with short-acting version in the afternoon-she can discuss with her psychiatrist. Continue to f/u w/ psychiatry and integrative medicine. For fibromyalgia, chronic pain: F/u w/ Integrative Medicine as scheduled Patient has stopped naltrexone- as she states she had breakthrough pain on it. Continue Gabapentin. Patient may benefit from trying water therapy or water aerobic exercises, such as do the [employer]. Patient notes financial constraints may make this difficult, but she will look into resources to help with payment. Consider referral for pain management cognitive therapy program, such as [facility] ACT therapy. For migraine prevention: Resume Ajovy 225mg auto injection, 675 mg sc every 90 days, as this was previously very effective for migraine treatment. Continue Prazosin 2mg qhs- for nocturnal PTSD as well. Continue Gabapentin 300mg qam and 600mg qhs. Continue Duloxetine 120mg qd Previous migraine tx trials- Amitriptyline- ineffective, Propranolol- ineffective. Erenumab- effective, but switched d/t insurance. ? For acute migraine tx: Continue prn Sumatriptan. Future considerations: Resuming Ubrelvy prn- previously had good effect. ? For ET: Monitor clinically. Future considerations- retrying BB.. Concur that patient should not work greater than 20 hours per week. Disability paperwork completed during today's visit. ? f/u in 6 months or sooner new or worsening s/s. Medications: New fremanezumab-vfrm (Ajovy) 675 mg (4.5 mL) subcut Q90D 4.5 mL 3RF 90 days Refilled sumatriptan succinate 50 - 100 mg orally at onset of headache, may repeat in 2 hrs PRN; max 2 tabs per day or 4 tabs/week (may take with Ibuprofen) 12 tabs 6RF migraine headache 30 days Coding Level of Care Code Est Pt Level 4 (71332) Diagnoses Migraine with aura and without status migrainosus, not intractable G43.109 Intractability: not intractable Status migrainosus presence: without status migrainosus Tremor, physiological R25.1 Cognitive dysfunction F09 Postconcussive syndrome F07.81
[2024-11-20 10:09] VITALS: BP 140/90; PULSE 95; O2SAT 98
== END 2024-11-20 11:02 | disposition home or self-care (01) ==
LOC: HO.HSMS 09:46
PROVIDERS: PCP Internal Medicine; Visit Provider Nurse Practitioner Family
DX: G43.109 Migraine with aura, not intractable, without status migrainosus (principal); R25.1 Tremor, unspecified; F07.81 Postconcussional syndrome; F09 Unspecified mental disorder due to known physiological condition
CPT/HCPCS: 99214

== ENCOUNTER 2024-12-18 10:10 | Outpatient (AMB) | payer BC, SELFPAY ==
--- OUTSIDE RECORDS SUMMARY | 2024-04-10 06:30 | XMS_ITS ---
Author Organization [facility] [employer] [place] [facility] Address [address] [facility] [address] [place] [address] Care Team Providers Care Reed Polisher Name Role Phone Guanako HOBBS [facility] Primary Care Provider BRUNILDA Waters Unavailable [phone] REASON FOR VISIT LT BREAST BIGGER THAN RIGHT Encounters Encounter Location Date Provider Diagnosis [facility] [employer] [place] [address] [address] 04/10/2024 BRUNILDA MARIE Unspecified lump in breast [...] weight loss Vit E 1,200IU and/or Evening [place] Oil 3000mg daily x 6 months and [...] weight loss Vit E 1,200IU and/or Evening [place] Oil 3000mg daily x 6 months and reevaluate Pending Test Test Name Order Date Ultrasound : Breast(s), unilateral or bi lateral 04/10/2024 Diagnostic Digital Breast 3D, Bilateral 04/10/2024 Progress Notes * REYNALDO MORALESJOSELO LAMDOB:[birth year] (54 yo F)Acc No.[id number]:04/10/2024 PROGRESS NOTES Patient: Bertha MORALESJOSELO LAM Provider: Bertha MARIE MD :1970 A ge:54 Y S ex:Female Date:04/10/2024 Address:[address] [place] [address] [place] [address] Pcp:Se Mujica MD Subjective: * Chief Complaints: [...] weight loss Vit E 1,200IU and/or Evening [place] Oil 3000mg daily x 6 months and reevaluate * Images: Billing Information: * Visit Code: 93287 Office Visit, Est Pt., Level 4. 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
--- NOTE | 2024-12-18 10:14 | MHC.OFFVIS ---
Vital Signs 12/18/24 10:20 Height 5 ft 5 in Weight 175 lb BMI 29.1 Intake Visit Reasons: New prob RT hip pain Intake Note: Siria is a 54 year old female who presents today for a evaluation of her right hip pain. She was given a hip injection 11/07/24 [facility] in [place]. Patient reports ongoing pain for about 8 months. She states that her pain is on the lateral aspect of the hip and it moves to her lower back. Patient notices that her pain is worse when she is laying down, sitting, walking, going up and down the stairs and bending. IMPRESSION: Mild right hip and SI joint degeneration. Allergies codeine (CODEINE) Allergy (Severe, Verified 12/18/24 10:19) swollen tongue Sulfa (Sulfonamide Antibiotics) (SULFA (SULFONAMIDE ANTIBIOTICS)) Allergy (Severe, Verified 12/18/24 10:19) Hives penicillin G (PENICILLIN G) Allergy (Unknown, Verified 12/18/24 10:19) UNKNOWN HPI HPI New prob RT hip pain: Details: Ms. Bryson Fraire is a 54-year-old female who presents to the office today for evaluation of right hip pain. Patient reports that in the beginning of November she felt a sudden onset of increasing severe right hip pain. She was seen in the emergency department where she was given a short course of oxycodone to assist with her pain. She continued to have ongoing pain and therefore presented to the [facility] urgent Care in [place]. She reports that she received an intra-articular cortisone injection that was done with ultrasound while in the office. She reports that she had mild relief with this for a few days but then her pain returned. [facility] Medical History Relapsing polychondritis Surgical History H/O thumb surgery Status post open reduction with internal fixation (ORIF) of fracture of ankle Hx of shoulder surgery History of carpal tunnel release Family History Father HTN (hypertension) FHx: mental illness Mother Cancer HTN (hypertension) Social History Alcohol intake: current Alcohol intake frequency: holidays/special occasions only Comment: FELL ABOUT A YR AGO BROKE HER ANKLE Patient Tobacco Use Status: Never used Tobacco Second Hand Smoke Exposure: No Substance Use Type: Marijuana Current occupational status: employed 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 No tenderness to palpation over the greater trochanteric bursa. 4/5 strength with resisted hip flexion, knee extension, abduction, and abduction. Able to perform straight leg raise. NVI. Psych Appearance: grossly normal Mental Status: mental status grossly normal Attitude: cooperative Assessment & Plan Assessment & Plan (1) Osteoarthritis of right hip: Code(s): M16.11 - Unilateral primary osteoarthritis, right hip Category: Medical Qualifiers: Osteoarthritis type: unspecified Qualified Code(s): M16.11 - Unilateral primary osteoarthritis, right hip Plan Ms. Bryson Fraire is a 54-year-old female who presents to the office today for evaluation of right hip pain. Patient reports that in the beginning of November she felt a sudden onset of increasing severe right hip pain. She was seen in the emergency department where she was given a short course of oxycodone to assist with her pain. She continued to have ongoing pain and therefore presented to the [facility] urgent Care in [place]. She reports that she received an intra-articular cortisone injection that was done with ultrasound while in the office. She reports that she had mild relief with this for a few days but then her pain returned. While the office today, I have recommended an MRI to further evaluate the right hip and surrounding structures. On x-rays that were obtained on 11/03/2024 it was noted that the patient had some mild degenerative changes of the right hip as well as the SI joint. Should the MRI of the right hip be negative for any hip pathology the next step would be to investigate her low back. I have tentatively recommended the patient make an appointment with Dr. Dudley for further evaluation in regards to this. Patient is stating that she is having severe pain in his looking for assistance with breakthrough pain. She is requesting a prescription for tramadol in which I have sent to the pharmacy. Tramadol 50 mg p.o. q.6 to 8 hours prn pain was the prescription sent to the pharmacy and I instructed the patient that this would be a 1 time prescription. She will follow up after the MRI is obtained, sooner if needed. Orders: Orders MR hip RT wo con Today M16.11 - Unilateral primary osteoarthritis, right hip Medications: New tramadol 50 mg PO Q6-8H PRN 28 tabs 0RF pain 7 days Coding Level of Care Code Est Pt Level 3 (39718) Diagnoses Osteoarthritis of right hip M16.11 Osteoarthritis type: unspecified
[2024-12-18 10:20] VITALS: BMI 29.1
--- OUTSIDE RECORDS SUMMARY | 2024-12-18 10:20 | XMS_ITS | Encounter Summary ---
Author Organization [facility] Address [address] [place] [address] [place] [phone] Phone Care Team Providers Care Emergency Communications Dispatcher Name Role Phone Patti Cox MD Primary Care Provider [phone] Patti Carter NP Primary Care Provi francisco Se Bhagat MD Primary Care Provider [phone] Briana Lagunas PA-C Primary Care Provider Encounter Details Date Type Department Care Team (Late st Contact Info) Description 10/31/2020 Transcribe Orders [facility] [address] [place] [address] Denia Patrick NP [address] [place] [id number] Social History Tobacco Use Types Packs/Day Years [...] Description 04/06/2025 8:40 AM EST Office Visit [facility] Internal Medicine [address] [place] [address] Briana Lagunas PA-C [address] [place] [address] [email or web address] documented as of this encounter Visit Diagnoses Not on filedocumented in this encounter Care Teams Emergency Communications Dispatcher Relationship Specialty Start Date End Date Patti Cox MD [address] [place] [phone] [email or web address] PCP - General Internal Medicine 10/31/2005/07 Patti Carter NP PCP - General Nurse Practitioner 05/08/23 12/16/23 Se Mujica MD [address] [place] [address] PCP - General Internal Medicine 12/17/23 09/30/24 Briana Lagunas PA-C [address] [place] [address] [email or web address] PCP - General Physician Conversion Man 10/01/24 documented as of this encounter Additional Source Comments The information contained in this document represents components of the legal health record. It is not the complete legal health record.[facility]
== END 2024-12-18 10:52 | disposition home or self-care (01) ==
LOC: HO.HOS 10:11
PROVIDERS: PCP Internal Medicine; Visit Provider Physician Assistant
DX: M16.11 Unilateral primary osteoarthritis, right hip (principal)
CPT/HCPCS: 99213

== ENCOUNTER 2024-12-31 10:11 | Outpatient (AMB) | payer BC, SELFPAY ==
--- OUTSIDE RECORDS SUMMARY | 2024-01-30 04:00 | XMS_ITS ---
Author Organization [facility] [employer] [facility] Address [address] [address] Care Team Providers Care Utility Hand Name Role Phone Guanako HOBBS [facility] Primary Care Provider UnavailBRUNILDA Fox Unavailable [phone] REASON FOR VISIT Annual COCOA BEAN ROASTER HELPER Physical Encounters Encounter Location Date Provider Diagnosis [facility] [employer] [address] [address] 01/30/2024 BRUNILDA MARIE Encounter for gynecological examination [...] Follow Up: 1 Year, Reason: Y early Shotweld Operator Exam Progress Notes * REYNALDO HOWELL NARAWINIFREDDOB:[birth year] (54 yo F)Acc No.[id number]:01/30/2024 PROGRESS NOTES Patient: SIRIA STAFFORD Provider: Bertha MARIE MD :1970 A ge:53 Y S ex:Female Date:01/30/2024 Address:[address] [place], [place] [id number] Pcp:Se Mujica MD Subjective: * Chief Complaints: * 1 . Annual COCOA BEAN ROASTER HELPER Physical. * HPI: C onstitutional: Bertha johnson is a 53yo G0 here today for her yearly exam. She has been in state of fair health since her last exam. She has the following physiotherapy practice manager concerns: She has received the Moderna Covid-19 [...] right ankle issues. * ROS: A nnual Shotweld Operator Exam ROS: Bowel habit changes d enies. [...] no acute distress, well developed, well nourished, undertaker helper present in room. HEAD: n ormocephalic, atraumatic. [...] * Follow Up: 1 Year (Reason: Yearly Shotweld Operator Exam) * Images: Billing Information: * Visit Code: 81143 Preventive Care Est Pt. Age 40-64. * Procedure Codes: * Electronic signature of BRUNILDA MARIE MD on 12/31/2024 at 11:29 AM EDT Sign off status: Pending * Provider: Bertha MARIE MD Date: 0 01/30/2024 Generated for Conductori ng/Fakatelyng/eTransmitting on: 0 12/31/2024 11:29 AM EDT History and Physical Notes * HPI (History of Present Illness) Category Sub-Category Detail Notes Category Not es Constitutional Siria is a 53yo G0 here today for her yearly exam. She has been in state of fair health since her last exam. She has the following physiotherapy practice manager concerns: She has received the Moderna Covid-19 [...] ac pauline distress, well developed, well nourished, undertaker helper present in room HEAD: normocephalic, atrau matic [...]
--- OUTSIDE RECORDS SUMMARY | 2024-04-10 06:30 | XMS_ITS ---
Author Organization [facility] Address [address] [facility] [address] [place] [address] Care Team Providers Care Fire Control Mechanic Name Role Phone Guanako HOBBS [facility] Primary Care Provider BRUNILDA Waters Unavailable [phone] REASON FOR VISIT LT BREAST BIGGER THAN RIGHT Encounters Encounter Location Date Provider Diagnosis [facility] [employer] [address] [address] 04/10/2024 BRUNILDA MARIE Unspecified lump in breast [...] weight loss Vit E 1,200IU and/or Evening [place] Oil 3000mg daily x 6 months and [...] weight loss Vit E 1,200IU and/or Evening [place] Oil 3000mg daily x 6 months and reevaluate Pending Test Test Name Order Date Ultrasound : Breast(s), unilateral or bi lateral 04/10/2024 Diagnostic Digital Breast 3D, Bilateral 04/10/2024 Progress Notes * REYNALDO MORALESJOSELO LAMDOB:[birth year] (54 yo F)Acc No.[id number]:04/10/2024 PROGRESS NOTES Patient: Bertha MORALESJOSELO LAM Provider: Bertha MARIE MD :1970 A ge:54 Y S ex:Female Date:04/10/2024 Address:[address] [place] [address] [place] [address] Pcp:Se Mujica MD Subjective: * Chief Complaints: [...] weight loss Vit E 1,200IU and/or Evening [place] Oil 3000mg daily x 6 months and reevaluate * Images: Billing Information: * Visit Code: 37377 Office Visit, Est Pt., Level 4. 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
--- NOTE | 2024-12-31 10:15 | MHC.OFFVIS ---
Intake Visit Reasons: OV - RT knee pain, follow up Intake Note: Siria is a 54 year old female who presents today for a follow up of her Right Knee OA. She was seen with Pain Mgmt for PRP but was not eligible due to finances. [employer] does not cover other treatment options such as gel, and nerve stimulation implants. She is looking to determine treatment options Allergies codeine (CODEINE) Allergy (Severe, Verified 12/18/24 10:19) swollen tongue Sulfa (Sulfonamide Antibiotics) (SULFA (SULFONAMIDE ANTIBIOTICS)) Allergy (Severe, Verified 12/18/24 10:19) Hives penicillin G (PENICILLIN G) Allergy (Unknown, Verified 12/18/24 10:19) UNKNOWN HPI HPI OV - RT knee pain, follow up: Details: Siria is a 54 year old female who presents today for a follow up of her Right Knee OA. She was seen with Pain Mgmt for PRP but was not eligible due to finances. [employer] does not cover other treatment options such as gel, and nerve stimulation implants. She is looking to determine treatment options. Her primary complaint continues to be medial-sided right knee pain. She also has some lateral right hip pain. This was relieved by a bursal injection was done at outpatient walk-in Clinic in [place]. [facility] Medical History Relapsing polychondritis Surgical History H/O thumb surgery Status post open reduction with internal fixation (ORIF) of fracture of ankle Hx of shoulder surgery History of carpal tunnel release Family History Father HTN (hypertension) FHx: mental illness Mother Cancer HTN (hypertension) Social History Alcohol intake: current Alcohol intake frequency: holidays/special occasions only Comment: FELL ABOUT A YR AGO BROKE HER ANKLE Patient Tobacco Use Status: Never used Tobacco Second Hand Smoke Exposure: No Substance Use Type: Marijuana Current occupational status: employed 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 Negative impingement test with full hip range of motion. Right knee range of motion near full with trace effusion. Office Procedures Joint Inj/Aspir; Non-Pain Clin Joint Injection/Drain Details: Injected 1 mL of Decadron and 3 mL 1% lidocaine and 3 mL of 0.25% Marcaine. Site was prepped using aseptic technique. Patient tolerated the procedure well. Shoulders, Hips, Knees, Knee Large Joint Injection : Right Knee Coding Procedure code (CPT) selection complete Assessment & Plan Assessment & Plan (1) Osteoarthritis of right knee: Code(s): M17.11 - Unilateral primary osteoarthritis, right knee Category: Medical Plan: This is a 54-year-old woman with medial-sided right knee pain. In the remote past she had an injection which she does not feel was helpful. She is not eligible for additional injections such as viscosupplementation or PRP as per her insurance coverage. I injected her right knee again today and advised her to think about amount that it benefits her and for how long. I do not think she needs a hip MRI. Her hip range of motion is full and her radiographs are benign. I think it is very reasonable however to order an MRI of her right knee given her lack of benefit from prior injection and the extent to which his pain has persisted. Orders: Orders MR knee RT wo con Today M17.11 - Unilateral primary osteoarthritis, right knee Coding Level of Care Code Est Pt Level 3 (22901) Diagnoses Osteoarthritis of right knee M17.11 CPT Codes Shoulders, Hips, Knees, - Knee Large Joint Injection : Right Knee ([id number])
--- OUTSIDE RECORDS SUMMARY | 2024-12-31 11:29 | XMS_ITS | Encounter Summary ---
Author Organization [facility] Address [address] [place] [address] Phone Care Team Providers Care Supervisor Dumping Name Role Phone Patti Cxo MD Primary Care Provider [phone] Patti Cox MD Primary Care Provider [phone] Patti Carter NP Primary Care Provi francisco Se Bhagat MD Primary Care Provider [phone] Briana Lagunas PA-C Primary Care Provider [phone] Encounter Details Date Type Department Care Team (Late st Contact Info) Description 01/02/2018 Ancillary [facility] [address] [place] [address] Raphael Martinez DO [address] [facility] [address] [place] [address] [email or web address] Palpitations Social History Tobacco Use Types Packs/Day Years [...] Description 04/06/2025 8:40 AM EST Office Visit [facility] [address] [place] [address] Briana Lagunas PA-C [address] [place] [address] [email or web address] documented as of this encounter Results * Holter Monitor 48 Hours (01/02/2018 1:30 PM EDT) Anatomical Region Laterality Modality Heart Other Narrative 01/02/2018 2:02 PM EDT 48 hour monitor: No symptoms reported. Patient activations did occur. The minimum heart rate is 70 maximum 1-101 bpm during sinus rhythm. Rare PVCs present. Patient event markers occurred during sinus rhythm and sinus tachycardia. Impression: Normal 48 hour monitor. Patient event markers occurred during sinus rhythm and sinus tachycardia. Raphael Martinez DO [facility] ORDERABLE S Final Result documented in this encounter Visit Diagnoses Diagnosis Palpitations Palpitations documented in this encounter Care Teams Supervisor Dumping Relationship Specialty Start Date End Date Patti Cox MD [address] [place] [phone] [email or web address] PCP - General 09/09/14 Patti Cox MD [address] [place] [phone] [email or web address] PCP - General Internal Medicine 10/31/2005/07 Patti Carter NP PCP - General Nurse Practitioner 05/08/23 12/16/23 Se Mujica MD [address] [place] [address] PCP - General Internal Medicine 12/17/23 09/30/24 Briana Lagunas PA-C [address] [place] [address] [email or web address] PCP - General Physician Rabbet Operator 10/01/24 documented as of this encounter Additional Source Comments The information contained in this document represents components of the legal health record. It is not the complete legal health record.[facility]
--- OUTSIDE RECORDS SUMMARY | 2024-12-31 11:29 | XMS_ITS | Encounter Summary ---
Author Organization [facility] Address [address] [place] [address] Phone Care Team Providers Care Automatic Grinding Machine Operator Name Role Phone Patti Cox MD Primary Care Provider [phone] Patti Cox MD Primary Care Provider + [phone] Patti Carter NP Primary Care [facility] Se Bhagat MD Primary Care Provider [phone] Briana Lagunas PA-C Primary Care Provider + [phone] Encounter Details Date Type Department Care Team (Late st Contact Info) Description 01/02/2018 Ancillary Orders Non-Invasive Cardiology [address] [place] [address] Raphael Martinez DO [address] [facility] [address] [place] [address] [email or web address] Social History Tobacco Use Types Packs/Day Years [...] Description 04/06/2025 8:40 AM EST Office Visit [facility] [facility] [address] [place] [address] Briana Lagunas PA-C [address] [place] [address] [email or web address] documented as of this encounter Visit Diagnoses Not on filedocumented in this encounter Care Teams Automatic Grinding Machine Operator Relationship Specialty Start Date End Date Patti Cox MD [address] [place] [phone] [email or web address] PCP - General 09/09/14 Patti Cox MD [address] [place] [phone] [email or web address] PCP - General Internal Medicine 10/31/2005/07 Patti Carter NP PCP - General Nurse Practitioner 05/08/23 12/16/23 Se Mujica MD [address] [place] [phone] PCP - General Internal Medicine 12/17/23 09/30/24 Briana Lagunas PA-C [address] [place] [address] [email or web address] PCP - General Physician Wrapper Hand 10/01/24 documented as of this encounter Additional Source Comments The information contained in this document represents components of the legal health record. It is not the complete legal health record.[facility]
--- OUTSIDE RECORDS SUMMARY | 2024-12-31 11:29 | XMS_ITS | Encounter Summary ---
Author Organization [facility] Address [address] [place] [address] [place] [phone] Phone Care Team Providers Care Condenser Tester Name Role Phone Patti Cox MD Primary Care Provider [phone] Patti Carter NP Primary Care [facility] Se Bhagat MD Primary Care Provider Briana Lagunas PA-C Primary Care Provider Encounter Details Date Type Department Care Team (Late st Contact Info) Description 10/31/2020 Transcribe Orders [facility] [address] [place] [address] Denia Patrick NP [address] [place] [id number] Social History Tobacco Use Types Packs/Day Years [...] Description 04/06/2025 8:40 AM EST Office Visit [facility] [address] [place] [address] Briana Lagunas PA-C [address] [place] [address] [email or web address] documented as of this encounter Visit Diagnoses Not on filedocumented in this encounter Care Teams Condenser Tester Relationship Specialty Start Date End Date Patti Cox MD [address] [place] [phone] [email or web address] PCP - General Internal Medicine 10/31/2005/07 Patti Carter NP PCP - General Nurse Practitioner 05/08/23 12/16/23 Se Mujica MD [address] [place] [address] PCP - General Internal Medicine 12/17/23 09/30/24 Briana Lagunas PA-C [address] [place] [address] [email or web address] PCP - General Physician Senior Operations Analyst 10/01/24 documented as of this encounter Additional Source Comments The information contained in this document represents components of the legal health record. It is not the complete legal health record.[facility]
--- OUTSIDE RECORDS SUMMARY | 2024-12-31 11:29 | XMS_ITS | Patient Health Record ---
Author Organization [facility] Address [address] [facility] [address] [place] [address] Care Team Providers Care Resource Director Name Role Phone Guanako HOBBS Se Primary Care Provider Lisaa BRUNILDA Arellano Unavailable [phone] Allergies Allergen (clinical drug ingredient) Drug/Non Drug [...] 3 TIMES A DAY FOR 90 DAYS Oral; Duration: 90 Days Active QUEtiapine Fumarate 100 MG Oral; Duration: 90 Days Active Neurontin 300 MG 2 tablet Orally THREE TIMES A DAY Active Meloxicam 15 MG Orally Once a day PRN Active Multivitamins 1 ORAL daily; Duration: -3 03/19/2012 Active Ativan 2 MG 1 ORAL three times daily; Duration: 10 days 06/05/2013 Active Methylphenidate HCl 10 MG Oral; Duration: 30 Days Active SEROquel 100 MG 4 [...] CONTRACEPTION: none MARITAL STATUS: 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 Heterosexual CONTRACEPTION: none Problems Problem Type SNOMED Code ICD Code Onset Dates Problem Status W/U Status Risk Notes Problem Menopause (922703875) Menopausal and female climacteric states (N95.1) Active confirmed Problem Multiple sclerosis (50711036) Multiple sclerosis (G35) Active confirmed Problem Relapsing polychondritis (49741170) Relapsing polychondritis (M94.1) Active confirmed Problem Amenorrhea (71029931) Amenorrhea, unspecified (N91.2) Active confirmed Problem Oligomenorrhea (94882155) Oligomenorrhea, unspecified (N91.5) Active confirmed Problem Female infertility (1562058) Female infertility, unspecified (N97.9) Active confirmed Problem Menopause (081093446) Menopausal and female climacteric states (N95.1) Active confirmed Problem COVID-19 (854584913) COVID-19 (U07.1) Active confirmed Problem Depressive disorder (82270271) Depressive disorder, not elsewhere classified (311) Active confirmed Major Problem Migraine (disorder) (86810911) Migraine, unspecified without mention of intractable migraine without mention of status migrainosus (346.90) Active confirmed Major Vital Signs Temperature 98.2 degrees Fahrenheit 04/24/2024 Blood pressure diastolic 80 mm Hg 04/24/2024 Height 65 in 04/24/2024 Blood pressure systolic 110 mm Hg 04/24/2024 Weight 185 lbs 04/24/2024 BMI 30.78 kg/m2 04/24/2024 Encounters Encounter Location Date Provider Diagnosis Total [email or web address] [address] [place] [address] 04/24/2024 BRUNILDA MARIE Mastodynia N64.4 and Hypertrophy [...] End Date [employer] [address] [place] [address] [id number] LIZZY HOWELL Spouse - patient is [...]
--- OUTSIDE RECORDS SUMMARY | 2024-12-31 11:29 | XMS_ITS | Encounter Summary ---
Author Organization [facility] Address [address] [facility] [address] [place] [address] Phone Care Team Providers Care Plant Etiologist Name Role Phone Patti Cox MD Primary Care Provider [phone] Patti Cox MD Primary Care Provider + [phone] Patti Carter NP Primary Care [facility] Se Mujica MD Primary Care Provider [phone] Briana Lagunas PA-C Primary Care Provider + [phone] Encounter Details Date Type Department Care Team (Late st Contact Info) Description 01/02/2018 Ancillary [facility] [address] [place] [address] Raphael Martinez, DO [address] [facility] [address] [place] [address] [email or web address] Social History Tobacco Use Types Packs/Day Years [...] Description 04/06/2025 8:40 AM EST Office Visit [facility] [place] [facility] [address] [place] [address] Briana Lagunas PA-C [address] [place] [address] documented as of this encounter Visit Diagnoses Not on filedocumented in this encounter Care Teams Plant Etiologist Relationship Specialty Start Date End Date Patti Cox MD [address] [place] [phone] [email or web address] PCP - General 09/09/14 Patti Cox MD [address] [place] [phone] [email or web address] PCP - General Internal Medicine 10/31/2005/07 Patti Carter NP PCP - General Nurse Practitioner 05/08/23 12/16/23 Se Mujica MD [address] [place] [phone] PCP - General Internal Medicine 12/17/23 09/30/24 Briana Lagunas PA-C [address] [place] [address] [email or web address] PCP - General Physician Talent Acquisition Operations Manager 10/01/24 documented as of this encounter Additional Source Comments The information contained in this document represents components of the legal health record. It is not the complete legal health record.[facility]
--- OUTSIDE RECORDS SUMMARY | 2024-12-31 11:29 | XMS_ITS | Clinical Summary ---
Author Organization [facility] Address [address] [place] [phone] Phone Care Team Providers Care Drying Oven Attendant Name Role Phone Briana Lagunas PA-C Primary Care Provider [phone] Allergies Active Allergy Reactions Criticality Noted Date Comments Codeine Anaphylaxis High 05/08/2023 Penicillins 12/17/2023 Sulfa (Sulfonamide Antibiotics) Rash Low 07/2023 Medications acetaminophen (TYLENOL ARTHRITIS PAIN) 650 MG CR tablet Take 1,300 mg by mouth. Active baclofen (LIORESAL) 10 MG tablet Take 1 tablet by mouth 2 (two) times a day. 09/10/19 24 Active DULoxetine (CYMBALTA) 60 MG capsule Take 120 mg by mouth daily. Active ATIVAN 1 mg tablet Take 2 mg by mouth nightly at bedtime. Active prazosin (MINIPRESS) 1 MG capsule Take 2 mg by mouth nightly at bedtime. Active QUEtiapine (SEROQUEL) 100 MG tablet Take 150 mg by mouth nightly at bedtime. Active Medication-Free Text Take 4.5 mg by mouth nightly at bedtime. LDN Active Medication-Free Text Compounded Naltrexone 6mg Active EPINEPHrine 0.3 mg/0.3 mL auto-injector INJECT 0.3 MILLILITER (0.3 MG) BY INTRAMUSCULAR ROUTE ONCE NEEDED FOR ANAPHYLAXIS 09/03/19 25 Active semaglutide 0.25 mg/0.05 mL Syrg Inject 0.25 mg under the skin. [facility] Active gabapentin (NEURONTIN) 300 MG capsule Take 1 capsule (300 mg total) by mouth 3 (three) times a day. 10/02/19 25 Active rosuvastatin (CRESTOR) 5 MG tabletIndications: Mixed hyperlipidemia Take 1 tablet (5 mg total) by mouth daily. 30 tablet 2 11/11/19 25 Active Active Problems Problem Noted Date Diagnosed Date Routine general medical exam ination at a health care facility 10/01/2024 Assessment & Plan (10/01/2024 2:58 PM EDT): Will obtain routine lab work including CMP, lipid panel, thyroid panel as well as one-time HIV screening. Mammogram scheduled next week through [facility]. Pap smear up-to-date. Cologuard test done at the age of 49 which was negative, due for repeat testing. Denies any family history of colon cancer, denies GI bleeding. Cologuard ordered. Postconcussion syndrome 10/01/2024 Assessment & Plan (10/01/2024 2:57 PM EDT): Postconcussion syndrome following subarachnoid bleed, following with Marjorie Patrick at [facility] neurology and sleep. She does have associated tremors which she is being treated with baclofen. Last seen neurology on 08/10/2024. Anxiety and depression 10/01/2024 Assessment & Plan (10/01/2024 2:57 PM EDT): Currently under the care of Dr. Medrano, psychiatrist. Last seen on 09/11/2024. Currently on Seroquel 150 mg nightly, prazosin 2 mg nightly, duloxetine 120 mg daily, and Ativan 2 mg nightly. Also does talk therapy. History of fracture of right ankle 10/01/2024 Assessment & Plan (10/01/2024 2:58 PM EDT): Following with [facility] orthopedics. History of ORIF in the right ankle following fall at home. Great toe pain 10/01/2024 Assessment & Plan (10/01/2024 2:58 PM EDT): Suspected had a great toe fracture following an injury, currently promise taped. She did have imaging which showed a potential chip in the bone, however we do not have these records. Recommended getting a formal evaluation and treatment for the toe fracture in order to prevent poor healing and potential complications, however patient would like to hold off until she has everything else under control. Fibromyalgia 06/09/2023 Assessment & Plan (10/01/2024 2:57 PM EDT): History of fibromyalgia managed with duloxetine 100 mg daily and gabapentin 300 mg 3 times daily. Also on compounded naltrexone. She reports cognitive fatigue and brain fog associated with her fibromyalgia. Currently following with [facility], Dr. Pam Iglesias. She is requesting to have her ESR and CRP ordered, advised the patient that these are very nonspecific and only tell us that there is some level of inflammation in her body. Discussed that she does have acute injuries at the moment which could falsely elevate these levels as well. She notes understanding but would like to continue getting this done, ordered. Assessment & Plan (12/17/2023 12:41 PM EDT): Fibromyalgia with diffuse pain stable on duloxetine and gabapentin as well as low-dose naltrexone. Assessment & Plan (06/09/2023 6:18 PM EST): Diffuse muscle pain and sensitivity with poor sleep consistent with fibromyalgia. She also has a history of PTSD depression and anxiety and does not feel her symptoms are fully controlled. I have asked her to speak with Dr. Ruiz regarding possible changes to her medication regimen. Advised her to get daily physical activity which has been shown to improve the pain from fibromyalgia. Primary osteoarthritis involving multiple joints 06/09/2023 Assessment & Plan (12/17/2023 12:40 PM EDT): Osteoarthritis in multiple joints with stiffness but no swelling. Continue with Tylenol 650 mg as needed. Assessment & Plan (06/09/2023 6:18 PM EST): Osteoarthritis in multiple joints currently most bothersome in the right ankle after her fracture in 2021. She can continue with Tylenol and should try the arthritis formula 650 mg as needed. Relapsing polychondritis 11/26/2011 Overview (06/26/2014): Relapsing polychondritis Assessment & Plan (10/01/2024 2:57 PM EDT): Currently in remission per rheumatology. If symptoms were to reemerge, she was advised to contact her needle bar molder. Assessment & Plan (12/17/2023 12:40 PM EDT): Relapsing polychondritis appears to be in remission. She has been off her medication for several years. Assessment & Plan (06/09/2023 6:19 PM EST): She has a history of relapsing polychondritis and has not had any cartilaginous involvement in a very long time. The polychondritis is likely in remission. She does not need any medication at this time. Encounters Date Type Department Care Team Description 11/16/2024 Telephone [facility] Internal Medicine [address] [place] [address] Briana Lagunas PA-C Request For Order(s) 11/16/2024 Orders Only [facility] [address] [place] [address] ProviderNanette MD 11/12/2024 Telephone [facility] Medicine [address] [place] [address] Briana Lagunas PA-C Statement of Good Health Form 11/05/2024 Documentation [facility] [address] [place] [address] Briana Lagunas PA-C 10/01/2024 1:20 PM EDT Office Visit [facility] Internal [facility] [address] [place] [address] Briana Lagunas PA-C Routine general medical examination at a health care facility (Primary Dx); Screening for human immunodeficiency virus; Encounter for screening mammogram for malignant neoplasm of breast; Colon cancer screening; Fibromyalgia; Relapsing polychondritis; Postconcussion syndrome; Anxiety and depression; History of fracture of right ankle; Pain of great toe, unspecified laterality from Last 3 Months Immunizations Immunization Administration Dates Next Due COVID-19 (Pre-02/25) Moderna Vaccine, mRNA, PF 06/26/2021,06/14/2020,05/07/2020 INFLUENZA, SPLIT VIRUS, TRIVALENT PF 02/11/2024 Influenza Quadrivalent MDCK Preservative Free IM 03/19/2023 Influenza Quadrivalent w/ Preservative IM 2020 Family History Medical History Relation Comments Arthritis Father Colon polyps Father TYSON disease Father Hyperlipidemia Father Hypertension Father mental health issues Father Breast cancer Mother Relation Status Comments Father Alive Mother Sister Alive Social History Tobacco Use Types Packs/Day Years Used Date Smoking Tobacco: Never Smokeless Tobacco: Never Tobacco Cessation:Counseling Given: Not Answered Alcohol Use Standard Drinks/Week Comments Yes 0 (1 standard drink = 0.6 oz pur e alcohol) holidays,occasional Child or Family Care Answer Date Record ed Do you have problems with on e of the following making it difficult for you to work, study, or receive health care? Family care (i.e. spouse, parents, other family) 09/24/2024 Education Answer Date Recorded Are you interested in help w ith more adult education (for example, completing high school, GED, job training, learning the [place] language, technical skills, or developing parenting skills)? No 09/24/2024 Are you concerned about learning? Not on file 09/24/2024 No 09/24/2024 Yes 09/24/2024 Food Answer Date Recorded Within the past 6 months we worried whether our food would run out before we got money to buy more. Sometimes True 09/24/2024 Within the past 6 months the food we bought just didn't last and we didn't have enough money to get more. I choose not to answer 09/24/2024 Residential Stability Answer Date Recor ded What is your housing situation today? I have heidi gomez 09/24/2024 How many times have you move d in the past 12 months? Zero (I did not move) 09/24/2024 Paying for Meds Answer Date Recorded Do you have trouble paying for medicines? I antony se not to answer 09/24/2024 Paying Utility Bills Answer Date Record ed Do you have trouble paying your heating or elect ricity bill? No 09/24/2024 Transportation Answer Date Recorded Has the lack of transportati on kept you from medical appointments or from getting medications? No 09/24/2024 Digital Access Answer Date Recorded No 09/24/2024 Yes 09/24/2024 Do you have reliable internet access at home? Ye s 09/24/2024 Do you have a device (e.g., phone, tablet, computer) with a working camera? Yes 09/24/2024 Intimate Partner Violence Answer Date R ecorded Denied Basic Needs Not on file 09/24/2024 In the past 12 months have y ou been in a relationship with a person who hurts, threatens, or tries to control you? Deferred 09/24/2024 Worried food would run out Not on file 09/24 In the past 12 months have y ou been in a relationship with a person who hurts, threatens, or tries to control you? Deferred 09/24/2024 Comments Unknown Sex and Gender Information Value Date Recorded Sex Assigned at Female 09/24/2024 12:32 PM EDT Legal Sex Female 8:05 PM EST Gender Identity Female 09/24/2024 12:32 PM EDT Sexual Orientation Straight 09/24/2024 12 :32 PM EDT Last Filed Vital Signs Vital Sign Reading Time Taken Comments Blood Pressure 122/80 10/01/2024 1:24 PM EDT Pulse 76 10/01/2024 1:24 PM EDT Temperature 36.3 C (97.4 F) 10/01/2024 1:24 PM EDT Respiratory Rate 16 10/01/2024 1:24 PM EDT Oxygen Saturation 98% 10/01/2024 1:24 PM EDT Inhaled Oxygen Concentration - - Weight 82.6 kg (182 lb) 10/01/2024 1:24 PM EDT Height 165.1 cm (5' 5 ) 10/01/2024 1:24 PM EDT Body Mass Index 30.29 10/01/2024 1:24 PM EDT Plan of Treatment Upcoming Encounters Date Type Department Care Team (Late st Contact Info) Description 04/06/2025 8:40 AM EST Office Visit [facility] Internal Medicine [address] [facility] [place] [address] Briana Lagunas PA-C [address] [place] [address] [email or web address] Health [email or web address] Due Date Last Done Comments Adult Td,Tdap Booster 1969 PAP SMEAR 1990 MAMMOGRAM 2009 COLONOSCOPY 2014 FIT TEST 2014 FOBT 2014 SIGMOIDOSCOPY 2014 VIRTUAL COLONOSCOPY 2014 PNEUMOCOCCAL VACCINES (50+ years) (1 of 1 - PCV) 2019 ZOSTER VACCINES (1 of 2) 2019 COVID-19 VACCINE (4 - 2023-2 5 season) 2024 06/26/2021, 06/14/2020, 05/07/2020 REPEAT PHQ 10/25/2024 09/24/2024, 09/24/2024 INFLUENZA VACCINE (#1) 2024 , 03/19/2023, 01/25/2021 DEPRESSION SCREENING 09/24/2025 09/24/2024, 09/24/2024 COLOGUARD 10/13/2027 10/12/2024 COLORECTAL CANCER SCREENING 10/13/2027 SCREENING FOR DIABETES 11/05/2027 11/04/2024 LIPID PANEL 11/04/2029 11/04/2024 HEPATITIS C SCREENING Completed 09/24/2011 SMOKING STATUS SCREENING (On ce After 26 Yrs) Completed 10/01/2024 HIV ONE-TIME SCREENING (18-6 5 YEARS) Completed 11/04/2024 HEPATITIS A VACCINES Aged Out No long er eligible based on patient's age to complete this topic HIB VACCINES Aged Out No longer eligi ble based on patient's age to complete this topic MENINGOCOCCAL VACCINES (ACWY) Aged Out No longer eligible based on patient's age to complete this topic MENINGOCOCCAL VACCINES (B) Aged Out N o longer eligible based on patient's age to complete this topic Medical Devices Not on file Procedures Procedure Name Priority Date/Time Associated Diagnosis Comments OUTSIDE LAB Routine 11/12/2024 2:19 PM EDT LIPID PANEL Routine 11/04/2024 Routine general medical examination at a health care facility C-REACTIVE PROTEIN Routine 11/04/2024 Fibromyalgia SEDIMENTATION RATE (ESR) Routine 11/04/2024 Fibromyalgia TSH WITH REFLEX Routine 11/04/2024 Routine general medical examination at a health care facility COMPREHENSIVE METABOLIC PANEL Routine 11/04/2024 Routine general medical examination at a health care facility HIV-1/2 ANTIGEN/ANTIBODY Routine 11/04/2024 Screening for human immunodeficiency virus COLOGUARD ([employer]) Routine 10/12/2024 8:15 AM EDT Colon cancer screening HISTORICAL LAB Routine 09/24/2011 5:43 PM EDT from Last 3 Months or Most Recently Relevant to Health Maintenance Results * Outside Lab (11/12/2024 2:19 PM EDT) us Historical Provider MD LAB BLOOD ORDERABLES Madai l Result * Comprehensive metabolic panel (11/04/2024) Sodium - External EXTERNAL NON-INTERFACED REF LAB Potassium - External 4.1 EXTERNAL NON-INTERFACED REF LAB Chloride - External EXTERNAL NON-INTERFACED REF LAB CO2 - External EXTER NAL NON-INTERFACED REF LAB BUN - External EXTER NAL NON-INTERFACED REF LAB Creatinine - External 0.86 EXTERNAL NON-INTERFACED REF LAB Glucose - External 93 EXTERNAL NON-INTERFACED REF LAB Albumin - External EXTERNAL NON-INTERFACED REF LAB Protein - External EXTERNAL NON-INTERFACED REF LAB Calcium - External EXTERNAL NON-INTERFACED REF LAB Alkaline Phosphatase - External EXTERNAL NON-INTERFACED REF LAB Bilirubin, total - External EXTERNAL NON-INTERFACED REF LAB AST - External EXTER NAL NON-INTERFACED REF LAB ALT - External 9 EXTER NAL NON-INTERFACED REF LAB Globulin - External EXTERNAL NON-INTERFACED REF LAB eGFR - External EXTE RNAL NON-INTERFACED REF LAB Anion Gap - External EXTERNAL NON-INTERFACED REF LAB Blood 11/04/2024 [facility] LAB BLOOD ORDERABLES Edited Result - Final Performing Organization Address [facility] de Phone Number EXTERNAL NON-INTERFACED REF LAB * HIV-1/2 antigen/antibody (11/04/2024) HIV 1/2, antigen/antibod y - External neg EXTERNAL NON-INTERFACED REF LAB Blood 11/04/2024 [facility] LAB BLOOD ORDERABLES Edited Result - Final Performing Organization Address [facility] [[email or web address]] de Phone Number EXTERNAL NON-INTERFACED REF LAB * TSH with reflex (11/04/2024) TSH - External 1.54 EXTER NAL NON-INTERFACED REF LAB Free T4 - External EXTERNAL NON-INTERFACED REF LAB Blood 11/04/2024 [facility] LAB BLOOD ORDERABLES Edited Result - Final Performing Organization Address [facility] de Phone Number EXTERNAL NON-INTERFACED REF LAB * Sedimentation rate (ESR) (11/04/2024) ESR - External 3 EXTER NAL NON-INTERFACED REF LAB Blood 11/04/2024 [facility] LAB BLOOD ORDERABLES Edited Result - Final Performing Organization Address [facility] [[email or web address]] de Phone Number EXTERNAL NON-INTERFACED REF LAB * C-Reactive Protein (11/04/2024) CRP - External 2 EXTER NAL NON-INTERFACED REF LAB Blood 11/04/2024 [facility] LAB BLOOD ORDERABLES Edited Result - Final Performing Organization Address [facility]/ZIP Co de Phone Number EXTERNAL NON-INTERFACED REF LAB * Lipid panel (11/04/2024) HDL - External 70 EXTER NAL NON-INTERFACE D REF LAB Cholesterol, Total - External 257 EXTERNAL NON-INTERFACE D REF LAB Triglycerides - External 158 EXTERNAL NON-INTERFACE D REF LAB LDL, calculated - External 159 EXTERNAL NON-INTERFACE D REF LAB Cardiac Risk Ratio - External EXTERNAL NON-INTERFACE D REF LAB Non-HDL Cholesterol - External EXTERNAL NON-INTERFACE D REF LAB Blood 11/04/2024 [facility] LAB BLOOD ORDERABLES Edited Result - Final Performing Organization Address [facility] [[email or web address]] de Phone Number EXTERNAL NON-INTERFACED REF LAB * COLOGUARD ([employer]) (10/12/2024 8:15 AM EDT) Cologuard Results Negative Negative 025 8:48 AM EDT [employer] (CLIA #:[id number]) Comment: The Cologuard (TM) test was performed on this specimen. NEGATIVE TEST RESULT. A negative Cologuard result indicates a low likelihood that a colorectal cancer (CRC) or advanced adenoma (adenomatous polyps with more advanced pre-malignant features) is present. The chance that a person with a negative Cologuard test has a colorectal cancer is less than 1 in 1500 (negative predictive value >99.9%) or has an advanced adenoma is less than 5.3% (negative predictive value 94.7%). These data are based on a prospective cross-sectional study of 10,000 individuals at average risk for colorectal cancer who were screened with both Cologuard and colonoscopy. (Veto Marquez al, N Engl J Med 2014;370(14):1286- 1297) The normal value (reference range) for this assay is negative. COLOGUARD RE-SCREENING RECOMMENDATION: Periodic colorectal cancer screening is an important part of preventive healthcare for asymptomatic individuals at average risk for colorectal cancer. Following a negative Cologuard result, the [place] Cancer Society and U.S. Multi-Society Task Force screening guidelines recommend a Cologuard re-screening interval of 3 years. References: [place] Cancer Society Guideline for Colorectal Cancer Screening: https://www.cancer.org/cancer/zfaaq-bcdfnz-cnzplx/zpkteoyya-bjsdmaxtr-axrbnau/ac s-rec ommendations.html.; Donald DK, Zen MCCALL, Briseyda McgillK, Colorectal Cancer Screening: Recommendations for Physicians and Patients from the U.S. Multi-Society Task Force on Colorectal Cancer Screening , Am J Gastroenterology 2017; 112:8622-7979. TEST DESCRIPTION: Composite algorithmic analysis of stool DNA-biomarkers with hemoglobin immunoassay. Quantitative values of individual biomarkers are not reportable and are not associated with individual biomarker result reference ranges. Cologuard is intended for colorectal cancer screening of adults of either sex, 45 years or older, who are at average-risk for colorectal cancer (CRC). Cologuard has been approved for use by the U.S. FDA. The performance of Cologuard was established in a cross sectional study of average-risk adults aged 50-84. Cologuard performance in patients ages 45 to 49 years was estimated by sub-group analysis of near-age groups. Colonoscopies performed for a positive result may find as the most clinically significant lesion: colorectal cancer [4.0%], advanced adenoma (including sessile serrated polyps greater than or equal to 1cm diameter) [20%] or non- advanced adenoma [31%]; or no colorectal neoplasia [45%]. These estimates are derived from a prospective cross-sectional screening study of 10,000 individuals at average risk for colorectal cancer who were screened with both Cologuard and colonoscopy. (Veto Burns et al, N Engl J Med 2014;370(14):7214-1468.) Cologuard may produce a false negative or false positive result (no colorectal cancer or precancerous polyp present at colonoscopy follow up). A negative Cologuard test result does not guarantee the absence of CRC or advanced adenoma (pre-cancer). The current Cologuard screening interval is every 3 years. ([place] Cancer Society and U.S. Multi-Society Task Force). Cologuard performance data in a 10,000 patient pivotal study using colonoscopy as the reference method can be accessed at the following location: www.[employer]/results. Additional description of the Cologuard test process, warnings and precautions can be found at www.cologuard.com. Stool (Per Rectum) 10/12/2024 8:15 AM EDT 10/16/2024 11:16 AM EDT Briana Lagunas PA-C BODY FLUIDS AND STOOLS ORDER KANWAL Final Result [employer] (CLIA #:[id number]) [address] [place] [address], [facility] [phone] * Historical Lab (09/24/2011 5:43 PM EDT) 25(OH)VITAMIN D 24 20 - 80 ng/mL [facility] LYME-ABC No IgM, IgG or IgA antibody to B.burgdorferi detected by capture EIA. The IgG Immunoblot results fall within normal limits. INTERPRETATION : No serologic evidence of infection with B.burgdorferi (Lyme). [facility] Comment:TEST PERFORMED BY [employer] [place], [place] YANTEH(HEP2)TITER 0 0.0 - 0.0 titer [facility] YANETH(HEP2)PATTE RN 0 0.0 - 0.0 pattern [facility] RF units <11 0.0 - 15 IU/mL [facility] A-CCP 4 0 - 7 [place] U/mL [facility] ANTI-SM 7 0.0 - 20.0 EU/mL [facility] ANTI-SPOT BILLING CLERK 0 0.0 - 20.0 EU/mL [facility] ANTI-Ro 2 0.0 - 20.0 EU/mL [facility] ANTI-La 1 0.0 - 20.0 EU/mL [facility] HAV TOTAL ANTIBODIES ANTIBODY NEGATIVE NON-REACTIV E [facility] HAV IgM NEGATIVE NEGATIVE [facility] HBsAg NEGATIVE NEGATIVE [facility] HBsAb POSITIVE NEGATIVE [facility] HBcAb NEGATIVE NEGATIVE [facility] HBc IgM NEGATIVE NEGATIVE [facility] HCV NEGATIVE NEGATIVE [facility] 09/24/2011 5:43 PM EDT Comment:BLOOD us Deanna Haddad MD, MPH LAB BLOOD ORDERABLES F inal Result [place] [phone] from Last 3 Months or Most Recently Relevant to Health Maintenance Insurance OUT OF [facility] [place] [address] [address] OUT OF [facility] PPO OUT OF [facility] PPO OUT [facility] PPO BLUE [place] OUT OF STATE PPO BLUE [place] OUT OF STATE PPO OUT OF STATE PPO OUT OF STATE PPO OUT [facility] PPO Care Teams Drying Oven Attendant Relationship Specialty Start Date End Date Briana Lagunas PA-C [address] [place] [phone] (work) [email or web address] PCP - General Physician Automation Analyst 10/01/24 Additional Source Comments The information contained in this document represents components of the legal health record. It is not the complete legal health record.[facility]
--- OUTSIDE RECORDS SUMMARY | 2024-12-31 11:29 | XMS_ITS | Encounter Summary ---
Author Organization [facility] Address [address] [place] [address] [place] [address] Phone Care Team Providers Care Narrow Gauge Brakeman Name Role Phone Patti Cox MD Primary Care Provider [phone] Patti Carter NP Primary Care Provi francisco Se Bhagat MD Primary Care Provider [phone] Briana Lagunas PA-C Primary Care Provider Encounter Details Date Type Department Care Team (Late st Contact Info) Description 10/31/2020 Transcribe Orders [facility] Rehabilitation Services [address] [place] [address] Denia Patrick NP [address] [place] [address] Social History Tobacco Use Types Packs/Day Years [...] Description 04/06/2025 8:40 AM EST Office Visit [facility] Internal Medicine [address] [place] [address] Briana Lagunas PA-C 40 [place] [address] [email or web address] documented as of this encounter Visit Diagnoses Not on filedocumented in this encounter Care Teams Narrow Gauge Brakeman Relationship Specialty Start Date End Date Patti Cox MD [address] [place] [address] [email or web address] PCP - General Internal Medicine 10/31/2005/07 Patti Carter NP PCP - General Nurse Practitioner 05/08/23 12/16/23 Se Mujica MD 40 [place] [address] PCP - General Internal Medicine 12/17/23 09/30/24 Briana Lagunas PA-C 40 [place] [address] [email or web address] PCP - General Physician Mixer Tender 10/01/24 documented as of this encounter Additional Source Comments The information contained in this document represents components of the legal health record. It is not the complete legal health record.[facility]
== END 2024-12-31 11:44 | disposition home or self-care (01) ==
LOC: HO.HOS 10:11
PROVIDERS: PCP Internal Medicine; Visit Provider Orthopaedic Surgery
DX: M17.11 Unilateral primary osteoarthritis, right knee (principal)
CPT/HCPCS: 20610; 99213

== ENCOUNTER → 2024-12-31 10:11 | Outpatient (BNVA) | payer BC, SELFPAY | PROVIDERS: PCP Internal Medicine; Visit Provider Orthopaedic Surgery | DX: M17.11 Unilateral primary osteoarthritis, right knee (principal) | CPT/HCPCS: 20610; J0665; J1100; J2003 ==

== ENCOUNTER 2025-01-02 15:40 | Outpatient (REF) | payer BC, SELFPAY ==
--- OUTSIDE RECORDS SUMMARY | 2024-01-30 04:00 | XMS_ITS ---
Author Organization [facility] [employer] [facility] Address [address] [address] Care Team Providers Care Road Production General Manager Name Role Phone Guanako HOBBS [facility] Primary Care Provider UnavailBRUNILDA Fox Unavailable [phone] REASON FOR VISIT Annual BIG DATA DEVELOPER Physical Encounters Encounter Location Date Provider Diagnosis [facility] [employer] [address] [address] 01/30/2024 BRUNILDA MARIE Encounter for gynecological examination [...] Follow Up: 1 Year, Reason: Y early Plastics Worker Exam Progress Notes * REYNALDO HOWELL NARAWINIFREDDOB:[birth year] (54 yo F)Acc No.[id number]:01/30/2024 PROGRESS NOTES Patient: SIRIA STAFFORD Provider: Bertha MARIE MD :1970 A ge:53 Y S ex:Female Date:01/30/2024 Address:[address] [place], [place] [id number] Pcp:Se Mujica MD Subjective: * Chief Complaints: * 1 . Annual BIG DATA DEVELOPER Physical. * HPI: C onstitutional: Bertha johnson is a 53yo G0 here today for her yearly exam. She has been in state of fair health since her last exam. She has the following consignee concerns: She has received the Moderna Covid-19 [...] right ankle issues. * ROS: A nnual Plastics Worker Exam ROS: Bowel habit changes d enies. [...] no acute distress, well developed, well nourished, boat builder present in room. HEAD: n ormocephalic, atraumatic. [...] * Follow Up: 1 Year (Reason: Yearly Plastics Worker Exam) * Images: Billing Information: * Visit Code: 67112 Preventive Care Est Pt. Age 40-64. * Procedure Codes: * Electronic signature of BRUNILDA MARIE MD on 01/02/2025 at 03:48 PM EDT Sign off status: Pending * Provider: Bertha MARIE MD Date: 0 01/30/2024 Generated for Printi ng/Fakatelyng/eTransmitting on: 0 01/02/2025 03:48 PM EDT History and Physical Notes * HPI (History of Present Illness) Category Sub-Category Detail Notes Category Not es Constitutional Siria is a 53yo G0 here today for her yearly exam. She has been in state of fair health since her last exam. She has the following consignee concerns: She has received the Moderna Covid-19 [...] General Examination GENERAL APPEARANCE: in no ac pauline distress, well developed, well nourished, boat builder present in room HEAD: normocephalic, atrau matic [...]
--- OUTSIDE RECORDS SUMMARY | 2024-04-10 06:30 | XMS_ITS ---
Author Organization [facility] Address [address] [facility] [address] [place] [address] Care Team Providers Care Health Screener Name Role Phone Guanako HOBBS [facility] Primary Care Provider BRUNILDA Waters Unavailable [phone] REASON FOR VISIT LT BREAST BIGGER THAN RIGHT Encounters Encounter Location Date Provider Diagnosis [facility] [address] [address] 04/10/2024 BRUNILDA MARIE Unspecified lump in breast [...] weight loss Vit E 1,200IU and/or Evening [place] Oil 3000mg daily x 6 months and [...] weight loss Vit E 1,200IU and/or Evening [place] Oil 3000mg daily x 6 months and reevaluate Pending Test Test Name Order Date Ultrasound : Breast(s), unilateral or bi lateral 04/10/2024 Diagnostic Digital Breast 3D, Bilateral 04/10/2024 Progress Notes * REYNALDO MORALESJOSELO LAMDOB:[birth year] (54 yo F)Acc No.[id number]:04/10/2024 PROGRESS NOTES Patient: Bertha MORALESJOSELO LAM Provider: Bertha MARIE MD :1970 A ge:54 Y S ex:Female Date:04/10/2024 Address:[address] [place] [address] [place] [address] Pcp:Se Mujica MD Subjective: * Chief Complaints: [...] weight loss Vit E 1,200IU and/or Evening [place] Oil 3000mg daily x 6 months and reevaluate * Images: Billing Information: * Visit Code: 83253 Office Visit, Est Pt., Level 4. 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
--- NOTE | ~2025-01-02 | MR_ITS ---
CLINICAL HISTORY: M17.11 - Unilateral primary osteoarthritis, right knee MR right knee without gadolinium Comparison: DX/SR - XR KNEE 3 VIEWS RIGHT - 02/27/24 13:04 EDT Findings: No fractures. No pathologic bone lesions. There is a fissure involving the medial facet of the patella. There is chondromalacia along the femoral articular surface. The articular cartilage in the medial compartment is significantly denuded with chronic subchondral changes and marginal osteophytes compatible with osteoarthritis. There is a moderate patellofemoral joint effusion. The ACL, PCL and collateral ligaments are intact. Patellar retinacula and iliotibial band are intact. There is tenosynovitis of the popliteus tendon. The quadriceps and patellar tendons are intact. There is extrusion of the medial meniscus. No discrete meniscal tears are seen. IMPRESSION: 1. Moderate patellofemoral joint effusion. 2. Fissure involving the medial facet of the patella. There is chondromalacia along the femoral articular surface. 3. The articular cartilage in the medial compartment is significantly denuded with chronic subchondral changes and marginal osteophytes compatible with osteoarthritis. 4. Extrusion of the medial meniscus. 5. Tenosynovitis of the popliteus tendon. This document has been electronically signed by: Esvin Shelton MD on 01/03/2025 10:27:38
--- OUTSIDE RECORDS SUMMARY | 2025-01-02 15:48 | XMS_ITS | Encounter Summary ---
Author Organization [facility] Address [address] [facility] [address] [facility] [address] [place] [address] Phone Care Team Providers Care Rasper Machine Operator Name Role Phone Patti Cox MD Primary Care Provider [phone] Patti Cox MD Primary Care Provider [phone] Patti Carter NP Primary Care Provi [facility] Se Bhagat MD Primary Care Provider [phone] Briana Lagunas PA-C Primary Care Provider + [phone] Encounter Details Date Type Department Care Team (Late st Contact Info) Description 01/02/2018 Ancillary Orders Non-Invasive Cardiology 22 [place] [address] Raphael Martinez DO 22 [facility] [address] [place] [address] [email or web address] Social History Tobacco Use Types Packs/Day Years [...] Description 04/06/2025 8:40 AM EST Office Visit [facility] Internal Medicine 40 [place] [address] Briana Lagunas PA-C 40 [place] [address] [email or web address] documented as of this encounter Visit Diagnoses Not on filedocumented in this encounter Care Teams Rasper Machine Operator Relationship Specialty Start Date End Date Patti Cox MD [address] [place] [address] [email or web address] PCP - General 09/09/14 Patti Cox MD [address] [place] [address] [email or web address] PCP - General Internal Medicine 10/31/2005/07 Patti Carter NP PCP - General Nurse Practitioner 05/08/23 12/16/23 Se Mujica MD [address] [place] [address] PCP - General Internal Medicine 12/17/23 09/30/24 Briana Lagunas PA-C 40 [place] [address] [email or web address] PCP - General Physician Crop Nutrition Scientist 10/01/24 documented as of this encounter Additional Source Comments The information contained in this document represents components of the legal health record. It is not the complete legal health record.[facility]
--- OUTSIDE RECORDS SUMMARY | 2025-01-02 15:48 | XMS_ITS | Encounter Summary ---
Author Organization [facility] Address [address] [place] [address] [address] Phone Care Team Providers Care Puzzle Assembler Name Role Phone Patti Cox MD Primary Care Provider [phone] Patti Carter NP Primary Care Provi francisco Se Bhagat MD Primary Care Provider [phone] Briana Lagunas PA-C Primary Care Provider Encounter Details Date Type Department Care Team (Late st Contact Info) Description 10/31/2020 Transcribe Orders [facility] Rehabilitation Services 8 [place] [address] Denia Patrick NP [address] [place] [address] Social History Tobacco Use Types Packs/Day Years [...] Description 04/06/2025 8:40 AM EST Office Visit [facility] Internal Medicine 40 [place] [address] Briana Lagunas PA-C 40 [place] [address] [email or web address] documented as of this encounter Visit Diagnoses Not on filedocumented in this encounter Care Teams Puzzle Assembler Relationship Specialty Start Date End Date Patti Cox MD [address] [place] [address] [email or web address] PCP - General Internal Medicine 10/31/2005/07 Patti Carter NP PCP - General Nurse Practitioner 05/08/23 12/16/23 Se Mujica MD 40 [place] [address] PCP - General Internal Medicine 12/17/23 09/30/24 Briana Lagunas PA-C 40 [place] [address] [email or web address] PCP - General Physician Teacher Associate 10/01/24 documented as of this encounter Additional Source Comments The information contained in this document represents components of the legal health record. It is not the complete legal health record.[facility]
--- OUTSIDE RECORDS SUMMARY | 2025-01-02 15:48 | XMS_ITS | Encounter Summary ---
Author Organization [facility] Address [address] [facility] [address] [place] [address] Phone Care Team Providers Care Optometrist/Practice Owner Name Role Phone Patti Cox MD Primary Care Provider [phone] Patti Cox MD Primary Care Provider [phone] Patti Carter NP Primary Care Provi francisco Se Bhagat MD Primary Care Provider [phone] Briana Lagunas PA-C Primary Care Provider + [phone] Encounter Details Date Type Department Care Team (Late st Contact Info) Description 01/02/2018 Ancillary [facility] [address] [place] [address] Raphael Martinez DO 22 [facility] 301 [place] [address] [email or web address] Palpitations Social History Tobacco Use Types Packs/Day [...] 04/06/2025 8:40 AM EST Office Visit [facility] Internal Medicine 40 [place] [address] Briana Lagunas PA-C 40 [place] [address] [email or web address] documented as of this encounter Results * [...] Palpitations documented in this encounter Care Teams Optometrist/Practice Owner Relationship Specialty Start Date End Date Patti Cox MD [address] [place] [address] [email or web address] PCP - General 09/09/14 Patti Cox MD [address] [place] [address] [email or web address] PCP - General Internal Medicine 10/31/2005/07 Patti Carter NP PCP - General Nurse Practitioner 05/08/23 12/16/23 Se Mujica MD 40 [place] [address] PCP - General Internal Medicine 12/17/23 09/30/24 Briana Lagunas PA-C [address] [place] [address] [email or web address] PCP - General Physician Railroad Car Loader 10/01/24 documented as of this encounter Additional Source Comments The information contained in this document represents components of the legal health record. It is not the complete legal health record.[facility]
--- OUTSIDE RECORDS SUMMARY | 2025-01-02 15:48 | XMS_ITS | Encounter Summary ---
Author Organization [facility] Address [address] [place] [address] [place] [address] Phone Care Team Providers Care Warehouse Selector Name Role Phone Patti Cox MD Primary Care Provider [phone] Patti Carter NP Primary Care Provi francisco Se Bhagat MD Primary Care Provider [phone] Briana Lagunas PA-C Primary Care Provider [phone] Encounter Details Date Type Department Care Team (Late st Contact Info) Description 10/31/2020 Transcribe Orders [facility] Rehabilitation Services 8 [place] [address] Denia Patrick NP [address] [place] [address] Social History Tobacco Use Types Packs/Day Years [...] 04/06/2025 8:40 AM EST Office Visit [facility] Internal Medicine 40 [place] [address] Briana Lagunas PA-C 40 [place] [address] [email or web address] documented as of this encounter Visit Diagnoses Not on filedocumented in this encounter Care Teams Warehouse Selector Relationship Specialty Start Date End Date Patti Cox MD [address] [place] [address] [email or web address] PCP - General Internal Medicine 10/31/2005/07 Patti Carter NP PCP - General Nurse Practitioner 05/08/23 12/16/23 Se Mujica MD 40 [place] [address] PCP - General Internal Medicine 12/17/23 09/30/24 Braina Lagunas PA-C 40 [place] [address] [email or web address] PCP - General Physician Insurance Specialist 10/01/24 documented as of this encounter Additional Source Comments The information contained in this document represents components of the legal health record. It is not the complete legal health record.[facility]
--- OUTSIDE RECORDS SUMMARY | 2025-01-02 15:48 | XMS_ITS | Encounter Summary ---
Author Organization [facility] Address [address] [facility] [address] [place] [address] Phone Care Team Providers Care Restaurant Managing Partner Name Role Phone Patti Cox MD Primary Care Provider [phone] Patti Cox MD Primary Care Provider [phone] Patti Carter NP Primary Care Provi [facility] Se Mujica MD Primary Care Provider [phone] Briana Lagunas PA-C Primary Care Provider + [phone] Encounter Details Date Type Department Care Team (Late st Contact Info) Description 01/02/2018 Ancillary [facility] [address] [place] [address] Raphael Martinez, DO 22 [facility] [address] [place] [address] [email or web address] Social History Tobacco Use Types Packs/Day Years [...] Description 04/06/2025 8:40 AM EST Office Visit [facility] Internal Medicine 40 [place] [address] Briana Lagunas PA-C 40 [place] [address] documented as of this encounter Visit Diagnoses Not on filedocumented in this encounter Care Teams Restaurant Managing Partner Relationship Specialty Start Date End Date Patti Cox MD [address] [place] [address] [email or web address] PCP - General 09/09/14 Patti Cox MD [address] [place] [address] [email or web address] PCP - General Internal Medicine 10/31/2005/07 Patti Carter NP PCP - General Nurse Practitioner 05/08/23 12/16/23 Se Mujica MD [address] [place] [address] PCP - General Internal Medicine 12/17/23 09/30/24 Briana Lagunas PA-C 40 [place] [address] [email or web address] PCP - General Physician Restoration Silversmith 10/01/24 documented as of this encounter Additional Source Comments The information contained in this document represents components of the legal health record. It is not the complete legal health record.[facility]
--- OUTSIDE RECORDS SUMMARY | 2025-01-02 15:48 | XMS_ITS | Clinical Summary ---
Author Organization [facility] Address [address] [place] [address] Phone Care Team Providers Care Fingernail Sculpturer Name Role Phone Briana Lagunas PA-C Primary Care Provider Allergies Active Allergy Reactions Criticality Noted Date [...] HIV screening. Mammogram scheduled next week through [facility]. Pap smear up-to-date. Cologuard test done at the age of 49 which was negative, due for repeat testing. Denies any family history of colon cancer, denies GI bleeding. Cologuard ordered. Postconcussion syndrome 10/01/2024 Assessment & Plan (10/01/2024 2:57 PM EDT): Postconcussion syndrome following subarachnoid bleed, following with Marjorie Patrick at [facility] neurology and sleep. She does have [...] Plan (10/01/2024 2:58 PM EDT): Following with [facility] orthopedics. History of ORIF in the [...] associated with her fibromyalgia. Currently following with [facility], Dr. Pam Iglesias. She is [...] reemerge, she was advised to contact her tankage grinder. Assessment & Plan (12/17/2023 12:40 PM EDT): [...] Type Department Care Team Description 11/16/2024 Telephone [facility] Internal Medicine 40 [facility] [address] Briana Lagunas PA-C Request For Order(s) 11/16/2024 Orders Only [facility] Internal Medicine 40 [facility] [place] [address] Provider, MD Nanette 11/12/2024 Telephone [facility] Internal Medicine [address] [facility] [place] [address] Briana Lagunas PA-C Statement of Good Health Form 11/05/2024 Documentation [facility] Internal Medicine [address] [facility] [place] [address] Briana Lagunas PA-C from Last 3 Months Immunizations Immunization Administration [...] high school, GED, job training, learning the [place] language, technical skills, or developing parenting skills)? [...] your housing situation today? I have heidi sing 09/24/2024 How many times have you move [...] Description 04/06/2025 8:40 AM EST Office Visit [facility] Internal Medicine 40 [place] [address] Briana Lagunas PA-C 40 [place] [address] [email or web address] Health Maintenance Due Date Last Done Comments [...] 11/04/2024 Screening for human immunodeficiency virus COLOGUARD (Calm [employer]ES) Routine 10/12/2024 8:15 AM EDT Colon cancer screening HISTORICAL LAB Routine 09/24/2011 5:43 PM EDT from Last 3 Months or Most Recently Relevant to Health Maintenance Results * Outside Lab (11/12/2024 2:19 PM EDT) Historical Provider LAB BLOOD ORDERABLES Madai l Result * [...] External EXTERNAL NON-INTERFACED REF LAB Blood 11/04/2024 Briana Lagunas PA-C LAB BLOOD ORDERABLES Edited Result - Final EXTERNAL NON-INTERFACED REF LAB * HIV-1/2 antigen/antibody (11/04/2024) Pathologist [facility] HIV 1/2, antigen/antibod y - External neg EXTERNAL NON-INTERFACED REF LAB Blood 11/04/2024 [facility] LAB BLOOD ORDERABLES Edited Result - Final Performing Organization Address [facility] de Phone Number EXTERNAL NON-INTERFACED REF LAB * TSH with reflex (11/04/2024) TSH - External 1.54 EXTER NAL NON-INTERFACED REF LAB Free T4 - External EXTERNAL NON-INTERFACED REF LAB Blood 11/04/2024 [facility] LAB BLOOD ORDERABLES Edited Result - Final Performing Organization Address [facility] de Phone Number EXTERNAL NON-INTERFACED REF LAB * Sedimentation rate (ESR) (11/04/2024) Pathologist [facility] ESR - External 3 EXTER NAL NON-INTERFACED REF LAB Blood 11/04/2024 [facility] LAB BLOOD ORDERABLES Edited Result - Final Performing Organization Address [facility] de Phone Number EXTERNAL NON-INTERFACED REF LAB * C-Reactive Protein (11/04/2024) CRP - External 2 EXTER NAL NON-INTERFACED REF LAB Blood 11/04/2024 [facility] LAB BLOOD ORDERABLES Edited Result - Final Performing Organization Address [facility] de Phone Number EXTERNAL NON-INTERFACED REF LAB [...] EXTERNAL NON-INTERFACE D REF LAB Blood 11/04/2024 Briana Lagunas SOFIA LAB BLOOD ORDERABLES Edited Result - Final EXTERNAL NON-INTERFACED REF LAB * COLOGUARD (Buzz360) (10/12/2024 8:15 AM EDT) Cologuard Results Negative Negative 025 8:48 AM EDT [facility] (CLIA #:[id number]) Comment: The Cologuard (TM) test was performed [...] Burns et al, N Engl J Med 2014;370(14):1286- 1297) The normal value (reference range) for this assay is negative. COLOGUARD RE-SCREENING RECOMMENDATION: Periodic colorectal cancer screening is an important part of preventive healthcare for asymptomatic individuals at average risk for colorectal cancer. Following a negative Cologuard result, the [place] [employer] Society and U.S. Multi-Society Task Force screening guidelines recommend a Cologuard re-screening interval of 3 years. References: [place] [employer] Guideline for Colorectal Cancer Screening: https://www.cancer.org/cancer/akfgg-ofafen-cviass/qlbjpexcr-rfpcychxk-wjmejyl/ac s-rec ommendations.html.; Donald DK, Zen CR, Briseyda BETH, Colorectal Cancer Screening: Recommendations for Physicians and Patients from the U.S. Multi-Society Task Force on Colorectal Cancer Screening , Am J Gastroenterology 2017; 112:4736-3912. TEST DESCRIPTION: Composite algorithmic analysis of stool [...] screened with both Cologuard and colonoscopy. (Veto Meneses. et al, N Engl J Med 2014;370(14):8033-4850.) Cologuard may produce a false negative or false positive result (no colorectal cancer or precancerous polyp present at colonoscopy follow up). A negative Cologuard test result does not guarantee the absence of CRC or advanced adenoma (pre-cancer). The current Cologuard screening interval is every 3 years. ([place] [employer] Society and U.S. Multi-Society Task Force). Cologuard performance data in a 10,000 patient pivotal study using colonoscopy as the reference method can be accessed at the following location: www.[employer].com/results. Additional description of the Cologuard test process, warnings and precautions can be found at www.cologSafehouserd.com. Stool (Per Rectum) 10/12/2024 8:15 AM EDT 10/16/2024 11:16 AM EDT Briana Lagunas PA-C BODY FLUIDS AND STOOLS ORDER KANWAL Final Result [facility] (CLIA #:[id number]) [address] [place] [address], [facility] [phone] * Historical Lab (09/24/2011 5:43 PM EDT) 25(OH)VITAMIN D 24 20 - 80 ng/mL [facility] LYME-ABC No IgM, IgG or IgA antibody to B.burgdorferi detected by capture EIA. The IgG Immunoblot results fall within normal limits. INTERPRETATION : No serologic evidence of infection with B.burgdorferi (Lyme). [facility] Comment:TEST PERFORMED BY [employer] [place], [place] YANETH(HEP2)TITER 0 0.0 - 0.0 titer [facility] YANETH(HEP2)PATTE RN 0 0.0 - 0.0 pattern [facility] RF units <11 0.0 - 15 IU/mL [facility] A-CCP 4 0 - 7 Carmina U/mL [facility] ANTI-SM 7 0.0 - 20.0 EU/mL [facility] ANTI-VISUALLY IMPAIRED TEACHER 0 0.0 - 20.0 EU/mL [facility] ANTI-Ro 2 0.0 - 20.0 EU/mL [facility] ANTI-La 1 0.0 - 20.0 EU/mL [facility] HAV TOTAL ANTIBODIES ANTIBODY NEGATIVE NON-REACTIV E [facility] HAV IgM NEGATIVE NEGATIVE [facility] HBsAg NEGATIVE NEGATIVE [facility] HBsAb POSITIVE NEGATIVE [facility] HBcAb NEGATIVE NEGATIVE [facility] HBc IgM NEGATIVE NEGATIVE [facility] HCV NEGATIVE NEGATIVE [facility] 09/24/2011 5:43 PM EDT Comment:BLOOD Deanna Haddad MD, MPH LAB BLOOD ORDERABLES F inal Result [facility] [address] [place] [address] from Last 3 Months or Most Recently Relevant to Health Maintenance Insurance [employer]UE CROSS OUT OF STATE PPO [employer] [place]OSS OUT OF STATE PPO BLUE [place]OSS OUT OF STATE PPO OUT OF [facility] PPO OUT OF STATE PPO BL[place] OUT OF STATE PPO [employer] [place] OUT OF STATE PPO [employer] [place] OUT OF STATE PPO PPO Care Teams Fingernail Sculpturer Relationship Specialty Start Date End Date Briana Lagunas PA-C [address] [place] [address] [email or web address] PCP - General Physician Costume Cutter 10/01/24 Additional Source Comments The information contained in this document represents components of the legal health record. It is not the complete legal health record.[facility]
--- OUTSIDE RECORDS SUMMARY | 2025-01-02 15:49 | XMS_ITS | Patient Health Record ---
Author Organization [facility] Address [address] [place] [address] Care Team Providers Care Spare Person Name Role Phone Se Mujica MD Primary Care Provider Unavaila BRUNILDA Arellano Unavailable [phone] Allergies Allergen (clinical drug ingredient) Drug/Non Drug Allergy documented on EMR Reaction Allergy Type Onset Date Status Information temporarily unavailable NICKEL (uncoded) Skin Rash Allergy Active Information temporarily unavailable CODEINE SWELLING Drug Allergy Active Information temporarily unavailable PENICILLIN SWELLING Drug Allergy Active Information temporarily unavailable Sulfa Antibiotics unrecalled Drug Allergy Active Reason [...] CONTRACEPTION: none MARITAL STATUS: 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 Heterosexual CONTRACEPTION: none Problems Problem Type SNOMED Code ICD Code Onset Dates Problem Status W/U Status Risk Notes Problem Information temporarily unavailable Menopausal and female climacteric states (N95.1) Active confirmed Problem Information temporarily unavailable Multiple sclerosis (G35) Active confirmed Problem Information temporarily unavailable Relapsing polychondritis (M94.1) Active confirmed Problem Information temporarily unavailable Amenorrhea, unspecified (N91.2) Active confirmed Problem Information temporarily unavailable Oligomenorrhea, unspecified (N91.5) Active confirmed Problem Information temporarily unavailable Female infertility, unspecified (N97.9) Active confirmed Problem Information temporarily unavailable Menopausal and female climacteric states (N95.1) Active confirmed Problem Information temporarily unavailable COVID-19 (U07.1) Active confirmed Problem Information temporarily unavailable Depressive disorder, not elsewhere classified (311) Active confirmed Major Problem Information temporarily unavailable Migraine, unspecified without mention of intractable migraine without mention of status migrainosus (346.90) Active confirmed Major Vital Signs Temperature 98.2 degrees Fahrenheit 04/24/2024 Blood pressure diastolic 80 mm Hg 04/24/2024 Height 65 in 04/24/2024 Blood pressure systolic 110 mm Hg 04/24/2024 Weight 185 lbs 04/24/2024 BMI 30.78 kg/m2 04/24/2024 Encounters Encounter Location Date Provider Diagnosis Total [facility] [address] [place] [address] 04/24/2024 BRUNILDA MARIE Mastodynia N64.4 and Hypertrophy [...] End Date [employer] [place] [address] [place] [address] [id number] LIZZY HOWELL Spouse - patient is [...]
== END 2025-01-02 15:41 | disposition home or self-care (01) ==
LOC: HO.MRI 15:40
PROVIDERS: Visit Provider Physician Assistant
DX: M17.11 Unilateral primary osteoarthritis, right knee (principal)
CPT/HCPCS: 73721

== ENCOUNTER → 2025-01-02 15:48 | Outpatient (BNV) | payer BC, SELFPAY | PROVIDERS: Visit Provider Radiology Diagnostic Radiology | DX: M25.461 Effusion, right knee (principal) | CPT/HCPCS: 73721 ==

== ENCOUNTER 2025-01-14 08:11 | Outpatient (AMB) | payer BC, SELFPAY ==
--- OUTSIDE RECORDS SUMMARY | 2024-01-30 04:00 | XMS_ITS ---
Author Organization [facility] Address [address] [address] Care Team Providers Care Ground Crewman Aircraft Support Name Role Phone Guanako HOBBS [facility] Primary Care Provider UnavailBRUNILDA Fox Unavailable [phone] REASON FOR VISIT Annual SQUEEGEE TENDER Physical Encounters Encounter Location Date Provider Diagnosis [facility] [address] [address] 01/30/2024 BRUNILDA MARIE Encounter for gynecological examination [...] Follow Up: 1 Year, Reason: Y early Brickmason Helper Exam Progress Notes * REYNALDO HOWELL NARAWINIFREDDOB:[birth year] (54 yo F)Acc No.[id number]:01/30/2024 PROGRESS NOTES Patient: SIRIA STAFFORD Provider: Bertha MARIE MD :1970 A ge:53 Y S ex:Female Date:01/30/2024 Address:[address] [place], [place] [id number] Pcp:Se Mujica MD Subjective: * Chief Complaints: * 1 . Annual SQUEEGEE TENDER Physical. * HPI: C onstitutional: Bertha johnson is a 53yo G0 here today for her yearly exam. She has been in state of fair health since her last exam. She has the following pathology tech concerns: She has received the Moderna Covid-19 [...] right ankle issues. * ROS: A nnual Brickmason Helper Exam ROS: Bowel habit changes d enies. [...] no acute distress, well developed, well nourished, shuttle buggy operator present in room. HEAD: n ormocephalic, atraumatic. [...] * Follow Up: 1 Year (Reason: Yearly Brickmason Helper Exam) * Images: Billing Information: * Visit Code: 20233 Preventive Care Est Pt. Age 40-64. * Procedure Codes: * Electronic signature of BRUNILDA MARIE MD on 01/14/2025 at 08:59 AM EDT Sign off status: Pending * Provider: Bertha MARIE MD Date: 0 01/30/2024 Generated for [employer] ng/Fakatelyng/eTransmitting on: 0 01/14/2025 08:59 AM EDT History and Physical Notes * HPI (History of Present Illness) Category Sub-Category Detail Notes Category Not es Constitutional Siria is a 53yo G0 here today for her yearly exam. She has been in state of fair health since her last exam. She has the following pathology tech concerns: She has received the Moderna Covid-19 [...] ac pauline distress, well developed, well nourished, shuttle buggy operator present in room HEAD: normocephalic, atrau matic [...]
--- OUTSIDE RECORDS SUMMARY | 2024-04-10 06:30 | XMS_ITS ---
Author Organization [facility] [employer] [facility] Address [address] [facility] [address] [place] [address] Care Team Providers Care Client Technical Professional Name Role Phone Guanako HOBBS [facility] Primary Care Provider BRUNILDA Waters Unavailable [phone] REASON FOR VISIT LT BREAST BIGGER THAN RIGHT Encounters Encounter Location Date Provider Diagnosis [facility] [employer] [address] [address] 04/10/2024 BRUNILDA MARIE Unspecified lump in breast [...] weight loss Vit E 1,200IU and/or Evening [place] Oil 3000mg daily x 6 months and [...] weight loss Vit E 1,200IU and/or Evening [place] Oil 3000mg daily x 6 months and reevaluate Pending Test Test Name Order Date Ultrasound : Breast(s), unilateral or bi lateral 04/10/2024 Diagnostic Digital Breast 3D, Bilateral 04/10/2024 Progress Notes * REYNALDO MORALESJOSELO LAMDOB:[birth year] (54 yo F)Acc No.[id number]:04/10/2024 PROGRESS NOTES Patient: Bertha MORALESJOSELO LAM Provider: Bertha MARIE MD :1970 A ge:54 Y S ex:Female Date:04/10/2024 Address:[address] [place] [address] [place] [address] Pcp:Se Mujica MD Subjective: * Chief Complaints: [...] weight loss Vit E 1,200IU and/or Evening [place] Oil 3000mg daily x 6 months and reevaluate * Images: Billing Information: * Visit Code: 47627 Office Visit, Est Pt., Level 4. 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
[2025-01-14 08:13] VITALS: BMI 29.1
--- NOTE | 2025-01-14 08:13 | MHC.OFFVIS ---
Vital Signs 01/14/25 08:13 Height 5 ft 5 in Weight 175 lb BMI 29.1 Intake Visit Reasons: OV-MRI of right knee review Intake Note: Siria is a 54 year old female who presents today for an MRI review of the Right Knee. History of injections that were not helpful. Insurance will not cover PRP or Viscosupplementation. Right knee was injected on 12/31/24. Allergies codeine (CODEINE) Allergy (Severe, Verified 12/18/24 10:19) swollen tongue Sulfa (Sulfonamide Antibiotics) (SULFA (SULFONAMIDE ANTIBIOTICS)) Allergy (Severe, Verified 12/18/24 10:19) Hives penicillin G (PENICILLIN G) Allergy (Unknown, Verified 12/18/24 10:19) UNKNOWN HPI HPI OV-MRI of right knee review: Details: Siria is a 54 year old female who presents today for an MRI review of the Right Knee. History of injections that were not helpful. Insurance will not cover PRP or Viscosupplementation. Right knee was injected on 12/31/24. 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 Lateral retropatellar tenderness to palpation. Gait antalgia. Results Reviewed Results Reviewed: I personally reviewed the MR images. IMPRESSION: 1. Moderate patellofemoral joint effusion. 2. Fissure involving the medial facet of the patella. There is chondromalacia along the femoral articular surface. 3. The articular cartilage in the medial compartment is significantly denuded with chronic subchondral changes and marginal osteophytes compatible with osteoarthritis. 4. Extrusion of the medial meniscus. 5. Tenosynovitis of the popliteus tendon. Assessment & Plan Assessment & Plan (1) Osteoarthritis of right knee: Code(s): M17.11 - Unilateral primary osteoarthritis, right knee Category: Medical Plan: This is 54-year-old woman who comes in today for MRI review. I reviewed her MRI and discussed the findings with her. It does confirm that she has got moderate to severe medial and anterior compartment osteoarthritis. She has pain that decrease the quality of her life and walks with a cane and has difficulty getting through a day. She has young and has fibromyalgia so surgery would be difficult. I had a long discussion with her regarding some of the concerns about surgery and I do think it is certainly reasonable but I do not think we are there yet. She recently had a steroid injection in her insurance does not pay for viscosupplementation. I think that would be beneficial. I gave her a note for sedentary work as tolerated and would like to see her back in about 2 months and we can repeat injections. (2) Fibromyalgia: Code(s): M79.7 - Fibromyalgia Category: Medical Plan: Coding Level of Care Code Est Pt Level 3 (41660) Complex EM visit Add On G2211 Diagnoses Osteoarthritis of right knee M17.11 Fibromyalgia M79.7
--- OUTSIDE RECORDS SUMMARY | 2025-01-14 08:57 | XMS_ITS | Encounter Summary ---
Author Organization [facility] Address [address] [place] [address] [place] [address] Phone Care Team Providers Care Pipe Inspector Name Role Phone Patti Cox MD Primary Care Provider [phone] Patti Carter NP Primary Care Provi francisco Se Bhagat MD Primary Care Provider [phone] Briana Lagunas PA-C Primary Care Provider Encounter Details Date Type Department Care Team (Late st Contact Info) Description 10/31/2020 Transcribe Orders [facility] [address] [place] [address] Denia Patrick NP [address] [place] [address] Social History Tobacco Use Types Packs/Day Years [...] Description 04/06/2025 8:40 AM EST Office Visit [facility] Internal Medicine [address] [place] [address] Briana Lagunas PA-C 40 [place] [address] [email or web address] documented as of this encounter Visit Diagnoses Not on filedocumented in this encounter Care Teams Pipe Inspector Relationship Specialty Start Date End Date Patti Cox MD [address] [place] [address] [email or web address] PCP - General Internal Medicine 10/31/2005/07 Patti Carter NP PCP - General Nurse Practitioner 05/08/23 12/16/23 Se Mujica MD [address] [place] [address] PCP - General Internal Medicine 12/17/23 09/30/24 Briana Lagunas PA-C [address] [place] [address] [email or web address] PCP - General Physician Radio Television Announcer 10/01/24 documented as of this encounter Additional Source Comments The information contained in this document represents components of the legal health record. It is not the complete legal health record.[facility]
--- OUTSIDE RECORDS SUMMARY | 2025-01-14 08:57 | XMS_ITS | Encounter Summary ---
Author Organization [facility] Address [address] [place] [address] [place] [address] Phone Care Team Providers Care Rn Physician Office Name Role Phone Patti Cox MD Primary Care Provider [phone] Patti Carter NP Primary Care Provi francisco Se Bhagat MD Primary Care Provider [phone] Briana Lagunas PA-C Primary Care Provider Encounter Details Date Type Department Care Team (Late st Contact Info) Description 10/31/2020 Transcribe Orders [facility] Rehabilitation Services [address] [place] [address] Denia Patrick NP [address] [place] [address] Social History Tobacco Use Types Packs/Day Years [...] Description 04/06/2025 8:40 AM EST Office Visit [facility] Internal Medicine [address] [place] [address] Briana Lagunas PA-C 40 [place] [address] [email or web address] documented as of this encounter Visit Diagnoses Not on filedocumented in this encounter Care Teams Rn Physician Office Relationship Specialty Start Date End Date Patti Cox MD [address] [place] [address] [email or web address] PCP - General Internal Medicine 10/31/2005/07 Patti Carter NP PCP - General Nurse Practitioner 05/08/23 12/16/23 Se Mujica MD [address] [place] [address] PCP - General Internal Medicine 12/17/23 09/30/24 Briana Lagunas PA-C [address] [place] [address] [email or web address] PCP - General Physician Dry Cell Sealer 10/01/24 documented as of this encounter Additional Source Comments The information contained in this document represents components of the legal health record. It is not the complete legal health record.[facility]
--- OUTSIDE RECORDS SUMMARY | 2025-01-14 08:59 | XMS_ITS | Encounter Summary ---
Author Organization [facility] Address [address] [place] [address] Phone Care Team Providers Care Grant Administrator Name Role Phone Patti Cox MD Primary Care Provider [phone] Patti Cox MD Primary Care Provider [phone] Patti Carter NP Primary Care Provi [facility] Se Mujica MD Primary Care Provider [phone] Briana Lagunas PA-C Primary Care Provider + [phone] Encounter Details Date Type Department Care Team (Late st Contact Info) Description 01/02/2018 Ancillary [facility] [address] [place] [address] Raphael Martinez, DO [address] [address] [facility] [address] [place] [address] [email or web address] Social History Tobacco Use Types Packs/Day Years [...] Description 04/06/2025 8:40 AM EST Office Visit [facility] Internal Medicine [address] [place] [address] Briana Lagunas PA-C [address] [place] [address] documented as of this encounter Visit Diagnoses Not on filedocumented in this encounter Care Teams Grant Administrator Relationship Specialty Start Date End Date Patti Cox MD [address] [place] [address] [email or web address] PCP - General 09/09/14 Patti Cox MD [address] [place] [address] [email or web address] PCP - General Internal Medicine 10/31/2005/07 Patti Carter NP PCP - General Nurse Practitioner 05/08/23 12/16/23 Se Mujica MD [address] [place] [address] PCP - General Internal Medicine 12/17/23 09/30/24 Briana Lagunas PA-C [address] [place] [address] [email or web address] PCP - General Physician Group Home Paraprofessional 10/01/24 documented as of this encounter Additional Source Comments The information contained in this document represents components of the legal health record. It is not the complete legal health record.[facility]
--- OUTSIDE RECORDS SUMMARY | 2025-01-14 08:59 | XMS_ITS | Clinical Summary ---
Author Organization [facility] Address [address] [place] [address] Phone Care Team Providers Care Locker Attendant Name Role Phone Briana Lagunas PA-C [...] HIV screening. Mammogram scheduled next week through [facility]. Pap smear up-to-date. Cologuard test done at the age of 49 which was negative, due for repeat testing. Denies any family history of colon cancer, denies GI bleeding. Cologuard ordered. Postconcussion syndrome 10/01/2024 Assessment & Plan (10/01/2024 2:57 PM EDT): Postconcussion syndrome following subarachnoid bleed, following with Marjorie Patrick at [facility] neurology and sleep. She does have [...] Plan (10/01/2024 2:58 PM EDT): Following with [facility] orthopedics. History of ORIF in the [...] associated with her fibromyalgia. Currently following with [facility], Dr. Pam Iglesias. She is [...] reemerge, she was advised to contact her doggy daycare activities director. Assessment & Plan (12/17/2023 12:40 PM EDT): [...] Type Department Care Team Description 11/16/2024 Telephone [facility] Internal [facility] [address] [facility] [place] [address] Briana Lagunas PA-C Request For Order(s) 11/16/2024 Orders Only [facility] Internal Medicine [address] [facility] [place] [address] Provider, MD Nanette 11/12/2024 Telephone [facility] Internal Medicine [address] [place] [place] [address] Briana Lagunas PA-C Statement of Good Health Form 11/05/2024 Documentation [facility] Internal Medicine [address] [place] [place] [address] Briana Lagunas PA-C from Last 3 Months [...] high school, GED, job training, learning the Surinamese language, technical skills, or developing parenting skills)? [...] EST Office Visit [facility] [place] Internal Medicine 40 [place] [address] Briana Lagunas PA-C [address] [place] [address] [email or web address] Health Maintenance Due Date Last Done Comments Adult Td,Tdap Booster 1969 PAP SMEAR 1990 MAMMOGRAM 2009 COLONOSCOPY 2014 FIT TEST 2014 FOBT 2014 SIGMOIDOSCOPY 2014 VIRTUAL COLONOSCOPY 2014 PNEUMOCOCCAL VACCINES (50+ years) (1 of 1 - PCV) 2019 ZOSTER VACCINES (1 of 2) 2019 REPEAT PHQ 10/25/2024 09/24/2024, 09/24/2024 INFLUENZA VACCINE (#1) 2024 , 03/19/2023, 01/25/2021 COVID-19 VACCINE (4 - 2024-2 6 season) 2025 06/26/2021, 06/14/2020, 05/07/2020 DEPRESSION SCREENING 09/24/2025 09/24/2024, 09/24/2024 COLOGUARD 10/13/2027 [...] Routine 11/04/2024 Screening for human immunodeficiency virus HISTORICAL LAB Routine 09/24/2011 5:43 PM EDT [...] neg EXTERNAL NON-INTERFACED REF LAB Blood 11/04/2024 us Briana Lagunas PA-C LAB BLOOD ORDERABLES Edited Result - Final Performing Organization Address City/[facility]/ZIP Co de Phone Number EXTERNAL NON-INTERFACED REF LAB * TSH with reflex (11/04/2024) Pathologist [facility] TSH - External 1.54 EXTER NAL NON-INTERFACED REF LAB Free T4 - External EXTERNAL NON-INTERFACED REF LAB Blood 11/04/2024 [facility] [employer] LAB BLOOD ORDERABLES Edited Result - Final Performing Organization Address [facility]/ZIP Co de Phone Number EXTERNAL NON-INTERFACED REF LAB * Sedimentation rate (ESR) (11/04/2024) Pathologist [facility] ESR - External 3 EXTER NAL NON-INTERFACED REF LAB Blood [facility] [employer] LAB BLOOD ORDERABLES Edited Result - Final Performing Organization Address [facility] Co de Phone Number EXTERNAL NON-INTERFACED REF LAB * C-Reactive Protein (11/04/2024) Pathologist [facility] CRP - External 2 EXTER NAL NON-INTERFACED REF LAB Blood 11/04/2024 [facility] [employer] LAB BLOOD ORDERABLES Edited Result - Final Performing Organization Address [facility]/ZIP Co de Phone Number EXTERNAL NON-INTERFACED REF LAB * Lipid panel (11/04/2024) Pathologist [facility] HDL - External 70 EXTER NAL NON-INTERFACE D REF LAB Cholesterol, Total - External 257 EXTERNAL NON-INTERFACE D REF LAB Triglycerides - External 158 EXTERNAL NON-INTERFACE D REF LAB LDL, calculated - External 159 EXTERNAL NON-INTERFACE D REF LAB Cardiac Risk Ratio - External EXTERNAL NON-INTERFACE D REF LAB Non-HDL Cholesterol - External EXTERNAL NON-INTERFACE D REF LAB Blood 11/04/2024 Briana Lagunas PA-C LAB BLOOD ORDERABLES Edited Result - Final EXTERNAL NON-INTERFACED REF LAB * Historical Lab (09/24/2011 5:43 PM EDT) 25(OH)VITAMIN D 24 20 - 80 ng/mL [facility] LYME-ABC No IgM, IgG or IgA antibody to B.burgdorferi detected by capture EIA. The IgG Immunoblot results fall within normal limits. INTERPRETATION : No serologic evidence of infection with B.burgdorferi (Lyme). [facility] Comment:TEST PERFORMED BY [employer] [place], [place] YANETH(HEP2)TITER 0 0.0 - 0.0 titer [facility] YANETH(HEP2)PATTE RN 0 0.0 - 0.0 pattern [facility] RF units <11 0.0 - 15 IU/mL [facility] A-CCP 4 0 - 7 [place] U/mL [facility] ANTI-SM 7 0.0 - 20.0 EU/mL [facility] ANTI-PANEL LAY UP WORKER 0 0.0 - 20.0 EU/mL [facility] ANTI-Ro 2 0.0 - 20.0 EU/mL [facility] ANTI-La 1 0.0 - 20.0 EU/mL [facility] HAV TOTAL ANTIBODIES ANTIBODY NEGATIVE NON-REACTIV E [facility] HAV IgM NEGATIVE NEGATIVE [facility] HBsAg NEGATIVE NEGATIVE [facility] HBsAb POSITIVE NEGATIVE [facility] HBcAb NEGATIVE NEGATIVE [facility] HBc IgM NEGATIVE NEGATIVE [facility] HCV NEGATIVE NEGATIVE [facility] 09/24/2011 5:43 PM EDT Comment:BLOOD Deanna Haddad MD, MPH LAB BLOOD ORDERABLES F inal Result [facility] [address] [place] [address] from Last 3 Months or Most Recently Relevant to Health Maintenance Insurance OUT OF STATE PPO OUT [facility] PPO CROSS OUT OF STATE PPO OUT OF [facility] [place] [address] [place] [address] OUT OF STATE PPO BLUE CROSS OUT OF STATE PPO BLUE CROSS OUT OF STATE PPO BLUE CROSS OUT OF STATE PPO PPO Care Teams Locker Attendant Relationship Specialty Start Date End Date Briana Lagunas PA-C [address] [place] [address] PCP - General Physician Resident Services Coordinator 10/01/24 Additional Source Comments The information contained in this document represents components of the legal health record. It is not the complete legal health record.[facility]
--- OUTSIDE RECORDS SUMMARY | 2025-01-14 08:59 | XMS_ITS | Encounter Summary ---
Author Organization [facility] Address [address] [place] [address] Phone Care Team Providers Care Aviation Maintenance Instructor Name Role Phone Patti Cox MD Primary Care Provider [phone] Patti Cox MD Primary Care Provider [phone] Patti Carter NP Primary Care Provi [facility] Se Bhagat MD Primary Care Provider [phone] Briana Lagunas PA-C Primary Care Provider [phone] Encounter Details Date Type Department Care Team (Late st Contact Info) Description 01/02/2018 Ancillary Orders Non-Invasive Cardiology [address] [place] [address] Raphael Martinez DO [address] [facility] [address] [place] [address] [email or web address] Social History Tobacco Use Types Packs/Day Years [...] Description 04/06/2025 8:40 AM EST Office Visit [facility] [place] Internal Medicine [address] [place] [address] Briana Lagunas PA-C [address] [place] [address] [email or web address] documented as of this encounter Visit Diagnoses Not on filedocumented in this encounter Care Teams Aviation Maintenance Instructor Relationship Specialty Start Date End Date Patti Cox MD [address] [place] [address] [email or web address] PCP - General 09/09/14 Patti Cox MD [address] [place] [address] [email or web address] PCP - General Internal Medicine 10/31/2005/07 Patti Carter NP PCP - General Nurse Practitioner 05/08/23 12/16/23 Se Mujica MD [address] [place] [address] PCP - General Internal Medicine 12/17/23 09/30/24 Briana Lagunas PA-C [address] [place] [address] [email or web address] PCP - General Physician Deckhand Clam Dredge 10/01/24 documented as of this encounter Additional Source Comments The information contained in this document represents components of the legal health record. It is not the complete legal health record.[facility]
--- OUTSIDE RECORDS SUMMARY | 2025-01-14 08:59 | XMS_ITS | Encounter Summary ---
Author Organization [facility] Address [address] [place] [address] Phone Care Team Providers Care Car Customizer Name Role Phone Patti Cox MD Primary Care Provider [phone] Patti Cox MD Primary Care Provider [phone] Patti Carter NP Primary Care Provi francisco Se Bhagat MD Primary Care Provider [phone] Briana Lagunas PA-C Primary Care Provider + [phone] Encounter Details Date Type Department Care Team (Late st Contact Info) Description 01/02/2018 Ancillary [facility] [address] [place] [address] Raphael Martinez DO [address] [facility] [address] [place] [address] [email or web address] Palpitations Social History Tobacco Use Types Packs/Day [...] 04/06/2025 8:40 AM EST Office Visit [facility] [place] Internal Medicine 40 [place] [address] Briana Lagunas PA-C 40 [place] [address] [email or web address] documented as of this encounter Results * [...] Palpitations documented in this encounter Care Teams Car Customizer Relationship Specialty Start Date End Date Patti Cox MD [address] [place] [address] [email or web address] PCP - General 09/09/14 Patti Cox MD [address] [place] [address] [email or web address] PCP - General Internal Medicine 10/31/2005/07 Patti Carter NP PCP - General Nurse Practitioner 05/08/23 12/16/23 Se Mujica MD [address] [place] [address] PCP - General Internal Medicine 12/17/23 09/30/24 Briana Lagunas PA-C [address] [place] [address] [email or web address] PCP - General Physician Oil Burner Mechanic 10/01/24 documented as of this encounter Additional Source Comments The information contained in this document represents components of the legal health record. It is not the complete legal health record.[facility]
--- OUTSIDE RECORDS SUMMARY | 2025-01-14 09:00 | XMS_ITS | Patient Health Record ---
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) Active confirmed Problem Amenorrhea (87591541) Amenorrhea, unspecified (N91.2) Active confirmed Problem Oligomenorrhea (51920863) Oligomenorrhea, unspecified (N91.5) Active confirmed Problem Female infertility (5772407) Female infertility, unspecified (N97.9) Active confirmed Problem Menopause (752464546) Menopausal and female climacteric states (N95.1) Active confirmed Problem COVID-19 (463757433) COVID-19 (U07.1) Active confirmed Problem Depressive disorder (09457750) Depressive disorder, not elsewhere classified (311) Active confirmed Major Problem Migraine (disorder) (53452078) Migraine, unspecified without mention of intractable migraine without mention of status migrainosus (346.90) Active confirmed Major Vital Signs Temperature 98.2 degrees Fahrenheit 04/24/2024 Blood pressure diastolic 80 mm Hg 04/24/2024 Height 65 in 04/24/2024 Blood pressure systolic 110 mm Hg 04/24/2024 Weight 185 lbs 04/24/2024 BMI 30.78 kg/m2 04/24/2024 Encounters Encounter Location Date Provider Diagnosis [employer] [facility] [address] [place] [address] 04/24/2024 BRUNILDA MARIE Mastodynia N64.4 and Hypertrophy [...] End Date [employer] [place] [address] [place] [address] [id number] LIZZY HOWELL Spouse - patient is [...]
== END 2025-01-14 09:23 | disposition home or self-care (01) ==
LOC: HO.HOS 08:11
PROVIDERS: Visit Provider Orthopaedic Surgery
DX: M17.11 Unilateral primary osteoarthritis, right knee (principal); M79.7 Fibromyalgia
CPT/HCPCS: 99213

== ENCOUNTER 2025-02-03 08:06 | Outpatient (AMB) | payer BC, SELFPAY ==
--- OUTSIDE RECORDS SUMMARY | 2024-01-30 04:00 | XMS_ITS ---
Author Organization [facility] [employer] [facility] Address [address] [address] Care Team Providers Care Vp Project Name Role Phone Guanako HOBBS [facility] Primary Care Provider UnavailBRUNILDA Fox Unavailable [phone] REASON FOR VISIT Annual MANUFACTURING TECHNOLOGIST Physical Encounters Encounter Location Date Provider Diagnosis [facility] [address] [address] 01/30/2024 BRUNILDA MARIE Encounter for gynecological examination [...] Follow Up: 1 Year, Reason: Y early Utility Worker Forge Exam Progress Notes * REYNALDO HOWELL NARAWINIFREDDOB:[birth year] (54 yo F)Acc No.[id number]:01/30/2024 PROGRESS NOTES Patient: ISRIA STAFFORD Provider: Bertha MARIE MD :1970 A ge:53 Y S ex:Female Date:01/30/2024 Address:[address] [place], [place] [id number] Pcp:Se Mujica MD Subjective: * Chief Complaints: * 1 . Annual MANUFACTURING TECHNOLOGIST Physical. * HPI: C onstitutional: Betrha johnson is a 53yo G0 here today for her yearly exam. She has been in state of fair health since her last exam. She has the following delivery sales worker concerns: She has received the Moderna Covid-19 [...] right ankle issues. * ROS: A nnual Utility Worker Forge Exam ROS: Bowel habit changes d enies. [...] no acute distress, well developed, well nourished, director of product marketing present in room. HEAD: n ormocephalic, atraumatic. [...] * Follow Up: 1 Year (Reason: Yearly Utility Worker Forge Exam) * Images: Billing Information: * Visit Code: 44421 Preventive Care Est Pt. Age 40-64. * Procedure Codes: * Electronic signature of BRUNILDA MARIE MD on 02/03/2025 at 08:19 AM EDT Sign off status: Pending * Provider: Bertha MARIE MD Date: 0 01/30/2024 Generated for [employer] In ng/Fakatelyng/eTransmitting on: 1 08:19 AM EDT History and Physical Notes * HPI (History of Present Illness) Category Sub-Category Detail Notes Category Not es Constitutional Siria is a 53yo G0 here today for her yearly exam. She has been in state of fair health since her last exam. She has the following delivery sales worker concerns: She has received the Moderna Covid-19 [...] ac pauline distress, well developed, well nourished, director of product marketing present in room HEAD: normocephalic, atrau matic [...]
--- OUTSIDE RECORDS SUMMARY | 2024-04-10 06:30 | XMS_ITS ---
Author Organization [facility] [employer] [facility] Address [address] [facility] [address] [place] [address] Care Team Providers Care Resident Doctor Name Role Phone Guanako HOBBS [facility] Primary Care Provider BRUNILDA Waters Unavailable [phone] REASON FOR VISIT LT BREAST BIGGER THAN RIGHT Encounters Encounter Location Date Provider Diagnosis [facility] [employer] [address] [address] 04/10/2024 BRUNILDA MARIE Unspecified lump in breast [...] weight loss Vit E 1,200IU and/or Evening [place] Oil 3000mg daily x 6 months and [...] weight loss Vit E 1,200IU and/or Evening [place] Oil 3000mg daily x 6 months and reevaluate Pending Test Test Name Order Date Ultrasound : Breast(s), unilateral or bi lateral 04/10/2024 Diagnostic Digital Breast 3D, Bilateral 04/10/2024 Progress Notes * REYNALDO MORALESJOSELO LAMDOB:[birth year] (54 yo F)Acc No.[id number]:04/10/2024 PROGRESS NOTES Patient: Bertha MORALESJOSELO LAM Provider: Bertha MARIE MD :1970 A ge:54 Y S ex:Female Date:04/10/2024 Address:[address] [place] [address] [place] [address] Pcp:Se Mujica MD Subjective: * Chief Complaints: [...] weight loss Vit E 1,200IU and/or Evening [place] Oil 3000mg daily x 6 months and reevaluate * Images: Billing Information: * Visit Code: 44838 Office Visit, Est Pt., Level 4. 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
--- OUTSIDE RECORDS SUMMARY | 2025-01-29 14:40 | XMS_ITS | Encounter Summary ---
Author Organization [facility] Address [address] [place] [address] Phone Care Team Providers Care Litigation Examiner Name Role Phone Briana Lagunas PA-C Primary Care Provider [phone] Yumiko Fowler MD Unavailable [phone] Reason for Referral * Physical Therapy (Within 1 month) - New Request Specialty Diagnoses / Procedures Referred By Hansel hernandez Referred To Contact Diagnoses Vertigo Briana Lagunas PA-C [address] [place] [address] Phone: tel: fax: mailto: Referral ID Status Reason Start Date Expiration Date V isits Requested Visits Authorized [id number] New Request 01/29/2025 01/29/2026 1 1 Scheduling Instructions [facility] PT Elisabeth Katz MA Reason for Visit * Reason Comments TCM Visit [facility] Encounter Details Date Type Department Care Team (Late st Contact Info) Description 01/29/2025 2:40 PM EDT Office Visit [facility] Internal Medicine [address] [place] [address] Briana Lagunas PA-C [address] [place] [address] Vertigo (Primary Dx); Elevated blood pressure reading without diagnosis of hypertension; Pure hypercholesterolemia ; Routine general medical examination at a health care facility Social History Tobacco Use Types Packs/Day Years Used Date Smoking Tobacco: Never Smokeless Tobacco: Never Alcohol Use Standard Drinks/Week Comments Yes 0 [...] high school, GED, job training, learning the [place] language, technical skills, or developing parenting skills)? [...] PM EDT documented as of this encounter Last Filed Vital Signs Vital Sign Reading Time Taken Comments Blood Pressure 148/92 01/29/2025 2:56 PM EDT Pulse 85 01/29/2025 2:34 PM EDT Temperature 36.4 C (97.5 F) 01/29/2025 2:34 PM EDT Respiratory Rate 12 01/29/2025 2:34 PM EDT Oxygen Saturation 98% 01/29/2025 2:34 PM EDT Inhaled Oxygen Concentration - - Weight 81.2 kg (179 lb) 01/29/2025 2:34 PM EDT Height 165.1 cm (5' 5 ) 01/29/2025 2:34 PM EDT Body Mass Index 29.79 01/29/2025 2:34 PM EDT documented in this encounter Progress Notes * Briana Lagunas PA-C - 01/29/2025 2:40 PM EDT Shari Fraire is a 54 y.o. female. History of Present Illness TCM Post Discharge Visit Date of admission: 01/26/2025 Date of discharge: 01/27/2025 Here for f/u of recent hospitalization, discharged . See RN Post-Discharge Phone Follow-Up Note for specific dates of hospitalization, discharge diagnosis, medication reconciliation and specifics of follow up appointments. Discharge summary, including hospital course, laboratory results, imaging, and other test results as applicable reviewed. Brief summary of hospitalization: Patient was seen in the office on 01/26/2025 by Mario Hardy PA-C for the evaluation of dizziness. She was also found to have an occipital headache that went around to the temporal regions. No improvement with her antimigraine medication. She does have a history of subarachnoid bleed secondary to a c oncussion and on physical exam was noted to have significant vertical nystagmus and tongue fasciculations. EKG in the office showed sinus tachycardia with noted PVCs. Given her symptoms, there was concern for cerebellar stroke versus vertigo so she was sent to ER via ambulance. She went to [facility] ER via ambulance. Head impulse test was negative, test of skew absent. Nodirection changing or upbeat nystagmus on exam at the ER. CT head was nonacute and CTA showed no large vessel occlusion. Neurology was consulted who had low suspicion for an acute stroke given intermittent postural dizziness associated with tinnitus, no focal deficits and reassuring CT/CTA. She reports that she was evaluated by physical therapy during her hospitalization who suggested a central nervous system aspect of the vertigo. She was diagnosed with vertigo, started on aspirin and meclizine, and discharged on 01/27/2025 with outpatient follow-up with neurology and PCP. Since hospitalization: She has been experiencing vertigo while working and scrolling on her computer, but has remained steady on her feet since discharge. She occasionally sways and feels the need for more sleep. She describes her symptoms as feeling like her brain has short-circuited and she is unable to control them. She has been taking her meclizine and aspirin regularly since returning home. She has an upcoming appointment with neurology on 02/03/2025. The headache she experienced reminded her of a previous head trauma, describing it as a bad hangover. She had an eye checkup last year and recalls a previous episode where it felt like bullets were shooting up her right eye. She has been trying to limit head movement and plans to try vestibular physical therapy at [facility] on [address] in [place]. She has come to terms with her past head injury and potential future deficits. 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 Shehas been sleeping for over 12 hours for the past two days, which she attributes to her body needingrest. She takes medication to help her fall asleep due to trauma and working night shifts for 15 years. She had an MRI in 06/2024, we do not have these records. She believes her blood pressure is elevated due to stress. Her blood pressure typically ranges between 90s and 110s at home. Current Outpatient Medications Ordered in [facility] Medication Sig acetaminophen (TYLENOL ARTHRITIS PAIN) 650 MG CR tablet Take 1,300 mg by mouth. aspirin 81 MG EC tablet Take 81 mg by mouth daily. ATIVAN 1 mg tablet Take 2 mg by mouth nightly at bedtime. baclofen (LIORESAL) 10 MG tablet Take 1 tablet by mouth 2 (two) times a day. DULoxetine (CYMBALTA) 60 MG capsule Take 120 mg by mouth daily. EPINEPHrine 0.3 mg/0.3 mL auto-injector INJECT 0.3 MILLILITER (0.3 MG) BY INTRAMUSCULAR ROUTE ONCE NEEDED FOR ANAPHYLAXIS gabapentin (NEURONTIN) 300 MG capsule Take 1 capsule (300 mg total) by mouth 3 (three) times a day. LORazepam (ATIVAN) 1 MG tablet Take 1 mg by mouth daily as needed for anxiety. meclizine (ANTIVERT) 25 mg tablet Take 25 mg by mouth 3 (three) times a day. methylphenidate HCl (RITALIN) 20 MG tablet Take 20 mg by mouth 2 (two) times a day. prazosin (MINIPRESS) 1 MG capsule Take 2 mg by mouth nightly at bedtime. QUEtiapine (SEROQUEL) 100 MG tablet Take 150 mg by mouth nightly at bedtime. SUMAtriptan (IMITREX) 100 MG tablet Take 100 mg by mouth once as needed for migraine. Can repeat dose in 2 hours if needed. Do not exceed 2 doses in a 24 hour period. Max dose 200mg/ day traMADoL (ULTRAM) 50 mg tablet Take 50 mg by mouth every 6 (six) hours as needed for pain (specificlocation in comments). Medication-Free Text Take 4.5 mg by mouth nightly at bedtime. LDN Medication-Free Text Compounded Naltrexone 6mg Review of Systems All other systems reviewed and are negative. Objective Physical Exam Blood pressure (!) 148/92, pulse 85, temperature 36.4 ??C (97.5 ??F), temperature source Temporal, resp. rate 12, height 165.1 cm (5' 5 ), weight 81.2 kg (179 lb), SpO2 98%. Gen: Alert, pleasant and cooperative, no acute distress. HEENT: Atraumatic, normocephalic. PERRL. No vertical or horizontal nystagmus noted. Extraocular movements intact. No gross hearing deficits noted. Mucous membranes moist. Neck supple and symmetrical.No palpable cervical adenopathy. Skin: Skelp, warm, dry. Chest: No focal tenderness to palpitation. Lungs clear to auscultation bilaterally without accessory breath sounds or increased respiratory effort. CV: RRR, no murmurs, rubs, gallops appreciated. No LE edema bilaterally. Ext: No gross deformities. Moving all extremities comfortably. Neuro: CN II-XII grossly intact. Alert and oriented x 3. Normal speech and language. Memory intact.Mood appropriate. Results Assessment & Plan 1. Vertigo: She reported symptoms of vertigo, headache, and word finding difficulty with examination showing vertical nystagmus on 01/26/2025 so she ultimately went to the ER to rule out stroke. CT head and CTA head and neck were negative. She was evaluated by PT who suggested central nervous system vertigo given the vertical nystagmus. She was prescribed meclizine and aspirin 81 mg daily and discharged with improvement of symptoms. She has an upcoming appointment with neurology on 02/03/2025. She continues to note some vague vertigo and headache symptoms but overall has an improvement. Blood pressure is elevated in the office today. Given her symptoms, I do have concerns about intracranial hypertension,suspect an MRI of the brain will be performed. We also discussed vertigo management, will refer to [facility] core PT for vestibular physical therapy and patient should continue on aspirin and meclizine. Advised that she should have her vision reevaluated at the eye doctor. 2. Elevated blood pressure: Blood pressure is elevated in the office today but has not been elevated previously. Possibly related to increased stress as well as her headache that she has been experiencing. However, given her associated symptoms of vertigo, headache, previous word finding difficulties, and previous head trauma, I do have concerns regarding intracranial hypertension, she has an upcoming appointment with neurology on 02/03/2025 where recommend that she obtain an MRI of the brain. 3. Hyperlipidemia: Cholesterol levels were previously elevated so she was started on rosuvastatin 5 mg daily, however this was associated with the vertigo symptoms that she was experiencing so she discontinued this. Although low suspicion at that the rosuvastatin was causing her overall symptoms, will hold off on medication changes at this time. She should focus on lifestyle modifications in the interim. 4. Health maintenance: Seasonal influenza vaccine administered in the office today. Follow-up: A follow-up visit is scheduled for early April 2025. I obtained verbal consent from the patient or their proxy to record this visit for purposes of producing a draft of the encounter documentation. Briana Lagunas PA-C documented in this encounter Miscellaneous Notes * Assessment & Plan Note - Briana Lagunas PA-C - 01/29/2025 3:11 PM EDT Associated Problem(s): Routine general medical examination at a health care facility Seasonal influenza vaccine administered in the office today. * Assessment & Plan Note - Briana Lagunas PA-C - 01/29/2025 3:11 PM EDT Associated Problem(s): Pure hypercholesterolemia Cholesterol levels were previously elevated so she was started on rosuvastatin 5 mg daily, however this was associated with the vertigo symptoms that she was experiencing so she discontinued this. Although low suspicion at that the rosuvastatin was causing her overall symptoms, will hold off on medication changes at this time. She should focus on lifestyle modifications in the interim. * Assessment & Plan Note - Briana Lagunas PA-C - 01/29/2025 3:11 PM EDT Associated Problem(s): Elevated blood pressure reading without diagnosis of hypertension Blood pressure is elevated in the office today but has not been elevated previously. Possibly related to increased stress as well as her headache that she has been experiencing. However, given her associated symptoms of vertigo, headache, previous word finding difficulties, and previous head trauma, I do have concerns regarding intracranial hypertension, she has an upcoming appointment with neurology on 02/03/2025 where recommend that she obtain an MRI of the brain. * Assessment & Plan Note - Briana Lagunas PA-C - 01/29/2025 3:11 PM EDT Associated Problem(s): Vertigo She reported symptoms of vertigo, headache, and word finding difficulty with examination showing vertical nystagmus on 01/26/2025 so she ultimately went to the ER to rule out stroke. CT head and CTA head and neck were negative. She was evaluated by PT who suggested central nervous system vertigo given the vertical nystagmus. She was prescribed meclizine and aspirin 81 mg daily and discharged with improvement of symptoms. She has an upcoming appointment with neurology on 02/03/2025. She continues to note some vague vertigo and headache symptoms but overall has an improvement. Blood pressure is elevated in the office today. Given her symptoms, I do have concerns about intracranial hypertension,suspect an MRI of the brain will be performed. We also discussed vertigo management, will refer to [facility] core PT for vestibular physical therapy and patient should continue on aspirin and meclizine. Advised that she should have her vision reevaluated at the eye doctor. documented in this encounter Plan of Treatment Upcoming Encounters Date Type Department Care Team (Late st Contact Info) Description 04/06/2025 8:40 AM EST Office Visit [facility] Internal Medicine [address] [place] [address] Briana Lagunas PA-C [address] [place] [address] [email or web address] Scheduled Referrals Name Type Priority Associated Diagnoses Order Schedule Ambulatory referral to External Physical Therapy Outpatient Referral Routine Vertigo Ordered: 01/29/2025 documented as of this encounter Visit Diagnoses Diagnosis Vertigo- Primary Dizziness and giddiness Elevated blood pressure reading without diagnosis of hypertension Pure hypercholesterolemia Routine general medical examination at a health care facility documented in this encounter Additional Health Concerns Assessment Noted Time PHQ-9 Depression Total Score: 15 025 8:02 AM EDT PHQ-2 Depression Total Score: 5 01/27/20 25 8:02 AM EDT documented as of this encounter Care Teams Litigation Examiner Relationship Specialty Start Date End Date Briana Lagunas PA-C [address] [place] [address] [email or web address] PCP - General Physician Finisher Tailor Apprentice 10/01/24 Yumiko Fowler MD [address] [place] [id number] [email or web address] Obstetrics and Gynecology 01/26/25 documented as of this encounter Additional Source Comments The information contained in this document represents components of the legal health record. It is not the complete legal health record.[facility]
--- OUTSIDE RECORDS SUMMARY | 2025-02-03 08:18 | XMS_ITS | Encounter Summary ---
Author Organization [facility] Address [address] [place] [address] [place] [phone] Phone Care Team Providers Care Direct Selling Counselor Name Role Phone Patti Cox MD Primary Care Provider [phone] Patti Carter NP Primary Care Provi francisco Unavailable Se Mujica MD Primary Care Provider [phone] Briana Lagunas PA-C Primary Care Provider Yumiko Fowler MD Unavailable [phone] Encounter Details Date Type Department Care Team (Late st Contact Info) Description 10/31/2020 Transcribe Orders [facility] Rehabilitation Services [address] [place] [address] Denia Patrick NP [address] [address] Social History Tobacco Use Types Packs/Day Years [...] Description 04/06/2025 8:40 AM EST Office Visit [facility] Internal Medicine [address] [place] [address] Briana Lagunas PA-C [address] [place] [address] [email or web address] documented as of this encounter Visit Diagnoses Not on filedocumented in this encounter Care Teams Direct Selling Counselor Relationship Specialty Start Date End Date Patti Cox MD [address] [place] [phone] [email or web address] PCP - General Internal Medicine 10/31/20 05/07/23 Patti Carter NP PCP - General Nurse Practitioner 05/08/23 12/16/23 Se Mujica MD [address] [place] [address] PCP - General Internal Medicine 12/17/23 09/30/24 Briana Lagunas PA-C [address] [place] [address] [email or web address] PCP - General Physician Card Runner 10/01/24 Yumiko Fowler MD [address] [place] [phone] [email or web address] [email or web address] [email or web address] 01/26/25 documented as of this encounter Additional Source Comments The information contained in this document represents components of the legal health record. It is not the complete legal health record.[facility]
--- OUTSIDE RECORDS SUMMARY | 2025-02-03 08:18 | XMS_ITS | Encounter Summary ---
Author Organization [facility] Address [address] [place] [address] [place] [address] Phone Care Team Providers Care Direct Marketing Manager Name Role Phone Patti Cox MD Primary Care Provider [phone] Patti Carter NP Primary Care Provi francisco Unavailable Se Mujica MD Primary Care Provider [phone] Briana Lagunas PA-C Primary Care Provider [phone] Yumiko Fowler MD Unavailable [phone] Encounter Details Date Type Department Care Team (Late st Contact Info) Description 10/31/2020 Transcribe Orders [facility] Rehabilitation Services [address] [place] [address] Denia Patrick NP [address] [address] Social History Tobacco Use Types Packs/Day Years [...] Description 04/06/2025 8:40 AM EST Office Visit [facility] Internal Medicine [address] [place] [address] Briana Lagunas PA-C [address] [place] [address] [email or web address] documented as of this encounter Visit Diagnoses Not on filedocumented in this encounter Care Teams Direct Marketing Manager Relationship Specialty Start Date End Date Patti Cox MD [address] [place] [address] [email or web address] PCP - General Internal Medicine 10/31/20 05/07/23 Patti Carter NP PCP - General Nurse Practitioner 05/08/23 12/16/23 Se Mujica MD [address] [place] [address] PCP - General Internal Medicine 12/17/23 09/30/24 Briana Lagunas PA-C [address] [place] [address] [email or web address] PCP - General Physician Crane Operator Cab 10/01/24 Yumiko Fowler MD [address] [place] [address] [email or web address] [email or web address] [email or web address] 01/26/25 documented as of this encounter Additional Source Comments The information contained in this document represents components of the legal health record. It is not the complete legal health record.[facility]
--- OUTSIDE RECORDS SUMMARY | 2025-02-03 08:19 | XMS_ITS | Clinical Summary ---
Author Organization [facility] Address [address] [place] [address] Phone Care Team Providers Care Mud Analysis Well Logging Operator Name Role Phone Briana Lagunas PA-C Primary Care Provider Yumiko Fowler MD Unavailable [phone] Allergies Active Allergy Reactions Criticality Noted Date [...] ONCE NEEDED FOR ANAPHYLAXIS 09/03/19 25 Active gabapentin (NEURONTIN) 300 MG capsule Take 1 capsule (300 mg total) by mouth 3 (three) times a day. 10/02/19 25 Active aspirin 81 MG EC tablet Take 81 mg by mouth daily. Active methylphenidate HCl (RITALIN) 20 MG tablet Take 20 mg by mouth 2 (two) times a day. Active traMADoL (ULTRAM) 50 mg tablet Take 50 mg by mouth every 6 (six) hours as needed for pain (specific location in comments). Active SUMAtriptan (IMITREX) 100 MG tablet Take 100 mg by mouth once as needed for migraine. Can repeat dose in 2 hours if needed. Do not exceed 2 doses in a 24 hour period. Max dose 200mg/ day Active meclizine (ANTIVERT) 25 mg tablet Take 25 mg by mouth 3 (three) times a day. Active LORazepam (ATIVAN) 1 MG tablet Take 1 mg by mouth daily as needed for anxiety. Active semaglutide 0.25 mg/0.05 mL Syrg Inject 0.25 mg under the skin. [facility] 025 Discontin ued(No longer taking) rosuvastatin (CRESTOR) 5 MG tabletIndications :Mixed hyperlipidemia Take 1 tablet (5 mg total) by mouth daily. 30 tablet 2 11/11/19 25 025 Discontin ued(No longer taking) Active Problems Problem Noted Date Diagnosed Date Vertigo 01/29/2025 Assessment & Plan (01/29/2025 3:11 PM EDT): She reported symptoms of vertigo, headache, and [...] symptoms, I do have concerns about intracranial hypertension, suspect an MRI of the brain will be performed. We also discussed vertigo management, will refer to [facility] core PT for vestibular physical therapy and patient should continue on aspirin and meclizine. Advised that she should have her vision reevaluated at the eye doctor. Elevated blood pressure read ing without diagnosis of hypertension 01/29/2025 Assessment & Plan (01/29/2025 3:11 PM EDT): Blood pressure is elevated in the office [...] she obtain an MRI of the brain. Pure hypercholesterolemia 01/29/2025 Assessment & Plan (01/29/2025 3:11 PM EDT): Cholesterol levels were previously elevated so she was started on rosuvastatin 5 mg daily, however this was associated with the vertigo symptoms that she was experiencing so she discontinued this. Although low suspicion at that the rosuvastatin was causing her overall symptoms, will hold off on medication changes at this time. She should focus on lifestyle modifications in the interim. Routine general medical exam ination at a health care facility 10/01/2024 Assessment & Plan (01/29/2025 3:11 PM EDT): Seasonal influenza vaccine administered in the office today. Assessment & Plan (10/01/2024 2:58 PM EDT): Will obtain routine lab work including CMP, lipid panel, thyroid panel as well as one-time HIV screening. Mammogram scheduled next week through [facility]. Pap smear up-to-date. Cologuard test done at the age of 49 which was negative, due for repeat testing. Denies any family history of colon cancer, denies GI bleeding. Cologuard ordered. Postconcussion syndrome 10/01/2024 Assessment & Plan (10/01/2024 2:57 PM EDT): Postconcussion syndrome following subarachnoid bleed, following with Marjorie Patrick at [facility] neurology and sleep. She does have associated [...] Plan (10/01/2024 2:58 PM EDT): Following with [facility] orthopedics. History of ORIF in the right [...] associated with her fibromyalgia. Currently following with [facility], Dr. Pam Iglesias. She is [...] reemerge, she was advised to contact her automotive lot attendant. Assessment & Plan (12/17/2023 12:40 PM EDT): [...] Encounters Date Type Department Care Team Description 01/29/2025 2:40 PM EDT Office Visit [facility] Internal Medicine [address] [place] [address] Briana Lagunas PA-C Vertigo (Primary Dx); Elevated blood pressure reading without diagnosis of hypertension; Pure hypercholesterolemia; Routine general medical examination at a health care facility 01/27/2025 Orders Only [facility] [address] [facility] [place] [address] Briana Lagunas PA-C 01/27/2025 Telephone [facility] [address] [facility] [place] [address] Briana Lagunas PA-C TCM Visit 01/26/2025 8:20 AM EDT Office Visit [facility] [address] [place] [address] Mario Hardy PA-C 01/26/2025 - 01/26/2025 9:32 PM EDT Emergency [facility] [address] [place] [address] Discharge Disposition: ED Dismiss - Never Arrived 01/26/2025 Telephone [facility] [address] [place] [address] Briana Lagunas PA-C Emergency Expect 01/26/2025 Orders Only [facility] [address] [facility] [place] [address] Briana Lagunas PA-C 01/25/2025 Nurse Triage [facility] [address] [facility] [place] [address] Briana Lagunas PA-C Rosuvastatin 11/16/2024 Telephone [facility] [address] [facility] [place] [address] Briana Lagunas PA-C Request For Order(s) 11/16/2024 Orders Only [facility] [address] [facility] [place] [address] ProviderNanette MD 11/12/2024 Telephone [facility] [address] [facility] [place] [address] Briana Lagunas PA-C Statement of Good Health Form 11/05/2024 Documentation [facility] [address] [place] [address] Briana Lagunas PA-C from Last 3 Months Immunizations Immunization Administration Dates Next Due COVID-19 (Pre-02/25) Moderna Vaccine, mRNA, PF 06/26/2021,06/14/2020,05/07/2020 INFLUENZA, SPLIT VIRUS, TRIVALENT PF 01/29/2025, 02/11/2024 Influenza Quadrivalent MDCK Preservative Free IM [...] high school, GED, job training, learning the Marshallese language, technical skills, or developing parenting skills)? [...] Mass Index 29.79 01/29/2025 2:34 PM EDT Plan of Treatment Upcoming Encounters Date Type Department Care Team (Late st Contact Info) Description 04/06/2025 8:40 AM EST Office Visit [facility] [address] [place] [address] Briana Lagunas PA-C [address] [place] [address] [email or web address] Health Maintenance Due Date Last Done Comments Adult Td,Tdap Booster 1969 COLONOSCOPY 2014 FIT TEST 2014 FOBT 2014 SIGMOIDOSCOPY 2014 VIRTUAL COLONOSCOPY 2014 PNEUMOCOCCAL VACCINES (50+ years) (1 of 1 - PCV) 2019 ZOSTER VACCINES (1 of 2) 2019 PAP SMEAR 07/29/2022 07/30/2019 COVID-19 VACCINE ( season) 2025 06/26/2021, 06/14/2020, 05/07/2020 REPEAT PHQ 02/25/2025 01/26/2025, 01/26/2025 DEPRESSION SCREENING 01/26/2026 01/26/2025, 01/27/20 25 MAMMOGRAM 10/16/2026 10/16/2024 COLOGUARD 10/13/2027 10/12/2024 COLORECTAL CANCER SCREENING 10/13/2027 SCREENING FOR DIABETES 11/05/2027 11/04/2024 LIPID PANEL 11/04/2029 11/04/2024 HEPATITIS C SCREENING Completed 09/24/2011 HIV ONE-TIME SCREENING (18-65 YEARS) Completed 11/04/2024 INFLUENZA VACCINE Completed 01/29/2025, , 03/19/2023, Additional history exists SMOKING STATUS SCREENING (Once After 26 Yrs) Completed 01/29/2025 HEPATITIS A VACCINES Aged Out No long [...] Name Priority Date/Time Associated Diagnosis Comments OUTSIDE ECG Routine 01/26/2025 3:30 PM EDT OUTSIDE LAB Routine 01/26/2025 3:[address] HEAD/NECK REPORT ONLY Routine 01/26/2025 3:[address] IMAGING REPORT ONLY Routine 01/26/2025 3:[address] IMAGING REPORT ONLY Routine 01/26/2025 3:26 PM EDT POCT COVID-19 RT-PCR/INFLUENZA A & B/RSV CEPHEID Routine 01/26/2025 8:37 AM EDT OUTSIDE POTASSIUM LEVEL Routine 01/26/2025 OUTSIDE SERUM CREATININE LEVEL Routine 01/26/2025 OUTSIDE LAB Routine 11/12/2024 2:19 PM EDT [...] Routine 11/04/2024 Screening for human immunodeficiency virus HM MAMMOGRAPHY Routine 10/16/2024 7:11 AM EDT PAP TEST Routine 07/30/2019 8:44 AM EDT HISTORICAL LAB Routine 09/24/2011 5:43 PM EDT from Last 3 Months or Most Recently Relevant to Health Maintenance Results * Outside ECG Report Only (01/26/2025 3:30 PM EDT) Historical Provider ECG ORDERABLES Edited Re sult - Final * Outside Lab (01/26/2025 3:29 PM EDT) Only the most recent of2 resultswithin the time period is included. Historical Provider LAB BLOOD ORDERABLES Edit ed Result - Final * Outside CT Head/Neck Report Only (01/26/2025 3:28 PM EDT) Historical Provider IMG CT HEAD/NECK Edited R esult - Final * Outside CT Imaging Report Only (01/26/2025 3:27 PM EDT) Historical Provider IMG CT Edited Re sult - Final * Outside CT Imaging Report Only (01/26/2025 3:26 PM EDT) Historical Provider IMG CT Edited Re sult - Final * POCT COVID-19 RT-PCR/Influenza A & B/RSV (Cepheid) (01/26/2025 8:37 AM EDT) [facility] RSV PCR Negative Negative [facility] SARS-CoV-2 (COVID-19) Negative Negative [facility] Influenza A PCR Negative Negative [facility] Influenza B PCR Negative Negative [facility] 01/26/2025 8:37 AM EDT 01/26/2025 9:19 AM EDT Mario Hardy PA-C POINT OF CARE TEST ORDERABLES Final Result [facility] [address] [place] [address], [facility] [phone] * Outside Potassium Level (01/26/2025) Pathologist [facility] Potassium level - External 4.5 3.4 - 5.0 mmol/L Result [facility] Historical Provider MD LAB BLOOD ORDERABLES Madai l Result * (ABNORMAL) Outside Serum Creatinine Level (01/26/2025) Pathologist [facility] Creatinine, serum - External 0.76(A) 0.8 - 1.3 mg/dL Result [facility] Historical Provider MD LAB BLOOD ORDERABLES Madai l Result * Comprehensive metabolic panel (11/04/2024) [facility] Sodium - External EXTERNAL NON-INTERFACED REF LAB [...] External EXTERNAL NON-INTERFACED REF LAB Blood 11/04/2024 Result [facility] FLOWERS-[facility] LAB BLOOD ORDERABLES Edited Result - Final EXTERNAL NON-INTERFACED REF LAB * HIV-1/2 antigen/antibody (11/04/2024) [facility] HIV 1/2, antigen/antibod y - External neg EXTERNAL NON-INTERFACED REF LAB Blood 11/04/2024 Result [facility] K[facility]STIE-C LAB BLOOD ORDERABLES Edited Result - Final EXTERNAL NON-INTERFACED REF LAB * TSH with reflex (11/04/2024) TSH - External 1.54 EXTER NAL NON-INTERFACED REF LAB Free T4 - External EXTERNAL NON-INTERFACED REF LAB Blood 11/04/2024 [facility] LAB BLOOD ORDERABLES Edited Result - Final Performing Organization Address [facility] de Phone Number EXTERNAL NON-INTERFACED REF LAB * Sedimentation rate (ESR) (11/04/2024) Pathologist [facility] ESR - External 3 EXTER NAL NON-INTERFACED REF LAB Blood 11/04/2024 [facility] LAB BLOOD ORDERABLES Edited Result - Final Performing Organization Address [facility] de Phone Number EXTERNAL NON-INTERFACED REF LAB * C-Reactive Protein (11/04/2024) CRP - External 2 EXTER NAL NON-INTERFACED REF LAB Blood 11/04/2024 [facility] LAB BLOOD ORDERABLES Edited Result - Final Performing Organization Address [facility] de Phone Number EXTERNAL NON-INTERFACED REF [...] - Final EXTERNAL NON-INTERFACED REF LAB * MAMMOGRAPHY FOR RESULT ENTRY ONLY (10/16/2024 7:11 AM EDT) Historical Provider HEALTH MAINTENANCE Final Result * Pap Test (07/30/2019 8:44 AM EDT) Result - External See Scanned Results Impressions [employer] - 07/30/2019 8:44 AM EDT NILM, HPV neg Historical Provider CYTOLOGY ORDERABLES Edite d Result - Final * Historical Lab (09/24/2011 5:43 PM EDT) 25(OH)VITAMIN D 24 20 - 80 ng/mL [facility] LYME-ABC No IgM, IgG or IgA antibody to B.burgdorferi detected by capture EIA. The IgG Immunoblot results fall within normal limits. INTERPRETATION : No serologic evidence of infection with B.burgdorferi (Lyme). [facility] Comment:TEST PERFORMED BY [email or web address] [place], [place] YANETH(HEP2)TITER 0 0.0 - 0.0 titer [facility] YANETH(HEP2)PATTE RN 0 0.0 - 0.0 pattern [facility] RF units <11 0.0 - 15 IU/mL [facility] A-CCP 4 0 - 7 Carmina U/mL [facility] ANTI-SM 7 0.0 - 20.0 EU/mL [facility] ANTI-LOCAL DRIVER 0 0.0 - 20.0 EU/mL [facility] ANTI-Ro 2 0.0 - 20.0 EU/mL [facility] ANTI-La 1 0.0 - 20.0 EU/mL [facility] HAV TOTAL ANTIBODIES ANTIBODY NEGATIVE NON-REACTIV E [facility] HAV IgM NEGATIVE NEGATIVE [facility] HBsAg NEGATIVE NEGATIVE [facility] HBsAb POSITIVE NEGATIVE [facility] HBcAb NEGATIVE NEGATIVE [facility] HBc IgM NEGATIVE NEGATIVE [facility] HCV NEGATIVE NEGATIVE [facility] 09/24/2011 5:43 PM EDT Comment:BLOOD us Deanna Haddad MD, MPH LAB BLOOD ORDERABLES F inal Result [address] [address] from Last 3 Months or Most Recently Relevant to Health Maintenance Insurance [employer] [facility] PPO [employer] OUT [facility] PPO OUT [facility] PPO PPO BLUE [place] OUT OF STATE PPO BLUE [place] [place] OUT OF STATE PPO BLUE [place] [place] OUT OF STATE PPO OUT OF STATE PPO OUT [facility] PPO Care Teams Mud Analysis Well Logging Operator Relationship Specialty Start Date End Date Briana Lagunas PA-C [address] [place] [address] [email or web address] PCP - General Physician Court Collections Officer 10/01/24 Yumiko Fowler MD [address] [place] [address] [email or web address] Obstetrics and Gynecology 01/26/25 Additional Source Comments The information contained in this document represents components of the legal health record. It is not the complete legal health record.[facility]
--- OUTSIDE RECORDS SUMMARY | 2025-02-03 08:19 | XMS_ITS | Encounter Summary ---
Author Organization [facility] Address [address] [place] [address] Phone Care Team Providers Care Mass Spectrometry Specialist Name Role Phone Patti Cox MD Primary Care Provider + [phone] Patti Cox MD Primary Care Provider + [phone] Patti Carter NP Primary Care Provi francisco Unavailable Se Mujica MD Primary Care Provider [phone] Briana Lagunas PA-C Primary Care Provider [phone] Yumiko Fowler MD Unavailable [phone] Encounter Details Date Type Department Care Team (Late st Contact Info) Description 01/02/2018 Ancillary Orders Non-Invasive Cardiology [address] [place] [address] Raphael Martinez DO [facility] [address] [place] [address] [email or web address] Social History Tobacco Use Types Packs/Day [...] Description 04/06/2025 8:40 AM EST [facility] [address] [place] [address] Briana Lagunas PA-C [address] [place] [address] [email or web address] documented as of this encounter Visit Diagnoses Not on filedocumented in this encounter Care Teams Mass Spectrometry Specialist Relationship Specialty Start Date End Date Patti Cox MD [address] [place] [phone] [email or web address] PCP - General 09/09/14 10/30/20 Patti Cox MD [address] [place] [phone] [email or web address] PCP - General Internal Medicine 10/31/20 05/07/23 Patti Carter NP PCP - General Nurse Practitioner 05/08/23 12/16/23 Se Mujica MD [address] [place] [address] PCP - General Internal Medicine 12/17/23 09/30/24 Briana Lagunas PA-C [address] [place] [address] [email or web address] PCP - General Physician Heel Splitter 10/01/24 Yumiko Fowler MD [employer] [address] [id number] [email or web address] Obstetrics and Gynecology 01/26/25 documented as of this encounter Additional Source Comments The information contained in this document represents components of the legal health record. It is not the complete legal health record.[facility]
--- OUTSIDE RECORDS SUMMARY | 2025-02-03 08:19 | XMS_ITS | Encounter Summary ---
Author Organization [facility] Address [address] [place] [address] Phone Care Team Providers Care Belting Inspector Name Role Phone Patti Cox MD Primary Care Provider + [phone] Patti Cox MD Primary Care Provider + [phone] Patti Carter NP Primary Care Provi francisco Unavailable Se Mujica MD Primary Care Provider [phone] Briana Lagunas PA-C Primary Care Provider Yumiko Fowler MD Unavailable [phone] Encounter Details Date Type Department Care Team (Late st Contact Info) Description 01/02/2018 Ancillary Orders [facility] [address] [place] [address] Raphael Martinez DO [address] [place] [address] [email or web address] Palpitations Social History Tobacco Use Types Packs/Day [...] 04/06/2025 8:40 AM EST Office Visit [facility] Medicine [address] [place] [address] Briana Lagunas PA-C [address] [place] [address] [email or web address] documented as of this encounter Results * [...] Palpitations documented in this encounter Care Teams Belting Inspector Relationship Specialty Start Date End Date Patti Cox MD [address] [place] [phone] [email or web address] PCP - General 09/09/14 10/30/20 Patti Cox MD [address] [place] [phone] [email or web address] PCP - General Internal Medicine 10/31/20 05/07/23 Patti Carter NP PCP - General Nurse Practitioner 05/08/23 12/16/23 Se Mujica MD [address] [place] [address] PCP - General Internal Medicine 12/17/23 09/30/24 Briana Lagunas PA-C [address] [place] [address] [email or web address] PCP - General Physician Funeral Workers 10/01/24 Yumiko Fowler MD [address] [place] [phone] [email or web address] Obstetrics and Gynecology 01/26/25 documented as of this encounter Additional Source Comments The information contained in this document represents components of the legal health record. It is not the complete legal health record.[facility]
--- OUTSIDE RECORDS SUMMARY | 2025-02-03 08:19 | XMS_ITS | Encounter Summary ---
Author Organization [facility] Address [address] [place] [address] Phone Care Team Providers Care Client Business Manager Name Role Phone Patti Cox MD Primary Care Provider + [phone] Patti Cox MD Primary Care Provider + [phone] Patti Carter NP Primary Care Provi francisco Unavailable Se Mujica MD Primary Care Provider [phone] Briana Lagunas PA-C Primary Care Provider Yumiko Fowler MD Unavailable [phone] Encounter Details Date Type Department Care Team (Late st Contact Info) Description 01/02/2018 Ancillary [facility] [address] [place] [address] Raphael Martinez DO [address] [facility] [address] [place] [address] [email or web address] Social History Tobacco Use Types [...] Description 04/06/2025 8:40 AM EST [facility] [address] [place] [address] Briana Lagunas PA-C [address] [place] [address] [email or web address] documented as of this encounter Visit Diagnoses Not on filedocumented in this encounter Care Teams Client Business Manager Relationship Specialty Start Date End Date Patti Cox MD [address] [place] [phone] [email or web address] PCP - General 09/09/14 10/30/20 Patti Cox MD [address] [place] [phone] [email or web address] PCP - General Internal Medicine 10/31/20 05/07/23 Patti Carter NP PCP - General Nurse Practitioner 05/08/23 12/16/23 Se Mujica MD [address] [place] [address] PCP - General Internal Medicine 12/17/23 09/30/24 Briana Lagunas PA-C [address] [place] [address] [email or web address] PCP - General Physician Aircraft Powerplant Repairer 10/01/24 Yumiko Fowler MD [employer] [address] [id number] [email or web address] Obstetrics and Gynecology 01/26/25 documented as of this encounter Additional Source Comments The information contained in this document represents components of the legal health record. It is not the complete legal health record.[facility]
--- OUTSIDE RECORDS SUMMARY | 2025-02-03 08:20 | XMS_ITS | Patient Health Record ---
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 Heterosexual CONTRACEPTION: none Problems Problem Type SNOMED Code ICD Code Onset Dates Problem Status W/U Status Risk Notes Problem Menopause (519418962) Menopausal and female climacteric states (N95.1) Active confirmed Problem Multiple sclerosis (61430697) Multiple sclerosis (G35) Active confirmed Problem Relapsing polychondritis (18119411) Relapsing polychondritis (M94.1) Active confirmed Problem Amenorrhea (23270480) Amenorrhea, unspecified (N91.2) Active confirmed Problem Oligomenorrhea (39989581) Oligomenorrhea, unspecified (N91.5) Active confirmed Problem Female infertility (8488177) Female infertility, unspecified (N97.9) Active confirmed Problem Menopause (113394682) Menopausal and female climacteric states (N95.1) Active confirmed Problem COVID-19 (232162359) COVID-19 (U07.1) Active confirmed Problem Depressive disorder (02113415) Depressive disorder, not elsewhere classified (311) Active confirmed Major Problem Migraine (disorder) (23255019) Migraine, unspecified without mention of intractable migraine without mention of status migrainosus (346.90) Active confirmed Major Vital Signs Temperature 98.2 degrees Fahrenheit 04/24/2024 Blood pressure diastolic 80 mm Hg 04/24/2024 Height 65 in 04/24/2024 Blood pressure systolic 110 mm Hg 04/24/2024 Weight 185 lbs 04/24/2024 BMI 30.78 kg/m2 04/24/2024 Encounters Encounter Location Date Provider Diagnosis Total Landscape [employer] [facility] [address] [place] [address] 04/24/2024 BRUNILDA MARIE Mastodynia N64.4 and Hypertrophy [...] End Date [employer] [place] [address] [place] [address] [id number] LIZZY HOWELL Spouse - patient is [...]
[2025-02-03 08:42] VITALS: BP 100/80; PULSE 121; O2SAT 98; BMI 29.6
--- NOTE | 2025-02-03 08:42 | A.OFFVIS_ITS ---
Vital Signs 02/03/25 08:42 Height 5 ft 5 in Weight 178 lb BMI 29.6 BP 100/80 Blood Pressure Location Rt brachial Position Sitting Pulse 121 H Pulse Source Pulse Oximeter Pulse Oximetry (%) 98 Oxygen Delivery Method Room Air Intake Visit Reasons: FU was d/c from [facility] on 01/27 Intake Note: Patient presents follow up Migraine/Cognitive. Migraines been occurring more frequently within the past month. Precipitator Supervisor Required: No Accompanied by: Self / Same As Patient Allergies codeine (CODEINE) Allergy (Severe, Verified 02/03/25 08:45) swollen tongue Sulfa (Sulfonamide Antibiotics) (SULFA (SULFONAMIDE ANTIBIOTICS)) Allergy (Severe, Verified 02/03/25 08:45) Hives penicillin G (PENICILLIN G) Allergy (Unknown, Verified 02/03/25 08:45) UNKNOWN Medication List - Last Reconciled 02/03/25 by NOLAN Mackay [3 in 1 commode 3 in 1 commode] aspirin (Adult Aspirin Regimen) 81 mg PO DAILY baclofen 10 mg PO BID 30 days diclofenac sodium 75 mg PO .prn duloxetine 120 mg PO DAILY fremanezumab-vfrm (Ajovy) 675 mg (4.5 mL) subcut Q90D 90 days gabapentin 300 mg PO TID 90 days ibuprofen 600 mg PO Q6-8H PRN lorazepam 2 mg PO BEDTIME methylphenidate HCl (Ritalin) 20 mg PO BID oxycodone 5 mg PO Q6H PRN prazosin 1 - 2 mg (1 - 2 x 1 mg) PO BEDTIME 30 days quetiapine 150 mg PO BEDTIME sumatriptan succinate 50 - 100 mg orally at onset of headache, may repeat in 2 hrs PRN; max 2 tabs per day or 4 tabs/week (may take with Ibuprofen) 30 days tramadol 50 mg PO Q6-8H PRN 7 days HPI Comments Details: The patient is a 54-year-old female presenting with migraine and cognitive dysfunction related to postconcussive syndrome, tremor. Patient reports she was started on low rosuvastatin 5mg QHS. After afew days, she started feeling internal and external dizziness provoked by bending over, rolling over in bed, or any movement at all. Thus, she went to see her PCP's ofifce, and during the EOM exam, she began experiencing headcahe, speech difficulties, confusion, and more dizziness. She has chronic left ear tinnitus. At the time, she denies any fever, ear pain, nasal congestion, URI/flu/covid s/s. She was sent to [facility] ER, work-up including head CT, CTA head/neck were unremarkable. She was started on ASA 81mg and Meclizine scheduled 25mg tid, advised to stop her Tylenol and Meloxicam. She has been compliant with this, except continues on the Tylenol 650mg bid. Since, she feels an exacerbation of her typical post-concussive syndrome symptoms, headaches, photophobia, phonophobia, word finding difficulties, word swapping, and irritability. She has also been having episodes of tachycardia, which come on at rest. Maximus SOB, chest pain. EKG in the ER last week showed overall NSR w/ PACs 11/20/2024, HPI: Patient reports she had a recent ear eval due to exacerbation of right hip pain, which she attributes to overuse due to history of right ankle injury. This required to day of scheduled opioid therapy and hip injection, before the pain broke. She has been noticing an increase in her typical migraine headaches. She is having at least 3 headache days per week. Prior to last visit, patient had held Mobile Game Day as she felt she was doing better overall. She continues to have cognitive difficulties, however is continuing to work with her psychiatrist and therapist. She notes that her cognitive symptoms are worse with continued stress, sustained cognitive activity, increased pain. Notes that working part-time offer some benefits, as it allows her to engage in cognitively stimulating activities without over taxing her significantly. She is continuing to have the fibromyalgia pain, as well as right knee pain. Unfortunately, she has not returned to her baseline physical functioning ability since recovering from the right ankle fracture-us physical activity is significantly limited. She is followed by [facility]. Her tremors are the stable, at times her left hand shakes more PFSH Medical History Relapsing polychondritis Surgical History H/O thumb surgery Status post open reduction with internal fixation (ORIF) of fracture of ankle Hx of shoulder surgery History of carpal tunnel release Family History Father HTN (hypertension) FHx: mental illness Mother Cancer HTN (hypertension) Social History Alcohol intake: current Alcohol intake frequency: holidays/special occasions only Comment: FELL ABOUT A YR AGO BROKE HER ANKLE Patient Tobacco Use Status: Never used Tobacco Second Hand Smoke Exposure: No Substance Use Type: Marijuana Current occupational status: employed 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 Bilateral posterior cervical tightness. Mild bilateral upper extremity postural tremor. Antalgic gait, steayd w/ cane General: patient oriented x3 Cranial nerves: Yes CN's II-XII intact bilaterally Cognition (Neuro): normal cognition Psych Appearance: grossly normal Mental Status: mental status grossly normal Speech and movement: Normal speech and movement present Affect: normal affect Attitude: cooperative Assessment & Plan Assessment & Plan (1) Vertigo: Code(s): R42 - Dizziness and giddiness Category: Medical (2) Migraine with aura: Code(s): G43.109 - Migraine with aura, not intractable, without status migrainosus Category: Medical Qualifiers: Status migrainosus presence: without status migrainosus Intractability: not intractable Qualified Code(s): G43.109 - Migraine with aura, not intractable, without status migrainosus (3) Tremor, physiological: Code(s): R25.1 - Tremor, unspecified Category: Medical (4) Cognitive dysfunction: Code(s): F09 - Unspecified mental disorder due to known physiological condition Category: Medical (5) Postconcussive syndrome: Code(s): F07.81 - Postconcussional syndrome Category: Medical (6) Worsening headaches: Code(s): R51.9 - Headache, unspecified Category: Medical (7) Tachycardia: Code(s): R00.0 - Tachycardia, unspecified Category: Medical Plan For new onset vertigo with exacerbation of headache, irritability, and tachycardia: Brain MRI w/ bilateral IAC w/wo 72 hr Holter monitor Vestibular PT eval & Tx- order given to pt May continue meclizine 25mg TID- however will need to hold before starting vestibular tx Start: Metoclopramide 5-10mg eveyr 4-6 hrs for nausea and headache Cyproheptadine 4mg qhs Propranolol IR 10mg bid prn tachycardia/headache. Potential side effects include but are not limited to fatigue, lightheadedness, low blood pressure, low heart rate, asthma/respiratory disease exacerbation, weight gain, hair loss, sexual dysfunction. For cognitive difficulties and mood: Patient may benefit from adjustment in her methylphenidate to a long-acting version in the morning with short-acting version in the afternoon-she can discuss with her psychiatrist. Continue to f/u w/ psychiatry and integrative medicine. For fibromyalgia, chronic pain: F/u w/ Integrative Medicine as scheduled Continue Gabapentin. Patient may benefit from trying water therapy or water aerobic exercises, such as do the [facility]. Patient notes financial constraints may make this difficult, but she will look into resources to help with payment. Consider referral for pain management cognitive therapy program, such as [employer] ACT therapy. For migraine prevention: Continue Ajovy 225mg auto injection, 675 mg sc every 90 days, as this was previously very effective for migraine treatment. Continue Prazosin 2mg qhs- for nocturnal PTSD as well. Continue Gabapentin 300mg qam and 600mg qhs. Continue Duloxetine 120mg qd Previous migraine tx trials- Amitriptyline- ineffective, Propranolol- ineffective. Erenumab- effective, but switched d/t insurance. ? For acute migraine tx: Continue prn Sumatriptan. Future considerations: Resuming Ubrelvy prn- previously had good effect. ? For ET: Monitor respone to trying prn BB Concur that patient should not work greater than 20 hours per week. Disability paperwork completed during today's visit. ? Will follow-up upon review of above and patient to follow-up in clinic in 3-6 months or sooner prn. Orders: Orders PT Evaluation and Treatment Today F09 - Unspecified mental disorder due to known physiological condition, R42 - Dizziness and giddiness, R51.9 - Headache, unspecified MR head/brain wo/w con Today F09 - Unspecified mental disorder due to known physiological condition, R42 - Dizziness and giddiness, R51.9 - Headache, unspecified ECG 3 day holter monitor Today R00.0 - Tachycardia, unspecified Medications: New meclizine 25 mg PO TID metoclopramide HCl 5 - 10 mg (1 - 2 x 5 mg) PO Q4-6H PRN 60 tabs 0RF nausea and vomiting 14 days propranolol 10 mg PO BID PRN 60 tabs 1RF tachycardia 30 days cyproheptadine 4 mg PO BEDTIME 30 tabs 1RF 30 days Coding Level of Care Code Est Pt Level 4 (86362) Diagnoses Vertigo R42 Migraine with aura and without status migrainosus, not intractable G43.109 Status migrainosus presence: without status migrainosus Intractability: not intractable Tremor, physiological R25.1 Cognitive dysfunction F09 Postconcussive syndrome F07.81 Worsening headaches R51.9 Tachycardia R00.0
== END 2025-02-03 09:44 | disposition home or self-care (01) ==
LOC: HO.HSMS 08:07
PROVIDERS: PCP Internal Medicine; Visit Provider Nurse Practitioner Family
DX: R42 Dizziness and giddiness (principal); G43.109 Migraine with aura, not intractable, without status migrainosus; R25.1 Tremor, unspecified; R41.89 Other symptoms and signs involving cognitive functions and awareness; F07.81 Postconcussional syndrome; R51.9 Headache, unspecified; R00.0 Tachycardia, unspecified
CPT/HCPCS: 99214

== ENCOUNTER → 2025-02-26 12:40 | Outpatient (REF) | payer BC, SELFPAY ==
--- OUTSIDE RECORDS SUMMARY | 2024-01-30 04:00 | XMS_ITS ---
Author Organization [facility] Address [address] [address] Care Team Providers Care Cracker And Cookie Machine Operator Name Role Phone Guanako HOBBS [facility] Primary Care Provider UnavailBRUNILDA Fox Unavailable [phone] REASON FOR VISIT Annual LOG STACKER OPERATOR Physical Encounters Encounter Location Date Provider Diagnosis [facility] [address] [address] 01/30/2024 BRUNILDA MARIE Encounter for gynecological examination [...] Follow Up: 1 Year, Reason: Y early Major Donor Coordinator Exam Progress Notes * REYNALDO HOWELL NARAWINIFREDDOB:[birth year] (55 yo F)Acc No.[id number]:01/30/2024 PROGRESS NOTES Patient: SIRIA STAFFORD Provider: Bertha MARIE MD :1970 A ge:53 Y S ex:Female Date:01/30/2024 Address:[address] [place], [place] [address] Pcp:Se Mujica MD Subjective: * Chief Complaints: * 1 . Annual LOG STACKER OPERATOR Physical. * HPI: C onstitutional: Bertha johnson is a 53yo G0 here today for her yearly exam. She has been in state of fair health since her last exam. She has the following roaster supervisor concerns: She has received the Moderna Covid-19 [...] right ankle issues. * ROS: A nnual Major Donor Coordinator Exam ROS: Bowel habit changes d enies. [...] no acute distress, well developed, well nourished, bus boy present in room. HEAD: n ormocephalic, atraumatic. [...] * Follow Up: 1 Year (Reason: Yearly Major Donor Coordinator Exam) * Images: Billing Information: * Visit Code: 34620 Preventive Care Est Pt. Age 40-64. * Procedure Codes: * Electronic signature of BRUNILDA MARIE MD on 02/26/2025 at 02:36 PM EDT Sign off status: Pending * Provider: Bertha MARIE MD Date: 0 01/30/2024 Generated for Joyusi ng/Fakatelyng/eTransmitting on: 1 02:36 PM EDT History and Physical Notes * HPI (History of Present Illness) Category Sub-Category Detail Notes Category Not es Constitutional Siria is a 53yo G0 here today for her yearly exam. She has been in state of fair health since her last exam. She has the following roaster supervisor concerns: She has received the Moderna Covid-19 [...] General Examination GENERAL APPEARANCE: in no ac manzanita distress, well developed, well nourished, bus boy present in room HEAD: normocephalic, atrau matic [...]
--- OUTSIDE RECORDS SUMMARY | 2024-04-10 06:30 | XMS_ITS ---
Author Organization [facility] Address [address] [facility] [address] [place] [address] Care Team Providers Care Clod Puller Name Role Phone Guanako HOBBS [facility] Primary Care Provider BRUNILDA Waters Unavailable [phone] REASON FOR VISIT LT BREAST BIGGER THAN RIGHT Encounters Encounter Location Date Provider Diagnosis [facility] [address] [address] 04/10/2024 BRUNILDA MARIE Unspecified lump in breast [...] weight loss Vit E 1,200IU and/or Evening [place] Oil 3000mg daily x 6 months and [...] weight loss Vit E 1,200IU and/or Evening [place] Oil 3000mg daily x 6 months and reevaluate Pending Test Test Name Order Date Ultrasound : Breast(s), unilateral or bi lateral 04/10/2024 Diagnostic Digital Breast 3D, Bilateral 04/10/2024 Progress Notes * REYNALDO MORALESJOSELO LAMDOB:[birth year] (55 yo F)Acc No.[id number]:04/10/2024 PROGRESS NOTES Patient: Bertha MORALESJOSELO LAM Provider: Bertha MARIE MD :1970 A ge:54 Y S ex:Female Date:04/10/2024 Address:[address] [place] [address] [place] [address] Pcp:Se Mujica MD Subjective: * Chief Complaints: [...] weight loss Vit E 1,200IU and/or Evening [place] 3000mg daily x 6 months and reevaluate * Images: Billing Information: * Visit Code: 79645 Office Visit, Est Pt., Level 4. 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
--- NOTE | 2025-02-26 12:54 | HM_ITS ---
Conclusion: 1. Patient was monitored for total period of 3 days 2. Baseline was normal sinus rhythm with average heart of 102 beats per minute 3. Frequent sinus tachycardia noted with total burden of 40%, heart rate about 100 beats per minute 4. Frequent PACs noted with total burden of 12.1% 5. No significant pauses noted 6. Patient marked the counter 5 times with symptoms of palpitations or fast heart rate correlating with sinus tachycardia MTDD
--- OUTSIDE RECORDS SUMMARY | 2025-02-26 14:36 | XMS_ITS | Patient Health Record ---
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 Heterosexual CONTRACEPTION: none Problems Problem Type SNOMED Code ICD Code Onset Dates Problem Status W/U Status Risk Notes Problem Menopause (990605718) Menopausal and female climacteric states (N95.1) Active confirmed Problem Multiple sclerosis (88556001) Multiple sclerosis (G35) Active confirmed Problem Relapsing polychondritis (82070207) Relapsing polychondritis (M94.1) Active confirmed Problem Amenorrhea (21405100) Amenorrhea, unspecified (N91.2) Active confirmed Problem Oligomenorrhea (89203878) Oligomenorrhea, unspecified (N91.5) Active confirmed Problem Female infertility (9875464) Female infertility, unspecified (N97.9) Active confirmed Problem Menopause (433508283) Menopausal and female climacteric states (N95.1) Active confirmed Problem COVID-19 (201625056) COVID-19 (U07.1) Active confirmed Problem Depressive disorder (67612433) Depressive disorder, not elsewhere classified (311) Active confirmed Major Problem Migraine (disorder) (60612059) Migraine, unspecified without mention of intractable migraine without mention of status migrainosus (346.90) Active confirmed Major Vital Signs Temperature 98.2 degrees Fahrenheit 04/24/2024 Blood pressure diastolic 80 mm Hg 04/24/2024 Height 65 in 04/24/2024 Blood pressure systolic 110 mm Hg 04/24/2024 Weight 185 lbs 04/24/2024 BMI 30.78 kg/m2 04/24/2024 Encounters Encounter Location Date Provider Diagnosis [facility] [address] [place] [address] 04/24/2024 BRUNILDA MARIE Mastodynia N64.4 and Hypertrophy [...] End Date [employer] [address] [place] [address] [id number] LIZZY HOWELL Spouse - patient is [...]
--- OUTSIDE RECORDS SUMMARY | 2025-02-26 14:36 | XMS_ITS | Encounter Summary ---
Author Organization [facility] Address [address] [place] [address] Phone Care Team Providers Care Health And Safety Trainer Name Role Phone Patti Cox MD Primary Care Provider + [phone] Patti Cox MD Primary Care Provider + [phone] Patti Carter NP Primary Care Provi francisco Unavailable Se Mujica MD Primary Care Provider [phone] Briana Lagunas PA-C Primary Care Provider Yumiko Fowler MD Unavailable [phone] Encounter Details Date Type Department Care Team (Late st Contact Info) Description 01/02/2018 Ancillary Orders Non-Invasive Cardiology [address] [place] [address] Raphael Martinez DO [facility] [address] [place] [address] [email or web address] Social History Tobacco Use Types Packs/Day Years [...] Description 04/06/2025 8:40 AM EST [facility] [address] [place] [address] Birana Lagunas PA-C [address] [place] [address] [email or web address] documented as of this encounter Visit Diagnoses Not on filedocumented in this encounter Care Teams Health And Safety Trainer Relationship Specialty Start Date End Date Patti Cox MD [address] [place] [phone] [email or web address] PCP - General 09/09/14 10/30/20 Patti Cox MD [address] [place] [phone] [email or web address] PCP - General Internal Medicine 10/31/20 05/07/23 Patti Carter NP PCP - General Nurse Practitioner 05/08/23 12/16/23 Se Mujica MD [address] [place] [phone] PCP - General Internal Medicine 12/17/23 09/30/24 Briana Lagunas PA-C [address] [place] [address] [email or web address] PCP - General Physician Rackman 10/01/24 Yumiko Fowler MD [employer] [address] [id number] [email or web address] 01/26/25 documented as of this encounter Additional Source Comments The information contained in this document represents components of the legal health record. It is not the complete legal health record.[facility]
--- OUTSIDE RECORDS SUMMARY | 2025-02-26 14:36 | XMS_ITS | Clinical Summary ---
Author Organization [facility] Address [address] [place] [address] Phone Care Team Providers Care Supervisor Malted Milk Name Role Phone Briana Lagunas PA-C Primary Care Provider Yumiko Fowler MD Unavailable [phone] Allergies Active Allergy Reactions Criticality Noted Date [...] also discussed vertigo management, will refer to [facility] core PT for vestibular physical therapy [...] HIV screening. Mammogram scheduled next week through [facility]. Pap smear up-to-date. Cologuard test done at the age of 49 which was negative, due for repeat testing. Denies any family history of colon cancer, denies GI bleeding. Cologuard ordered. Postconcussion syndrome 10/01/2024 Assessment & Plan (10/01/2024 2:57 PM EDT): Postconcussion syndrome following subarachnoid bleed, following with Marjorie Patrick at [facility] neurology and sleep. She does have [...] Plan (10/01/2024 2:58 PM EDT): Following with [facility] orthopedics. History of ORIF in the [...] associated with her fibromyalgia. Currently following with [facility], Dr. Pam Iglesias. She is [...] reemerge, she was advised to contact her drive thru order taker. Assessment & Plan (12/17/2023 12:40 PM EDT): [...] Description 01/29/2025 2:40 PM EDT Office Visit [facility] [address] [facility] [place] [address] Briana Lagunas PA-C Vertigo (Primary Dx); Elevated blood pressure reading without diagnosis of hypertension; Pure hypercholesterolemia; Routine general medical examination at a health care facility 01/27/2025 Orders Only [facility] [address] [facility] [place] [address] Briana Lagunas PA-C 01/27/2025 Telephone [facility] [address] [facility] [place] [address] Briana Lagunas PA-C TCM Visit 01/26/2025 8:20 AM EDT Office Visit [facility] [address] [place] [address] Mario Hardy PA-C 01/26/2025 - 01/26/2025 9:32 PM EDT Emergency [facility] [address] [place] [address] Discharge Disposition: ED Dismiss - Never Arrived 01/26/2025 Telephone [facility] [address] [place] [address] Briana Lagunas PA-C Emergency Expect 01/26/2025 Orders Only [facility] Internal [facility] [address] [facility] [place] [address] Briana Lagunas PA-C 01/25/2025 Nurse Triage [facility] [address] [place] [address] Briana Lagunas PA-C Rosuvastatin from Last 3 Months Immunizations Immunization Administration [...] high school, GED, job training, learning the [place] language, technical skills, or developing parenting skills)? [...] your housing situation today? I have heidi patricia 09/24/2024 How many times have you move [...] Description 04/06/2025 8:40 AM EST [facility] [address] [place] [address] Briana Lagunas PA-C [address] [place] [address] [email or web address] Health Maintenance Due Date Last Done Comments [...] DIABETES 11/05/2027 11/04/2024 LIPID PANEL 11/04/2029 11/04/2024 RSV VACCINE (1 - 1-dose 75+ series) 02/17/2044 HEPATITIS C SCREENING Completed 09/24/2011 HIV ONE-TIME [...] 01/26/2025 OUTSIDE SERUM CREATININE LEVEL Routine 01/26/2025 LIPID PANEL Routine 11/04/2024 Routine general medical examination at a [facility] facility HM MAMMOGRAPHY Routine 10/16/2024 7:11 AM EDT PAP TEST Routine 07/30/2019 8:44 AM EDT HISTORICAL LAB Routine 09/24/2011 5:43 PM EDT from Last 3 Months or Most Recently Relevant to Health Maintenance Results * Outside ECG Report Only (01/26/2025 3:30 PM EDT) [facility] Provider ECG ORDERABLES Edited Re sult - Final * Outside Lab (01/26/2025 3:29 PM EDT) Historical Provider LAB BLOOD ORDERABLES Edit ed Result - Final * Outside CT Head/Neck Report Only (01/26/2025 3:28 PM EDT) [facility] Provider MD [address]MEN[address] CT HEAD/NECK Edited R esult - Final * Outside CT Imaging Report Only (01/26/2025 3:27 PM EDT) Historical Provider MD COLMEN[address]ES CT Edited Re sult - Final * Outside CT Imaging Report Only (01/26/2025 3:26 PM EDT) Historical Provider MD [address]MEN[address] CT Edited Re sult - Final * POCT COVID-19 RT-PCR/Influenza A & B/RSV (Cepheid) (01/26/2025 8:37 AM EDT) Pathologist [facility] RSV PCR Negative Negative [facility] SARS-CoV-2 (COVID-19) Negative Negative [facility] Influenza A PCR Negative Negative [facility] Influenza B PCR Negative Negative [facility] 01/26/2025 8:37 AM EDT 01/26/2025 9:19 AM EDT Result [facility] Mario Hardy PA-C POINT OF CARE TEST ORDERABLES Final Result Performing Organization Address City/[facility]/ZIP Co de Phone Number [facility] [address] [place] [address], [facility] [phone] * Outside Potassium Level (01/26/2025) Potassium level - External 4.5 3.4 - 5.0 mmol/L Result [facility] Historical Provider LAB BLOOD ORDERABLES Madai l Result * (ABNORMAL) Outside Serum Creatinine Level (01/26/2025) Creatinine, serum - External 0.76(A) 0.8 - 1.3 mg/dL Result [facility] Historical Provider LAB BLOOD ORDERABLES Madai l Result * Lipid panel (11/04/2024) HDL - External [...] - Final EXTERNAL NON-INTERFACED REF LAB * HM MAMMOGRAPHY FOR RESULT ENTRY ONLY (10/16/2024 7:11 AM EDT) Result [facility] Historical Provider HEALTH MAINTENANCE Final Result * Pap Test (07/30/2019 8:44 AM EDT) Result - External See Scanned Results Impressions Kostopolus, Danielle, PARTNER MARKETING INTERN - 07/30/2019 8:44 AM EDT NILM, HPV neg Historical Provider CYTOLOGY ORDERABLES Edite d Result - Final * Historical Lab (09/24/2011 5:43 PM EDT) 25(OH)VITAMIN D 24 20 - 80 ng/mL [facility] LYME-ABC No IgM, IgG or IgA antibody to B.burgdorferi detected by capture EIA. The IgG Immunoblot results fall within normal limits. INTERPRETATION : No serologic evidence of infection with B.burgdorferi (Lyme). [facility] Comment:TEST PERFORMED BY [employer] [place], [place] YANETH(HEP2)TITER 0 0.0 - 0.0 titer [facility] YANETH(HEP2)PATTE RN 0 0.0 - 0.0 pattern [facility] RF units <11 0.0 - 15 IU/mL [facility] A-CCP 4 0 - 7 [place] U/mL [facility] ANTI-SM 7 0.0 - 20.0 EU/mL [facility] ANTI-CULTURED [employer] MAKER 0 0.0 - 20.0 EU/mL [facility] ANTI-Ro 2 0.0 - 20.0 EU/mL [facility] ANTI-La 1 0.0 - 20.0 EU/mL [facility] HAV TOTAL ANTIBODIES ANTIBODY NEGATIVE NON-REACTIV E [facility] HAV IgM NEGATIVE NEGATIVE [facility] HBsAg NEGATIVE NEGATIVE [facility] HBsAb POSITIVE NEGATIVE [facility] HBcAb NEGATIVE NEGATIVE [facility] HBc IgM NEGATIVE NEGATIVE [facility] HCV NEGATIVE NEGATIVE [facility] 09/24/2011 5:43 PM EDT Comment:BLOOD Deanna Haddad MD, MPH LAB BLOOD ORDERABLES F inal Result [facility] [address] [address] from Last 3 Months or Most Recently Relevant to Health Maintenance Insurance BLUE CROSS OUT OF STATE PPO BLUE CROSS OUT OF STATE PPO BLUE CROSS OUT OF STATE PPO OUT OF STATE PPO OUT OF STATE PPO BLUE CROSS OUT OF STATE PPO BLUE CROSS OUT OF STATE PPO Member Subscriber Plan / Payer (Ef fective 2020-Present) Name:JOSELO PETERS Relation to Subscriber:Spouse Name:BERRY HOWELL Date of :1972 (Home) Address: [address] [place] [address] Payer ID:[id number] (NAIC) Type:PPO Address: [address] [place] [id number] BLUE CROSS OUT OF STATE PPO STATE PPO Care Teams Supervisor Malted Milk Relationship Specialty Start Date End Date Briana Lagunas PA-C [address] [place] [phone] [email or web address] PCP - General Physician Enterostomal Therapy Nurse 10/01/24 Yumiko Fowler MD [address] [place] [phone] [email or web address] [facility]ne[facility] 01/26/25 Additional Source Comments The information contained in this document represents components of the legal health record. It is not the complete legal health record.[facility]
--- OUTSIDE RECORDS SUMMARY | 2025-02-26 14:36 | XMS_ITS | Encounter Summary ---
Author Organization [facility] Address [address] [place] [address] [place] [address] Phone Care Team Providers Care Spring Coverer Name Role Phone Patti Cox MD Primary Care Provider + [phone] Patti Carter NP Primary Care Provi francisco Unavailable Se Mujica MD Primary Care Provider [phone] Briana Lagunas PA-C Primary Care Provider Yumiko Fowler MD Unavailable +[phone] Encounter Details Date Type Department Care Team (Late st Contact Info) Description 10/31/2020 Transcribe Orders [facility] 8 [place] [address] Denia Patrick NP [address] [address] Social History Tobacco Use Types Packs/Day Years [...] Description 04/06/2025 8:40 AM EST Office Visit [facility] [place] Internal [facility] 40 [place] [address] Briana Lagunas PA-C 40 [place] [address] [email or web address] documented as of this encounter Visit Diagnoses Not on filedocumented in this encounter Care Teams Spring Coverer Relationship Specialty Start Date End Date Patti Cox MD [address] [place] [address] [email or web address] PCP - General Internal Medicine 10/31/20 05/07/23 Patti Carter NP PCP - General Nurse Practitioner 05/08/23 12/16/23 Se Mujica MD 40 [place] [address] PCP - General Internal Medicine 12/17/23 09/30/24 Briana Lagunas PA-C 40 [place] [address] [email or web address] PCP - General Physician Irrigationist 10/01/24 Yumiko Fowler MD [address] [place] [address] [email or web address] 01/26/25 documented as of this encounter Additional Source Comments The information contained in this document represents components of the legal health record. It is not the complete legal health record.[facility]
--- OUTSIDE RECORDS SUMMARY | 2025-02-26 14:36 | XMS_ITS | Encounter Summary ---
Author Organization [facility] Address [address] [place] [address] Phone Care Team Providers Care Route Sales Delivery Drivers Supervisor Name Role Phone Patti Cox MD Primary Care Provider + [phone] Patti Cox MD Primary Care Provider + [phone] Patti Carter NP Primary Care Provi francisco Unavailable Se Mujica MD Primary Care Provider [phone] Briana Lagunas PA-C Primary Care Provider Yumiko Fowler MD Unavailable [phone] Encounter Details Date Type Department Care Team (Late st Contact Info) Description 01/02/2018 Ancillary Orders [facility] [address] [place] [address] Raphael Martinez DO [address] [facility] [address] [place] [address] [email or web address] Palpitations Social History Tobacco Use Types Packs/Day [...] 04/06/2025 8:40 AM EST Office Visit [facility] Internal [facility] 40 [place] [address] Briana Lagunas PA-C 40 [place] [address] [email or web address] documented as of this encounter Results * [...] Palpitations documented in this encounter Care Teams Route Sales Delivery Drivers Supervisor Relationship Specialty Start Date End Date Patti Cox MD [address] [place] [address] [email or web address] PCP - General 09/09/14 10/30/20 Patti Cox MD [address] [place] [address] [email or web address] PCP - General Internal Medicine 10/31/20 05/07/23 Patti Carter NP PCP - General Nurse Practitioner 05/08/23 12/16/23 Se Mujica MD [address] [place] [address] PCP - General Internal Medicine 12/17/23 09/30/24 Briana Lagunas PA-C [address] [place] [address] [email or web address] PCP - General Physician Civil Lawyer 10/01/24 Yumiko Fowler MD [address] [place] [address] [email or web address] 01/26/25 documented as of this encounter Additional Source Comments The information contained in this document represents components of the legal health record. It is not the complete legal health record.[facility]
--- OUTSIDE RECORDS SUMMARY | 2025-02-26 14:36 | XMS_ITS | Encounter Summary ---
Author Organization [facility] Address [address] [facility] [address] [place] [address] Phone Care Team Providers Care Green End Department Supervisor Name Role Phone Patti Cox MD Primary Care Provider + [phone] Patti Cox MD Primary Care Provider + [phone] Patti Carter NP Primary Care Provi francisco Unavailable Se Mujica MD Primary Care Provider [phone] Briana Lagunas PA-C Primary Care Provider Yumiko Fowler MD Unavailable [phone] Encounter Details Date Type Department Care Team (Late st Contact Info) Description 01/02/2018 Ancillary [facility] [address] [place] [address] Raphael Martinez, DO [address] [facility] [address] [place] [address] [email or web address] Social History Tobacco [...] Description 04/06/2025 8:40 AM EST [facility] [place] [facility] 40 [place] [address] Briana Lagunas PA-C 40 [place] [address] [email or web address] documented as of this encounter Visit Diagnoses Not on filedocumented in this encounter Care Teams Green End Department Supervisor Relationship Specialty Start Date End Date Patti Cox MD [address] [place] [address] [email or web address] PCP - General 09/09/14 10/30/20 Patti Cox MD [address] [place] [address] [email or web address] PCP - General Internal Medicine 10/31/20 05/07/23 Patti Carter NP PCP - General Nurse Practitioner 05/08/23 12/16/23 Se Mujica MD [address] [place] [address] PCP - General Internal Medicine 12/17/23 09/30/24 Briana Lagunas PA-C 40 [place] [address] [email or web address] PCP - General Physician Seamless Tube Drawer 10/01/24 Yumiko Fowler MD [employer] [address] [id number] [email or web address] Obstetrics and Gynecology 01/26/25 documented as of this encounter Additional Source Comments The information contained in this document represents components of the legal health record. It is not the complete legal health record.[facility]
--- OUTSIDE RECORDS SUMMARY | 2025-02-26 14:36 | XMS_ITS | Encounter Summary ---
Author Organization [facility] Address [address] [place] [address] [place] [address] Phone Care Team Providers Care Storage And Backup Administrator Name Role Phone Patti Cox MD Primary Care Provider + [phone] Patti Carter NP Primary Care Provi francisco Unavailable Se Mujica MD Primary Care Provider [phone] Briana Lagunas PA-C Primary Care Provider Yumiko Fowler MD Unavailable [phone] Encounter Details Date Type Department Care Team (Late st Contact Info) Description 10/31/2020 Transcribe Orders [facility] 8 [place] [address] Denia Patrick NP [address] [address] Social History Tobacco Use Types Packs/Day Years [...] Description 04/06/2025 8:40 AM EST Office Visit [facility] [place] Internal Medicine 40 [place] [address] Briana Lagunas PA-C 40 [place] [address] [email or web address] documented as of this encounter Visit Diagnoses Not on filedocumented in this encounter Care Teams Storage And Backup Administrator Relationship Specialty Start Date End Date Patti Cox MD [address] [place] [address] [email or web address] PCP - General Internal Medicine 10/31/20 05/07/23 Patti Carter NP PCP - General Nurse Practitioner 05/08/23 12/16/23 Se Mujica MD 40 [place] [address] PCP - General Internal Medicine 12/17/23 09/30/24 Briana Lagunas PA-C 40 [place] [address] [email or web address] PCP - General Physician Materials Handling Equipment Operator 10/01/24 Yumiko Fowler MD [address] [place] [address] [email or web address] [email or web address] and [email or web address] 01/26/25 documented as of this encounter Additional Source Comments The information contained in this document represents components of the legal health record. It is not the complete legal health record.[facility]
== END ==
LOC: HO.CARD 12:40
PROVIDERS: PCP Internal Medicine; Visit Provider Nurse Practitioner Family
DX: R00.0 Tachycardia, unspecified (principal)
CPT/HCPCS: 93242

== ENCOUNTER → 2025-02-26 12:54 | Outpatient (BNV) | payer BC, SELFPAY | PROVIDERS: PCP Internal Medicine; Visit Provider Internal Medicine Cardiovascular Disease | DX: I49.1 Atrial premature depolarization (principal); R00.0 Tachycardia, unspecified | CPT/HCPCS: 93244 ==

== ENCOUNTER → 2025-03-09 15:48 | Outpatient (BNV) | payer BC, SELFPAY | PROVIDERS: PCP Internal Medicine; Visit Provider Radiology Diagnostic Radiology | DX: R42 Dizziness and giddiness (principal) | CPT/HCPCS: 70553 ==

== ENCOUNTER 2025-03-09 15:49 | Outpatient (REF) | payer BC, SELFPAY ==
--- OUTSIDE RECORDS SUMMARY | 2024-01-30 03:00 | XMS_ITS ---
Author Organization [facility] [employer] [facility] Address [address] [address] Care Team Providers Care Ensemble Member Name Role Phone Guanako HOBBS [facility] Primary Care Provider UnavailBRUNILDA Fox Unavailable [phone] REASON FOR VISIT Annual SALES ACCOUNT DIRECTOR Physical Encounters Encounter Location Date Provider Diagnosis [facility] [employer] [address] [address] 01/30/2024 BRUNILDA MARIE Encounter for gynecological examination (general) (routine) without abnormal findings Z01.419 ; Encounter for screening mammogram for malignant neoplasm of breast Z12.31 and Encounter for screening for infections with a predominantly sexual mode of transmission Z11.3 Assessments Encounter Date Diagnosis (ICD Code) Assessment Notes Treatment Notes Treatment Clinical Notes Section Notes 01/30/2024 Encounter for gynecological examination (general) (routine) without abnormal findings (ICD-10 - Z01.419) During the visit, the following areas of concern were addressed: Discussed cervical cancer screening with either cytology alone every 3 years or high risk HPV co-testing every 5 years as per ASCCP guidelines. Advised continued annual pelvic exams. Patient encouraged to increase her level of exercise. SBE technique encouraged/tau ght. Patient reminded when annual mammogram is due. Patient encouraged to keep colon screening up to date. 01/30/2024 Encounter for screening mammogram for malignant neoplasm of breast (ICD-10 - Z12.31) 01/30/2024 Encounter for screening for infections with a predominantly sexual mode of transmission (ICD-10 - Z11.3) Plan Of Treatment Treatment Notes Assessment Notes Encounter for gynecological examination (general) (routine) without abnormal findings During the visit, the following areas of concern were addressed: Discussed cervical cancer screening with either cytology alone every 3 years or high risk HPV co-testing every 5 years as per ASCCP guidelines. Advised continued annual pelvic exams. Patient encouraged to increase her level of exercise. SBE technique encouraged/taught. Patient reminded when annual mammogram is due. Patient encouraged to keep colon screening up to date. Pending Test Test Name Order Date MM Digital Screening Mammogram 3D 2023 Next Appt Details Follow Up: 1 Year, Reason: Y early Transportation Lead Exam Progress Notes * REYNALDO HOWELL NARAWINIFREDDOB:[birth year] (55 yo F)Acc No.[id number]:01/30/2024 PROGRESS NOTES Patient: SIRIA STAFFORD Provider: Bertha MARIE MD :1970 A ge:53 Y S ex:Female Date:01/30/2024 Address:[address] [place], [place] [id number] Pcp:Se Mujica MD Subjective: * Chief Complaints: * 1 . 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 * HPI: C onstitutional: Bertha johnson is a 53yo G0 here today for her yearly exam. She has been in state of fair health since her last exam. 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 Relationship status: since 05/2021, together f or 5 years, . She is sexually active. Sexual partner(s): male. She does not wish to have STI testing. She does *not report vaginal dryness. She does* have hot flashes/night sweats - tolerable with Estroven. The patient has never had an abnormal pap smear. Her most recent pap smear was 07/30/2019 - NIL, neg HR HPV. Next due in 2024. She has not been diagnosed with breast cancer. She does have a family history of breast cancer - mother. Her last mammogram was 10/31/22. She does *not have a family history of colon cancer, but dad 3 yrs ago had a polyp and a segment of bowel removed - he isn't clear on why. She a has not had a colonoscopy. She did Cologard at age 49. She understands that if her dad had colon cancer that Cologard is not an appropriate test for her. The patient does *not exercise due to right ankle issues. * ROS: A nnual Transportation Lead Exam ROS: Bowel habit changes d enies. B ladder symptoms d enies. V aginal discharge, unusual d enies. V aginal itch or odor d enies. w eight or appetite changes d enies. C hest pains, SOB d enies. d epression d enies.? B reast: Denies B reast lump. D enies N ipple discharge.? H ematology: Denies S wollen glands. S kin: Patient denies c hanging moles. P sychiatric: Denies A nxiety. * Medical History: Objective: * Vitals: * Examination: G eneral Examination: GENERAL APPEARANCE: i n no acute distress, well developed, well nourished, application integration architect present in room. HEAD: n ormocephalic, atraumatic. NECK/THYROID: n kiran supple, full range of motion, thyroid normal. LYMPH NODES: n o axillary or supraclavicular adenopathy.? SKIN: normal, good turgor, no rashes, no suspicious lesions. BREASTS: normal, no dimpling, no discharge, no drainage, no masses palpable bilaterally, nontender. ABDOMEN: soft, non-tender, non distended without masses or hepatosplenomegay. RECTAL: normal tone, no masses palpable. BACK: no costovertebral angle tenderness. FEMALE GENITOURINARY: V ulva without lesions or masses, vagina pink without abnormal discharge, lesions or masses, cervix appears normal and is not tender to palpation, uterus is normal size, mobile, nontender and anteverted, ovaries are not palpable. NEUROLOGIC: alert and oriented, gait normal. PSYCH: alert, oriented, cognitive function intact, cooperative with exam, good eye contact, mood/affect full range, speech clear. Assessment: * Assessment: 1. E ncounter for gynecological examination (general) (routine) without abnormal findings - Z01.419 (Primary) 2 . E ncounter for screening mammogram for malignant neoplasm of breast - Z12.31 3 . E ncounter for screening for infections with a predominantly sexual mode of transmission - Z11.3 Plan: * Treatment: 2. E ncounter for screening mammogram for malignant neoplasm of breast I maging: MM Digital Screening Mammogram 3D * Follow Up: 1 Year (Reason: Yearly Transportation Lead Exam) * Images: Billing Information: * Visit Code: 60549 Preventive Care Est Pt. Age 40-64. * Procedure Codes: * Electronic signature of BRUNILDA MARIE MD on 03/09/2025 at 06:20 PM EST Sign off status: Pending * Provider: Bertha MARIE MD Date: 0 01/30/2024 Generated for [employer] darshana/Hayden/eTransmitting on: 1 05/09/2024 06:20 PM EST History and Physical Notes * HPI (History of Present Illness) Category Sub-Category Detail Notes Category Not es Constitutional Siria is a 53yo G0 here today for her yearly exam. She has been in state of fair health since her last exam. 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 Relationship status: since 03/2022, together for 5 years, . She is sexually active. Sexual partner(s): male. She does not wish to have STI testing. She does *not report vaginal dryness. She does* have hot flashes/night sweats - tolerable with Estroven. The patient has never had an abnormal pap smear. Her most recent pap smear was 07/30/2019 - NIL, neg HR HPV. Next due in 2024. She has not been diagnosed with breast cancer. She does have a family history of breast cancer - mother. Her last mammogram was 10/31/22. She does *not have a family history of colon cancer, but dad 3 yrs ago had a polyp and a segment of bowel removed - he isn't clear on why. She a has not had a colonoscopy. She did Cologard at age 49. She understands that if her dad had colon cancer that Cologard is not an appropriate test for her. The patient does *not exercise due to right ankle issues. Examination Category Sub-Category Detail Notes Category Not es General Examination GENERAL APPEARANCE: in no ac chenega distress, well developed, well nourished, application integration architect present in room HEAD: normocephalic, atrau matic NECK/THYROID: neck supple, full ra nge of motion, thyroid normal ABDOMEN: soft, non-tender, no n distended without masses or hepatosplenomegay NEUROLOGIC: alert and oriented, gait normal SKIN: normal, good turgor, no rashes, no suspicious lesions BACK: no costovertebral an gle tenderness BREASTS: normal, no dimpling, no discharge, no drainage, no masses palpable bilaterally, nontender LYMPH NODES: no axillary or supra clavicular adenopathy RECTAL: normal tone, no mass es palpable PSYCH: alert, oriented, cog nitive function intact, cooperative with exam, good eye contact, mood/affect full range, speech clear FEMALE GENITOURINARY: Vulva without lesi ons or masses, vagina pink without abnormal discharge, lesions or masses, cervix appears normal and is not tender to palpation, uterus is normal size, mobile, nontender and anteverted, ovaries are not palpable
--- OUTSIDE RECORDS SUMMARY | 2024-04-10 05:30 | XMS_ITS ---
Author Organization [facility] Address [address] [facility] [address] [place] [address] Care Team Providers Care Human Resources Hr Generalist Name Role Phone Guanako HOBBS [facility] Primary Care Provider BRUNILDA Waters Unavailable [phone] REASON FOR VISIT LT BREAST BIGGER THAN RIGHT Encounters Encounter Location Date Provider Diagnosis [facility] [address] [address] 04/10/2024 BRUNILDA MARIE Unspecified lump in breast N63 and Mastodynia N64.4 Assessments Encounter Date Diagnosis (ICD Code) Assessment Notes Treatment Notes Treatment Clinical Notes Section Notes 04/10/2024 Unspecified lump in breast (ICD-10 - N63) Refer to breast surgeon for further evaluation and treatment. 04/10/2024 Mastodynia (ICD-10 - N64.4) Rule out Discussed causes of breast tenderness including normal physiological changes related to hormonal fluctuation and muscle strain. Reviewed relief measures including analgesics, rest and local heat as needed. Discussed importance of supportive bra. Encouraged to see a bra fitting specialist to be sure of the proper fit and support. Breast self-exam is taught and encouraged Reduce caffeine intake Counseled on weight loss Vit E 1,200IU and/or Evening [place] Oil 3000mg daily x 6 months and reevaluate Plan Of Treatment Treatment Notes Assessment Notes Unspecified lump in breast Refer to ale st surgeon for further evaluation and treatment. Mastodynia Rule out Discussed causes of breast tenderness including normal physiological changes related to hormonal fluctuation and muscle strain. Reviewed relief measures including analgesics, rest and local heat as needed. Discussed importance of supportive bra. Encouraged to see a bra fitting specialist to be sure of the proper fit and support. Breast self-exam is taught and encouraged Reduce caffeine intake Counseled on weight loss Vit E 1,200IU and/or Evening [place] Oil 3000mg daily x 6 months and reevaluate Pending Test Test Name Order Date Ultrasound : Breast(s), unilateral or bi lateral 04/10/2024 Diagnostic Digital Breast 3D, Bilateral 04/10/2024 Progress Notes * REYNALDO MORALESJOSELO LAMDOB:[birth year] (55 yo F)Acc No.[id number]:04/10/2024 PROGRESS NOTES Patient: Bertha MORALESJOSELO LAM Provider: Bertha MARIE MD :1970 A ge:54 Y S ex:Female Date:04/10/2024 Address:[address] [place] [address] [place] [address] Pcp:Se Mujica MD Subjective: * Chief Complaints: * 1 . LT BREAST BIGGER THAN RIGHT. * HPI: G YN (Problems): Breast Pain/Mass: D ate of onset: _ _ H ow did the problem start: _ _ L ocation: _ _ P ain: _ _ S everity of pain: _ _ R adiates: _ _ D oes problem include breast mass: _ _ O nset and progress of pain or mass: _ _ P roblem is associated with: _ _ A ny recent trauma to the breast? _ _ A ny personal history of breast biopsy? _ _ F amily history of breast cancer? _ _ D ate of last mammogram _ _ * ROS: G eneral/Constitutional: Patient denies f ever, weight gain, weight loss. B reast: Patient complaining of . ... * Medical History: Objective: * Vitals: * Examination: G eneral Exam: CONSTITUTIONAL: G eneral Appearance: a lert, in no acute distress, normal, well nourished EXAMINED IN UPRIGHT AND SUPINE POSITIONS BREAST, Right: I nspection/Palpation: n o discharge, no masses present, no nipple retraction, no skin dimpling, no tenderness, no supra/infraclavicular adenopathy, no axillary adenopathy BREAST, Left: I nspection/Palpation: n o discharge, no masses present, no nipple retraction, no skin dimpling, no tenderness, no supra/infraclavicular adenopathy, no axillary adenopathy SKIN: S kin: n ormal B reast: FINDING #1: .... N ipple: DISCHARGE: none. RETRACTION: none. ULCERATION: none. MASS: none. TENDERNESS: none. SWELLING: none. SCALING, FLAKING SKIN: none. P sychiatry: AFFECT: appropriate. ATTITUDE: cooperative. SPEECH: clear. Assessment: * Assessment: 1. U nspecified lump in breast - N63 (Primary) 2 . M astodynia - N64.4 Plan: * Treatment: 2. M astodynia Notes: Rule out Discussed causes of breast tenderness including normal physiological changes related to hormonal fluctuation and muscle strain. Reviewed relief measures including analgesics, rest and local heat as needed. Discussed importance of supportive bra. Encouraged to see a bra fitting specialist to be sure of the proper fit and support. Breast self-exam is taught and encouraged Reduce caffeine intake Counseled on weight loss Vit E 1,200IU and/or Evening [place] Oil 3000mg daily x 6 months and reevaluate * Images: Billing Information: * Visit Code: 91545 Office Visit, Est Pt., Level 4. 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 Pain/Mass: Date of onset:: __ How did the problem start:: __ Location:: __ Pain:: __ Severity of pain:: __ Radiates:: __ Does problem include breast mass:: __ Onset and progress of pain or mass:: __ Problem is associated with:: __ Any recent trauma to the breast?: __ Any personal history of breast biopsy?: __ Family history of breast cancer?: __ Date of last mammogram: __ Examination Category Sub-Category Detail Notes Category Not es Psychiatry ATTITUDE: cooperative AFFECT: appropriate SPEECH: clear Nipple DISCHARGE: none RETRACTION: none ULCERATION: none MASS: none TENDERNESS: none SWELLING: none SCALING, FLAKING SKIN: none Breast FINDING #1: ... General Exam CONSTITUTIONAL: General Appearan ce:: alert, in no acute distress, normal, well nourished EXAMINED IN UPRIGHT AND SUPINE POSITIONS SKIN: Skin:: normal BREAST, Right: Inspection/Palpation :: no discharge, no masses present, no nipple retraction, no skin dimpling, no tenderness, no supra/infraclavicular adenopathy, no axillary adenopathy BREAST, Left: Inspection/Palpation :: no discharge, no masses present, no nipple retraction, no skin dimpling, no tenderness, no supra/infraclavicular adenopathy, no axillary adenopathy
--- NOTE | ~2025-03-09 | MR_ITS ---
EXAMINATION: MR BRAIN IAC PROTOCOL WITHOUT AND WITH CONTRAST CLINICAL INFORMATION: R40.. COMPARISON: None available. TECHNIQUE: Multiplanar, multisequence MRI of the brain IAC protocol was obtained before and after the intravenous administration of 8.0 mL gadolinium based (Gadavist) without reported immediate complications.. FINDINGS: Cochlear and vestibular components of the 8th cranial nerves demonstrated no signal abnormality or enhancing mass. No enhancing mass in the cerebellopontine angle cisterns. Right anterior inferior cerebellar artery is type III. Left anterior inferior cerebral artery is type I. No signal abnormality or enhancing mass in the brainstem. The internal jugular bulb are normal anatomic position. No restricted diffusion. No acute intracranial hemorrhage, mass effect, midline shift, hydrocephalus or herniation. Ho-white matter differentiation is normal. Craniocervical junction is intact with normal position of the cerebellar tonsils. Sellar/suprasellar region is normal. Prominence of the extra-axial CSF spaces and cerebral sulci involving mostly the bifrontal bitemporal lobes. MR/MR head/brain wo/w con IMPRESSION: No vestibular schwannoma. No acute brain abnormality. Right AICA is type III.. No abnormal enhancement within the intra-axial or the extra-axial compartment of the cranium based on axial T1 postcontrast. Electronically signed by: Mendoza Steele MD 03/10/2025 06:59 AM [facility]
--- OUTSIDE RECORDS SUMMARY | 2025-03-09 18:22 | XMS_ITS | Encounter Summary ---
Author Organization [facility] Address [address] [place] [address] [place] [address] Phone Care Team Providers Care Mixer Slagman Name Role Phone Patti Cox MD Primary Care Provider [phone] Patti Carter NP Primary Care Provi francisco Unavailable Se Mujica MD Primary Care Provider [phone] Briana Lagunas PA-C Primary Care Provider Yumiko Fowler MD Unavailable [phone] Encounter Details Date Type Department Care Team (Late st Contact Info) Description 10/31/2020 Transcribe Orders [facility] 8 [place] [address] Denia Patrick NP [address] [address] Social History Tobacco Use Types Packs/Day Years [...] Description 04/06/2025 8:40 AM EST [facility] [place] [facility] 40 [place], [place] [phone] Briana Lagunas PA-C 40 [place] [address] [email or web address] documented as of this encounter Visit Diagnoses Not on filedocumented in this encounter Care Teams Mixer Slagman Relationship Specialty Start Date End Date Patti Cox MD [address] [place] [address] [email or web address] PCP - General Internal Medicine 10/31/20 05/07/23 Patti Carter NP PCP - General Nurse Practitioner 05/08/23 12/16/23 Se Mujica MD 40 [place] [address] PCP - General Internal Medicine 12/17/23 09/30/24 Briana Lagunas PA-C 40 [place] [address] [email or web address] PCP - General Physician Orthotic And Prosthetic Technician 10/01/24 Yumiko Fowler MD [address] [place] [address] [email or web address] 01/26/25 documented as of this encounter Additional Source Comments The information contained in this document represents components of the legal health record. It is not the complete legal health record.[facility]
--- OUTSIDE RECORDS SUMMARY | 2025-03-09 18:22 | XMS_ITS | Encounter Summary ---
Author Organization [facility] Address [address] [facility] [address] [place] [address] Phone Care Team Providers Care Lead Trainer Name Role Phone Patti Cox MD Primary Care Provider + [phone] Patti Cox MD Primary Care Provider + [phone] Patti Carter NP Primary Care Provi francisco Unavailable Se Mujica MD Primary Care Provider [phone] Briana Lagunas PA-C Primary Care Provider Yumiko Fowler MD Unavailable [phone] Encounter Details Date Type Department Care Team (Late st Contact Info) Description 01/02/2018 Ancillary Orders Non-Invasive Cardiology 22 [place] [address] Raphael Martinez DO [facility] [address] [place] [address] [email or web address] Social History Tobacco Use [...] Description 04/06/2025 8:40 AM EST [facility] [place] [facility] 40 [place] [address] Briana Lagunas PA-C 40 [place] [address] [email or web address] documented as of this encounter Visit Diagnoses Not on filedocumented in this encounter Care Teams Lead Trainer Relationship Specialty Start Date End Date Patti Cox MD [address] [place] [address] [email or web address] PCP - General 09/09/14 10/30/20 Patti Cox MD [address] [place] [address] [email or web address] PCP - General Internal Medicine 10/31/20 05/07/23 Patti Carter NP PCP - General Nurse Practitioner 05/08/23 12/16/23 Se Mujica MD [address] [place] [address] PCP - General Internal Medicine 12/17/23 09/30/24 Briana Lagunas PA-C [address] [place] [address] [email or web address] PCP - General Physician Vp Research 10/01/24 Yumiko [facility] MD [facility] [id number] [email or web address] [email or web address] [email or web address] [email or web address] 01/26/25 documented as of this encounter Additional Source Comments The information contained in this document represents components of the legal health record. It is not the complete legal health record.[facility]
--- OUTSIDE RECORDS SUMMARY | 2025-03-09 18:22 | XMS_ITS | Patient Health Record ---
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 NUTRITION: average diet EXERCISE: none SEXUAL ACTIVITY: monogamous relationship. Heterosexual CONTRACEPTION: none Problems Problem Type SNOMED Code ICD Code Onset Dates Problem Status W/U Status Risk Notes Problem Menopause (347164812) Menopausal and female climacteric states (N95.1) Active confirmed Problem Multiple sclerosis (01901044) Multiple sclerosis (G35) Active confirmed Problem Relapsing polychondritis (70501714) Relapsing polychondritis (M94.1) Active confirmed Problem Amenorrhea (16815185) Amenorrhea, unspecified (N91.2) Active confirmed Problem Oligomenorrhea (96984440) Oligomenorrhea, unspecified (N91.5) Active confirmed Problem Female infertility (1066758) Female infertility, unspecified (N97.9) Active confirmed Problem Menopause (474166215) Menopausal and female climacteric states (N95.1) Active confirmed Problem COVID-19 (198495263) COVID-19 (U07.1) Active confirmed Problem Depressive disorder (92640348) Depressive disorder, not elsewhere classified (311) Active confirmed Major Problem Migraine (disorder) (68390755) Migraine, unspecified without mention of intractable migraine without mention of status migrainosus (346.90) Active confirmed Major Vital Signs Temperature 98.2 degrees Fahrenheit 04/24/2024 Blood pressure diastolic 80 mm Hg 04/24/2024 Height 65 in 04/24/2024 Blood pressure systolic 110 mm Hg 04/24/2024 Weight 185 lbs 04/24/2024 BMI 30.78 kg/m2 04/24/2024 Encounters Encounter Location Date Provider Diagnosis Total LIA[facility]I [facility] [address] [place] [address] 04/24/2024 BRUNILDA MARIE Mastodynia N64.4 and Hypertrophy [...] End Date [employer] [address] [place] [address] [id number] LIZZY HOWELL Spouse - patient is [...]
--- OUTSIDE RECORDS SUMMARY | 2025-03-09 18:22 | XMS_ITS | Encounter Summary ---
Author Organization [facility] Address [address] [facility] [address] [place] [address] Phone Care Team Providers Care Plant Hr Manager Name Role Phone Patti Cox MD Primary Care Provider + [phone] Patti Cox MD Primary Care Provider + [phone] Patti Carter NP Primary Care Provi francisco Unavailable Se Mujica MD Primary Care Provider [phone] Briana Lagunas PA-C Primary Care Provider Yumiko Fowler MD Unavailable [phone] Encounter Details Date Type Department Care Team (Late st Contact Info) Description 01/02/2018 Ancillary [facility] [address] [place] [address] Raphael Martinez DO [address] [facility] [address] [place] [address] [email or web address] Social History Tobacco [...] Description 04/06/2025 8:40 AM EST [facility] [place] [facility] 40 [place] [address] Briana Lagunas PA-C 40 [place] [address] [email or web address] documented as of this encounter Visit Diagnoses Not on filedocumented in this encounter Care Teams Plant Hr Manager Relationship Specialty Start Date End Date Patti Cox MD [address] [place] [address] [email or web address] PCP - General 09/09/14 10/30/20 Patti Cox MD [address] [place] [address] [email or web address] PCP - General Internal Medicine 10/31/20 05/07/23 Patti Carter NP PCP - General Nurse Practitioner 05/08/23 12/16/23 Se Mujica MD [address] [place] [address] PCP - General Internal Medicine 12/17/23 09/30/24 Briana Lagunas PA-C [address] [place] [address] [email or web address] PCP - General Physician Breaker Oiler 10/01/24 [facility]um[facility] [id number] [email or web address] [email or web address] 01/26/25 documented as of this encounter Additional Source Comments The information contained in this document represents components of the legal health record. It is not the complete legal health record.[facility]
--- OUTSIDE RECORDS SUMMARY | 2025-03-09 18:22 | XMS_ITS | Encounter Summary ---
Author Organization [facility] Address [address] [facility] [address] [place] [address] Phone Care Team Providers Care Network Field Engineer Name Role Phone Patti Cox MD Primary Care Provider + [phone] Patti Cox MD Primary Care Provider + [phone] Patti Carter NP Primary Care Provi francisco Unavailable Se Mujica MD Primary Care Provider [phone] Briana Lagunas PA-C Primary Care Provider Yumiko Fowler MD Unavailable [phone] Encounter Details Date Type Department Care Team (Late st Contact Info) Description 01/02/2018 Ancillary Orders [facility] [address] [place] [address] Raphael Martinez DO [address] [facility] [address] [place] [address] [email or web address] Palpitations Social History Tobacco Use Types Packs/Day [...] Description 04/06/2025 8:40 AM EST [facility] 40 [place] [address] Briana Lagunas PA-C 40 [place] [address] [email or web address] documented as of this encounter Results * [...] occurred during sinus rhythm and sinus tachycardia. us Raphael Martinez DO [facility] ORDERABLE S Final Result documented in this encounter Visit Diagnoses Diagnosis Palpitations Palpitations documented in this encounter Care Teams Network Field Engineer Relationship Specialty Start Date End Date Patti Cox MD [address] [place] [address] [email or web address] PCP - General 09/09/14 10/30/20 Patti Cox MD [address] [place] [address] [email or web address] PCP - General Internal Medicine 10/31/20 05/07/23 Patti Carter NP PCP - General Nurse Practitioner 05/08/23 12/16/23 Se Mujica MD [address] [place] [address] PCP - General Internal Medicine 12/17/23 09/30/24 Briana Lagunas PA-C 40 [place] [address] [email or web address] PCP - General Physician Stave Block Splitter 10/01/24 Yumiko Fowler MD [address] [place] [address] [email or web address] 01/26/25 documented as of this encounter Additional Source Comments The information contained in this document represents components of the legal health record. It is not the complete legal health record.[facility]
--- OUTSIDE RECORDS SUMMARY | 2025-03-09 18:22 | XMS_ITS | Clinical Summary ---
Author Organization [facility] Address [address] [facility] [address] [place] [address] Phone Care Team Providers Care Cooling Pan Tender Name Role Phone Briana Lagunas PA-C Primary Care Provider [phone] Yumiko Fowler MD Unavailable [phone] Allergies Active Allergy Reactions Criticality Noted Date Comments Codeine Anaphylaxis High 05/08/2023 Penicillins 12/17/2023 Sulfa (Sulfonamide Antibiotics) Rash Low 07/2023 Medications acetaminophen (TYLENOL ARTHRITIS PAIN) 650 MG CR tablet Take 1,300 mg by mouth. Active baclofen (LIORESAL) 10 MG tablet Take 1 tablet by mouth 2 (two) times a day. 4 Active DULoxetine (CYMBALTA) 60 MG capsule Take 120 mg by mouth daily. Active ATIVAN 1 mg tablet Take 2 mg by mouth nightly at bedtime. Active prazosin (MINIPRESS) 1 MG capsule Take 2 mg by mouth nightly at bedtime. Active QUEtiapine (SEROQUEL) 100 MG tablet Take 150 mg by mouth nightly at bedtime. Active Medication-Rudolph e Text Take 4.5 mg by mouth nightly at bedtime. LDN Active Medication-Rudolph e Text Compounded Naltrexone 6mg Active EPINEPHrine 0.3 mg/0.3 mL auto-injector INJECT 0.3 MILLILITER (0.3 MG) BY INTRAMUSCULAR ROUTE ONCE NEEDED FOR ANAPHYLAXIS 5 Active gabapentin (NEURONTIN) 300 MG capsule Take 1 capsule (300 mg total) by mouth 3 (three) times a day. Active aspirin 81 MG EC tablet Take 81 mg by mouth daily. Active methylphenidat e HCl (RITALIN) 20 MG tablet Take 20 [...] mouth daily as needed for anxiety. Active Active Problems Problem Noted Date Diagnosed [...] also discussed vertigo management, will refer to [facility] core PT for vestibular physical therapy [...] Routine general medical exam [facility] 10/01/2024 Assessment & Plan (01/29/2025 3:11 PM EDT): Seasonal influenza vaccine administered in the office today. Assessment & Plan (10/01/2024 2:58 PM EDT): Will obtain routine lab work including CMP, lipid panel, thyroid panel as well as one-time HIV screening. Mammogram scheduled next week through [facility]. Pap smear up-to-date. Cologuard test done at the age of 49 which was negative, due for repeat testing. Denies any family history of colon cancer, denies GI bleeding. Cologuard ordered. Postconcussion syndrome 10/01/2024 Assessment & Plan (10/01/2024 2:57 PM EDT): Postconcussion syndrome following subarachnoid bleed, following with Marjorie Patrick at [facility] neurology and sleep. She does have associated [...] Plan (10/01/2024 2:58 PM EDT): Following with [facility] orthopedics. History of ORIF in the [...] associated with her fibromyalgia. Currently following with [facility], Dr. Pam Iglesias. She is [...] reemerge, she was advised to contact her baking factory worker. Assessment & Plan (12/17/2023 12:40 PM EDT): [...] Description 01/29/2025 2:40 PM EDT Office Visit [facility] [address] [facility] [place] [address] Briana Lagunas PA-C Vertigo (Primary Dx); Elevated blood pressure reading without diagnosis of hypertension; Pure hypercholesterolemia; Routine general medical examination at a health care facility 01/27/2025 Orders Only [facility] [address] [facility] [place] [address] Briana Lagunas PA-C 01/27/2025 Telephone [facility] [address] [place] [address] Briana Lagunas PA-C TCM Visit 01/26/2025 8:20 AM EDT Office Visit [facility] [address] [facility] [place] [address] Mario Hardy PA-C 01/26/2025 - 01/26/2025 9:32 PM EDT Emergency [facility] [address] [place] [address] Discharge Disposition: ED Dismiss - Never Arrived 01/26/2025 Telephone [facility] [address] [place] [address] Briana Lagunas PA-C Emergency Expect 01/26/2025 Orders Only [facility] [address] [place] [address] Briana Lagunas PA-C 01/25/2025 Nurse Triage [facility] [address] [place] [address] Briana Lagunas PA-C Rosuvastatin from Last 3 [...] high school, GED, job training, learning the [place] Citizen language, technical skills, or developing parenting skills)? [...] Description 04/06/2025 8:40 AM EST Office Visit [facility] [address] [place] [address] Briana Lagunas PA-C [address] [place] [address] [email or web address] Health Maintenance Due Date Last Done Comments Adult Td,Tdap Booster 1969 COLONOSCOPY 2014 FIT TEST 2014 FOBT 2014 SIGMOIDOSCOPY 2014 VIRTUAL COLONOSCOPY 2014 PNEUMOCOCCAL VACCINES (50+ years) (1 of 1 - PCV) 2019 ZOSTER VACCINES (1 of 2) 2019 PAP SMEAR 07/29/2022 07/30/2019 COVID-19 VACCINE (4 - 2024- season) 2025 06/26/2021, 06/14/2020, 05/07/2020 REPEAT PHQ [...] medical examination at a health care facility HM MAMMOGRAPHY Routine 10/16/2024 7:11 AM EDT PAP TEST Routine 07/30/2019 8:44 AM EDT HISTORICAL LAB Routine 09/24/2011 5:43 PM EDT from Last 3 Months or Most Recently Relevant to Health Maintenance Results * Outside ECG Report Only (01/26/2025 3:30 PM EDT) Historical Provider ECG ORDERABLES Edited Re sult - Final * Outside Lab (01/26/2025 3:29 PM EDT) Historical Provider LAB BLOOD BKR ORDERABLES Edited Result - Final * Outside CT Head/Neck [...] & B/RSV (Cepheid) (01/26/2025 8:37 AM EDT) RSV PCR Negative Negative [facility] SARS-CoV-2 (COVID-19) Negative Negative [facility] Influenza A PCR Negative Negative [facility] Influenza B PCR Negative Negative [facility] 01/26/2025 8:37 AM EDT 01/26/2025 9:19 AM EDT Result [facility] Mario Hardy PA-C LAB POCT ENTER/EDIT ORDERABLE S Final Result [facility] [address] [place] [address], [facility] [phone] * Outside Potassium Level (01/26/2025) Pathologist [facility] Potassium level - External 4.5 3.4 - 5.0 mmol/L Result [facility] Historical Provider LAB BLOOD ORDERABLES Madai l Result * (ABNORMAL) Outside Serum Creatinine Level (01/26/2025) Pathologist [facility] Creatinine, serum - External 0.76(A) 0.8 - 1.3 mg/dL Result [facility] Provider LAB BLOOD ORDERABLES Madai l Result * Lipid panel (11/04/2024) [facility] HDL - External 70 EXTER NAL NON-INTERFACE D REF LAB Cholesterol, Total - External 257 EXTERNAL NON-INTERFACE D REF LAB Triglycerides - External 158 EXTERNAL NON-INTERFACE D REF LAB LDL, calculated - External 159 EXTERNAL NON-INTERFACE D REF LAB Cardiac Risk Ratio - External EXTERNAL NON-INTERFACE D REF LAB Non-HDL Cholesterol - External EXTERNAL NON-INTERFACE D REF LAB Blood 11/04/2024 Result [facility] Briana Lagunas PA-C LAB BLOOD BKR ORDERABLES Porter rosalie Result - Final EXTERNAL NON-INTERFACED REF LAB * HM MAMMOGRAPHY FOR RESULT ENTRY ONLY (10/16/2024 7:11 AM EDT) Result [facility] Historical Provider HEALTH MAINTENANCE Final Result * Pap Test (07/30/2019 8:44 AM EDT) [facility] Result - External See Scanned Results Impressions Danielle Palacios, LEAN COACH - 07/30/2019 8:44 AM EDT NILM, HPV neg Result [facility] Historical Provider CYTOLOGY ORDERABLES Edite d Result - Final * Historical Lab (09/24/2011 5:43 PM EDT) 25(OH)VITAMIN D 24 20 - 80 ng/mL [facility] LYME-ABC No IgM, IgG or IgA antibody to B.burgdorferi detected by capture EIA. The IgG Immunoblot results fall within normal limits. INTERPRETATION : No serologic evidence of infection with B.burgdorferi (Lyme). [facility] Comment:TEST PERFORMED BY [employer] [place], [place] YANETH(HEP2)TITER 0 0.0 - 0.0 titer [facility] YANETH(HEP2)PATTE RN 0 0.0 - 0.0 pattern [facility] RF units <11 0.0 - 15 IU/mL [facility] A-CCP 4 0 - 7 Carmina U/mL [facility] ANTI-SM 7 0.0 - 20.0 EU/mL [facility] ANTI-BRUSH FABRICATION SUPERVISOR 0 0.0 - 20.0 EU/mL [facility] ANTI-Ro 2 0.0 - 20.0 EU/mL [facility] ANTI-La 1 0.0 - 20.0 EU/mL [facility] HAV TOTAL ANTIBODIES ANTIBODY NEGATIVE NON-REACTIV E [facility] HAV IgM NEGATIVE NEGATIVE [facility] HBsAg NEGATIVE NEGATIVE [facility] HBsAb POSITIVE NEGATIVE [facility] HBcAb NEGATIVE NEGATIVE [facility] HBc IgM NEGATIVE NEGATIVE [facility] HCV NEGATIVE NEGATIVE [facility] 09/24/2011 5:43 PM EDT Comment:BLOOD us Deanna Haddad MD, MPH LAB BLOOD ORDERABLES F inal Result [address] [address] from Last 3 Months or Most Recently Relevant to Health Maintenance Insurance BLUE [employer]OSS OUT OF STATE PPO BLUE [employer] OUT OF STATE PPO BLUE [employer] OUT OF STATE PPO OUT OF STATE PPO OUT [employer] OUT OF STATE PPO OUT OF [facility] [place] [address] [address] OUT OF STATE PPO [employer]UE [employer] OUT OF STATE PPO Care Teams Cooling Pan Tender Relationship Specialty Start Date End Date Briana Lagunas PA-C [address] [place] [address] [email or web address] PCP - General Physician Calender Tender 10/01/24 Yumiko Fowler MD [address] [address] Obstetrics and Gynecology 01/26/25 Additional Source Comments The information contained in this document represents components of the legal health record. It is not the complete legal health record.[facility]
--- OUTSIDE RECORDS SUMMARY | 2025-03-09 18:22 | XMS_ITS | Encounter Summary ---
Author Organization [facility] Address [address] [place] [address] [place] [address] Phone Care Team Providers Care Patient Registration Representative Name Role Phone Patti Cox MD Primary Care Provider [phone] Patti Carter NP Primary Care Provi francisco Unavailable Se Mujica MD Primary Care Provider [phone] Briana Lagunas PA-C Primary Care Provider Yumiko Fowler MD Unavailable [phone] Encounter Details Date Type Department Care Team (Late st Contact Info) Description 10/31/2020 Transcribe Orders [facility] [address] [place] [address] Denia Patrick NP [address] [address] Social History Tobacco Use Types Packs/Day Years [...] Description 04/06/2025 8:40 AM EST [facility] [place] [facility] [address] [place], [place] [phone] Briana Lagunas PA-C 40 [place] [address] [email or web address] documented as of this encounter Visit Diagnoses Not on filedocumented in this encounter Care Teams Patient Registration Representative Relationship Specialty Start Date End Date Patti Cox MD [address] [place] [phone] [email or web address] PCP - General Internal Medicine 10/31/20 05/07/23 Patti Carter NP PCP - General Nurse Practitioner 05/08/23 12/16/23 Se Mujica MD 40 [place] [address] PCP - General Internal Medicine 12/17/23 09/30/24 Briana Lagunas PA-C [address] [place] [address] [email or web address] PCP - General Physician Customer Experience Associate 10/01/24 Yumiko Fowler MD [address] [place] [address] [email or web address] Obstetrics and Gynecology 01/26/25 documented as of this encounter Additional Source Comments The information contained in this document represents components of the legal health record. It is not the complete legal health record.[facility]
== END 2025-03-09 15:50 | disposition home or self-care (01) ==
LOC: HO.MRI 15:49
PROVIDERS: PCP Internal Medicine; Visit Provider Nurse Practitioner Family
DX: R42 Dizziness and giddiness (principal); R51.9 Headache, unspecified; F09 Unspecified mental disorder due to known physiological condition
CPT/HCPCS: 70553; A9585

== ENCOUNTER 2025-04-05 08:38 | Outpatient (AMB) | payer BC, SELFPAY ==
[2025-04-05 08:40] VITALS: BMI 29.6
--- NOTE | 2025-04-05 08:40 | MHC.OFFVIS ---
Vital Signs 04/05/25 08:40 Height 5 ft 5 in Weight 178 lb BMI 29.6 Intake Visit Reasons: OV - Severe Right Knee OA - Last Inj 12/31/24 Intake Note: iSria is a 55 year old female who presents today for a follow up of her Severe Right Knee OA. Her insurance will not pay for Viscosupplementation and PRP was not helpful. Right Knee is more painful than the left. Last injection administered to the Right Knee on 12/31/24. This injection was helpful for some inflammation and she would like to repeat the right knee injection today. Allergies codeine (CODEINE) Allergy (Severe, Verified 04/05/25 08:48) swollen tongue Sulfa (Sulfonamide Antibiotics) (SULFA (SULFONAMIDE ANTIBIOTICS)) Allergy (Severe, Verified 04/05/25 08:48) Hives penicillin G (PENICILLIN G) Allergy (Unknown, Verified 04/05/25 08:48) UNKNOWN HPI HPI OV - Severe Right Knee OA - Last Inj 12/31/24: Details: Siria comes in today with pain. She has successful injections to get another 1. They have been helpful. She has been wearing a knee brace at that she uses a cane ambulate. She has severe anterior and medial compartment osteoarthritis. She also has fibromyalgia and were trying to postpone surgery for as long as possible. [facility] Medical History Relapsing polychondritis Surgical History H/O thumb surgery Status post open reduction with internal fixation (ORIF) of fracture of ankle Hx of shoulder surgery History of carpal tunnel release Family History Father HTN (hypertension) FHx: mental illness Mother Cancer HTN (hypertension) Social History Alcohol intake: current Alcohol intake frequency: holidays/special occasions only Comment: FELL ABOUT A YR AGO BROKE HER ANKLE Patient Tobacco Use Status: Never used Tobacco Second Hand Smoke Exposure: No Substance Use Type: Marijuana Current occupational status: employed 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 Lateral retropatellar tenderness to palpation. Gait antalgia. Office Procedures Joint Inj/Aspir; Non-Pain Clin Joint Injection/Drain Details: Injected 1 mL of Decadron and 3 mL 1% lidocaine and 3 mL of 0.25% Marcaine. Site was prepped using aseptic technique. Patient tolerated the procedure well. Shoulders, Hips, Knees, Knee Large Joint Injection : Right Knee Coding Procedure code (CPT) selection complete Assessment & Plan Assessment & Plan (1) Osteoarthritis of right knee: Code(s): M17.11 - Unilateral primary osteoarthritis, right knee Category: Medical Plan: 55-year-old woman with right knee osteoarthritis. Not an ideal surgical candidate given age and significant fibromyalgia. Injected right knee. If this is not sufficiently helpful can consider viscosupplementation. Coding Level of Care Code Est Pt Level 3 (67018) Diagnoses Osteoarthritis of right knee M17.11 CPT Codes Shoulders, Hips, Knees, - Knee Large Joint Injection : Right Knee ([id number])
--- OUTSIDE RECORDS SUMMARY | 2025-04-05 09:12 | XMS_ITS | Encounter Summary ---
Author Organization [facility] Address [address] [facility] [address] [place] [address] Phone Care Team Providers Care Professional Athletes Coach Name Role Phone Patti Cox MD Primary Care Provider [phone] Patti Cox MD Primary Care Provider [phone] Patti Carter NP Primary Care Provi francisco Unavailable Se Mujica MD Primary Care Provider [phone] Briana Lagunas PA-C Primary Care Provider Yumiko Fowler MD Unavailable [phone] Encounter Details Date Type Department Care Team (Late st Contact Info) Description 01/02/2018 Ancillary Orders Non-Invasive Cardiology [address] [place] [address] Raphael Martinez DO [facility] [address] [place] [address] [email or web address] Social History Tobacco Use Types Packs/Day Years [...] Description 04/06/2025 8:40 AM EST [facility] [place] [facility] 40 [place] [address] Briana Lagunas PA-C 40 [place] [address] [email or web address] documented as of this encounter Visit Diagnoses Not on filedocumented in this encounter Care Teams Professional Athletes Coach Relationship Specialty Start Date End Date Patti Cox MD [address] [place] [address] [email or web address] PCP - General 09/09/14 10/30/20 Patti Cox MD [address] [place] [address] [email or web address] PCP - General Internal Medicine 10/31/20 05/07/23 Patti Carter NP PCP - General Nurse Practitioner 05/08/23 12/16/23 Se Mujica MD [address] [place] [phone] PCP - General Internal Medicine 12/17/23 09/30/24 Briana Lagunas PA-C [address] [place] [phone] [email or web address] PCP - General Physician Support Dba 10/01/24 Yumiko Fowler MD [facility] [id number] [email or web address] Obstetrics and Gynecology 01/26/25 documented as of this encounter Additional Source Comments The information contained in this document represents components of the legal health record. It is not the complete legal health record.[facility]
--- OUTSIDE RECORDS SUMMARY | 2025-04-05 09:12 | XMS_ITS | Encounter Summary ---
Author Organization [facility] Address [address] [facility] [address] [place] [address] Phone Care Team Providers Care Environmental Consultant Name Role Phone Patti Cox MD Primary Care Provider [phone] Patti Cox MD Primary Care Provider [phone] Patti Carter NP Primary Care Provi francisco Unavailable Se Mujica MD Primary Care Provider [phone] Briana Lagunas PA-C Primary Care Provider Yumiko Fowler MD Unavailable [phone] Encounter Details Date Type Department Care Team (Late st Contact Info) Description 01/02/2018 Ancillary Orders [facility] [address] [place] [address] Raphael Martinez DO [address] [facility] [address] [place] [address] [email or web address] Palpitations Social History Tobacco Use Types Packs/Day [...] Description 04/06/2025 8:40 AM EST [facility] 40 [place] [address] Briana Lagunas PA-C 40 [place] [address] [email or web address] documented as of this encounter Results * [...] Palpitations documented in this encounter Care Teams Environmental Consultant Relationship Specialty Start Date End Date Patti Cox MD [address] [place] [address] [email or web address] PCP - General 09/09/14 10/30/20 Patti Cox MD [address] [place] [address] [email or web address] PCP - General Internal Medicine 10/31/20 05/07/23 Patti Carter NP PCP - General Nurse Practitioner 05/08/23 12/16/23 Se Mujica MD [address] [place] [address] PCP - General Internal Medicine 12/17/23 09/30/24 Briana Lagunas PA-C 40 [place] [address] [email or web address] PCP - General Physician Certified Energy Manager 10/01/24 Yumiko Fowler MD [address] [place] [address] [email or web address] Obstetrics and Gynecology 01/26/25 documented as of this encounter Additional Source Comments The information contained in this document represents components of the legal health record. It is not the complete legal health record.[facility]
--- OUTSIDE RECORDS SUMMARY | 2025-04-05 09:12 | XMS_ITS | Encounter Summary ---
Author Organization [facility] Address [address] [place] [address] [place] [address] Phone Care Team Providers Care Post Acute Care Nurse Name Role Phone Patti Cox MD Primary Care Provider [phone] Patti Carter NP Primary Care Provi francisco Unavailable Se Mujica MD Primary Care Provider [phone] Briana Lagunas PA-C Primary Care Provider Yumiko Fowler MD Unavailable [phone] Encounter Details Date Type Department Care Team (Late st Contact Info) Description 10/31/2020 Transcribe Orders [facility] [address] [place] [address] Denia Patrick NP [address] [address] Social History Tobacco Use Types Packs/Day Years [...] Description 04/06/2025 8:40 AM EST [facility] [place] [facility] [address] [place], [place] [phone] Briana Lagunas PA-C [address] [place] [address] [email or web address] documented as of this encounter Visit Diagnoses Not on filedocumented in this encounter Care Teams Post Acute Care Nurse Relationship Specialty Start Date End Date Patti Cox MD [address] [place] [phone] [email or web address] PCP - General Internal Medicine 10/31/20 05/07/23 Patti Carter NP PCP - General Nurse Practitioner 05/08/23 12/16/23 Se Mujica MD 40 [place] [address] PCP - General Internal Medicine 12/17/23 09/30/24 Briana Lagunas PA-C [address] [place] [address] [email or web address] PCP - General Physician Security Assistant 10/01/24 Yumiko Fowler MD [address] [place] [address] [email or web address] Obstetrics and Gynecology 01/26/25 documented as of this encounter Additional Source Comments The information contained in this document represents components of the legal health record. It is not the complete legal health record.[facility]
--- OUTSIDE RECORDS SUMMARY | 2025-04-05 09:12 | XMS_ITS | Encounter Summary ---
Author Organization [facility] Address [address] [place] [address] Phone Care Team Providers Care Water Quality Tester Name Role Phone Patti Cox MD Primary Care Provider + [phone] Patti Cox MD Primary Care Provider + [phone] Patti Carter NP Primary Care Provi francisco Unavailable Se Mujica MD Primary Care Provider [phone] Briana Lagunas PA-C Primary Care Provider Yumiko Fowler MD Unavailable [phone] Encounter Details Date Type Department Care Team (Late st Contact Info) Description 01/02/2018 Ancillary [facility] [address] [place] [address] Raphael Martinez DO [address] [facility] [place] [address] [email or web address] Social History Tobacco Use Types Packs/Day Years [...] Description 04/06/2025 8:40 AM EST [facility] [address] [place] [address] Briana Lagunas PA-C [address] [place] [address] [email or web address] documented as of this encounter Visit Diagnoses Not on filedocumented in this encounter Care Teams Water Quality Tester Relationship Specialty Start Date End Date Patti Cox MD [address] [place] [address] [email or web address] PCP - General 09/09/14 10/30/20 Patti Cox MD [address] [place] [phone] [email or web address] PCP - General Internal Medicine 10/31/20 05/07/23 Patti Carter NP PCP - General Nurse Practitioner 05/08/23 12/16/23 Se Mujica MD [address] [place] [phone] PCP - General Internal Medicine 12/17/23 09/30/24 Briana Lagunas PA-C [address] [place] [address] [email or web address] PCP - General Physician Chief Operating Officer 10/01/24 Yum[facility] Fowler MD [facility] [id number] [email or web address] Obstetrics and Gynecology 01/26/25 documented as of this encounter Additional Source Comments The information contained in this document represents components of the legal health record. It is not the complete legal health record.[facility]
--- OUTSIDE RECORDS SUMMARY | 2025-04-05 09:12 | XMS_ITS | Encounter Summary ---
Author Organization [facility] Address [address] [place] [address] [place] [address] Phone Care Team Providers Care Air Launch Weapons Technician Name Role Phone Briana Lagunas PA-C Primary Care Provider [phone] Yumiko Fowler MD Unavailable [phone] Reason for Referral * MRI/CAT Scan - Closed Specialty Diagnoses / Procedures Referred By Hansel hernandez Referred To Contact Radiology Procedures Outside MR Head/Neck Report Only [facility] Internal Medicine [address] [place] [address] Phone: tel: fax: Referral ID Status Reason Start Date Expiration Date Visits Re quested Visits Authorized [id number] Closed 03/10/2025 1 1 Encounter Details Date Type Department Care Team (Late st Contact Info) Description 03/10/2025 Orders Only [facility] Internal Medicine [address] [place] [address] ProviderNanette MD [address] [place] [address] Social History Tobacco Use Types Packs/Day Years [...] high school, GED, job training, learning the Prydein[place] language, technical skills, or developing parenting skills)? [...] Description 04/06/2025 8:40 AM EST Office Visit [facility] Medicine [address] [place] [address] Briana Lagunas PA-C 40 [place] [address] [email or web address] documented as of this encounter Procedures Procedure Name Priority Date/Time Associated Diagnosis Comments OUTSIDE MR HEAD/NECK REPORT ONLY Routine 03/09/2025 8:11 AM EST documented in this encounter Results * Outside MR Head/Neck Report Only (03/09/2025 8:11 AM EST) us Historical Provider MD COLMENARES MR HEAD/NECK Final Re sult documented in this encounter Visit Diagnoses Not on filedocumented in this encounter Additional Health Concerns Assessment Noted Time PHQ-9 Depression Total Score: 15 025 8:02 AM EDT PHQ-2 Depression Total Score: 5 01/27/20 25 8:02 AM EDT documented as of this encounter Care Teams Air Launch Weapons Technician Relationship Specialty Start Date End Date Briana Lagunas PA-C [address] [place] [address] PCP - General Physician Associate Producer 10/01/24 Yumiko Fowler MD [employer] [address] [address] [email or web address] Obstetrics and Gynecology 01/26/25 documented as of this encounter Additional Source Comments The information contained in this document represents components of the legal health record. It is not the complete legal health record.[facility]
--- OUTSIDE RECORDS SUMMARY | 2025-04-05 09:12 | XMS_ITS | Clinical Summary ---
Author Organization [facility] Address [address] [place] [address] Phone Care Team Providers Care Perl Developer Name Role Phone Briana Lagunas PA-C Primary Care Provider Yumiko Fowler MD Unavailable [phone] Allergies Active Allergy Reactions Criticality Noted Date [...] also discussed vertigo management, will refer to [facility] core PT for vestibular physical therapy [...] Routine general medical exam ination at a [facility] facility 10/01/2024 Assessment & Plan (01/29/2025 3:11 PM EDT): Seasonal influenza vaccine administered in the office today. Assessment & Plan (10/01/2024 2:58 PM EDT): Will obtain routine lab work including CMP, lipid panel, thyroid panel as well as one-time HIV screening. Mammogram scheduled next week through [facility]. Pap smear up-to-date. Cologuard test done at the age of 49 which was negative, due for repeat testing. Denies any family history of colon cancer, denies GI bleeding. Cologuard ordered. Postconcussion syndrome 10/01/2024 Assessment & Plan (10/01/2024 2:57 PM EDT): Postconcussion syndrome following subarachnoid bleed, following with Marjorie Patrick at [facility] neurology and sleep. She [...] Plan (10/01/2024 2:58 PM EDT): Following with [facility] orthopedics. History of ORIF in the [...] associated with her fibromyalgia. Currently following with [facility], Dr. Pam Iglesias. She is [...] reemerge, she was advised to contact her grit blaster. Assessment & Plan (12/17/2023 12:40 PM EDT): [...] Encounters Date Type Department Care Team Description 03/10/2025 Orders Only [facility] Internal Medicine [address] [place] [address] Provider, MD Nanette 01/29/2025 2:40 PM EDT Office Visit [facility] [address] [place] [address] Briana Lagunas PA-C Vertigo (Primary Dx); Elevated blood pressure reading without diagnosis of hypertension; Pure hypercholesterolemia; Routine general medical examination at a health care facility 01/27/2025 Orders Only [facility] [address] [place] [address] Briana Lagunas PA-C 01/27/2025 Telephone [facility] [address] [facility] [address] Briana Lagunas PA-C TCM Visit 01/26/2025 8:20 AM EDT Office Visit [facility] [address] [facility] [place] [address] Mario Hardy PA-C 01/26/2025 - 01/26/2025 9:32 PM EDT Emergency [facility] [address] [place] [address] Discharge Disposition: ED Dismiss - Never Arrived 01/26/2025 Telephone [facility] Internal [facility] [address] [facility] [place] [address] Briana Lagunas PA-C Emergency Expect 01/26/2025 Orders Only [facility] Internal [facility] [address] [facility] [place] [address] Briana Lagunas PA-C 01/25/2025 Nurse Triage [facility] [place] [address] Briana Lagunas PA-C Rosuvastatin from Last 3 [...] high school, GED, job training, learning the [place] Leone[place] language, technical skills, or developing parenting skills)? [...] Description 04/06/2025 8:40 AM EST [facility] Internal Medicine [address] [place] [address] Briana Lagunas PA-C [address] [place] [address] [email or web address] Due Date Last Done Comments [...] REPORT ONLY Routine 03/09/2025 8:11 AM EST OUTSIDE ECG Routine 01/26/2025 3:30 PM EDT [...] Relevant to Health Maintenance Results * Outside MR Head/Neck Report Only (03/09/2025 8:11 AM EST) Historical Provider MD COLMENARES MR HEAD/NECK Final Re sult * Outside ECG Report Only (01/26/2025 3:30 PM EDT) Historical Provider ECG ORDERABLES Edited Re sult - Final * Outside Lab (01/26/2025 3:29 PM EDT) Historical Provider LAB BLOOD BKR ORDERABLES Edited Result - Final * Outside CT Head/Neck Report Only (01/26/2025 3:28 PM EDT) Historical Provider MD COLMENARES CT HEAD/NECK Edited R esult - Final * Outside CT Imaging Report Only (01/26/2025 3:27 PM EDT) Historical Provider MD COLMENARES CT Edited Re sult - Final * Outside CT Imaging Report Only (01/26/2025 3:26 PM EDT) Historical Provider MD COLMENARES CT Edited Re sult - Final * POCT COVID-19 RT-PCR/Influenza A & B/RSV (Cepheid) (01/26/2025 8:37 AM EDT) Pathologist [facility] RSV PCR Negative Negative [facility] SARS-CoV-2 (COVID-19) Negative Negative [facility] Influenza A PCR Negative Negative [facility] Influenza B PCR Negative Negative [facility] 01/26/2025 8:37 AM EDT 01/26/2025 9:19 AM EDT Result [facility] Mario Hardy PA-C LAB POCT ENTER/EDIT ORDERABLE S Final Result Performing Organization Address City/[facility]/ZIP Co de Phone Number [facility] [address] [place] [address], [facility] [phone] * Outside Potassium Level (01/26/2025) Pathologist [facility] Potassium level - External 4.5 3.4 - 5.0 mmol/L Result [facility] Historical Provider LAB BLOOD ORDERABLES Madai l Result * (ABNORMAL) Outside Serum Creatinine Level (01/26/2025) Pathologist [facility] Creatinine, serum - External 0.76(A) 0.8 - 1.3 mg/dL Result [facility] Historical Provider LAB BLOOD ORDERABLES Madai l Result * Lipid panel (11/04/2024) Pathologist [facility] HDL - External 70 EXTER NAL NON-INTERFACE [...] Blood 11/04/2024 Briana Lagunas PA-C LAB BLOOD BKR ORDERABLES Porter rosalie Result - Final EXTERNAL NON-INTERFACED REF LAB * HM MAMMOGRAPHY FOR RESULT ENTRY ONLY (10/16/2024 7:11 AM EDT) Result [facility] Historical Provider HEALTH MAINTENANCE Final Result * Pap Test (07/30/2019 8:44 AM EDT) Result - External See Scanned Results Impressions Danielle Palacios, KORIN - 07/30/2019 8:44 AM EDT NILM, HPV neg us Historical Provider CYTOLOGY ORDERABLES Edite d Result - Final * Historical Lab (09/24/2011 5:43 PM EDT) 25(OH)VITAMIN D 24 20 - 80 ng/mL [facility] LYME-ABC No IgM, IgG or IgA antibody to B.burgdorferi detected by capture EIA. The IgG Immunoblot results fall within normal limits. INTERPRETATION : No serologic evidence of infection with B.burgdorferi (Lyme). [facility] Comment:TEST PERFORMED BY [employer], [employer] [place], [place] YANETH(HEP2)TITER 0 0.0 - 0.0 titer [facility] YANETH(HEP2)PATTE RN 0 0.0 - 0.0 pattern [facility] RF units <11 0.0 - 15 IU/mL [facility] A-CCP 4 0 - 7 Carmina U/mL [facility] ANTI-SM 7 0.0 - 20.0 EU/mL [facility] ANTI-EXTRACTOR PLANT OPERATOR 0 0.0 - 20.0 EU/mL [facility] ANTI-Ro 2 0.0 - 20.0 EU/mL [facility] ANTI-La 1 0.0 - 20.0 EU/mL [facility] HAV TOTAL ANTIBODIES ANTIBODY NEGATIVE NON-REACTIV E [facility] HAV IgM NEGATIVE NEGATIVE [facility] HBsAg NEGATIVE NEGATIVE [facility] HBsAb POSITIVE NEGATIVE [facility] HBcAb NEGATIVE NEGATIVE [facility] HBc IgM NEGATIVE NEGATIVE [facility] HCV NEGATIVE NEGATIVE [facility] 09/24/2011 5:43 PM EDT Comment:BLOOD us Deanna Haddad MD, MPH LAB BLOOD ORDERABLES F inal Result Performing Organization Address City/State/[facility] Co de Phone Number [facility] [address] [address] from Last 3 Months or Most Recently Relevant to Health Maintenance Insurance PPO PPO BLUE CROSS OUT OF STATE PPO BLUE [place] OUT OF [place] [address] [place] [address] CROSS OUT OF STATE PPO OUT OF [facility] PPO PPO BLUE [place]OSS OUT OF STATE PPO OUT OF STATE PPO Care Teams Perl Developer Relationship Specialty Start Date End Date Briana Lagunas PA-C [address] [place] [address] PCP - General Physician Emergency Registrar 10/01/24 Yumiko Fowler MD [facility] [address] [email or web address] Obstetrics and Gynecology 01/26/25 Additional Source Comments The information contained in this document represents components of the legal health record. It is not the complete legal health record.[facility]
--- OUTSIDE RECORDS SUMMARY | 2025-04-05 09:12 | XMS_ITS | Encounter Summary ---
Author Organization [facility] Address [address] [place] [address] [place] [address] Phone Care Team Providers Care Computer Science Professor Name Role Phone Patti Cox MD Primary Care Provider + [phone] Patti Carter NP Primary Care Provi francisco Unavailable Se Mujica MD Primary Care Provider [phone] Briana Lagunas PA-C Primary Care Provider Yumiko Fowler MD Unavailable [phone] Encounter Details Date Type Department Care Team (Late st Contact Info) Description 10/31/2020 Transcribe Orders [facility] [address] [place] [address] Denia Patrick NP [address] [address] Social History Tobacco Use Types Packs/Day Years [...] Description 04/06/2025 8:40 AM EST [facility] [place] [facility] [address] [place], [place] [phone] Briana Lagunas PA-C [address] [place] [address] [email or web address] documented as of this encounter Visit Diagnoses Not on filedocumented in this encounter Care Teams Computer Science Professor Relationship Specialty Start Date End Date Patti Cox MD [address] [place] [address] [email or web address] PCP - General Internal Medicine 10/31/20 05/07/23 Patti Carter NP PCP - General Nurse Practitioner 05/08/23 12/16/23 Se Mujica MD [address] [place] [address] PCP - General Internal Medicine 12/17/23 09/30/24 Briana Lagunas PA-C [address] [place] [address] [email or web address] PCP - General Physician Jewel Flat Surfacer 10/01/24 Yumiko Fowler MD [address] [place] [address] [email or web address] [email or web address] Gynecology 01/26/25 documented as of this encounter Additional Source Comments The information contained in this document represents components of the legal health record. It is not the complete legal health record.[facility]
== END 2025-04-05 09:06 | disposition home or self-care (01) ==
LOC: HO.HOS 08:39
PROVIDERS: Visit Provider Orthopaedic Surgery
DX: M17.11 Unilateral primary osteoarthritis, right knee (principal)
CPT/HCPCS: 20610

== ENCOUNTER → 2025-04-05 08:38 | Outpatient (BNVA) | payer BC, SELFPAY | PROVIDERS: Visit Provider Orthopaedic Surgery | DX: M17.11 Unilateral primary osteoarthritis, right knee (principal) | CPT/HCPCS: 20610; J0665; J1100; J2003 ==